=== PATIENT | female | born 1950 | race African-American/Black ===

== ENCOUNTER 2019-01-05 09:49 | Day surgery (SDC) | payer OTHER ==
[2019-01-05] MEDS ORDERED: Ringers Lactate 1,000 ML IV ONE (10:14)
[2019-01-05] MEDS ORDERED: LIDOCAINE 1% MPF 5 ML VIAL ONE (10:39)
[2019-01-05] MEDS ORDERED: MIDAZOLAM HCL 2 MG/2 ML INJ ONE (10:39)
[2019-01-05] MEDS ORDERED: FENTANYL CITR 100 MCG/2 ML ONE (10:39)
[2019-01-05] MEDS ORDERED: PROPOFOL 200 MG/20 ML VIAL IV ONE (10:39)
[2019-01-05] MEDS ORDERED: LIDOCAINE 1% W/EPI 1:100,000 MDV 50 ML VIAL ONE (11:15)
[2019-01-05] MEDS ORDERED: KETOROLAC 30 MG/ML INJ ONE (12:01)
--- NOTE | 2019-01-05 21:53 | OP ---
Date of Procedure: 01/05/2019 Surgeon: Pam Marlow MD Preoperative Diagnosis: Postmenopausal bleeding. Postoperative Diagnoses: Postmenopausal bleeding and possible endometrial adenocarcinoma and endomet rial polyps. Procedures Performed: Hysteroscopy, dilation and curettage. Anesthesia: LMA. Specimens: Endometrial curettings and polyps. Complications: None. Drains: None. Condition: Stable. Findings: Genital hiatus narrow. Cervix small. Endometrial cavity filled with polypoid tissue cons istent with possible adenocarcinoma. Posterior wall appeared to be normal. Very difficult to visual ize rest of the [place] due to the presence of all the tissue. Optimal amount of sampling was performed and sent for permanent pathology. Indications For Procedure: The patient is a 68-year-old who presented with postmenopausal bleeding. On transvaginal ultrasound, her endometrium appeared to be thickened. She was consented for direct visualization of the uterine cavity with sampling and brought to the OR. After she was taken back to the OR, placed in a supine fashion on the operating table, general anesthesia was given via LMA. patient was placed in a dorsal lithotomy position using Volodymyr stirrups. Pelvic exam performed. Ge nital hiatus was very narrow, difficult to even place a medium speculum. A small Mcgowan speculum was p laced in the posterior wall. Prep x3 with Betadine was done. Anterior lip grasped with single-tooth tenaculum. The external os dilated with the tip of a long hemostat. Diagnostic SlimLine hysterosco pe was used to traverse the cervical canal under direct visualization of the uterine cavity. The fir st time tried to start the hysteroscopy, the lens did not appear to have a clear vision, so the camer a was changed, there was no change. Then lens had to be changed. Once this was done, there was opti mal visualization. The polypoid tissue was visualized. The scope was then removed. Endometrial franky yps were retrieved using Yobani forceps after optimal retrieval medium. A #1 endometrial curette wa s used for curettings. These samples were sent over for permanent pathology. All the instruments we re removed. Instrument, needle, and sponge counts were done and were correct at the end of the case. The patient tolerated the procedure well. She will follow up with me in 1 week. JUDY/ABIEL Voice ID: [id number] Report ID: [id number]
== END 2019-01-05 12:55 | disposition home or self-care (01) ==
LOC: OR 09:49
PROVIDERS: ATTEND Obstetrics & Gynecology
PROC: 0UDB7ZX Extraction of Endometrium, Via Natural or Artificial Opening, Diagnostic (ICD-10-PCS; 2019-01-05)
PROC: 0UJD8ZZ Inspection of Uterus and Cervix, Via Natural or Artificial Opening Endoscopic (ICD-10-PCS; 2019-01-05)
PROC: 0UB97ZX Excision of Uterus, Via Natural or Artificial Opening, Diagnostic (ICD-10-PCS; principal; 2019-01-05 14:00)
DX: N95.0 Postmenopausal bleeding (principal); C54.1 Malignant neoplasm of endometrium; E78.5 Hyperlipidemia, unspecified; I10 Essential (primary) hypertension; Z79.899 Other long term (current) drug therapy
CPT/HCPCS: 88305; J2250; J2704; J3010

== ENCOUNTER 2020-06-08 19:51 | Emergency (ER) | payer OTHER ==
--- OUTSIDE RECORDS SUMMARY | 2020-06-08 19:54 | XMS REPORT | Continuity of Care Document ---
:1950 Author Organization [facility] t Address [address] [place] [address] Care Team Providers Name Role Phone SALTY Primary Care Physician Unavailable JOSE RAUL Attending Clinician Unavailable Phyllis TRAMMELL Attending Clinician Unavailable SALTY Attending Clinician Unavailable FERNANDO Attending Clinician Unavailable Marlen SUERO Attending Clinician MARLEN Attending Clinician Unavailable Salty BUTLER Attending Clinician Cathleen Guadalupe Attending Clinician Berna BUTLER Attending Clinician BERNA Attending Clinician Unavailable Cathleen ALCARAZ Attending Clinician Unavailable Fernando SUERO Attending Clinician Leydi BRIONES, L Attending Clinician Phyllis White Attending Clinician Mouna BRIONES Attending Clinician Unavailable Jose Raul BUTLER Attending Clinician Sam SUERO Attending Clinician Unavailable Mary Lou THOMPSON Attending Clinician Payers Payer Name Policy Type Policy Number Effective Date Expiration Date Yury MORENO O [id number] 2006 00:00:00 Problems Condition Condition Condition Status Onset Resolution Last Treating Co mments Source Name Details Category Date Date Treatment Clinician Date Hypomagnes Hypomagnes Disease Active 20190 M D emia emia 9-16 Anderso 00:00: n 00 Encounter Encounter Disease Active 0 for for 8-20 Anderso antineopla antineopla 00:00: n stic stic 00 chemothera chemothera py py Serum Serum Disease Active creatinine creatinine 7-15 An derso raised raised 00:00: n 00 Hypertensi Hypertensi Disease Active M D on on 01-20 Anderso 00:00: n 00 Hyperlipid Hyperlipid Disease Active M D emia emia 01-20 Anderso 00:00: n 00 Postmenopa Postmenopa Disease Active M D usal usal 01-20 Anderso bleeding bleeding 00:00: n 00 Malignant Malignant Disease Active neoplasm neoplasm 01-20 Rupert o of of 00:00: n endometriu endometriu 00 m m Multinodul Multinodul Disease Active M D ar goiter ar goiter Arun rso n Trachea Trachea Disease Active displaced displaced Arun rso n Allergies, Adverse Reactions, Alerts This patient has no known allergies or adverse reactions. Family History Family Member Diagnosis Comments Start Date Stop Date Source Natural mother Diabetes Andtoño ornelas Natural mother Heart disease MD Arun rhodes Natural mother Hypertension MD Armando son Family member Thyroid cancer MD Arun rhodes Family member Thyroid disease Social History Social Habit Start Date Stop Date Quantity Comments Source Sex Assigned At F MD Emery on Exposure to Not sure MD Diallo SARS-CoV-2 (event) Tobacco use and 2020-05-27 2020-05-27 Never used MD Emery on exposure 00:00:00 00:00:00 Alcohol intake 2020-05-27 2020-05-27 Current drinker MD Linda snyder 00:00:00 00:00:00 of alcohol (finding) Alcohol Comment 2019-07-13 2019-07-13 socially MD Emery on 00:00:00 00:00:00 Tobacco Comment 2019-01-23 2019-01-23 never used MD Emery on 00:00:00 00:00:00 Smoking Status Start Date Stop Date Source Never smoker MD Diallo Medications Ordered Filled Start Stop Current Ordering Indication Dosage Frequency Signature Comments Components Source Medication Medication Date Date Medication? Clinician (SIG) Name Name hydroCHLORO Yes 1{tbl} Take 1 thiazide 9-14 tablet by Rupert covarrubias (HYDRODIURI 13:16: mouth n L) 25 mg 32 daily. tablet ergocalcife Yes Deficiency 73466W Take 1 MD rol 05-14 of vitamin capsule Rupert o (DRISDOL) 00:00: D3 (50,000 n 50,000 00 Units) by units mouth capsule every 14 (fourteen) days. valsartan Yes MD (DIOVAN) 8-12 Anderso 320 mg 00:00: n tablet 00 ondansetron Yes Malignant Take 1 tab MD (Zofran) 8 7-24 neoplasm of every 8 Anderso mg tablet 00:00: endometrium hrs on n 00 days 2, 3, 4 following chemo, then may take 1 tablet by mouth every 8 hours as needed for nausea or vomiting. prochlorper Yes Malignant 10mg Take 1 MD azine 7-24 neoplasm of tablet (10 A nderso (Compazine) 00:00: endometrium mg) by n 10 mg 00 mouth tablet every 6 (six) hours as needed for nausea or vomiting. magnesium 2019- No Hypomagnese 400mg Take 1 MD oxide 8-05 07-21 bj tablet Anderso (MAOX) 400 00:00: 00:00 (400 mg) n mg tablet 00 :00 by mouth twice daily. ondansetron 2018- No Malignant Take 1 tab MD (ZOFRAN) 8 6-17 10-31 neoplasm of every 8 Anderso mg tablet 00:00: 00:00 endometrium hrs on n 00 :00 days 2, 3, 4 following chemo, then take 1 tab every 8 hrs as needed for nausea or vomiting. prochlorper 2019- No Malignant 10mg Take 1 MD azine 6-17 10-31 neoplasm of tablet (10 Anderso (COMPAZINE) 00:00: 00:00 endometrium mg) by n 10 mg 00 :00 mouth tablet every 6 (six) hours as needed for nausea or vomiting. furosemide Yes 1{tbl} Take 1 MD (LASIX) 20 4-23 tablet by Arun rso mg tablet 00:00: mouth n 00 daily. VITAMIN D2 2019- No 1{capsu Take 1 M D 50,000 unit 4-23 09- le} capsule by A nderso capsule 00:00: 00:00 mouth n 00 :00 every 30 (thirty) days. amLODIPine 2018- Yes 1{tbl} Take 1 MD (NORVASC) 4-22 tablet by Tr so 10 mg 00:00: mouth n tablet 00 daily. allopurinol Yes 1{tbl} Take 1 MD (ZYLOPRIM) 2-15 tablet by Arun rso 300 mg 00:00: mouth n tablet 00 daily. carvedilol Yes 1{tbl} Take 1 MD (COREG) 2-15 tablet by Anderso 12.5 mg 00:00: mouth n tablet 00 twice daily. atorvastati 2017-09 Yes 1{tbl} Take 1 MD n (LIPITOR) 0-27 tablet by And erso 20 mg 00:00: mouth n tablet 00 daily. Vital Signs Vital Name Observation Time Observation Value Comments Source WEIGHT 2020-05-06 10:39:26 88.4 kg WEIGHT 2020-05-06 10:39:26 88.4 kg WEIGHT 2020-05-06 09:08:06 88.9 kg WEIGHT 2020-05-06 09:08:06 88.9 kg WEIGHT 2020-04-15 08:17:37 90.9 kg WEIGHT 2020-04-15 08:17:37 90.9 kg Systolic blood pressure 2020-05-27 14:23:00 166 mm[Hg] MD Diallo Diastolic blood pressure 2020-05-27 14:23:00 85 mm[Hg] MD Diallo Heart rate 2020-05-27 14:23:00 98 /min MD Tr lazo Body temperature 2020-05-27 14:23:00 36.89 Peyton MD Bipin fleming Respiratory rate 2020-05-27 14:23:00 18 /min MD Bipin fleming Body weight 2020-05-27 14:23:00 86.5 kg MD Tr lazo BMI 2020-05-27 14:23:00 33.58 kg/m2 MD Tr lazo Oxygen saturation in 2020-05-06 14:08:06 97 /min MD Diallo Arterial blood by Pulse oximetry Body height 2020-04-15 14:33:00 160.5 cm MD Tr lazo Procedures Procedure Date / Time Performed Performing Clinician [facility] e CANCER ANTIGEN 125 2020-05-27 13:09:47 Arianna Rodríguez MD on COMPLETE BLOOD COUNT W/ 2020-05-27 13:09:47 Arianna Rodríguez MD DIFFERENTIAL BASIC METABOLIC PANEL, CALCIUM 2020-05-27 13:09:47 Arianna Rodríguez MD TOTAL BILIRUBIN TOTAL 2020-05-27 13:09:47 Arianna Rodríguez MD ALANINE AMINOTRANSFERASE 2020-05-27 13:09:47 Arianna Rodríguez MD ASPARTATE AMINOTRANSFERASE 2020-05-27 13:09:47 Arianna Rodríguez MAGNESIUM LEVEL 2020-05-27 13:09:47 Arianna Rodríguez MD Results CBC 2020-05-27 13:09:47 Arianna Rodríguez MD MANUAL DIFFERENTIAL 2020-05-27 13:09:47 Arianna Rodríguez MD Tr son GLUCOSE LEVEL 2020-05-27 13:09:47 Arianna Rodríguez MD BLOOD UREA NITROGEN 2020-05-27 13:09:47 [facility]EL 2020-05-27 13:09:47 Arianna Rodríguez MD [facility] n SERUM CREATININE 2020-05-27 13:09:47 rAianna Rodríguez MD .GLOMERULAR FILTRATION RATE 2020-05-27 13:09:47 Arianna Rodríguez MD CALCIUM LEVEL TOTAL 2020-05-27 13:09:47 Arianna Rodríguez MD [facility] US HEAD NECK SOFT TISSUE 2020-05-07 15:57:[address] SOFT TISSUE NECK W CONTRAST 2020-05-07 14:47:31 Danielle Alcaraz MD ALBUMIN LEVEL 2020-05-06 13:56:00 Danielle Alcaraz MD CALCIUM LEVEL TOTAL 2020-05-06 13:56:00 Danielle Alcaraz MD [facility] FREE THYROXINE 2020-05-06 13:56:00 Danielle Alcaraz MD THYROID STIMULATING HORMONE 2020-05-06 13:56:00 Danielle Alcaraz MD VITAMIN D 25 HYDROXY LEVEL 2020-05-06 13:56:00 Danielle Alcaraz BLOOD UREA NITROGEN 2020-05-06 13:56:00 Dnaielle [facility] SERUM CREATININE 2020-05-06 13:56:00 Danielle Alcaraz MD CANCER ANTIGEN 125 2020-05-06 13:56:00 Santo Jean MD Rupert on COMPLETE BLOOD COUNT W/ 2020-05-06 13:56:00 Santo Jena MD DIFFERENTIAL BASIC METABOLIC PANEL, CALCIUM 2020-05-06 13:56:00 Joss Jean MD TOTAL BILIRUBIN TOTAL 2020-05-06 13:56:00 Santo Jean MD ALANINE AMINOTRANSFERASE 2020-05-06 13:56:00 Santo Jean MD ASPARTATE AMINOTRANSFERASE 2020-05-06 13:56:00 Santo Jean MAGNESIUM LEVEL 2020-05-06 13:56:00 Santo Jean MD SERUM CREATININE 2020-05-06 13:56:00 Danielle Alcaraz MD .GLOMERULAR FILTRATION RATE 2020-05-06 13:56:00 Danielle Alcaraz MD GLUCOSE LEVEL 2020-05-06 13:56:00 Santo Jean MD ELECTROLYTE PANEL 2020-05-06 13:56:00 Santo Jean MD Results CBC 2020-05-06 13:56:00 Santo Jean MD MANUAL DIFFERENTIAL 2020-05-06 13:56:00 Santo Jean MD CANCER ANTIGEN 125 2020-04-15 12:24:54 Santo Jeaners on COMPLETE BLOOD COUNT W/ 2020-04-15 12:24:54 Santo Jean MD DIFFERENTIAL BASIC METABOLIC PANEL, CALCIUM 2020-04-15 12:24:54 Joss Jean MD TOTAL BILIRUBIN TOTAL 2020-04-15 12:24:54 Santo Jean MD ALANINE AMINOTRANSFERASE 2020-04-15 12:24:54 Santo Jean MD ASPARTATE AMINOTRANSFERASE 2020-04-15 12:24:54 Santo Jean MAGNESIUM LEVEL 2020-04-15 12:24:54 Santo Jean MD Results CBC 2020-04-15 12:24:54 Santo Jean MD MANUAL DIFFERENTIAL 2020-04-15 12:24:54 Santo Jean MD GLUCOSE LEVEL 2020-04-15 12:24:54 Santo Jean MD BLOOD UREA NITROGEN 2020-04-15 12:24:54 Santo Jean MD ELECTROLYTE PANEL 2020-04-15 12:24:54 Santo Jean MD SERUM CREATININE 2020-04-15 12:24:54 Santo Jean MD .GLOMERULAR FILTRATION RATE 2020-04-15 12:24:54 Santo Jean MD CALCIUM LEVEL TOTAL 2020-04-15 12:24:54 Santo Jean MD Tr son CT CHEST ABDOMEN PELVIS W 2020-04-03 22:00:00 Santo Jean MD CONTRAST POC CREATININE 2020-04-03 21:03:00 Santo Jean MD CANCER ANTIGEN 125 2020-04-01 17:31:07 Santo Jean MD on CT ABDOMEN W WO CONTRAST 2020-03-07 13:23:00 Tiara Trammell MD POC CREATININE 2020-03-07 12:48:00 Santo Jean MD CANCER ANTIGEN 125 2020-03-07 12:27:00 Santo Jean MD on US THYROID 2019-11-15 14:39:55 Santo Jean MD THYROID STIMULATING HORMONE 2019-11-07 18:14:00 Danielle Alcaraz MD FREE THYROXINE 2019-11-07 18:14:00 Danielle Alcaraz MD THYROID PEROXIDASE ANTIBODY 2019-11-07 18:14:00 Danielle Alcaraz MD VITAMIN D 25 HYDROXY LEVEL 2019-11-07 18:14:00 Danielle Alcaraz CALCIUM LEVEL TOTAL 2019-11-07 18:14:00 Danielle Alcaraz MD son ALBUMIN LEVEL 2019-11-07 18:14:[address] CHEST ABDOMEN PELVIS W 2019-10-09 14:08:34 Arianna Rodríguez MD CONTRAST BLOOD UREA NITROGEN 2019-10-09 12:07:00 Flaquita Vargaser son SERUM CREATININE 2019-10-09 12:07:00 Flaquita Vargas MD SERUM CREATININE 2019-10-09 12:07:00 Flaquita Vargas MD .GLOMERULAR FILTRATION RATE 2019-10-09 12:07:00 Flaquita Vargas MD CANCER ANTIGEN 125 2019-07-10 12:21:30 Santo Jean MD on COMPLETE BLOOD COUNT W/ 2019-07-10 12:21:30 Santo Jean MDrskalli DIFFERENTIAL BASIC METABOLIC PANEL, CALCIUM 2019-07-10 12:21:30 Joss Jean MD IONIZED BILIRUBIN TOTAL 2019-07-10 12:21:30 Santo Jean MD ALANINE AMINOTRANSFERASE 2019-07-10 12:21:30 Santo Jean MD ASPARTATE AMINOTRANSFERASE 2019-07-10 12:21:30 Santo Jean MAGNESIUM LEVEL 2019-07-10 12:21:30 Santo Jean MD Results CBC 2019-07-10 12:21:30 Santo Jean MD MANUAL DIFFERENTIAL 2019-07-10 12:21:30 Santo Jean MD Tr son GLUCOSE LEVEL 2019-07-10 12:21:30 Santo Jean MD BLOOD UREA NITROGEN 2019-07-10 12:21:30 Santo Jean MD Tr son ELECTROLYTE PANEL 2019-07-10 12:21:30 Santo Jean MD Andbebetoo n SERUM CREATININE 2019-07-10 12:21:30 Santo Jean MD .GLOMERULAR FILTRATION RATE 2019-07-10 12:21:[address] CHEST ABDOMEN PELVIS W 2019-07-06 14:50:00 Santo Jean MD CONTRAST POC BLOOD UREA NITROGEN + 2019-07-06 13:56:00 Provider, Isael Diallo CREATININE CANCER ANTIGEN 125 2019-06-19 12:12:00 Arianna Rodríguez MD on COMPLETE BLOOD COUNT W/ 2019-06-19 12:12:00 Arianna Rodríguez MD DIFFERENTIAL BASIC METABOLIC PANEL, CALCIUM 2019-06-19 12:12:00 Arianna Rodríguez MD IONIZED BILIRUBIN TOTAL 2019-06-19 12:12:00 Arianna Rodríguez MD ALANINE AMINOTRANSFERASE 2019-06-19 12:12:00 Arianna Rodríguez MD ASPARTATE AMINOTRANSFERASE 2019-06-19 12:12:00 Arianna Rodríguez MAGNESIUM LEVEL 2019-06-19 12:12:00 Arianna Rodríguez MD Results CBC 2019-06-19 12:12:00 Arianna Rodríguez MD MANUAL DIFFERENTIAL 2019-06-19 12:12:00 Arianna Rodríguez MD Trbeka lazo GLUCOSE LEVEL 2019-06-19 12:12:00 Arianna Rodríguez MD ELECTROLYTE PANEL 2019-06-19 12:12:00 Arianna Rodríguez MD SERUM CREATININE 2019-06-19 12:12:00 Arianna Rodríguez MD .GLOMERULAR FILTRATION RATE 2019-06-19 12:12:00 Arianna Rodríguez MD BLOOD UREA NITROGEN 2019-06-19 12:12:00 Arianna Rodríguez MD Tr [place] Encounters Start End Encounter Admission Attending Care Care Encounter Source Date/Time Date/Time Type Type Clinicians Facility Department ID 2020-10-01 2020-10-01 Outpatient EL JOSE RAUL, MDA MDA [id number] MD 00:00:00 00:00:00 CARLOS A ornelas 2020-10-01 2020-10-01 Outpatient EL JP, MDA MDA [id number] MD 00:00:00 00:00:00 TIARA Dias salinas ornelas 2020-07-01 2020-07-01 Outpatient EL SALTY, MDA MDA [id number] MD 00:00:00 00:00:00 ALLAN ornelas 2020-07-01 2020-07-01 Outpatient EL FERNANDO, MDA MDA [id number] MD 00:00:00 00:00:00 SANTO ornelas 2020-07-01 2020-07-01 Outpatient BECKY JEAN, MDA MDA [id number] MD 00:00:00 00:00:00 SANTO ornelas 2020-05-27 2020-05-27 Outpatient ARIANNA CONNELL MDA MDA [id number] 09:08:41 09:08:41 Rupert ornelas 2020-05-27 2020-05-27 Outpatient EL SALTY, MDA MDA [id number] 08:11:22 08:11:22 ALLAN ornelas 2020-05-27 2020-05-27 Outpatient ARIANNA CONNELL MDA MDA [id number] 08:00:27 08:09:32 Rupert ornelas 2020-05-14 2020-05-14 Outpatient BECKY CORONEL, MDA MDA [id number] 10:28:59 10:28:59 EDELMIRA ornelas 2020-05-07 2020-05-07 Outpatient EL YSABEL, MDA MDA [id number] 09:36:53 09:36:53 DANIELLE ornelas 2020-05-07 2020-05-07 Outpatient EL YSABEL, MDA MDA [id number] 09:04:23 09:04:23 DANIELLE ornelas 2020-05-06 2020-05-06 Outpatient EL FERNANDO, MDA MDA [id number] MD 10:30:36 17:34:00 SANTO ornelas 2020-05-06 2020-05-06 Outpatient EL SALTY, MDA MDA [id number] 08:57:29 10:28:14 ALLAN ornelas 2020-05-06 2020-05-06 Outpatient BECKY JEAN, MDA MDA [id number] 08:43:39 08:50:07 SANTO Emery o ceci 2020-04-15 2020-04-15 Outpatient BECKY POND, MDA MDA [id number] MD 07:29:57 09:42:59 ALLANKALLI Emery o ceci 2020-04-15 2020-04-15 Outpatient BECKY JEAN, MDA MDA [id number] 09:09:36 09:09:36 SANTO Rupert o ceci 2020-04-15 2020-04-15 Outpatient BECKY JEAN, MDA MDA [id number] 07:08:02 07:24:34 SANTO Seners o ceci 2020-04-03 2020-04-03 Outpatient BECKY JEAN, MDA MDA [id number] 14:57:19 14:57:19 SANTO Rupert o ceci 2020-04-01 2020-04-01 Outpatient BECKY POND, MDA MDA [id number] MD 12:34:11 12:34:11 ALLANKALLI Seners o ceci 2020-04-01 2020-04-01 Outpatient BECKY JEAN, MDA MDA [id number] 12:12:01 12:17:35 SANTO Rupert o ceci 2020-03-07 2020-03-07 Outpatient BECKY BLUNT, MDA MDA [id number] 14:24:44 15:30:10 CARLOS A ornelas 2020-03-07 2020-03-07 Outpatient BECKY JEAN, MDA MDA [id number] 07:09:15 07:09:15 SANTO Seners o ceci 2020-03-07 2020-03-07 Outpatient BECKY TRAMMELL, MDA MDA [id number] 07:08:43 07:08:43 TIARA ornelas Results Test Description Test Time Test Comments Results Result [facility] e Comments CT Soft Tissue 2020-04-14 Enlarged multinodular MD Diallo Neck with 5 thyroid gland with mild Contrast 22:20:05 mediastinal extension is without significant interval change. Slight displacement of the trachea to the left is stable without decreased patency.Interface, Radiology Results In - 05/07/2020 5:22 PM CDTFULL RESULT:Examination: CT SOFT TISSUE NECK W CONTRAST on 05/07/2020 9:47 AMClinical History: Multinodular goiterIndication: Follow upComparison: Ultrasound dated 05/07/2020 and 11/15/2019, CT chest dated 04/03/2020.Technique: Axial postcontrast CT images of the neck were obtained from the level of the aortic arch to the skull base. Sagittal and coronal reconstructions were provided.Findings: The imaged intracranial compartment is unremarkable. There is complete opacification of the right maxillary sinus. The parotid glands and submandibular glands are unremarkable. The thyroid gland is diffusely enlarged, particularly the right thyroid lobe with partial extension into the superior mediastinum. Multiple heterogeneous nodules in the thyroid parenchyma are redemonstrated and appear grossly similar relative to prior CT chest. The size of the gland shows no significant interval change relative to 04/03/2020 or dating back to 01/24/2019. Mild deviation of the trachea to the left is unchanged and the airway remains patent throughout. There is no worrisome cervical adenopathy.No suspicious pulmonary nodules are seen in the imaged upper lungs. The great vessels of the neck are patent. No destructive osseous lesions are seen.IMPRESSION:Enlarge d multinodular thyroid gland with mild mediastinal extension is without significant interval change. Slight displacement of the trachea to the left is stable without decreased patency. US Head Neck 2020-04-14 Enlarged thyroid MD And erson Soft Tissue 5 consistent with 18:39:00 multinodular goiter. Multiple confluent nodules are seen in both lobes that are unchanged from the prior study of 11/15/2019. No suspicious nodules seen. There is no adenopathy.Interface, Radiology Results In - 05/07/2020 1:41 PM CDTFULL RESULT:Examination: US HEAD NECK SOFT TISSUE on 05/07/2020 10:57 AMClinical History: Multinodular goiterTrachea displacedIndication: MassComparison: 11/15/2019Technique: Real-time ultrasound examination of the neck soft tissues was performed.FINDINGS:Righ t Thyroid Lobe: The right thyroid lobe is diffusely heterogenous and enlarged. It measures 6 x 3.1 x 3.1 cm.It contains multiple confluent cystic spongiform and solid nodules. Scattered macrocalcifications are seen.The largest nodule measures 2.7 and is isoechoic.Left Thyroid Lobe: The left thyroid lobe is diffusely heterogenous and is normal in size measuring 2.9 x 1.3 x 1 cm. It contains multiple subcentimeter cystic or spongiform nodules.The isthmus is thickened. There is a 6 mm partly cystic nodule in the isthmus.The appearance of the thyroid nodules is unchanged compared to the prior scanThere is no suprasternal or cervical adenopathy.IMPRESSION:E nlarged thyroid consistent with multinodular goiter. Multiple confluent nodules are seen in both lobes that are unchanged from the prior study of 11/15/2019. No suspicious nodules seen. There is no adenopathy. CT Chest Abdomen 2020-03-14 1. Interval MD Linda snyder Pelvis with 3 development of small to Contrast 17:06:01 moderate amount of abdominopelvic ascites containing dense nodularity as seen in the perihepatic space, right paracolic gutter and pelvis, suspicious for malignant ascites/implants.2. Diffuse hazy mesenteric stranding and omental caking, suspicious for peritoneal carcinomatosis.3. Enlarging right anterior diaphragmatic lymph nodes, suspicious for metastatic involvement. 4. Stable size of two suspicious renal lesions in the right kidney. 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 Indication: Restaging - Treatment completion, COVID-19 Not Suspected, restaging-> recent elevation of CA-125Comparison: CT abdomen 03/07/2020; CT chest abdomen pelvis 10/09/2019, 07/06/2019, 01/24/2019Technique: CT of the chest, abdomen, and pelvis was performed with intravenous contrast.Findings: Chest:There a stable 0.8 cm calcified granuloma in the left lower lobe (series 4 image 81). Additional scattered bilateral pulmonary nodules measuring up to 0.3 cm noted (examples include series 4 image 29, 43, 62, 71). These pulmonary nodules have been stable since 01/24/2019.No pleural effusion or pneumothorax identified.The heart size is within normal limits. No pericardial effusion identified. There are enlarging right cardiophrenic lymph nodes. A service center representative right cardiophrenic node measures 1.1 x 1.2 cm (series 3 image 79), measuring 0.7 x 0.6 cm on study dating 01/24/2019. Additional examples of mildly enlarged right cardiophrenic lymph nodes can be seen on series 3 image 141. No enlarging hilar or axillary lymphadenopathy.Multipl e nodules again seen in the right lobe of the thyroid. High density material along the margin of the left lobe may represent postsurgical sutures or calcifications.Abdomen and Pelvis:A punctate granuloma noted in the hepatic dome. No new suspicious liver lesions identified. No focal hepatic lesion identified.The gallbladder is present. No intrahepatic biliary ductal dilatation. Mild dilation of the common bile duct measuring up to 1 cm, unchanged compared to prior study dating back to 01/24/2019.There is a stable 0.5 cm cyst in the uncinate process of the pancreas (series 3 image 178). Otherwise the pancreas is unremarkable.The spleen and adrenal glands are unremarkable.A small sliding hiatal hernia noted. There is no evidence of bowel obstruction. Moderate amount of rectal stool burden noted. There is colonic injury. A Njtg-[id number]-BbvjKhivp has been interval development of a small to moderate amount of abdominopelvic ascites containing nodularity as seen in the perihepatic space (series 3 image 141), right paracolic gutter (series 3 image 204), and pelvis (series 3 image 257, 261, 264). Additionally, there has been interval development of diffuse hazy stranding and omental caking within the mesentery suspicious for peritoneal carcinomatosis. There is a stable complex heterogeneous lesion containing internal enhancement in the superior pole of the right kidney measuring up to 1.2 x 1 cm (series 3 image 167) not significantly changed when compared to prior study dating back to 01/24/2019. A second complex heterogeneous lesion noted in the anterior interpolar region of the right kidney measuring 2.1 x 1.7 cm (series 3 image 181) containing internal enhancement not significantly changed when compared to prior study dating back to 01/24/2019. There is a stable 0.8 cm lesion arising from the posterior left kidney (series 3 image 190), possibly representing a hemorrhagic cyst. Additional subcentimeter bilateral hypodense lesions are too small to characterize. There is no hydronephrosis bilaterally.Patient is status post hysterectomy and bilateral salpingo-oophorectomy.T here is no evidence of abnormally enlarged retroperitoneal or pelvic adenopathy.The abdominal aorta is nonaneurysmal and demonstrate mild amount of scattered atherosclerosis.aNo acute or suspicious osseous abnormalities identified. Multilevel degenerative changes noted throughout the spine.IMPRESSION:1. Interval development of small to moderate amount of abdominopelvic ascites containing dense nodularity as seen in the perihepatic space, right paracolic gutter and pelvis, suspicious for malignant ascites/implants.2. Diffuse hazy mesenteric stranding and omental caking, suspicious for peritoneal carcinomatosis.3. Enlarging right anterior diaphragmatic lymph nodes, suspicious for metastatic involvement. 4. Stable size of two suspicious renal lesions in the right kidney. I personally reviewed these image(s) along with the resident's/fellow's interpretations, certify that if a procedure was performed I was physically present, and agree with the final report. POC Creatinine 2020-04-03 21:20:29 Test Item Value Reference Range Interpretation Comme nts POC Crea (test code = 1.2 mg/dL 0.6-1.3 Medica tions, especially 36454-4) hydroxyurea or supplements, such as ascorba te, can interfere with test results causing a false ly and significantlyhi gher result than expected. If a problem is suspected with a patient's result, a sampl e should be sent to the lab oratory for confirmatory te sting. POC eGFR-AA (test code = 53 >=60 mL/min/1.73 L Normal eGFR >= 60 mL/min/1.73 46075-2) m2 m2 The eGFR is calculated using the CKD-E PI equation. The eGFR declin es with age. eGFR <60 mL/min /1.73 m2 is considered as " decreased" This equation should only be used for patients 18 and older. According to th e [employer] on's Kidney Disease Outcome Quality Initiative (KDO QI) classification and 2012 Kidney Disease Improvi ng Global Outcomes (KDIGO ) Clinical Practice Guidel ine, the stage of CKD should b e categorized based on estima darryl GFR. Stage Description GFR mL/min/1.73 m21 Kidney kaya ge with normal or high GFR >=902 Kidney damage with mil d decrease in GFR 60-893a Mild to moderate decrea se in GFR 45-593b Moderat e to severe decrease in GFR 30-444 Severe decrease in GFR 15-295 Kidney f ailure <15 (or dialysis) POC eGFR-ALLEN (test code = 46 >=60 mL/min/1.73 L Normal eGFR >= 60 mL/min/1.73 53935-5) m2 m2 The eGFR is calculated using the CKD-E PI equation. The eGFR declin es with age. eGFR <60 mL/min /1.73 m2 is considered as " decreased" This equation should only be used for patients 18 and older. According to National [employer] on's Kidney Disease Outcome Quality Initiative (KDO QI) classification and 2012 Kidney Disease Improvi ng Global Outcomes (KDIGO ) Clinical Practice Guidel ine, the stage of CKD should b e categorized based on estima darryl GFR. Stage Description GFR mL/min/1.73 m21 Kidney kaya ge with normal or high GFR >=902 Kidney damage with mil d decrease in GFR 60-893a Mild to moderate decrea se in GFR 45-593b Moderat e to severe decrease in GFR 30-444 Severe decrease in GFR 15-295 Kidney f ailure <15 (or dialysis) POC Clean Dev (test code Yes = 6672) Lab Interpretation (test Abnormal code = 27524-6) MD DialloCT Abdomen with and without [id number] 13:58:23 Slight interval increase in the size of right kidney complex cystic lesions as described above. Incidental findings as above. Interface, Radiology Results In - 03/07/2020 9:00 AM CDTFULL RESULT:Examination: CT ABDOMEN W WO CONTRAST, 03/07/2020 8:23 AMClinical History: Renal mass for reassessmentIndication: renal protocol please and characterize any change in the renal cysts, particularly the two worrisome lesion in the right kidneyComparison: CT chest, abdomen and pelvis dated 10/09/2019Technique: CT of the abdomen was performed with and without intravenous contrast. The study is limited by motionartifacts.Findings:A 2.2 x 1.6 cm (series 7, image 89) right kidney interpolar region, anterior cortical multilocular cystic lesion with enhancing components previously measured 2.1 x 1.6 cm. A 1.3 x 0.9 cm (series 6, image 60) right kidney posterior cortical complex cyst with enhancing components previously measured 1.2 x 0.9 cm. Smaller simple renal cysts are also seen.A 9.5 mm hemorrhagic cyst (82HU) arising from the posterior cortex of the left kidney (series 3, image 69) again seen.There is nosolid renal mass, calculus or hydronephrosis. Bilateral single renal arteries seen. Bilateral renal veins and the inferior vena cava are patent. No significant retroperitoneal or mesenteric lymphadenopa thy.A right hepatic calcific focus and a small unilocular cyst within the pancreatic uncinate process again seen. The liver, remainder of the pancreas and the spleen are normal. Bilateral diffuse adrenal hyperplasia. Incidental hiatal hernia. The stomach and the visualized small bowel loops are normal. Significant stool within the proximal colon. There is no ascites. Multilevel degenerative changes of the visualized axial skeleton.A left lower lobe calcified granuloma without mass or consolidation in the visualized lung bases. No pleural or pericardial effusion.IMPRESSION:Slight interval increase in the size of right kidney complex cystic lesions as described above. Incidental findings as above.MD Ruano [id number] 15:41:411. Multinodular thyroid gland containing multiple low suspicion thyroid nodules which can be followed sonographically.2. No adenopathy. Interface, Radiology Results In - 11/15/2019 9:43 AM CSTFULL RESULT:Examination: ULTRASOUND SOFT TISSUE HEAD&NECK, ULTRASOUND SOFT TISSUE HEAD&NECK on 11/15/2019 8:29 AMClinical History: Endometrial carcinoma in remission.Indication: Multiple thyroid nodules on recent CT chests study.Comparison: CT chest 10/09/2019.Technique: Real-time ultrasound examination of the neck soft tissues was performed.FINDINGS:Right Thyroid Lobe measures 6.1 x 3 x 2.8 cm. Left Thyroid Lobe measures 3 x 1.3 x 1.2 cm. Isthmus measures 0.6 cm.There are multiple confluent nodules in the right thyroid lobe. Examples include a 2.7 x 2.3 x 2.1 cm spongiform nodule in the right inferior thyroid lobe. There is a focus of of coarse calcification in the right mid thyroid lobe measuring0.4 cm. There is almost completely solid 1.1 x 1.2 x 1 cm in size isoechoic nodule containing no calcification in the right superior thyroid lobe. There is a 0.8 x 0.7 x 0.6 cm spongiform nodule in the isthmus. In the left thyroid lobe there is iso-hyperechoic 1.4 x 1 x 0.9 cm solid nodule containing no calcification.Right Lateral Neck: No adenopathy.Left Lateral Neck: No adenopathy.Submental to Cricoid: No adenopathy.IMPRESSION:1. Multinodular thyroid gland containing multiple low suspicion thyroid nodules which can be followed sonographically.2. No adenopathy.MD Hurley BUN + [id number] 14:10:29 Test Item Value Reference Range Interpretation Comments POC BUN (test code = 12 mg/dL 8 6299-2) POC Crea (test code 1.1 mg/dL 0.6-1.3 Medicati ons, especially = 96393-9) hydroxyurea or supplements, londono ch as ascorbate, can interfere with test resul ts causing a falsely and significantlyhi gher result than exp ected. If a problem is londono spected with a patient' s result, a sample should be sent to the laborato for confirmatory te sting. POC eGFR-AA (test 59 >=60 L Normal eGF R >= 60 code = 47245-4) mL/min/1.73 m2 mL/min/1.7 3 m2 The eGFR is calculated u sing the CKD-EPI equatio n. The eGFR declines w ith age. eGFR <60 mL/min /1.73 m2 is considered a s "decreased" Thi s equation should only be used for patients 18 and older. According to th e National [employer] on's Kidney Disease Outcome Quality Initiat tacos (KDOQI) classif ication and 2012 Kidney Disease Improving Globa l Outcomes (KDIGO) Clinica l Practice Guideline, the stage of CKD should be c ategorized based on estima darryl GFR. Stage Descripti on GFR mL/min/1.73 m21 Kidney damage with nor mal or high GFR >= 902 Kidney damage with mil d decrease in GFR 60-89 3a Mild to moderate decrea se in GFR 45-593b Mode rate to severe decrease in GFR 30-444 Severe decrease in GFR 15-29 5 Kidney failure <15 (or dialysis) POC eGFR-ALLEN (test 51 >=60 L Normal eG FR >= 60 code = 92654-6) mL/min/1.73 m2 mL/min/1.7 3 m2 The eGFR is calculated u sing the CKD-EPI equatio n. The eGFR declines w ith age. eGFR <60 mL/min /1.73 m2 is considered a s "decreased" Thi s equation should only be used for patients 18 and older. According to e National [employer] on's Kidney Disease Outcome Quality Initiat tacos (KDOQI) classif ication and 2012 Kidney Disease Improving Globa l Outcomes (KDIGO) Clinica l Practice Guideline, the stage of CKD should be c ategorized based on estima darryl GFR. Stage Descripti on GFR mL/min/1.73 m21 Kidney damage with nor mal or high GFR >= 902 Kidney damage with mil d decrease in GFR 60-89 3a Mild to moderate decrea se in GFR 45-593b Mode rate to severe decrease in GFR 30-444 Severe decrease in GFR 15-29 5 Kidney failure <15 (or dialysis) POC Clean Dev (test Yes code = 6672) Lab Interpretation Abnormal (test code = 98227-2) MD Diallo
[2020-06-08 21:11] LABS: MPV 6.8 fL (7.6-11.3)
[2020-06-08 21:15] LABS: Absolute Lymphocytes (CBC) 1.3 K/uL (0.7-4.9); Basophils % 0.6 % (0-1.3); Hematocrit 25.5 % (36.0-45.0); Lymphocytes % 64.6 % (15.3-44.8); RBC Red Blood Cell Count 3.44 M/uL (3.86-4.86)
[2020-06-08 21:24] LABS: Protime INR 1.09
[2020-06-08 21:29] LABS: ALT/SGPT 23 U/L (12-78); AST/SGOT 16 U/L (15-37); Albumin 3.6 g/dL (3.4-5.0); Alkaline Phosphatase 83 U/L (45-117); BUN Blood Urea Nitrogen 14 mg/dL (7-18); Bicarbonate 23 mmol/L (21-32); Bilirubin Direct 0.2 mg/dL (0-0.2); Bilirubin Total 0.6 mg/dL (0.2-1.0); Glucose Level 85 mg/dL (74-106); Magnesium 1.6 mg/dL (1.8-2.4); NT PRO-BNP 100 pg/mL (<125); Potassium 3.8 mmol/L (3.5-5.1); Protein, Total 8.5 g/dL (6.4-8.2); Sodium Level 136 mmol/L (136-145); Troponin (Emerg Dept Use Only) < 0.02 ng/mL (0.0-0.045)
--- NOTE | 2020-06-08 21:45 | RAD REPORT ---
EXAM DESCRIPTION: Marya Single View06/08/2020 9:18 pm CLINICAL HISTORY: Weakness COMPARISON: none FINDINGS: The lungs appear clear of acute infiltrate. The heart is normal size IMPRESSION: No acute abnormalities displayed
[2020-06-08 21:58] LABS: Blood Morphology Comment NOTED (NOT SEEN); Hypochromasia 2+; Platelet Estimate ADEQ; Platelets, Giant OCC
[2020-06-08 21:59] LABS: Stomatocytes 1+; Target Cells 1+
[2020-06-08] MEDS ORDERED: NA CHLORIDE 0.9% 1,000 ML ONE (22:28)
[2020-06-08 23:04] LABS: Urine Blood NEGATIVE (NEG); Urine Glucose NEGATIVE (NEG); Urine Protein NEGATIVE (NEG)
--- NOTE | 2020-06-08 23:27 | EDPHYS ---
Physician Documentation [facility] Name: Cass Vance Age: 69 yrs Sex: Female : 1950 Arrival Date: 06/08/2020 Time: 19:53 Bed 13 Private MD: ED Physician Ebenezer Corbett HPI: 06/08 21:12 This 69 yrs old Black Female presents to ER via Ambulatory with complaints of General mh7 Weakness. 21:12 The patient's problem is reported as weakness, that is generalized, Generalized fatigue.mh7 21:12 Onset: The symptoms/episode began/occurred 1 week(s) ago. Duration: constant. Context: mh7 generalized fatigue/weakness, on chemo for uterine cancer, last chemo was 2 weeks ago, told to get blood checked. The symptoms are alleviated by nothing. The symptoms are aggravated by walking. Associated signs and symptoms: Pertinent negatives: abdominal pain, agitation, ataxia, blurred vision, chest pain, combativeness, confusion, diaphoresis, diarrhea, dizziness, headache, lightheadedness, nausea, numbness, palpitations, seizure, shortness of breath, tingling, vertigo, vomiting. Severity of symptoms: At their worst the symptoms were moderate 7 day(s) ago, in the emergency department the symptoms have improved moderately. Historical: - Allergies: 20:00 No Known Allergies; ll1 - PMHx: 20:00 uterine CA; Hypertension; High Cholesterol; ll1 - PSHx: 20:00 Cancer surgery; ll1 - Immunization history:: Flu vaccine is not up to date. - Social history:: Smoking status: Patient denies any tobacco usage or history of. ROS: 21:12 Constitutional: Negative for fever, chills, and weight loss, Eyes: Negative for injury, mh7 pain, redness, and discharge, ENT: Negative for injury, pain, and discharge, Neck: Negative for injury, pain, and swelling, Cardiovascular: Negative for chest pain, palpitations, and edema, Respiratory: Negative for shortness of breath, cough, wheezing, and pleuritic chest pain, Abdomen/GI: Negative for abdominal pain, nausea, vomiting, diarrhea, and constipation, Back: Negative for injury and pain, : Negative for injury, bleeding, discharge, and swelling, MS/Extremity: Negative for injury and deformity, Skin: Negative for injury, rash, and discoloration, Neuro: Negative for headache, weakness, numbness, tingling, and seizure, Psych: Negative for depression, anxiety, suicide ideation, homicidal ideation, and hallucinations, Allergy/Immunology: Negative for hives, rash, and allergies, Endocrine: Negative for neck swelling, polydipsia, polyuria, polyphagia, and marked weight changes, Hematologic/Lymphatic: Negative for swollen nodes, abnormal bleeding, and unusual bruising. Exam: 21:12 Constitutional: This is a well developed, well nourished patient who is awake, alert, mh7 and in no acute distress. Head/Face: Normocephalic, atraumatic. Eyes: Pupils equal round and reactive to light, extra-ocular motions intact. Lids and lashes normal. Conjunctiva and sclera are non-icteric and not injected. Cornea within normal limits. Periorbital areas with no swelling, redness, or edema. 22:43 ENT: Nares patent. No nasal discharge, no septal abnormalities noted. Tympanic mh7 membranes are normal and external auditory canals are clear. Oropharynx with no redness, swelling, or masses, exudates, or evidence of obstruction, uvula midline. Mucous membranes moist. Neck: Trachea midline, no thyromegaly or masses palpated, and no cervical lymphadenopathy. Supple, full range of motion without nuchal rigidity, or vertebral point tenderness. No Meningismus. Chest/axilla: Normal chest wall appearance and motion. Nontender with no deformity. No lesions are appreciated. Cardiovascular: Regular rate and rhythm with a normal S1 and S2. No gallops, murmurs, or rubs. Normal PMI, no JVD. No pulse deficits. Respiratory: Lungs have equal breath sounds bilaterally, clear to auscultation and percussion. No rales, rhonchi or wheezes noted. No increased work of breathing, no retractions or nasal flaring. Abdomen/GI: Soft, non-tender, with normal bowel sounds. No distension or tympany. No guarding or rebound. No evidence of tenderness throughout. Back: No spinal tenderness. No costovertebral tenderness. Full range of motion. Skin: Warm, dry with normal turgor. Normal color with no rashes, no lesions, and no evidence of cellulitis. MS/ Extremity: Pulses equal, no cyanosis. Neurovascular intact. Full, normal range of motion. Neuro: Awake and alert, GCS 15, oriented to person, place, time, and situation. Cranial nerves II-XII grossly intact. Motor strength 5/5 in all extremities. Sensory grossly intact. Cerebellar exam normal. Normal gait. Psych: Awake, alert, with orientation to person, place and time. Behavior, mood, and affect are within normal limits. 23:59 CT study not indicated or reported. Reason for not performing CT: not ordered, problem [facility] not related to focal neurological issue 06/09 02:07 ECG was reviewed by the Attending Physician. [facility] Vital Signs: 06/08 19:58 BP 151 / 100; Pulse 111; Resp 18; Temp 98.6; Pulse Ox 100% ; Weight 83.91 kg; Height 5 ll1 ft. 6 in. (167.64 cm); Pain 0/10; 22:20 BP 123 / 92; Pulse 77; Resp 19; Pulse Ox 99% ; rr5 23:00 BP 121 / 75; Pulse 79; Resp 16; Pulse Ox 98% ; rr5 23:59 BP 127 / 84; Pulse 70; Resp 16; Temp 99; Pulse Ox 99% ; rr5 19:58 Body Mass Index 29.86 (83.91 kg, 167.64 cm) ll1 MDM: 20:43 Patient medically screened. [facility] 23:24 Differential diagnosis: metabolic disorder, drug effects, Anemia, Neutropenia. Data [facility] reviewed: vital signs, nurses notes, lab test result(s), cardiac enzymes, CBC, electrolytes, urinalysis, radiologic studies, plain films. Data interpreted: Pulse oximetry: on room air is 99 %. Interpretation: normal. Counseling: I had a detailed discussion with the patient and/or guardian regarding: the historical points, exam findings, and any diagnostic results supporting the discharge/admit diagnosis, lab results, radiology results, the need for outpatient follow up, to return to the emergency department if symptoms worsen or persist or if there are any questions or concerns that arise at home. Response to treatment: the patient's symptoms have markedly improved after treatment, the patient is now symptom free, patient is well hydrated. 23:59 ED course: Feels better, well appearing, NAD, VSS, no focal neurological deficits. [facility] Discussed with Dr. Cueva, covering for patient's oncologist Dr. Joseph. She recommended no treatment or hospitalization for patient's neutropenia as this is expected within 2 weeks after chemotherapy and since patient is afebrile. Recommended that patient follow up but may return to ED if she develops fever. This information was discussed with the patient who agreed with the plan. . 06/08 20:44 Order name: Basic Metabolic Panel [facility] 06/08 20:44 Order name: CBC with Diff [facility] 06/08 20:44 Order name: LFT's [facility] 06/08 20:44 Order name: Magnesium [facility] 06/08 20:44 Order name: NT PRO-BNP [facility] 06/08 20:44 Order name: PT-INR [facility] 06/08 20:44 Order name: Troponin (emerg Dept Use Only) [facility] 06/08 21:00 Order name: Type And Screen [facility] 06/08 21:27 Order name: CBC with Automated Diff; Complete Time: 22:10 [facility] 06/08 21:28 Order name: Protime (+INR); Complete Time: 22:10 [facility] 06/08 21:29 Order name: Basic Metabolic Panel; Complete Time: 22:10 [facility] 06/08 21:29 Order name: Liver (Hepatic) Function; Complete Time: 22:10 [facility] 06/08 21:29 Order name: Troponin (Emerg Dept Use Only); Complete Time: 22:10 [facility] 06/08 21:29 Order name: NT PRO-BNP; Complete Time: 22:10 [facility] 06/08 20:44 Order name: XRAY Chest (1 view) [facility] 06/08 20:44 Order name: EKG; Complete Time: 20:45 [facility] 06/08 20:44 Order name: Cardiac monitoring; Complete Time: 21: [facility] 06/08 20:44 Order name: EKG - Nurse/Tech; Complete Time: 21: [facility] 06/08 20:44 Order name: IV Saline Lock; Complete Time: 21: [facility] 06/08 20:44 Order name: Labs collected and sent; Complete Time: 21: [facility] 06/08 20:44 Order name: O2 Per Protocol; Complete Time: 21: [facility] 06/08 20:44 Order name: O2 Sat Monitoring; Complete Time: 21: [facility] 06/08 20:44 Order name: Urine Dipstick-Ancillary (obtain specimen); Complete Time: 21:53 mh7 06/08 21:29 Order name: Magnesium; Complete Time: 22:10 [facility] 06/08 21:46 Order name: RAD; Complete Time: 22:10 ED[facility] 06/08 21:59 Order name: Manual Differential; Complete Time: 22:10 EDMS 06/08 22:07 Order name: Urine Dipstick--Ancillary (enter results) mw2 06/08 22:17 Order name: Type and Screen; Complete Time: 23:12 EDMS 06/08 23:05 Order name: Urine Dipstick-Ancillary; Complete Time: 23:12 EDMS EC/27 02:07 Rate is 87 beats/min. Rhythm is regular, Normal Sinus Rhythm. QRS Schriever is Normal. [place] mh7 interval is normal. QRS interval is normal. QT interval is normal. No Q waves. T waves are Normal. No ST changes noted. Clinical impression: Normal ECG and LVH. Administered Medications: 06/08 22:17 Drug: NS 0.9% 1000 ml Route: IV; Rate: 1000 ml; Site: right antecubital; rr5 23:50 Follow up: Response: No adverse reaction; IV Status: Completed infusion; IV Intake: rr5 1000ml Disposition: 06/08/20 23:27 Discharged to Home. Impression: Generalized Weakness, Anemia, Neutropenia without Fever. - Condition is Stable. - Discharge Instructions: Anemia, Nonspecific, Neutropenia, Weakness, [id number]. - Medication Reconciliation Form, Thank You Letter, Antibiotic Education, Prescription Opioid Use form. - Follow up: Private Physician; When: 1 - 2 days; Reason: Worsening of condition, Recheck today's complaints, Continuance of care, Re-evaluation by your physician. - Problem is an ongoing problem. - Symptoms have improved. Signatures: Dispatcher [employer] EDMS Kirill West RN RN rr5 Kevin Cope RN RN ll1 Ebenzeer Corbett MD MD mh7 Corrections: (The following items were deleted from the chart) 23:28 23:27 06/08/2020 23:27 Discharged to Home. Impression: Generalized Weakness; Anemia; mh7 Neutropenia. Condition is Stable. Forms are Medication Reconciliation Form, Thank You Letter, Antibiotic Education, Prescription Opioid Use. Follow up: Private Physician; When: 1 - 2 days; Reason: Worsening of condition, Recheck today's complaints, Continuance of care, Re-evaluation by your physician. Problem is an ongoing problem. Symptoms have improved. 7 06/09 00:01 06/08 23:28 06/08/2020 23:27 Discharged to Home. Impression: Generalized Weakness; rr5 Anemia; Neutropenia without Fever. Condition is Stable. Discharge Instructions: Anemia, Nonspecific, Neutropenia, Weakness, [id number]. Forms are Medication Reconciliation Form, Thank You Letter, Antibiotic Education, Prescription Opioid Use. Follow up: Private Physician; When: 1 - 2 days; Reason: Worsening of condition, Recheck today's complaints, Continuance of care, Re-evaluation by your physician. Problem is an ongoing problem. Symptoms have improved. 7
--- NOTE | 2020-06-08 23:27 | ER ---
Nurse's Notes [facility] Name: Cass Vance Age: 69 yrs Sex: Female : 1950 Arrival Date: 06/08/2020 Time: 19:53 Bed 13 Private MD: Diagnosis: Generalized Weakness;Anemia;Neutropenia without Fever Presentation: 06/08 19:58 Chief complaint: Patient states: Generalized weakness for 1 week. WBC count is low, HGB ll1 7.9, sent by cancer doctor. 2nd round of chemo now. Coronavirus screen: Client denies travel out of the [place] in the last 14 days. At this time, the client does not indicate any symptoms associated with coronavirus-19. Ebola Screen: Patient denies travel to an Ebola-affected area in the 21 days before illness onset. Initial Sepsis Screen: Does the patient meet any 2 criteria? HR > 90 bpm. No. Patient's initial sepsis screen is negative. Risk Assessment: Do you want to hurt yourself or someone else? Patient reports no desire to harm self or others. Onset of symptoms was June 01, 2020. 19:58 Method Of Arrival: Ambulatory ll1 19:58 Acuity: KEN 3 ll1 20:40 Initial Sepsis Screen: Does the patient have a suspected source of infection? No. rr5 Patient's initial sepsis screen is negative. Historical: - Allergies: 20:00 No Known Allergies; ll1 - PMHx: 20:00 uterine CA; Hypertension; High Cholesterol; ll1 - PSHx: 20:00 Cancer surgery; ll1 - Immunization history:: Flu vaccine is not up to date. - Social history:: Smoking status: Patient denies any tobacco usage or history of. Screenin:11 Abuse screen: Denies threats or abuse. Denies injuries from another. Nutritional rr5 screening: No deficits noted. Tuberculosis screening: No symptoms or risk factors identified. Fall Risk None identified. IV access (20 points). Total Schulz Fall Scale indicates No Risk (0-24 pts). Assessment: 20:10 General: Appears in no apparent distress. uncomfortable, Behavior is calm, cooperative, rr5 appropriate for age, Reports fatigue for. 20:10 Pain: Denies pain. Neuro: Level of Consciousness is awake, alert, obeys commands, rr5 Oriented to person, place, time, situation, Appropriate for age Reports weakness. Cardiovascular: Capillary refill < 3 seconds Patient's skin is warm and dry. Respiratory: Airway is patent Respiratory effort is even, unlabored, Respiratory pattern is regular, symmetrical. GI: Abdomen is round Patient currently denies nausea, vomiting. : No signs and/or symptoms were reported regarding the genitourinary system. EENT: No signs and/or symptoms were reported regarding the EENT system. Derm: Skin is intact, is healthy with good turgor, Skin temperature is warm. Musculoskeletal: Circulation, motion, and sensation intact. Capillary refill < 3 seconds. 21:30 Reassessment: Patient appears in no apparent distress at this time. Patient is alert, rr5 oriented x 3, equal unlabored respirations, skin warm/dry/pink. amaury daughter contact number [phone]. 22:05 Reassessment: Patient appears in no apparent distress at this time. Patient and/or rr5 family updated on plan of care and expected duration. Pain level reassessed. Patient is alert, oriented x 3, equal unlabored respirations, skin warm/dry/pink. 23:00 Reassessment: Patient appears in no apparent distress at this time. Patient is alert, rr5 oriented x 3, equal unlabored respirations, skin warm/dry/pink. awaiting for the response of her PCP in [facility] if for admission or Out patient. 06/09 00:00 Reassessment: Patient appears in no apparent distress at this time. Patient is alert, rr5 oriented x 3, equal unlabored respirations, skin warm/dry/pink. discharge instruction given and explained without complaints made. Vital Signs: 06/08 19:58 BP 151 / 100; Pulse 111; Resp 18; Temp 98.6; Pulse Ox 100% ; Weight 83.91 kg; Height 5 ll1 ft. 6 in. (167.64 cm); Pain 0/10; 22:20 BP 123 / 92; Pulse 77; Resp 19; Pulse Ox 99% ; rr5 23:00 BP 121 / 75; Pulse 79; Resp 16; Pulse Ox 98% ; rr5 23:59 BP 127 / 84; Pulse 70; Resp 16; Temp 99; Pulse Ox 99% ; rr5 19:58 Body Mass Index 29.86 (83.91 kg, 167.64 cm) ll1 ED Course: 19:53 Patient arrived in ED. cl3 20:00 Triage completed. ll1 20:01 Arm band placed on Patient placed in an exam room, on a stretcher. ll1 20:14 Kirill West, RN is Primary Nurse. rr5 20:28 Ebenezer Corbett MD is Attending Physician. 7 20:39 Patient has correct armband on for positive identification. Placed in gown. Bed in low rr5 position. Call light in reach. Side rails up X2. Pulse ox on. NIBP on. 20:45 Inserted saline lock: 20 gauge in right antecubital area, using aseptic technique. rr5 Blood collected. 21:45 Urine collected: clean catch specimen, clear, karen colored. 3 06/09 00:00 No provider procedures requiring assistance completed. IV discontinued, intact, rr5 bleeding controlled, No redness/swelling at site. Pressure dressing applied. Administered Medications: 06/08 22:17 Drug: NS 0.9% 1000 ml Route: IV; Rate: 1000 ml; Site: right antecubital; rr5 23:50 Follow up: Response: No adverse reaction; IV Status: Completed infusion; IV Intake: rr5 1000ml Intake: 23:50 IV: 1000ml; Total: 1000ml. rr5 Outcome: 23:27 Discharge ordered by . [facility] 06/09 00:00 Discharged to home via wheelchair, with family. rr5 Condition: stable Discharge instructions given to patient, Instructed on discharge instructions, follow up and referral plans. Demonstrated understanding of instructions, follow-up care. 00:01 Patient left the ED. rr5 Signatures: José Miguel Larry 3 Kirill West, ANALI RN rr5 Teresa Cope 3 Kevin Cope RN RN 1 Ebenezer Corbett MD MD [facility]
[2020-06-09 00:12] VITALS: BP 127/84; TEMP 99; O2SAT 99
== END 2020-06-09 00:01 | disposition home or self-care (01) ==
LOC: ER 19:51
DX: D64.9 Anemia, unspecified (principal); D70.9 Neutropenia, unspecified; C57.4 Malignant neoplasm of uterine adnexa, unspecified; I10 Essential (primary) hypertension
CPT/HCPCS: 96361; 93005; 85025; 80048; 36415; 86900; 83735; 86850; 85610; 86901; 80076; 81003; 84484; 83880; 71045; 96360; 99284; J7030

== ENCOUNTER 2021-02-28 15:40 | Emergency (ER) | payer BC, OTHER, SELFPAY ==
--- OUTSIDE RECORDS SUMMARY | 2021-02-28 15:50 | XMS REPORT | Continuity of Care Document ---
:[address] [facility] t Address [address] [place] [address] Care Team Providers Name Role Phone SALTY Primary Care Physician Unavailable SYSTEM, NOT IN Attending Clinician Unavailable Giovanni Viera MD Attending Clinician Rigo BUTLER Attending Clinician Zee BUTLER Attending Clinician Marlen PA Attending Clinician Ted PA Attending Clinician Nani SUERO Attending Clinician Unavailable Sharlene Snow MA Attending Clinician Unavailable Jory SUERO Attending Clinician Salty BUTLER Attending Clinician Tashi BRIONES MSN Attending Clinician Unavailable Erin Vasquez MD. Attending Clinician Romulo BUTLER Attending Clinician Alexandra BUTLER Attending Clinician Adi Tavares Attending Clinician Delbert RT, L Attending Clinician Unavailable Josephine Ruelas MD Attending Clinician Taiwo Barnes MD Attending Clinician Vanessa BUTLER Attending Clinician Zeyad BUTLER Attending Clinician Adi BUTLER Attending Clinician Dunnellon RN, A Attending Clinician Unavailable Swati Short Attending Clinician Vikas BRIONES, R Attending Clinician Unavailable Galina Hemphill MA Attending Clinician Leydi BRIONES, L Attending Clinician Ysabel ALEMAN, R Attending Clinician Donovan Carrera, K Attending Clinician Unavailable Lakia BRIONES, N Attending Clinician Unavailable Melany SUERO Attending Clinician Keely Chapman Attending Clinician Cristino BRIONES, A Attending Clinician Unavailable TED Attending Clinician Unavailable SALTY Attending Clinician Unavailable Eriberto Grady RPH Attending Clinician Dontrell Saunders MD Attending Clinician Jaison BRIONES, M Attending Clinician Unavailable MELANY Attending Clinician Unavailable Phyllis White Attending Clinician SABINA Attending Clinician Unavailable Sabina BUTLER Attending Clinician Eloise BUTLER Attending Clinician Phyllis TRUONG Attending Clinician Unavailable MARLEN Attending Clinician Unavailable William ALEMAN Attending Clinician Yury Mcmahan Attending Clinician Unavailable VANESSA Attending Clinician Unavailable Cathleen GRADY Attending Clinician Unavailable Mouna BRIONES Attending Clinician Unavailable Payers Payer Name Policy Type Policy Number Effective Date Expiration Date S maxim SOLOMON CROSS BLUE [id number] 2020 MD Arun [facility] [place] 00:00:00 [id number] 09/2020-PresentPPO AETNA O [id number] 2006 00:00:00 Problems Condition Condition Condition Status Onset Resolution Last Treating Co mments Source Name Details Category Date Date Treatment Clinician Date Vomiting Vomiting Disease Active 6- Anderso 00:00: n 00 Dysphagia Dysphagia Disease Active 6 Anderso 00:00: n 00 Urinary Urinary Disease Active tract tract 6- Anderso infection infection 00:00: n 00 Severe Severe Disease Active protein-ca protein-ca 6-09 An derso ashleigh ashleigh 00:00: n malnutriti malnutriti 00 on on Acute Acute Disease Active kidney kidney 6-08 Anderso injury due injury due 00:00: n to to 00 cassandra consultant cassandra consultant y failure y failure 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 00:00: n 00 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04 Anderso constipati constipati 00:00: n on on 00 Ileus Ileus Disease Active MD 6 Anderso 00:00: n 00 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 00:00: n 00 Pneumonia Pneumonia Disease Active MD 02-08 Anderso 00:00: n 00 Malignant Malignant Disease Active MD ascites ascites 02-08 Anderso 00:00: n 00 Antineopla Antineopla Disease Active M D stic stic 02-08 Anderso chemothera chemothera 00:00: n py induced py induced 00 anemia anemia Nausea and Nausea and Disease Active M D vomiting vomiting 02-06 Rupert o 00:00: n 00 Localized Localized Disease Active MD edema edema 02-06 Anderso 00:00: n 00 Hyposmolal Hyposmolal Disease Active 2019-09 M D ity and/or ity and/or 0-05 An derso hyponatrem hyponatrem 00:00: n ia ia 00 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 Update for Diagnosis Load Hypomagnes Hypomagnes Disease Active M D emia emia 9-16 Anderso 00:00: n 00 Encounter Encounter Disease Active for for 8-20 Anderso antineopla antineopla 00:00: n stic stic 00 chemothera chemothera py py Serum Serum Disease Active MD creatinine creatinine 7-15 An derso raised raised 00:00: n 00 Hypertensi Hypertensi Disease Active M D on on 01-20 Anderso 00:00: n 00 Hyperlipid Hyperlipid Disease Active M D emia emia 01-20 Anderso 00:00: n 00 Postmenopa Postmenopa Disease Active M D usal usal 01-20 Anderso bleeding bleeding 00:00: n 00 Malignant Malignant Disease Active neoplasm neoplasm 10 Rupert o of of 00:00: n endometriu endometriu 00 m m Multinodul Multinodul Disease Active M D ar goiter ar goiter Arun rso n Trachea Trachea Disease Active displaced displaced Arun rso n Vomiting Vomiting Disease Resolve 2021-02-18 2021-02-18 without without d 02-18 00:00:00 22:15:15 Arun rso nausea nausea 00:00: n 00 Allergies, Adverse Reactions, Alerts This patient has no known allergies or adverse reactions. Family History Family Member Diagnosis Comments Start Date Stop Date Source Natural mother Diabetes MD Rosado n Natural mother Heart disease MD Arun rhodes Natural mother Hypertension Tr son Natural sister Ovarian cancer And checo Family member Thyroid cancer MD Arun rhodes Family member Thyroid disease And checo Social History Social Habit Start Date Stop Date Quantity Comments Source Exposure to Not sure MD Diallo SARS-CoV-2 (event) Tobacco use and 2021-02-19 2021-02-19 Never used MD Emery on exposure 00:00:00 00:00:00 Alcohol intake 2021-02-19 2021-02-19 Current drinker MD Linda snyder 00:00:00 00:00:00 of alcohol (finding) Alcohol Comment 2019-07-13 2019-07-13 socially MD Emery on 00:00:00 00:00:00 Tobacco Comment 2019-01-23 2019-01-23 never used MD Emery on 00:00:00 00:00:00 Sex [birth year] F MD Emery on 00:00:00 00:00:00 Smoking Status Start Date Stop Date Source Never smoker MD Diallo Medications Ordered Filled Start Stop Current Ordering Indication Dosage Frequency Signature Comments Components Source Medication Medication Date Date Medication? Clinician (SIG) Name Name OLANZapine Yes Nausea and 2.5mg Take 1 MD (ZyPREXA) 6-14 vomiting tablet Arun rso 2.5 mg 00:00: (2.5 mg) n tablet 00 by mouth every 6 (six) hours as needed (nausea/vo miting). OLANZapine 2020- No Nausea and 2.5mg Dissolve MD (ZyPREXA 6-14 06-14 vomiting half a Arun rso ZYDIS) 5 mg 00:00: 00:00 tablet n disintegrat 00 :00 (2.5 mg) ing tablet on the tongue every 6 (six) hours as needed (nausea/vo miting). polyethylen Yes Slow Purchase MD e glycol 612 transit over the Arun rso (MIRALAX) 00:00: constipatio counter. n 17 g packet 00 n To prevent constipati on. 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 For stomach protection while taking dexamethas one (steroid). nystatin Yes Candidiasis Apply M D (MYCOSTATIN 11 of skin topically Anderso ) 100,000 00:00: to n units/g 00 affected powder area(s) of breast twice daily. dexamethaso Yes Nausea and 1mg Take 1 MD ne 6-07 vomiting tablet (1 Rupert o (DECADRON) 00:00: mg) by n 1 mg tablet 00 mouth daily with breakfast. LORazepam Yes Nausea and Take 1/2 MD (Ativan) 6-07 vomiting tab Anderso 0.5 mg 00:00: nightly as n tablet 00 needed for nausea enoxaparin Yes Chronic 80mg Inject 0.8 MD (LOVENOX) 6-04 kidney mL (80 mg) An derso 80 mg/0.8 00:00: disease, under the n mL 00 stage 3b skin prefilled daily. syringe metoclopram Yes Nausea and 5mg Take 1 MD john 6-04 vomiting tablet (5 Rupert o (REGLAN) 5 00:00: mg) by n mg tablet 00 mouth 4 (four) times a day (before meals and at night). senna-docus Yes Slow 1{tbl} Take 1 MD ate 6-04 transit tablet by Ashlee (SENOKOT-S) 00:00: constipatio mouth n 8.6 mg-50 00 n twice mg tablet daily. HOLD for loose stools/ravi rrhea. Available over the counter. hydroCHLORO 2020- No 1{tbl} Take 1 M D thiazide 5-27 05-27 tablet by Tr so (HYDRODIURI 17:30: 00:00 mouth n L) 25 mg 26 :00 daily. tablet ondansetron Yes Malignant 8mg Take 1 MD (Zofran) 8 4-04 neoplasm of tablet (8 Anderso mg tablet 00:00: endometrium mg) by n 00 mouth every 8 (eight) hours as needed for nausea or vomiting. prochlorper Yes Malignant 10mg Take 1 MD azine 4-04 neoplasm of tablet (10 A nderso (Compazine) 00:00: endometrium mg) by n 10 mg 00 mouth tablet every 6 (six) hours as needed for nausea or vomiting. hydrALAZINE 2019-09 Yes 25mg Take 25 mg MD (APRESOLINE 0-14 by mouth Arun rso ) 25 mg 00:00: as needed. n tablet 00 ergocalcife Yes Deficiency 65036C Take 1 MD rol 9-01 of vitamin capsule Rupert o (DRISDOL) 00:00: D3 (50,000 n 50,000 00 Units) by units mouth capsule every 14 (fourteen) days. valsartan 2020- No 320mg Take 320 MD (DIOVAN) 8-12 05-27 mg by Anderso 320 mg 00:00: 00:00 mouth n tablet 00 :00 daily. ondansetron 2020- No Malignant Take 1 tab MD (Zofran) 8 7-24 03-30 neoplasm of every 8 Anderso mg tablet 00:00: 00:00 endometrium hrs on n 00 :00 days 2, 3, 4 following chemo, then may take 1 tablet by mouth every 8 hours as needed for nausea or vomiting. prochlorper 2020- No Malignant 10mg Take 1 MD azine 7-24 03-30 neoplasm of tablet (10 Anderso (Compazine) 00:00: 00:00 endometrium mg) by n 10 mg 00 :00 mouth tablet every 6 (six) hours as needed for nausea or vomiting. magnesium 2019- Hypomagnese 400mg Take 1 MD oxide 04-17 bj tablet Anderso (MAOX) 400 00:00: 00:00 (400 mg) n mg tablet 00 :00 by mouth twice daily. furosemide No 1{tbl} Take 1 MD (LASIX) 20 01-03 tablet by And erso mg tablet 00:00: 00:00 mouth n 00 :00 daily. VITAMIN D2 No 1{capsu Take 1 M D 50,000 unit 01-03 le} capsule by A nderso capsule 00:00: 00:00 mouth n 00 :00 every 30 (thirty) days. amLODIPine No 1{tbl} Take 1 MD (NORVASC) 01-02 tablet by Arun rso 10 mg 00:00: 00:00 mouth n tablet 00 :00 daily. carvedilol Yes 6.25mg Take 6.25 MD (COREG) 2-15 mg by Anderso 12.5 mg 00:00: mouth n tablet 00 twice daily. allopurinol 2020- No 1{tbl} Take 1 M D (ZYLOPRIM) 2-15 05-27 tablet by And erso 300 mg 00:00: 00:00 mouth n tablet 00 :00 daily. atorvastati 2017-09- No 1{tbl} Take 1 M D n (LIPITOR) 0-27 05-27 tablet by An derso 20 mg 00:00: 00:00 mouth n tablet 00 :00 daily. Vital Signs Vital Name Observation Time Observation Value Comments Source WEIGHT 2020-12-16 09:18:29 89.5 kg WEIGHT 2020-12-16 09:18:29 89.5 kg WEIGHT 2020-07-08 08:52:00 83.9 kg WEIGHT 2020-07-08 08:52:00 83.9 kg WEIGHT 2020-05-06 10:39:26 88.4 kg WEIGHT 2020-05-06 10:39:26 88.4 kg WEIGHT 2020-05-06 09:08:06 88.9 kg WEIGHT 2020-05-06 09:08:06 88.9 kg WEIGHT 2020-04-15 08:17:37 90.9 kg WEIGHT 2020-04-15 08:17:37 90.9 kg Systolic blood pressure 2021-02-25 12:52:05 103 mm[Hg] MD Diallo Diastolic blood pressure 2021-02-25 12:52:05 70 mm[Hg] MD Diallo Heart rate 2021-02-25 12:52:05 97 /min MD Tr lazo Body temperature 2021-02-25 12:52:05 36.39 Peyton MD Bipin fleming Respiratory rate 2021-02-25 12:52:05 20 /min MD Bipin fleming Oxygen saturation in 2021-02-25 12:52:05 96 /min MD Diallo Arterial blood by Pulse oximetry Body weight 2021-02-24 08:18:00 86.3 kg MD Tr lazo BMI 2021-02-24 08:18:00 35.01 kg/m2 MD Tr lazo Body height 2021-02-19 01:30:00 157 cm MD Tr lazo Procedures Procedure Date / Time Performed Performing Clinician [facility] BLOOD UREA NITROGEN 2021-02-25 09:43:00 Cassius Clemens MD SERUM CREATININE 2021-02-25 09:43:00 Cassius Clemens MD GLUCOSE, RANDOM 2021-02-25 09:43:00 Cassius Clemens MD Results CBC 2021-02-25 09:43:00 Humberto Sierra MD MANUAL DIFFERENTIAL 2021-02-25 09:43:00 Humberto Sierra MD SERUM CREATININE 2021-02-25 09:43:00 Humberto Sierra MD .GLOMERULAR FILTRATION RATE 2021-02-25 09:43:00 Humberto Sierra MD ANION GAP 2021-02-25 09:43:00 Humberto Sierra MD COMPLETE BLOOD COUNT W/ 2021-02-25 09:43:00 Cassius Clemens MD DIFFERENTIAL SODIUM LEVEL 2021-02-25 09:43:00 Cassius Clemens MD CARBON DIOXIDE LEVEL 2021-02-25 09:43:00 Cassius Clemens MD rson CHLORIDE LEVEL 2021-02-25 09:43:00 Cassius Clemens MD POTASSIUM LEVEL 2021-02-25 09:43:00 Cassius Clemens MD MAGNESIUM LEVEL 2021-02-25 09:43:00 Cassius Clemens MD COMPLETE BLOOD COUNT W/ 2021-02-24 08:49:00 Cassius Clemens MDrson DIFFERENTIAL SODIUM LEVEL 2021-02-24 08:49:00 Cassius Clemens MD CARBON DIOXIDE LEVEL 2021-02-24 08:49:00 Cassius Clemens MD rson CHLORIDE LEVEL 2021-02-24 08:49:00 Cassius Clemens MD POTASSIUM LEVEL 2021-02-24 08:49:00 Cassius Clemens MD MAGNESIUM LEVEL 2021-02-24 08:49:00 Cassius Clemens MD BLOOD UREA NITROGEN 2021-02-24 08:49:00 Cassius Clemens MD son SERUM CREATININE 2021-02-24 08:49:00 Cassius Clemens MD GLUCOSE, RANDOM 2021-02-24 08:49:00 Cassius Clemens MD Results CBC 2021-02-24 08:49:00 Humberto Sierra MD MANUAL DIFFERENTIAL 2021-02-24 08:49:00 Humberto Sierra MD son SERUM CREATININE 2021-02-24 08:49:00 Humberto Sierra MD .GLOMERULAR FILTRATION RATE 2021-02-24 08:49:00 Humberto Sierra MD ANION GAP 2021-02-24 08:49:00 Humberto Sierra MD XR ABDOMEN AP 2021-02-23 21:06:31 Jenn Sanchez MD COMPLETE BLOOD COUNT W/ 2021-02-23 08:38:00 Cassius Clemens MD ndersleo DIFFERENTIAL SODIUM LEVEL 2021-02-23 08:38:00 Cassius Clemens MD CARBON DIOXIDE LEVEL 2021-02-23 08:38:00 Cassius Clemens MD rson CHLORIDE LEVEL 2021-02-23 08:38:00 Cassius Clemens MD POTASSIUM LEVEL 2021-02-23 08:38:00 Cassius Clemens MD MAGNESIUM LEVEL 2021-02-23 08:38:00 Cassius Clemens MD BLOOD UREA NITROGEN 2021-02-23 08:38:00 Cassius Clemensbanner SERUM CREATININE 2021-02-23 08:38:00 Cassius Clemens MD GLUCOSE, RANDOM 2021-02-23 08:38:00 Cassius Clemens MD Results CBC 2021-02-23 08:38:00 Humberto Sierra MD MANUAL DIFFERENTIAL 2021-02-23 08:38:00 Humberto Sierra MD SERUM CREATININE 2021-02-23 08:38:00 Humberto Sierra MD .GLOMERULAR FILTRATION RATE 2021-02-23 08:38:00 Humberto Sierra MD ANION GAP 2021-02-23 08:38:00 Humberto Sierra MD POC GLUCOSE SCREEN 2021-02-22 13:01:00 Cristine Koch MD on COMPLETE BLOOD COUNT W/ 2021-02-22 07:38:00 Cassius Clemens MD nderson DIFFERENTIAL SODIUM LEVEL 2021-02-22 07:38:00 Cassius Clemens MD CARBON DIOXIDE LEVEL 2021-02-22 07:38:00 Cassius Clemens MD rson CHLORIDE LEVEL 2021-02-22 07:38:00 Cassius Clemens MD POTASSIUM LEVEL 2021-02-22 07:38:00 Cassius Clemens MD MAGNESIUM LEVEL 2021-02-22 07:38:00 Cassius Clemens MD BLOOD UREA NITROGEN 2021-02-22 07:38:00 Cassius Clemensbanner SERUM CREATININE 2021-02-22 07:38:00 Cassius Clemens MD GLUCOSE, RANDOM 2021-02-22 07:38:00 Cassius Clemens MD Results CBC 2021-02-22 07:38:00 Humberto Sierra MD MANUAL DIFFERENTIAL 2021-02-22 07:38:00 Humberto Sierra MD SERUM CREATININE 2021-02-22 07:38:00 Humberto Sierra MD .GLOMERULAR FILTRATION RATE 2021-02-22 07:38:00 Humberto Sierra MD ANION GAP 2021-02-22 07:38:00 Humberto Sierra MD COMPLETE BLOOD COUNT W/ 2021-02-21 09:21:00 Cassius Clemens MD nderson DIFFERENTIAL SODIUM LEVEL 2021-02-21 09:21:00 Cassius Clemens MD CARBON DIOXIDE LEVEL 2021-02-21 09:21:00 Cassius Clemens MD Arun rson CHLORIDE LEVEL 2021-02-21 09:21:00 Cassius Clemens MD POTASSIUM LEVEL 2021-02-21 09:21:00 Cassius Clemens MD MAGNESIUM LEVEL 2021-02-21 09:21:00 Cassius Clemens MD BLOOD UREA NITROGEN 2021-02-21 09:21:00 Cassius Clemens MD Tr son SERUM CREATININE 2021-02-21 09:21:00 Cassius Clemens MD GLUCOSE, RANDOM 2021-02-21 09:21:00 Cassius Clemens MD PARTIAL THROMBOPLASTIN TIME 2021-02-21 09:21:00 Humberto Sierra MD Results CBC 2021-02-21 09:21:00 Humberto Sierra MD MANUAL DIFFERENTIAL 2021-02-21 09:21:00 Humberto Sierra MD [facility] SERUM CREATININE 2021-02-21 09:21:00 Humberto Sierra MD .GLOMERULAR FILTRATION RATE 2021-02-21 09:21:00 Humberto Sierra MD ANION GAP 2021-02-21 09:21:00 Humberto Sierra MD PARTIAL THROMBOPLASTIN TIME 2021-02-21 01:24:00 Humberto Sierra MD TRANSFUSE RED BLOOD CELLS 2021-02-21 00:56:38 Simba Nails MD PARTIAL THROMBOPLASTIN TIME 2021-02-20 18:24:00 Betty Davis MD CONFIRM ABORH TYPE 2021-02-20 12:56:00 Humberto Sierra MD Rueprt on TYPE AND SCREEN 2021-02-20 12:48:00 Simba Nails MD ABORH 2021-02-20 12:48:00 Christian Mejía MD And checo Akins ANTIBODY SCREEN 2021-02-20 12:48:00 Christian Mejía MD And checo Akins CLOT EXPIRATION DATE 2021-02-20 12:48:00 Christian Mejía TMP CROSSMATCH INTERPRETATION 2021-02-20 12:48:00 Ronnell Mejía MD PREPARE RBC 2021-02-20 11:39:00 Simba Nails MD PRBC PRODUCT READY FOR PICK 2021-02-20 11:39:00 Humberto Sierra MD UP PARTIAL THROMBOPLASTIN TIME 2021-02-20 10:21:00 Betty Davis MD COMPLETE BLOOD COUNT W/ 2021-02-20 05:27:00 Cassius Clemens MD DIFFERENTIAL SODIUM LEVEL 2021-02-20 05:27:00 Cassius Clemens MD CARBON DIOXIDE LEVEL 2021-02-20 05:27:00 Cassius Clemens MD rson CHLORIDE LEVEL 2021-02-20 05:27:00 Cassius Clemens MD POTASSIUM LEVEL 2021-02-20 05:27:00 Cassius Clemens MD MAGNESIUM LEVEL 2021-02-20 05:27:00 Cassius Clemens MD BLOOD UREA NITROGEN 2021-02-20 05:27:00 Cassius Clemens MD SERUM CREATININE 2021-02-20 05:27:00 Cassius Clemens MD GLUCOSE, RANDOM 2021-02-20 05:27:00 Cassius Clemens MD Results CBC 2021-02-20 05:27:00 Humberto Sierra MD MANUAL DIFFERENTIAL 2021-02-20 05:27:00 Humberto Sierra MD SERUM CREATININE 2021-02-20 05:27:00 Humberto Sierra MD .GLOMERULAR FILTRATION RATE 2021-02-20 05:27:00 Humberto Sierra MD ANION GAP 2021-02-20 05:27:00 Humberto Sierra MD PARTIAL THROMBOPLASTIN TIME 2021-02-20 03:12:00 Humberto Sierra MD IR INTRAPERITONEAL PLACEMENT 2021-02-19 17:25:00 Santo Jean MD (NON-TUNNELED) IR FL PORT PLACEMENT 2021-02-19 17:25:00 Santo Jean MD rson COMPLETE BLOOD COUNT W/ 2021-02-19 09:32:00 Clemens, Cassius J MD A nderson DIFFERENTIAL SODIUM LEVEL 2021-02-19 09:32:00 Cassius Clemens MD CARBON DIOXIDE LEVEL 2021-02-19 09:32:00 Cassius Clemens MD rson CHLORIDE LEVEL 2021-02-19 09:32:00 Cassius Clemens MD POTASSIUM LEVEL 2021-02-19 09:32:00 Cassius Clemens MD MAGNESIUM LEVEL 2021-02-19 09:32:00 Cassius Clemens MD BLOOD UREA NITROGEN 2021-02-19 09:32:00 Cassius Clemens MD Tr son SERUM CREATININE 2021-02-19 09:32:00 Cassius Clemens MD GLUCOSE, RANDOM 2021-02-19 09:32:00 Cassius Clemens MD PARTIAL THROMBOPLASTIN TIME 2021-02-19 09:32:00 Humberto Sierra MD Results CBC 2021-02-19 09:32:00 Humberto Sierra MD MANUAL DIFFERENTIAL 2021-02-19 09:32:00 Humberto Sierraer son SERUM CREATININE 2021-02-19 09:32:00 Humberto Sierra MD .GLOMERULAR FILTRATION RATE 2021-02-19 09:32:00 Humberto Sierra MD ANION GAP 2021-02-19 09:32:00 Humberto Sierra MD SODIUM URINE 2021-02-19 05:04:00 Cassius Clemens MD CREATININE URINE, RANDOM 2021-02-19 05:04:00 Cassius Clemens MD PARTIAL THROMBOPLASTIN TIME 2021-02-19 03:31:00 Alison Sarkar MD D URINE CULTURE 2021-02-18 21:16:00 Ashley Viera MD URINALYSIS WITH MICROSCOPIC 2021-02-18 21:16:00 Ashley Viera MD IF INDICATED URINALYSIS MICROSCOPIC 2021-02-18 21:16:00 Ashley Viera MD An derson XR ABDOMEN 1 VW PORTABLE 2021-02-18 21:03:18 Kirstin Aldridge MD COMPREHENSIVE METABOLIC PANEL 2021-02-18 19:59:00 Ashley Viera MD LACTATE DEHYDROGENASE 2021-02-18 19:59:00 Ashley Viera MAGNESIUM LEVEL 2021-02-18 19:59:00 Ashley Viera MD PHOSPHORUS LEVEL 2021-02-18 19:59:00 Ashley Viera MD GLUCOSE LEVEL 2021-02-18 19:59:00 Ashely Viera MD BLOOD UREA NITROGEN 2021-02-18 19:59:00 Ashley Viera MD [facility] ELECTROLYTE PANEL 2021-02-18 19:59:00 Ashley Viera MD [facility] SERUM CREATININE 2021-02-18 19:59:00 Ashley Viera MD .GLOMERULAR FILTRATION RATE 2021-02-18 19:59:00 Ashley Viera MD CALCIUM LEVEL TOTAL 2021-02-18 19:59:00 Ashley Viera MD [facility] ALBUMIN LEVEL 2021-02-18 19:59:00 Ashley Viera MD ALKALINE PHOSPHATASE 2021-02-18 19:59:00 Ashley Viera MD Arun rs ALANINE AMINOTRANSFERASE 2021-02-18 19:59:00 Ashley Viera MD ASPARTATE AMINOTRANSFERASE 2021-02-18 19:59:00 Ashley Viera TOTAL PROTEIN 2021-02-18 19:59:00 Ashley Viera MD FRACTIONATED BILIRUBIN 2021-02-18 19:59:00 Ashley Viera MD COMPLETE BLOOD COUNT W/ 2021-02-18 18:33:00 Chantell Aldridge MD DIFFERENTIAL COMPREHENSIVE METABOLIC PANEL 2021-02-18 18:33:00 Chantell Aldridge MD MAGNESIUM LEVEL 2021-02-18 18:33:00 Chantell Aldridge MD PHOSPHORUS LEVEL 2021-02-18 18:33:00 Chantell Aldridge MD nderson LACTATE DEHYDROGENASE 2021-02-18 18:33:00 Chantell Aldridge MD AMYLASE LEVEL 2021-02-18 18:33:00 Chantell Aldridge MD LIPASE LEVEL 2021-02-18 18:33:00 Chantell Aldridge MD Results CBC 2021-02-18 18:33:00 Chantell Aldridge MD MANUAL DIFFERENTIAL 2021-02-18 18:33:00 Chantell Aldridge GLUCOSE LEVEL 2021-02-18 18:33:00 Chantell Aldridge MD BLOOD UREA NITROGEN 2021-02-18 18:33:00 Chantell Aldridge ELECTROLYTE PANEL 2021-02-18 18:33:00 Chantell Aldridge MD SERUM CREATININE 2021-02-18 18:33:00 Chantell Aldridge MD .GLOMERULAR FILTRATION RATE 2021-02-18 18:33:00 Fior Aldridge MD CALCIUM LEVEL TOTAL 2021-02-18 18:33:00 Chantell Aldridge ALBUMIN LEVEL 2021-02-18 18:33:00 Chantell Aldridge MD ALKALINE PHOSPHATASE 2021-02-18 18:33:00 Chantell Aldridge MD ALANINE AMINOTRANSFERASE 2021-02-18 18:33:00 Kirstin Aldridge MD ASPARTATE AMINOTRANSFERASE 2021-02-18 18:33:00 Td Aldridge MD TOTAL PROTEIN 2021-02-18 18:33:00 Chantell Aldrdige MD FRACTIONATED BILIRUBIN 2021-02-18 18:33:00 Chantell Aldridge MD INFLUENZA A/B + COVID-19 2021-02-18 17:58:00 Kirstin Aldridge MD ASYMPTOMATIC-L CANCER ANTIGEN 125 2021-02-17 14:27:59 Santo Jean MD on COMPLETE BLOOD COUNT W/ 2021-02-17 14:27:59 Santo Jean MDrson DIFFERENTIAL BASIC METABOLIC PANEL, 2021-02-17 14:27:59 Santo Jean MD CALCIUM TOTAL BILIRUBIN TOTAL 2021-02-17 14:27:59 Santo Jean MD ALANINE AMINOTRANSFERASE 2021-02-17 14:27:59 Santo Jean MD ASPARTATE AMINOTRANSFERASE 2021-02-17 14:27:59 Santo Jean MAGNESIUM LEVEL 2021-02-17 14:27:59 Santo Jean MD GLUCOSE LEVEL 2021-02-17 14:27:59 Santo Jaen MD BLOOD UREA NITROGEN 2021-02-17 14:27:59 Santo Jean MD Tr son ELECTROLYTE PANEL 2021-02-17 14:27:59 Santo Jean MD n SERUM CREATININE 2021-02-17 14:27:59 Santo Jean MD .GLOMERULAR FILTRATION RATE 2021-02-17 14:27:59 Santo Jean MD CALCIUM LEVEL TOTAL 2021-02-17 14:27:59 Santo Jean MD Tr son Results CBC 2021-02-17 14:27:59 Santo Jean MD MANUAL DIFFERENTIAL 2021-02-17 14:27:59 Santo Jean MD Tr son COMPLETE BLOOD COUNT W/ 2021-02-14 09:19:00 Nia Sarkar MD DIFFERENTIAL D SODIUM LEVEL 2021-02-14 09:19:00 Alison Sarkar MD CARBON DIOXIDE LEVEL 2021-02-14 09:19:00 Alison Sarkar MD D CHLORIDE LEVEL 2021-02-14 09:19:00 Alison Sarkar MD POTASSIUM LEVEL 2021-02-14 09:19:00 Alison Sarkar MD MAGNESIUM LEVEL 2021-02-14 09:19:00 Alison Sarkar MD BLOOD UREA NITROGEN 2021-02-14 09:19:00 Alison Sarkar MD D SERUM CREATININE 2021-02-14 09:19:00 Alison Sarkar MD D GLUCOSE, RANDOM 2021-02-14 09:19:00 Alison Sarkar MD D Results CBC 2021-02-14 09:19:00 Janet Sebastian MD on MANUAL DIFFERENTIAL 2021-02-14 09:19:00 Janet Sebastian MDson SERUM CREATININE 2021-02-14 09:19:00 Janet Sebastian MD Tr [place] .GLOMERULAR FILTRATION RATE 2021-02-14 09:19:00 Katalina Sebastian MD ANION GAP 2021-02-14 09:19:00 Janet Sebastian MD on POC GLUCOSE SCREEN 2021-02-13 11:02:00 Kellee Morris MD Tr [place] COMPLETE BLOOD COUNT W/ 2021-02-13 07:41:00 Nia Sarkar MD DIFFERENTIAL D SODIUM LEVEL 2021-02-13 07:41:00 Alison Sarkar MD CARBON DIOXIDE LEVEL 2021-02-13 07:41:00 Alison Sarkar MD D CHLORIDE LEVEL 2021-02-13 07:41:00 Alison Sarkar MDrsleo D POTASSIUM LEVEL 2021-02-13 07:41:00 Alison Sarkar MD MAGNESIUM LEVEL 2021-02-13 07:41:00 Alison Sarkar MDrson D BLOOD UREA NITROGEN 2021-02-13 07:41:00 Alison Sarkar MD D SERUM CREATININE 2021-02-13 07:41:00 Alison Sarkar MD D GLUCOSE, RANDOM 2021-02-13 07:41:00 Alison Sarkar MDrson D Results CBC 2021-02-13 07:41:00 Janet Sebastian MD on MANUAL DIFFERENTIAL 2021-02-13 07:41:00 Janet Sebastian MD derson SERUM CREATININE 2021-02-13 07:41:00 Janet Sebastian MD [facility] .GLOMERULAR FILTRATION RATE 2021-02-13 07:41:00 Katalina Sebastian MD ANION GAP 2021-02-13 07:41:00 Janet Sebastian MD on ANTI-XA LEVEL 2021-02-13 01:30:00 Kellee Morris MD HEMOGLOBIN 2021-02-12 12:50:00 eNtta Braxton MD COMPLETE BLOOD COUNT W/ 2021-02-12 09:19:00 Nia Sarkar MD DIFFERENTIAL D SODIUM LEVEL 2021-02-12 09:19:00 Alison Sarkar MDrsleo D CARBON DIOXIDE LEVEL 2021-02-12 09:19:00 Alison Sarkar MD CHLORIDE LEVEL 2021-02-12 09:19:00 Alison Sarkar MD POTASSIUM LEVEL 2021-02-12 09:19:00 Alison Sarkar MD MAGNESIUM LEVEL 2021-02-12 09:19:00 Alison Sarkar MD BLOOD UREA NITROGEN 2021-02-12 09:19:00 Alison Sarkar MD SERUM CREATININE 2021-02-12 09:19:00 Alison Sarkar MD GLUCOSE, RANDOM 2021-02-12 09:19:00 Alison Sarkar MD Results CBC 2021-02-12 09:19:00 Janet Sebastian MD on MANUAL DIFFERENTIAL 2021-02-12 09:19:00 Janet Sebastian MDson SERUM CREATININE 2021-02-12 09:19:00 Janet Sebastian MD Tr son .GLOMERULAR FILTRATION RATE 2021-02-12 09:19:00 Katalina Sebastian MD ANION GAP 2021-02-12 09:19:[address] MD on [address] CHEST ABDOMEN PELVIS WO 2021-02-11 21:11:00 Netta Braxton CONTRAST IR US GUIDED PARACENTESIS 2021-02-11 18:20:00 Netta Braxton MD PROTHROMBIN TIME 2021-02-11 14:50:00 Kellee Morris MD n PARTIAL THROMBOPLASTIN TIME 2021-02-11 14:50:00 Kellee Morris MD XR ABDOMEN 1 VW PORTABLE 2021-02-11 12:50:00 Netta Braxton MD COMPLETE BLOOD COUNT W/ 2021-02-11 07:58:00 Nia Sarkar MD DIFFERENTIAL D SODIUM LEVEL 2021-02-11 07:58:00 Alison Sarkar MD CARBON DIOXIDE LEVEL 2021-02-11 07:58:00 Alison Sarkar MD CHLORIDE LEVEL 2021-02-11 07:58:00 Alison Sarkar MD POTASSIUM LEVEL 2021-02-11 07:58:00 Alison Sarkar MD D MAGNESIUM LEVEL 2021-02-11 07:58:00 Alison Sarkar MD BLOOD UREA NITROGEN 2021-02-11 07:58:00 Alison Sarkar MD D SERUM CREATININE 2021-02-11 07:58:00 Alison Sarkar MD GLUCOSE, RANDOM 2021-02-11 07:58:00 Alison Sarkar MD Results CBC 2021-02-11 07:58:00 Janet Sebastian MD on MANUAL DIFFERENTIAL 2021-02-11 07:58:00 Janet Sebastian MD derson SERUM CREATININE 2021-02-11 07:58:00 Janet Sebastian MD Tr son .GLOMERULAR FILTRATION RATE 2021-02-11 07:58:00 Katalina Sebastian MD ANION GAP 2021-02-11 07:58:00 Janet Sebastian MD on COMPLETE BLOOD COUNT W/ 2021-02-10 07:17:00 Nia Sarkar MD DIFFERENTIAL D SODIUM LEVEL 2021-02-10 07:17:00 Alison Sarkar MD CARBON DIOXIDE LEVEL 2021-02-10 07:17:00 Alison Sarkar MD CHLORIDE LEVEL 2021-02-10 07:17:00 Alison Sarkar MD POTASSIUM LEVEL 2021-02-10 07:17:00 Alison Sarkar MD MAGNESIUM LEVEL 2021-02-10 07:17:00 Alison Sarkar MD BLOOD UREA NITROGEN 2021-02-10 07:17:00 Alison Sarkar MD D SERUM CREATININE 2021-02-10 07:17:00 Alison Sarkar MD D GLUCOSE, RANDOM 2021-02-10 07:17:00 Alison Sarkar MDrson D Results CBC 2021-02-10 07:17:00 Janet Sebastian MD on MANUAL DIFFERENTIAL 2021-02-10 07:17:00 Janet Sebastian MD derson SERUM CREATININE 2021-02-10 07:17:00 Janet Sebastian MD Tr son .GLOMERULAR FILTRATION RATE 2021-02-10 07:17:00 Katalina Sebastian MD ANION GAP 2021-02-10 07:17:00 Janet Sebastian MD on COMPLETE BLOOD COUNT W/ 2021-02-09 06:27:00 Nia Sarkar MD DIFFERENTIAL D SODIUM LEVEL 2021-02-09 06:27:00 Alison Sarkar MD CARBON DIOXIDE LEVEL 2021-02-09 06:27:00 Alison Sarkar MD D CHLORIDE LEVEL 2021-02-09 06:27:00 Alison Sarkar MDrsleo D POTASSIUM LEVEL 2021-02-09 06:27:00 Alison Sarkar MDrson D MAGNESIUM LEVEL 2021-02-09 06:27:00 Alison Sarkar MDrson D BLOOD UREA NITROGEN 2021-02-09 06:27:00 Alison Sarkar MD D SERUM CREATININE 2021-02-09 06:27:00 Alison Sarkar MD D GLUCOSE, RANDOM 2021-02-09 06:27:00 Alison Sarkar MDrson D Results CBC 2021-02-09 06:27:00 Janet Sebastian MD on MANUAL DIFFERENTIAL 2021-02-09 06:27:00 Janet Sebastian MDson SERUM CREATININE 2021-02-09 06:27:00 Janet Sebastian MD Tr son .GLOMERULAR FILTRATION RATE 2021-02-09 06:27:00 Katalina Sebastian MD ANION GAP 2021-02-09 06:27:00 Janet Sebastian MD on COMPLETE BLOOD COUNT W/ 2021-02-08 08:24:00 Nia Sarkar MD DIFFERENTIAL D SODIUM LEVEL 2021-02-08 08:24:00 Alison Sarkar MD D CARBON DIOXIDE LEVEL 2021-02-08 08:24:00 Alison Sarkar MD D CHLORIDE LEVEL 2021-02-08 08:24:00 Alison Sarkar MDrson D POTASSIUM LEVEL 2021-02-08 08:24:00 Alison Sarkar MDrson Krupa MAGNESIUM LEVEL 2021-02-08 08:24:00 Alison Sarkar MD nderson D BLOOD UREA NITROGEN 2021-02-08 08:24:00 Alison Sarkar MD SERUM CREATININE 2021-02-08 08:24:00 Alison Sarkar MD GLUCOSE, RANDOM 2021-02-08 08:24:00 Alison Sarkar MD nderson D Results CBC 2021-02-08 08:24:00 Janet Sebastian MD on MANUAL DIFFERENTIAL 2021-02-08 08:24:00 Janet Sebastian MDson SERUM CREATININE 2021-02-08 08:24:00 Janet Sebastian MD Tr son .GLOMERULAR FILTRATION RATE 2021-02-08 08:24:00 Katalina Sebastian MD ANION GAP 2021-02-08 08:24:00 Janet Sebastian MD on IR US GUIDED PARACENTESIS 2021-02-07 18:10:00 Netta Braxton MD PARTIAL THROMBOPLASTIN TIME 2021-02-07 18:02:00 Maribel Rene MD NM LUNG PERFUSION 2021-02-07 16:34:21 Netta Braxton MDo n PARTIAL THROMBOPLASTIN TIME 2021-02-07 13:26:00 Maribel Rene MD PARTIAL THROMBOPLASTIN TIME 2021-02-07 12:05:00 Katalina Sebastian MD VERIFY CATHETER TIP PLACEMENT 2021-02-07 07:51:42 Sohail Rahman MD PARTIAL THROMBOPLASTIN TIME 2021-02-07 05:24:00 Katalina Sebastian MD COMPLETE BLOOD COUNT W/ 2021-02-07 05:24:00 Nia Sarkar MD DIFFERENTIAL D SODIUM LEVEL 2021-02-07 05:24:00 Alison Sarkar MD CARBON DIOXIDE LEVEL 2021-02-07 05:24:00 Alison Sarkar MD CHLORIDE LEVEL 2021-02-07 05:24:00 Alison Sarkar MD POTASSIUM LEVEL 2021-02-07 05:24:00 Alison Sarkar MD MAGNESIUM LEVEL 2021-02-07 05:24:00 Alison Sarkar MDrson Krupa BLOOD UREA NITROGEN 2021-02-07 05:24:00 Alison Sarkar MD D SERUM CREATININE 2021-02-07 05:24:00 Alison Sarkar MD GLUCOSE, RANDOM 2021-02-07 05:24:00 Alison Sarkar MDrson Krupa Results CBC 2021-02-07 05:24:00 Janet Sebastian MD on MANUAL DIFFERENTIAL 2021-02-07 05:24:00 Janet Sebastian MDson SERUM CREATININE 2021-02-07 05:24:00 Janet Sebastian MD Tr son .GLOMERULAR FILTRATION RATE 2021-02-07 05:24:00 Katalina Sebastian MD ANION GAP 2021-02-07 05:24:00 Janet Sebastian MD on XR CHEST 1 VW POST IMPLANT 2021-02-07 04:38:00 Gio Sebastian MD US RENAL 2021-02-06 15:12:05 Alison Sarkar MD US LEG VENOUS DOPPLER 2021-02-06 15:11:25 Lenka Sarkar BILATERAL D URINE CULTURE 2021-02-06 13:52:00 Netta Braxton MD CREATININE URINE, RANDOM 2021-02-06 13:52:00 Netta Braxton MD SODIUM URINE 2021-02-06 13:52:00 Netta Braxton MD COMPLETE BLOOD COUNT W/ 2021-02-06 03:52:00 Arianna Gee MDrsleo DIFFERENTIAL COMPREHENSIVE METABOLIC PANEL 2021-02-06 03:52:00 Arianna Gee MD AMYLASE LEVEL 2021-02-06 03:52:00 Betty Rivero MD LIPASE LEVEL 2021-02-06 03:52:00 Betty Rivero MD NT PRO BNP 2021-02-06 03:52:00 Betty Rivero MD Results CBC 2021-02-06 03:52:00 Arianna Gee MD MANUAL DIFFERENTIAL 2021-02-06 03:52:00 Arianna Gee MD GLUCOSE LEVEL 2021-02-06 03:52:00 Arianna Gee MD BLOOD UREA NITROGEN 2021-02-06 03:52:00 Arianna Gee MD Trbeka lazo ELECTROLYTE PANEL 2021-02-06 03:52:00 Arianna Gee MD SERUM CREATININE 2021-02-06 03:52:00 Arianna Gee MD .GLOMERULAR FILTRATION RATE 2021-02-06 03:52:00 Arianna Gee MD CALCIUM LEVEL TOTAL 2021-02-06 03:52:00 Arianna Gee MD ALBUMIN LEVEL 2021-02-06 03:52:00 Arianna Gee MD ALKALINE PHOSPHATASE 2021-02-06 03:52:00 Arianna Gee MD ALANINE AMINOTRANSFERASE 2021-02-06 03:52:00 Arianna Gee MD ASPARTATE AMINOTRANSFERASE 2021-02-06 03:52:00 Arianna Gee TOTAL PROTEIN 2021-02-06 03:52:00 Arianna Gee MD FRACTIONATED BILIRUBIN 2021-02-06 03:52:00 Arianna Gee MDson D DIMER 2021-02-06 03:51:00 Simone Vasquez MD on XR ABDOMEN AP 2021-02-06 03:40:55 Betty Rivero MD XR CHEST 1 VW 2021-02-06 03:40:31 Betty Rivero MD RESPIRATORY VIRAL PANEL + 2021-02-06 03:26:00 Simone Vasquez MD COVID-19, NASOPHARYNGEAL SWAB EKG, 12-LEAD (PORTABLE) 2021-02-06 00:00:00 Simone Vasquez IR CHEST XRAY 1 VIEW 2021-01-31 14:06:29 Jose Miranda MD rson IR US GUIDED THORACENTESIS 2021-01-31 14:00:00 Santo Jean CELL COUNT W/ DIFF BODY FLUID 2021-01-31 13:48:00 William Joshi MD CHOLESTEROL BODY FLUID 2021-01-31 13:48:00 William Joshi MD INTERVENTIONAL RADIOLOGY 2021-01-31 13:48:00 William Joshi MD CULTURE W/GRAM STAIN LACTATE DEHYDROGENASE BODY 2021-01-31 13:48:00 William Joshi FLUID PROTEIN BODY FLUID 2021-01-31 13:48:00 William Joshi MD on TRIGLYCERIDE BODY FLUID 2021-01-31 13:48:00 William Joshi MD nderson CELL COUNT BODY FLUID 2021-01-31 13:48:00 Santo Jean MD And erson BODY FLUID DIFFERENTIALS 2021-01-31 13:48:00 Santo Jean MD BODY FLUID DIFF PATH REVIEW 2021-01-31 13:48:00 Santo Jean MD GLUCOSE BODY FLUID 2021-01-31 13:48:00 Willaim Joshi MD on CYTOLOGY NON-FOOD SERVICE CLERK 2021-01-31 13:35:00 Santo Jean MD INTERPRETATION PROTHROMBIN TIME 2021-01-30 16:52:00 Jose Miranda MD COVID-19 (SARS-COV-2) 2021-01-30 14:04:00 Atul Bean MD PCR-ASYMPTOMATIC MC CT SOFT TISSUE NECK WO 2021-01-28 19:53:27 Danielle Grady MD CONTRAST POC CREATININE 2021-01-28 19:31:00 Danielle Grady MD ALBUMIN LEVEL 2021-01-28 18:59:00 Danielle Grady MD CALCIUM LEVEL TOTAL 2021-01-28 18:59:00 Danielle Grady MD Trbeka lazo FREE THYROXINE 2021-01-28 18:59:00 Danielle Grady MD THYROID STIMULATING HORMONE 2021-01-28 18:59:00 Danielle Grady MD VITAMIN D 25 HYDROXY LEVEL 2021-01-28 18:59:00 Danielle Grady US HEAD NECK SOFT TISSUE 2021-01-28 18:48:00 Danielle Grady MD CANCER ANTIGEN 125 2021-01-13 12:35:06 Santo Jean MD on COMPLETE BLOOD COUNT W/ 2021-01-13 12:35:06 Santo Jean MD nderson DIFFERENTIAL BASIC METABOLIC PANEL, 2021-01-13 12:35:06 Santo Jean MD derson CALCIUM TOTAL BILIRUBIN TOTAL 2021-01-13 12:35:06 Santo Jean MD ALANINE AMINOTRANSFERASE 2021-01-13 12:35:06 Santo Jean MD ASPARTATE AMINOTRANSFERASE 2021-01-13 12:35:06 Santo Jean MAGNESIUM LEVEL 2021-01-13 12:35:06 Santo Jean MD GLUCOSE LEVEL 2021-01-13 12:35:06 Santo Jean MD BLOOD UREA NITROGEN 2021-01-13 12:35:06 Santo Jean MD Trbeka lazo ELECTROLYTE PANEL 2021-01-13 12:35:06 Santo Jean MD n SERUM CREATININE 2021-01-13 12:35:06 Santo Jean MD .GLOMERULAR FILTRATION RATE 2021-01-13 12:35:06 Santo Jean MD CALCIUM LEVEL TOTAL 2021-01-13 12:35:06 Santo Jean MD Trbeka lazo Results CBC 2021-01-13 12:35:06 Santo Jean MD MANUAL DIFFERENTIAL 2021-01-13 12:35:06 Santo Jean MD IR US GUIDED PARACENTESIS 2021-01-03 15:08:00 Santo Jean MD PROTHROMBIN TIME 2021-01-03 12:48:00 Josephine Dubon MD, MD NGS BLOOD CONTROL 2020-12-16 15:27:00 Santo Jean MD Arun rson [employer] KRAS MUTATION MATERIAL 2020-12-16 14:50:45 Santo Jean MD REQUEST A[employer] [id number] MUTATION MATERIAL 2020-12-16 14:50:45 Santo Jean MD REQUEST A[employer] PTEN MUTATION MATERIAL 2020-12-16 14:50:45 Santo Jean MD REQUEST A[employer] [id number] MATERIAL REQUEST 2020-12-16 14:50:45 Santo Jean MD CANCER ANTIGEN 125 2020-12-16 13:12:00 Santo Jean MD on COMPLETE BLOOD COUNT W/ 2020-12-16 13:12:00 Santo Jean MD nderson DIFFERENTIAL BASIC METABOLIC PANEL, 2020-12-16 13:12:00 Santo Jean MD derson CALCIUM TOTAL BILIRUBIN TOTAL 2020-12-16 13:12:00 Santo Jean MD ALANINE AMINOTRANSFERASE 2020-12-16 13:12:00 Santo Jean MD ASPARTATE AMINOTRANSFERASE 2020-12-16 13:12:00 Santo Jean MAGNESIUM LEVEL 2020-12-16 13:12:00 Santo Jean MD Results CBC 2020-12-16 13:12:00 Santo Jean MD MANUAL DIFFERENTIAL 2020-12-16 13:12:00 Santo Jean MD GLUCOSE LEVEL 2020-12-16 13:12:00 Santo Jean MD BLOOD UREA NITROGEN 2020-12-16 13:12:00 Santo Jean MD ELECTROLYTE PANEL 2020-12-16 13:12:00 Santo Jean MD n SERUM CREATININE 2020-12-16 13:12:00 Santo Jean MD .GLOMERULAR FILTRATION RATE 2020-12-16 13:12:00 Santo Jean MD CALCIUM LEVEL TOTAL 2020-12-16 13:12:00 Santo Jean MD son HP SOLID TUMOR GENOMIC 2020-12-11 22:33:00 Santo Jean MD ASSAY DNA 2018 INTPRETATION AND REPORT CYTOLOGY NON-FOOD SERVICE CLERK 2020-12-11 17:02:00 Santo Jean MD INTERPRETATION IR US GUIDED PARACENTESIS 2020-12-11 16:58:01 Santo Jean MD IR US GUIDED BIOPSY ABDOMINAL 2020-12-11 16:58:01 Santo Jean MD AFB INTERVENTIONAL RADIOLOGY 2020-12-11 16:18:00 William Joshi MD W/ SMEAR ALBUMIN LEVEL BODY FLUID 2020-12-11 16:18:00 William Joshi MD AMYLASE LEVEL BODY FLUID 2020-12-11 16:18:00 William Joshi MD HC CULTURE, ANAEROB 2020-12-11 16:18:00 William Joshi MD son CELL COUNT W/ DIFF BODY FLUID 2020-12-11 16:18:00 William Joshi MD CHOLESTEROL BODY FLUID 2020-12-11 16:18:00 William Joshi MD derson TRIGLYCERIDE BODY FLUID 2020-12-11 16:18:00 William Joshi MD nderson PROTEIN BODY FLUID 2020-12-11 16:18:00 William Joshi MD on LACTATE DEHYDROGENASE BODY 2020-12-11 16:18:00 William Joshi FLUID INTERVENTIONAL RADIOLOGY 2020-12-11 16:18:00 William Joshi MD CULTURE W/GRAM STAIN FUNGUS INTERVENTIONAL RAD 2020-12-11 16:18:00 William Joshi MD CULTURE W/ GRAM STAIN CELL COUNT BODY FLUID 2020-12-11 16:18:00 Santo Jean MD And erson BODY FLUID DIFFERENTIALS 2020-12-11 16:18:00 Santo Jena MD BODY FLUID DIFF PATH REVIEW 2020-12-11 16:18:00 Santo Jean MD GLUCOSE BODY FLUID 2020-12-11 16:18:00 William Joshiers on CYTOLOGY IMAGE-GUIDED FNA 2020-12-11 16:07:00 Santo Jean MD INTERPRETATION PATHOLOGY BIOPSY 2020-12-11 16:06:00 Santo Jean MD INTERPRETATION COMPLETE BLOOD COUNT W/ 2020-12-11 14:00:00 Josephine Dubon MD DIFFERENTIAL PROTHROMBIN TIME 2020-12-11 14:00:00 Josephine Dubon MD on Results CBC 2020-12-11 14:00:00 Josephine Dubon MD Anderso n MANUAL DIFFERENTIAL 2020-12-11 14:00:00 Josephine Dubon MD And erson CT CHEST ABDOMEN PELVIS W 2020-12-06 16:48:00 Santo Jean MD CONTRAST POC CREATININE 2020-12-06 15:30:00 Santo Jean MD CANCER ANTIGEN 125 2020-12-06 15:21:00 Santo Jean MD on CT CHEST ABDOMEN PELVIS W 2020-08-28 16:24:03 Benedicto Pond MD CONTRAST POC CREATININE 2020-08-28 16:05:00 Santo Jean MD CANCER ANTIGEN 125 2020-08-28 13:40:00 Santo Jean MD on CANCER ANTIGEN 125 2020-07-29 14:14:00 Arianna Gee MD on COMPLETE BLOOD COUNT / 2020-07-29 14:14:00 Arianna Gee MD DIFFERENTIAL BASIC METABOLIC PANEL, 2020-07-29 14:14:00 Arianna Gee MD CALCIUM TOTAL BILIRUBIN TOTAL 2020-07-29 14:14:00 Arianna Gee MD ALANINE AMINOTRANSFERASE 2020-07-29 14:14:00 Arianna Gee MD ASPARTATE AMINOTRANSFERASE 2020-07-29 14:14:00 Arianna Gee MAGNESIUM LEVEL 2020-07-29 14:14:00 Arianna Gee MD Results CBC 2020-07-29 14:14:00 Arianna Gee MD MANUAL DIFFERENTIAL 2020-07-29 14:14:00 Arianna Gee MD Tr son GLUCOSE LEVEL 2020-07-29 14:14:00 Arianna Gee MD ELECTROLYTE PANEL 2020-07-29 14:14:00 Arianna Gee MDo n SERUM CREATININE 2020-07-29 14:14:00 Arianna Gee MD .GLOMERULAR FILTRATION RATE 2020-07-29 14:14:00 Arianna Gee MD CALCIUM LEVEL TOTAL 2020-07-29 14:14:00 Arianna Gee MD Tr son BLOOD UREA NITROGEN 2020-07-29 14:14:00 Arianna Gee MD Tr son CANCER ANTIGEN 125 2020-07-08 12:29:00 Arianna Gee MD on COMPLETE BLOOD COUNT W/ 2020-07-08 12:29:00 Arianna Gee MD DIFFERENTIAL BASIC METABOLIC PANEL, 2020-07-08 12:29:00 Arianna Gee MDson CALCIUM TOTAL BILIRUBIN TOTAL 2020-07-08 12:29:00 Arianna Gee MD ALANINE AMINOTRANSFERASE 2020-07-08 12:29:00 Arianna Gee MD ASPARTATE AMINOTRANSFERASE 2020-07-08 12:29:00 Arianna Gee MAGNESIUM LEVEL 2020-07-08 12:29:00 Arianna Gee MD ZINVITAE 2020-07-08 12:29:00 Ritika Del Valle MDrson Results CBC 2020-07-08 12:29:00 Arianna Gee MD MANUAL DIFFERENTIAL 2020-07-08 12:29:00 Arianna Gee MD Tr son GLUCOSE LEVEL 2020-07-08 12:29:00 Arianna Gee MD ELECTROLYTE PANEL 2020-07-08 12:29:00 Arianna Gee MD n SERUM CREATININE 2020-07-08 12:29:00 Arianna Gee MD .GLOMERULAR FILTRATION RATE 2020-07-08 12:29:00 Arianna Gee MD CALCIUM LEVEL TOTAL 2020-07-08 12:29:00 Arianna Gee MD Tr son BLOOD UREA NITROGEN 2020-07-08 12:29:00 Arianna Gee MD Tr [facility] CANCER ANTIGEN 125 2020-06-17 12:24:00 Arianna Gee MD on COMPLETE BLOOD COUNT W/ 2020-06-17 12:24:00 Arianna Gee MDrson DIFFERENTIAL BASIC METABOLIC PANEL, 2020-06-17 12:24:00 Arianna Gee MD derson CALCIUM TOTAL BILIRUBIN TOTAL 2020-06-17 12:24:00 Arianna Gee MD ALANINE AMINOTRANSFERASE 2020-06-17 12:24:00 Arianna Gee MD ASPARTATE AMINOTRANSFERASE 2020-06-17 12:24:00 Arianna Gee MAGNESIUM LEVEL 2020-06-17 12:24:00 Arianna Gee MD Results CBC 2020-06-17 12:24:00 Arianna Gee MD MANUAL DIFFERENTIAL 2020-06-17 12:24:00 Arianna Gee MD Tr son GLUCOSE LEVEL 2020-06-17 12:24:00 Arianna Gee MD BLOOD UREA NITROGEN 2020-06-17 12:24:00 Arianna Gee MD Tr son ELECTROLYTE PANEL 2020-06-17 12:24:00 Arianna Gee MD Andbebetoo n SERUM CREATININE 2020-06-17 12:24:00 Arianna Gee MD .GLOMERULAR FILTRATION RATE 2020-06-17 12:24:00 Arianna Gee MD CALCIUM LEVEL TOTAL 2020-06-17 12:24:00 Arianna Gee MD Trbeka lazo CANCER ANTIGEN 125 2020-05-27 13:09:47 Arianna eGe MD Rupert on COMPLETE BLOOD COUNT W/ 2020-05-27 13:09:47 Arianna Gee MD nderson DIFFERENTIAL BASIC METABOLIC PANEL, 2020-05-27 13:09:47 Arianna Gee MD derson CALCIUM TOTAL BILIRUBIN TOTAL 2020-05-27 13:09:47 Arianna Gee MD ALANINE AMINOTRANSFERASE 2020-05-27 13:09:47 Arianna Gee MD ASPARTATE AMINOTRANSFERASE 2020-05-27 13:09:47 Arainna Gee MAGNESIUM LEVEL 2020-05-27 13:09:47 Arianna Gee MD Results CBC 2020-05-27 13:09:47 Arianna Gee MD MANUAL DIFFERENTIAL 2020-05-27 13:09:47 Arianna Gee MD Trbanner GLUCOSE LEVEL 2020-05-27 13:09:47 Arianna Gee MD BLOOD UREA NITROGEN 2020-05-27 13:09:47 Arianna Gee MD Trbanner ELECTROLYTE PANEL 2020-05-27 13:09:47 Arianna Gee MD Anderso n SERUM CREATININE 2020-05-27 13:09:47 Arianna Gee MD .GLOMERULAR FILTRATION RATE 2020-05-27 13:09:47 Arianna Gee MD CALCIUM LEVEL TOTAL 2020-05-27 13:09:47 Arianna Gee MD Trbanner US HEAD NECK SOFT TISSUE 2020-05-07 15:57:[address] SOFT TISSUE NECK W 2020-05-07 14:47:31 Danielle Grady MD And erson CONTRAST ALBUMIN LEVEL 2020-05-06 13:56:00 Danielle Grady MD CALCIUM LEVEL TOTAL 2020-05-06 13:56:00 Danielle Grady MD Tr son FREE THYROXINE 2020-05-06 13:56:00 Danielle Grady MD THYROID STIMULATING HORMONE 2020-05-06 13:56:00 Danielle Grady MD VITAMIN D 25 HYDROXY LEVEL 2020-05-06 13:56:00 Danielle Grady BLOOD UREA NITROGEN 2020-05-06 13:56:00 Danielle Grady MD Tr son SERUM CREATININE 2020-05-06 13:56:00 Danielle Grady MD CANCER ANTIGEN 125 2020-05-06 13:56:00 Santo Jean MD on COMPLETE BLOOD COUNT W/ 2020-05-06 13:56:00 Santo Jean MD DIFFERENTIAL BASIC METABOLIC PANEL, 2020-05-06 13:56:00 Santo Jean MDson CALCIUM TOTAL BILIRUBIN TOTAL 2020-05-06 13:56:00 Santo Jean MD ALANINE AMINOTRANSFERASE 2020-05-06 13:56:00 Santo Jean MD ASPARTATE AMINOTRANSFERASE 2020-05-06 13:56:00 Santo Jean MAGNESIUM LEVEL 2020-05-06 13:56:00 Santo Jean MD SERUM CREATININE 2020-05-06 13:56:00 Danielle Grady MD .GLOMERULAR FILTRATION RATE 2020-05-06 13:56:00 Danielle Grady MD GLUCOSE LEVEL 2020-05-06 13:56:00 Santo Jean MD ELECTROLYTE PANEL 2020-05-06 13:56:00 Santo Jean MDo n Results CBC 2020-05-06 13:56:00 Santo Jean MD MANUAL DIFFERENTIAL 2020-05-06 13:56:00 Santo Jean MD Tr son CANCER ANTIGEN 125 2020-04-15 12:24:54 Santo Jean MD on COMPLETE BLOOD COUNT W/ 2020-04-15 12:24:54 Santo Jean MD DIFFERENTIAL BASIC METABOLIC PANEL, 2020-04-15 12:24:54 Santo Jean MD CALCIUM TOTAL BILIRUBIN TOTAL 2020-04-15 12:24:54 Santo Jean MD ALANINE AMINOTRANSFERASE 2020-04-15 12:24:54 Santo Jean MD ASPARTATE AMINOTRANSFERASE 2020-04-15 12:24:54 Santo Jean MAGNESIUM LEVEL 2020-04-15 12:24:54 Santo Jean MD Results CBC 2020-04-15 12:24:54 Santo Jean MD MANUAL DIFFERENTIAL 2020-04-15 12:24:54 Santo Jean MD GLUCOSE LEVEL 2020-04-15 12:24:54 Santo Jean MD BLOOD UREA NITROGEN 2020-04-15 12:24:54 Santo Jean MD ELECTROLYTE PANEL 2020-04-15 12:24:54 Santo Jean MDo n SERUM CREATININE 2020-04-15 12:24:54 Santo Jean MD .GLOMERULAR FILTRATION RATE 2020-04-15 12:24:54 Santo Jean MD CALCIUM LEVEL TOTAL 2020-04-15 12:24:[address] CHEST ABDOMEN PELVIS W 2020-04-03 22:00:00 Santo Jean MD CONTRAST POC CREATININE 2020-04-03 21:03:00 Santo Jean MD CANCER ANTIGEN 125 2020-04-01 17:31:07 S[address] Jean MD on [address] ABDOMEN W WO CONTRAST 2020-03-07 13:23:00 Tiara Truong MD POC CREATININE 2020-03-07 12:48:00 Santo Jean MD CANCER ANTIGEN 125 2020-03-07 12:27:00 Santo Jean MD on Encounters Start End Encounter Admission Attending Care Care Encounter Source Date/Time Date/Time Type Type Clinicians Facility Department ID 2020-06-20 Outpatient SYSTEMMARY ANN MDA [id number] 09:23:44 DA ornelas 2020-12-16 2020-12-16 Outpatient BECKY JEANMARY ANN MDA [id number] 11:16:07 18:15:18 SANTO ornelas 2020-12-16 2020-12-16 Outpatient BECKY JEAN MDA MDA [id number] 10:05:37 10:30:48 SANTO ornelas 2020-12-16 2020-12-16 Outpatient BECKY POND MDA MDA [id number] 09:14:05 10:00:04 BENEDICTO ornelas 2020-12-16 2020-12-16 Outpatient BECKY JEAN MDA MDA [id number] 07:33:49 07:56:30 SANTO ornelas 2020-12-11 2020-12-11 Outpatient BECKY JEAN MDA MDA [id number] 09:17:46 23:59:00 SANTO ornelas 2020-12-11 2020-12-11 Outpatient EL MELANY, MDA MDA [id number] MD 08:32:41 09:01:42 JOSEPHINE ornelas 2020-12-10 2020-12-10 Outpatient BECKY POND, MDA MDA [id number] MD 12:05:39 23:59:00 BENEDICTO ornelas 2020-12-06 2020-12-06 Outpatient BECKY JEAN, MDA MDA [id number] MD 08:45:50 08:45:50 SANTO ornelas 2020-12-06 2020-12-06 Outpatient BECKY JEAN, MDA MDA [id number] MD 08:45:32 08:45:32 SANTO ornelas 2020-10-07 2020-10-07 Outpatient EL SABINA, MDA MDA [id number] MD 09:13:12 11:24:13 CARLOS A ornelas 2020-10-01 2020-10-01 Outpatient EL SABINA, MDA MDA [id number] MD 00:00:00 00:00:00 CARLOS A ornelas 2020-10-01 2020-10-01 Outpatient BECKY TRUONG, MDA MDA [id number] MD 00:00:00 00:00:00 TIARA ornelas 2020-09-02 2020-09-02 Outpatient BECKY POND, MDA MDA [id number] MD 12:59:06 12:59:06 BENEDICTO ornelas 2020-08-28 2020-08-28 Outpatient BECKY JEAN, MDA MDA [id number] MD 07:37:14 07:37:14 SANTO ornelas 2020-08-28 2020-08-28 Outpatient BECKY POND, MDA MDA [id number] MD 07:36:56 07:36:56 BENEDICTO ornelas 2020-07-29 2020-07-29 Outpatient EL ARIANNA GEE MDA MDA [id number] 09:33:34 17:12:41 Rupert ornelas 2020-07-29 2020-07-29 Outpatient BECKY POND, MDA MDA [id number] MD 08:45:46 08:45:46 BENEDICTO ornelas 2020-07-29 2020-07-29 Outpatient EL MARLEN ARIANNA MDA MDA [id number] 07:41:51 08:14:49 Rupert ornelas 2020-07-08 2020-07-08 Outpatient ARIANNA CONNELL MDA MDA [id number] 08:44:28 14:55:32 Rupertbebeto ornelas 2020-07-08 2020-07-08 Outpatient BECKY POND, MDA MDA [id number] 08:04:24 08:04:24 BENEDICTO Emery o ceci 2020-07-08 2020-07-08 Outpatient ARIANNA CONNELL MDA MDA [id number] 07:14:30 07:29:59 Rupert marci ornelas 2020-07-01 2020-07-01 Outpatient BECKY POND, MDA MDA [id number] 00:00:00 00:00:00 BENEDICTO ornelas 2020-07-01 2020-07-01 Outpatient BECKY JEAN, MDA MDA [id number] 00:00:00 00:00:00 SANTO Emery o ceci 2020-07-01 2020-07-01 Outpatient BECKY JEAN, MDA MDA [id number] 00:00:00 00:00:00 SANTO ornelas 2020-06-21 2020-06-21 Outpatient ARIANNA CONNELL MDA MDA [id number] 08:06:14 08:06:14 Rupert ornelas 2020-06-17 2020-06-17 Outpatient ARIANNA CONNELL MDA MDA [id number] 08:46:36 15:29:12 Rupert ornelas 2020-06-17 2020-06-17 Outpatient BECKY POND, MDA MDA [id number] 07:34:35 07:34:35 BENEDICTO Emery o ceci 2020-06-17 2020-06-17 Outpatient ARIANNA CONNELL MDA MDA [id number] 07:24:32 07:31:45 Rupert marci ornelas 2020-05-27 2020-05-27 Outpatient ARIANNA CONNELL MDA MDA [id number] 09:08:41 09:08:41 Rupert ornelas 2020-05-27 2020-05-27 Outpatient BECKY POND, MDA MDA [id number] 08:11:22 08:11:22 BENEDICTO Emery o ceci 2020-05-27 2020-05-27 Outpatient ARIANNA CONNELL MDA MDA [id number] 08:00:27 08:09:32 Rupert ornelas 2020-05-14 2020-05-14 Outpatient EL VANESSA, MDA MDA [id number] MD 10:28:59 10:28:59 EDELMIRA ornelas 2020-05-07 2020-05-07 Outpatient EL YSABEL, MDA MDA [id number] MD 09:36:53 09:36:53 DANIELLE ornelas 2020-05-07 2020-05-07 Outpatient EL GRADY, MDA MDA [id number] MD 09:04:23 09:04:23 DANIELLE ornelas 2020-05-06 2020-05-06 Outpatient EL TED, MDA MDA [id number] MD 10:30:36 17:34:00 SANTO ornelas 2020-05-06 2020-05-06 Outpatient EL SALTY, MDA MDA [id number] MD 08:57:29 10:28:14 BENEDICTO ornelas 2020-05-06 2020-05-06 Outpatient TED, MDA MDA [id number] MD 08:43:39 08:50:07 SATNO ornelas 2020-04-15 2020-04-15 Outpatient EL SALTY, MDA MDA [id number] MD 07:29:57 09:42:59 BENEDICTO ornelas 2020-04-15 2020-04-15 Outpatient TED, MDA MDA [id number] 09:09:36 09:09:36 SANTO ornelas 2020-04-15 2020-04-15 Outpatient TED, MDA MDA [id number] 07:08:02 07:24:34 ASNTO ornelas 2020-04-03 2020-04-03 Outpatient TED, MDA MDA [id number] MD 14:57:19 14:57:19 SANTO ornelas 2020-04-01 2020-04-01 Outpatient EL SALTY, MDA MDA [id number] MD 12:34:11 12:34:11 BENEDICTO ornelas 2020-04-01 2020-04-01 Outpatient EL TED, MDA MDA [id number] MD 12:12:01 12:17:35 SANTO ornelas 2020-03-07 2020-03-07 Outpatient EL SABINA, MDA MDA [id number] MD 14:24:44 15:30:10 CARLOS A ornelas 2020-03-07 2020-03-07 Outpatient BECKY JEAN MDA MDA [id number] 07:09:15 07:09:15 SANTO covarrubias n 2020-03-07 2020-03-07 Outpatient BECKY TRUONG MDA MDA [id number] 07:08:43 07:08:43 TIARA Dias rso n Results Test Description Test Time Test Comments Results Result Comments Source Anion Gap 2021-02-25 10:24:51 Test Item Value Reference Range Interpretation Comme nts Anion Gap (test code = 9325) 10 See_Comment [Automated message] The system which generated this result transmitted reference range : 4 - 14 mEq/L. The reference range was not used to interpret this result as normal/abnormal . MD DialloGlomerular Filtration [id number] 10:24:50 Test Item Value Reference Range Interpretation Comments eGFR-AA (test code = 36 See_Comment L Normal eGFR: >= 60 8062) mL/min/1.73 m2N ote: The eGFR is rosales culated using the CKD-E PI equation. The e GFR declines with a ge. eGFR <60 mL/min /1.73 m2 is considere d as "decreased". Th is equation should only be used for pat ients 18 and older. According to th e National Kidney Foundation's Ki dney Disease Outcome Quality Initiat tacos (KDOQI) classif ication and 2012 Kidney Disease Improvi ng Global Outcomes (KDIGO) Clinica l Practice Guidel ine, the stage of CK D should be categ orized based on estima darryl GFR. Stage Desc ription GFR mL/mi n/1.73 m21 Normal or h igh GFR >=902 Mildly decreased GFR 60-893a M ildly to moderately decreased GFR 45-593b Moderat ana to severely decrea sed GFR 30-444 Leny rely decreased GFR 15-295 Kidney f ailure <15 [Auto mated message] The sy stem which generated this result transmit darryl reference range : >=60 mL/min/1.73 sq. m. The reference range was not used to int erpret this result as normal/abnormal . eGFR-ALLEN (test code = 31 See_Comment L Normal eGFR: >= 60 8063) mL/min/1.73 m2N ote: The eGFR is rosales culated using the CKD-E PI equation. The e GFR declines with a ge. eGFR <60 mL/min /1.73 m2 is considere d as "decreased". Th is equation should only be used for pat ients 18 and older. According to th e National Kidney Foundation's Ki [place] Disease Outcome Quality Initiat tacos (KDOQI) classif ication and 2011 Kidney Disease Improvi ng Global Outcomes (KDIGO) Clinica l Practice Guidel ine, the stage of CK D should be categ orized based on estima darryl GFR. Stage Desc ription GFR mL/mi n/1.73 m21 Normal or h igh GFR >=902 Mildly decreased GFR 60-893a M ildly to moderately decreased GFR 45-593b Moderat ana to severely decrea sed GFR 30-444 Leny rely decreased GFR 15-295 Kidney f ailure <15 [Auto mated message] The sy stem which generated this result transmit darryl reference range : >=60 mL/min/1.73 sq. m. The reference range was not used to int erpret this result as normal/abnormal . Lab Interpretation Abnormal (test code = 04647-9) MD DialloChloride [id number] 10:24:49 Test Item Value Reference Range Interpretation Comments Chloride (test code = 107 See_Comment [Auto mated message] The 5279) system which ge nerated this result tra nsmitted reference range : 98 - 107 mEq/L. The refe rence range was not u sed to interpret this result as normal/abnormal . MD DialloMagnesium [id number] 10:24:48 Test Item Value Reference Range Interpretation Comments Magnesium (test code = 6359) 1.6 mg/dL 1.6-2.6 MD DialloPotassium [id number] 10:24:47 Test Item Value Reference Range Interpretation Comments Potassium Lvl (test 4.6 See_Comment [Automa darryl message] The code = 6854) system which ge nerated this result tra nsmitted reference range : 3.5 - 5.1 mEq/L. The reference range was not u sed to interpret this result as normal/abnormal . MD Diallo.Serum Edllycayev9559-96-89 10:24:46 Test Item Value Reference Range Interpretation Comments Creatinine (test code = 5399) 1.65 mg/dL 0.51-0.95 H Lab Interpretation (test code = Abnormal 59876-6) MD DialloSodium [id number] 10:24:45 Test Item Value Reference Range Interpretation Comments Sodium Lvl (test code 136 See_Comment [Auto mated message] The = 7355) system which ge nerated this result tra nsmitted reference range : 136 - 145 mEq/L. The refe rence range was not used to interpret this result as normal/abnormal . MD DialloBlood Urea [id number] 10:24:44 Test Item Value Reference Range Interpretation Comments BUN (test code = 5055) 24 mg/dL 6-23 H Lab Interpretation (test code = Abnormal 33919-7) MD DialloGlucose, [id number] 10:24:43 Test Item Value Reference Range Interpretation Comments Glucose Random (test 91 mg/dL 70-199 Effecti ve 04/08/16, the code = 9360) glucose referen ce intervals have been updated based o n [place] [employer] as[place] delines (Standards of M edical Care in Diabete s 2016. Diabetes Care 2 016; 39: S13-S22).Fastin g blood glucose:Normal: 70 99 mg/dLImpaire d fasting glucose (increa sed risk for diabetes or pre-diabetes): 100 125 mg/dLDiabet es mellitus: >/=1 26 mg/dL Random blood glucose:Normal: 70 199 mg/dLNote: Random glucose >100 mg /dL is associated with increased risk for diabetes MD DialloCarbon Dioxide [id number] 10:24:42 Test Item Value Reference Range Interpretation Comments CO2 (test code = 5227) 19 See_Comment L [Aut omated message] The system whic h generated this result transmitted ref erence range: 22 - 29 mEq/L. The reference r saida was not used to interpret this result as normal/abnor mal. Lab Interpretation (test Abnormal code = 67510-7) MD DialloBowkegjbBvhelbjsigvn8654-16-11 10:00:18 Test Item Value Reference Range Interpretation Comments Neutrophil % (test code = 64.7 % 42.0-66.0 6491) Lymphocyte % (test code = 18.3 % 24.0-44.0 L 6194) Monocyte % (test code = 14.3 % 2.0-7.0 H 6422) Eosinophil % (test code = 0.2 % 1.0-4.0 L 5520) Basophil % (test code = 0.2 % 0.0-1.0 5068) IGRE % (test code = 5958) 2.3 % 0.0-0.4 H IG RE % count includes Metamyelocytes, Myelocytes, and Promyelocytes. Neutrophil Abs (test code 6.08 K/uL 1.70-7.30 = 6492) Lymphocyte Abs (test code 1.72 K/uL 1.00-4.80 = 6195) Monocyte Abs (test code = 1.34 K/uL 0.08-0.70 H 6423) Eosinophil Abs (test code 0.02 K/uL 0.04-0.40 L = 5521) Basophil Abs (test code = 0.02 K/uL 0.00-0.10 5069) IG Abs (test code = 5954) 0.22 K/uL 0.00-0.04 H Lab Interpretation (test Abnormal code = 72595-2) MD Diallo.[id number] 10:00:14 Test Item Value Reference Range Interpretation Comments WBC (test code = 8034) 9.4 K/uL 4.0-11.0 RBC (test code = 6932) 4.06 See_Comment [Aut omated message] The system [employer] generated this result transmitted ref erence range: 4.00 - 5 .50 M/uL. The refer ence range was not u sed to interpret this result as normal/abnor mal. Hgb (test code = 5898) 10.1 See_Comment L [Aut omated message] The system [employer] generated this result transmitted ref erence range: 12.0 - 1 6.0 gm/dL. The refe rence range was not u sed to interpret this result as normal/abnor mal. Hct (test code = 5860) 30.4 % 37.0-47.0 L MCV (test code = 6222) 75 fL 82-98 L MCH (test code = 6220) 24.9 pg 27.0-31.0 L MCHC (test code = 6221) 33.2 See_Comment [Au tomated message] The system [employer] generated this result transmitted ref erence range: 31.0 - 3 6.0 gm/dL. The refe rence range was not u sed to interpret this result as normal/abnor mal. RDW-SD (test code = 54.9 fL 35.1-46.3 H 6972) RDW-CV (test code = 20.2 % 12.0-15.5 H 6971) Platelet count (test 329 K/uL 140-440 code = 6832) MPV (test code = 6282) 8.3 fL 4.0-10.4 INRBC (test code = 0.0 % See_Comment The INRBC (instrument 5974) NRBC) value ref lects the enumeration of nucleated red b lood cells contained in a 200uL sampleof whole blood analyzed by the instrument. Thi s value maydiffer from the NRBC value repo rted in a manual differential,wh ich is based on a 100 cell differential. [Automated mess age] The system whic h generated this result transmitted ref erence range: <=0.0. T he reference range was not used to int erpret this result as normal/abnormal . Lab Interpretation Abnormal (test code = 10213-4) MD DialloX-ray Abdomen [id number] 22:40:57Persistent formed stool in the rectum, unchanged compared to 02/18/2021. Recommend clinical correlation for impaction.Interface, Radiology Results In - 02/23/2021 5:43 PM CDT FULL RESULT:Examination: XR ABDOMEN AP on 02/23/2021 4:06 PMClinical History: Multinodular goiterMalignant neoplasm of endometriumSerum creatinine raisedNausea and vomitingMalignant ascitesSlow transit constipationLong term current use of systemic steroidCandidiasis of skinVomitingDysphagiaIndication: ObstructionComparison: 02/11/2021Technique: XR ABDOMEN APFindings: A pigtail drainage catheter is present in the right upper abdomen. Loops of bowel are normal in caliber. Stool in the colon. No dilated loops of bowel. No free intraperitoneal air is detected. Formed stool in the rectum is similar to that seen on 02/18/2021.IMPRESSION:Persistent formed stool in the rectum, unchanged compared to 02/18/2021. Recommend clinical correlation for impaction.MD DialloSergio Glucose [id number] 13:13:30 Test Item Value Reference Range Interpretation Comments POC Glucose (test 79 mg/dL 70-99 Capillary blood code = 05183-7) samples, e.g . obtained by fingerstick, may have inaccurate results in erica ents with decreased peripheral bloo d flow. Method descript ion: All results are measured using Electrochemistr y test methodology. Th e glucose in the sample mixes with the reagents on the test strip. The reac tion produces an sarah ctric current. The am ount of current produce d is proportional to the glucose concent ration in the blood. PO Sample Type Capillary (test code = 9554) Performing Lab [facility] (test code = Mirlande Espino [address]) Clinical Lab, [address] [place] [address], [place], [place] [address]; Comic Writer: MD MD Yoel MagallonPartial Thromboplastin [id number] 10:04:06 Test Item Value Reference Range Interpretation Comments PTT (test code = 6773) 73.8 See_Comment H [Aut omated message] The sy stem which generated this result transmitted reference range : 24.7 - 36.8 second(s). The reference range was not used to interpret this result as normal/abnormal . LISA (test code = LISA) RN will draw Lab Interpretation Abnormal (test code = 02423-8) [facility] Interpretation Antibody Screen [id number] 03:19:56 Test Item Value Reference Range Interpretation Comments TMP Auto Neg At the present ABSC Interp time, patient (test code = plasma shows no ____KASIA ALLEN MD 7535) evidence of RBC - 08814Mbugu darryl by: alloantibodies. KASIA RODRIGUEZ MD - [id number] D ate/Time: 02.20.2021 22:1 9 PM CDT Transcribed Da te/Time: 02.20.2021 22:1 9 PM CDTElectronical ly Signed By: KASIA GRIFFIN MD - [id number] on 22:19 PM MD DialloTMReggie Interpretation [id number] 03:19:55 Test Item Value Reference Range Interpretation Comments TMP XM Interp RBC units (test code = crossmatched for 7566) transfusion appear RAMÍREZ AGUIRRE acceptable. MD ALEJANDRO - [id number] b y: MD Sánchez LEACH [id number] Date/Time: 02.11 22:19 PM CDT Transcribed Morteza e/Time: 02.20.2021 22:1 9 PM CDTElectronical ly Signed By: ROSE ALLEN MD - 1 2005 on 02.20.2021 22:1 9 PM MD Castro RBC:G10, 1 [id number] 21:40:57 Test Item Value Reference Range Interpretation Comments PRBC Product Ready 1 Red Blood Cells (test code = Available - 41938-8) Order Form 03 when ready for product issue. Unit Number (test [id number] code = 7002) Product Code (test [id number] code = 7003) Unit Expiration [id number] (test code = 333112) Unit Blood Type 6200 (test code = 7004) Product Code Text RBCIRLR CPD AS1 (test code = 500mL ) Crossmatch [id number] Expiration Date (test code = ) Unit Irradiated IRRADIATED (test code = 955042) Dispense Status ISSUED (test code = 7001) Unit Blood Type A Positive (test code = 7005) Product Client Sales And Service Officer .BPAM ____ Location (test ___ code = 871007) ___ ____ MD AndersonRBC Product Ready for Pick [id number] 20:54:42 Test Item Value Reference Range Interpretation Comments PRBC Product Ready B2 Blood Bank Product is ready for for Client Sales And Service Officer (test poultry picking machine tender on February 20, code = 361144) 2020 15:54:28 CDT. MD DialloAntibody [id number] 20:21:41 Test Item Value Reference Range Interpretation Comments ABSC. (test code = 890-4) Negative ABSC MD DialloEjyjfhnaCYSIt1376-72-09 20:20:35 Test Item Value Reference Range Interpretation Comments ABORh. (test code = 882-1) A POS MD DialloClot Expiration [id number] 20:05:05 Test Item Value Reference Range Interpretation Comments T & S Expiration (test code = 02/23/2021 5318) MD DialloConfirm [id number] 17:04:25 Test Item Value Reference Range Interpretation Comments ABORh Confirm. (test code = 882-1) A POS MD DialloIR FL PORT [id number] 17:34:45Date of Procedure: 02/19/21 Attending Physician: KIMBER MONTALVO MD Second Steward: None Pre-procedure Diagnosis: Endometrial cancer Post-procedure Diagnosis: Unchanged Indication:Chemotherapy administration Title of Procedure:Right IJ power-injectable chest port placement. Port:Bard PowerPort Clearvue SLIM Implantable Port Catheter size:8F Operative Findings:Successful percutaneous image-guided power-injectable chest port placement in the right internal jugular vein. Consent: The procedure, risks, indications and alternatives were explained. All questions were answered and informed consent was obtained. I have reviewed the history and physical dictated by the mid-level practitioner / fellow. Sedation/Anesthesia: Moderate sedation for pain control and anxiety was administered by a dedicated nurse under mysupervision. There was continuous monitoring of oxygen saturation, heart rate and intermittent monitoring of blood pressure during the procedure. Medication given was midazolam and fentanyl. I was present for the administration of the medications indicated above.Procedure Events Event Event Time Sedation Start 02/19/2021 11:00 AM Sedation End 02/19/2021 12:10 PM Insertion site prepped with: Chlorhexadine gluconate Procedure in Detail:A time out was performed prior to the start of the procedure andthe correct patient, procedure, presence of consent, site, and side were confirmed with all members of the team. Insertion site was prepped and cleaned with aseptic technique. Sterile devices and equipment were used. Doors were closed and traffic kept to a minimum during the procedure. Skin prep agentwas allowed to dry prior to procedure. Maximum sterile barriers were used including sterile gloves, gown, cap, mask and head to toe sterile cover. Hand hygiene was performed prior to insertion by all persons performing/assisting with procedure. Ultrasound evaluation of the access site demonstrated a patent and compressible vein. Lidocaine 1% was used for local anesthesia. Under ultrasound imaging guidance, a 21 gauge needle was advanced into the right internal jugular vein and the access site was scaled up to accept a micropuncture transitional dilator. An image was obtained and placed into the medical record. A wire was advanced into the inferior vena cava under fluoroscopic guidance to secure access. An appropriate site within the upper chest was determined and an incision was created. A subcutaneous pocket below the incision site was created. The subcutaneous tunnel was then created in the upper chest and the port catheter was advanced through the tunnel. The venous access site was scaled up to accept a peel-away sheath. The catheter was then advanced through the sheath, with the tip of the catheter in a satisfactory position at the SVC/atrial junction on fluoroscopy. The catheter was connected to the hub of the chest port. The chest port hub was placed within the subcutaneous pocket. Venous access incision closed with Dermabond. The port pocket incision was closed as below. Port pocket closure:The incision was approximated with multiple subdermal sutures. Dermabond was applied tothe incision sites. Additional Comments: None Estimated Blood Loss: Minimal Specimens Removed: No Disposition: PACU Plan: Port Catheter positioning was confirmed with a fluoroscopic image at the conclusion of the procedure. Tip of the catheter lies at the SVC/RA junction. The port is now ready forimmediate use.MD DialloIR INTRAPERITONEAL PLACEMENT (NON-TUNNELED)2021-02-19 17:32:15 Date of Procedure: 02/19/21 Attending Physician: KIMBER MONTALVO MD Second Steward: None Pre Procedure Diagnosis: Endometrial cancer Post Procedure Diagnosis: Unchanged Indication: Palliative drainage of recurrent ascites Title of Procedure:Percutaneous Image-Guided Intra-Peritoneal Catheter Placement. Op erative Findings: Percutaneous image-guided placement of intraperitoneal catheter. Consent: The procedure, risks, indications and alternatives were explained. All questions were answered and informed consent was obtained. I have reviewed the history and physical dictated by the mid-level practitioner / fellow. Sedation/Anesthesia: Moderate sedation for pain control and anxiety was administeredby a dedicated nurse under my supervision. There was continuous monitoring of oxygen saturation, heart rate and intermittent monitoring of blood pressure during the procedure. Medication given was midazolam and fentanyl. I was present for the administration of the medications indicated above.Procedure Events Event Event Time Sedation Start 02/19/2021 11:00 AM Sedation End 02/19/2021 12:10 PM Procedure in Detail: A time out was performed prior to the start of the procedure and the correct patient,procedure, presence of consent, site, and side were confirmed with all members of the team. Preliminary imaging was utilized to evaluate the presence and location of fluid and to choose the appropriateaccess site. The skin overlying the RLQ was prepped and draped in the usual sterile fashion. Lidocaine 1% was used for local anesthesia. Under ultrasound imaging-guidance an 18 gauge needle was advanced into the selected region of fluid. An image was obtained and was stored in the patient's image mele e. A guidewire was advanced into the peritoneal cavity and the access was scaled up to accept a 10 Slovak peritoneal catheter. The catheter was capped. The catheter was secured to the skin. Additional Comments: None Estimated Blood Loss: Minimal Specimens Disposition: Fluid evacuation was performed for palliative intent and no samples were submitted for analysis. Immediate Complications: None Disposition: PACU Plan: Referring Service Management: Drainage to be managed by requesting/referring service.MD DialloCreatinjean [id number] 06:37:17 Test Item Value Reference Range Interpretation Comments U Creatinine (test 212.1 mg/dL 29.0-226.0 The refer ence range code = 7725) listed is for f irst morning urine collection. MD DialloSodium Level, [id number] 06:37:16 Test Item Value Reference Range Interpretation Comments U Sodium (test code = <20 mEq/L Normal range not available 6739) for collections less than 24 hours in [facility]. MD DialloUrinalysis with [id number] 22:23:17 Test Item Value Reference Interpretation Comments Range UA WBC (test code = 2 See_Comment [Automa darryl 3845) message] The system which generated this result transmitted reference range : 0 - 2 /HPF. The reference range was not used to interpret this result as normal/abnormal . UA RBC (test code = NOT SEEN See_Comment [Automa darryl 4372) message] The system which generated this result transmitted reference range : 0 - 2 /HPF. The reference range was not used to interpret this result as normal/abnormal . UA Mucous (test code TRACE Not Seen-Trace = 7887) /HPF UA Bacteria (test NOT SEEN NOT SEEN /HPF code = 7870) UA Squam Epi (test OCC None-Occasiona code = 7896) l /HPF UA Hyal Cast (test 17 See_Comment H [Automat ed code = 7883) message] The system which generated this result transmitted reference range : 0 - 2 /LPF. The reference range was not used to interpret this result as normal/abnormal . UA Gran Cast (test 1 See_Comment H [Automat ed code = 7882) message] The system which generated this result transmitted reference range : <=0 /LPF. The reference range was not used to interpret this result as normal/abnormal . LISA (test code = Some reporting LISA) parameters within the Urinalysis test have changed due to the implementation of new instrumentation in the [facility] [place], allowing greater sensitivity of measurement. Urinalysis results reported by the [facility] using existing instrumentation, as well as Urinalysis testing performed manually or by backup methodology at the [facility] will remain relatively unchanged. New reporting parameters and units will now be reported for all campuses. Lab Interpretation Abnormal (test code = 20027-7) MD DialloUrinalysis w/Microscopic if [id number] 21:51:48 Test Item Value Reference Range Interpretation Comments UA Color (test code = 7877) Mary Straw-Yellow A UA Appear (test code = 7868) Hazy Clear A UA Glucose (test code = 7881) NEG NEG mg/dL UA Bili (test code = 7871) NEG NEG UA Ketones (test code = 7884) Trace NEG mg/dL A UA Spec Grav (test code = 7894) 1.023 1.003-1.035 UA Blood (test code = 7872) NEG NEG UA pH (test code = 7909) 5.0 5.0-9.0 UA Protein (test code = 7890) 30 mg/dL NEG A UA Urobilinogen (test code = 7903) POS NEG A UA Nitrite (test code = 7888) NEG NEG UA Leuk Est (test code = 7886) NEG NEG Lab Interpretation (test code = Abnormal 29094-8) MD DialloX-ray Abdomen 1 View [id number] 21:16:181. Left pleural effusion and ascites.2. Nonobstructed bowel gas pattern.Interface, Radiology Results In - 02/18/2021 4:18 PM CDT FULL RESULT:Examination: XR ABDOMEN 1 VW PORTABLE 02/18/2021 4:03 PMClinical History: 70-year-old patient with history of malignant neoplasm of the endometriumIndication: Nausea / VomitingComparison: 02/11/2021Technique: AP abdomen radiographs obtained in the supine position.Findings: Moderate left pleural effusion with left lower lobe atelectasis presentNo dilated loops of bowel are identified.The bowel loops are noted in the abdomen appear to be centered in the abdomen compatible with moderate volume ascites p resent.Unchanged osseous structures.IMPRESSION:1. Left pleural effusion and ascites.2. Nonobstructed bowel gas pattern.MD DialloFractionated Bilirubin 2021-02-18 21:10:08 Test Item Value Reference Range Interpretation Comments Bili Total (test 0.5 mg/dL See_Comment Indocyanine Green (ICG) code = 5096) may cause false ly elevated biliru bin results. Total and direct bilirubin must not be measured from s amples containing indo cyanine green. False el evation of total bilirubin can be seen in patient s with IgG concentrations above 28 g/L. [Automate d message] The system [employer] generated this result transmitted ref erence range: <=1.2. T he reference range was not used to interpr et this result as normal/abnormal . Bili Direct (test 0.2 mg/dL See_Comment Indocyanin e Green (ICG) code = 5094) may cause false ly elevated biliru bin results. Total and direct bilirubin must not be measured from s amples containing indo cyanine green. [Automat ed message] The sy stem which generated this result transmitted ref erence range: <=0.3. T he reference range was not used to interpr et this result as normal/abnormal . Bili Indirect (test 0.3 mg/dL 0.0-0.9 code = 5095) MD DialloTotal [id number] 21:10:06 Test Item Value Reference Range Interpretation Comments Total Protein (test code = 7649) 6.7 g/dL 6.4-8.3 MD DialloPhosphorus [id number] 21:10:03 Test Item Value Reference Range Interpretation Comments Phosphorus (test code = 6817) 3.3 mg/dL 2.5-4.5 MD DialloAlkaline [id number] 21:10:02 Test Item Value Reference Range Interpretation Comments Alk Phos (test code = 4768) 84 U/L 35-104 MD [id number] 21:10:01 Test Item Value Reference Range Interpretation Comments LDH (test code = 6111) 283 U/L 135-214 H Resul ts greater than 1651 U/L may no t be reliable due to matrix effect w ith extended diluti on as it exceeds the machine operator picker s recommended l imit. Caution should be exercised when interpreting londono ch values and done in conjunction wit h clinical contex t. Lab Interpretation (test Abnormal code = 08927-2) MD D[id number] 21:10:00 Test Item Value Reference Range Interpretation Comments ALT (test code = 14 U/L See_Comment [Automated message] The 8500) system which [employer] nerated this result transmit darryl reference range : <=33. The reference range was not used to interpr et this result as kia l/abnormal. MD DialloCalcium [id number] 21:09:59 Test Item Value Reference Range Interpretation Comments Calcium Lvl (test code = 5258) 9.9 mg/dL 8.4-10.2 MD DialloAlbumin [id number] 21:09:57 Test Item Value Reference Range Interpretation Comments Albumin Lvl (test code = 2.8 See_Comment L [A utomated message] 5541) The system [employer] generated this result transmitted ref erence range: 3.5 - 5. 2 gm/dL. The refe rence range was not u sed to interpret this result as normal/abnor mal. Lab Interpretation (test Abnormal code = 19332-6) MD DialloAspartate [id number] 21:09:55 Test Item Value Reference Range Interpretation Comments AST (test code = 20 U/L See_Comment [Automated message] The 2019) system which [employer] nerated this result transmit darryl reference range : <=32. The reference range was not used to interpr et this result as kia l/abnormal. MD DialloElectrolyte [id number] 21:09:54 Test Item Value Reference Range Interpretation Comments Sodium Lvl (test code = 140 See_Comment [Au tomated message] 2861) The system [employer] generated this result transmitted ref erence range: 136 - 14 5 mEq/L. The refe rence range was not u sed to interpret this result as normal/abnor mal. Potassium Lvl (test code 4.6 See_Comment [A utomated message] = 7954) The system [employer] generated this result transmitted ref erence range: 3.5 - 5. 1 mEq/L. The refe rence range was not u sed to interpret this result as normal/abnor mal. Chloride (test code = 107 See_Comment [Auto mated message] 2804) The system [employer] generated this result transmitted ref erence range: 98 - 107 mEq/L. The refe rence range was not u sed to interpret this result as normal/abnor mal. CO2 (test code = 5227) 19 See_Comment L [Aut omated message] The system [employer] generated this result transmitted ref erence range: 22 - 29 mEq/L. The reference r saida was not used to interpret this result as normal/abnor mal. Anion Gap (test code = 14 See_Comment [Aut omated message] 6743) The system [employer] generated this result transmitted ref erence range: 4 - 14 m Eq/L. The reference r saida was not used to interpret this result as normal/abnor mal. Lab Interpretation (test Abnormal code = 73476-3) MD DialloGlucose [id number] 21:09:53 Test Item Value Reference Range Interpretation Comments Glucose Level (test 86 mg/dL 70-99 Effectiv e 04/08/16, the code = 5699) glucose referen ce intervals have been updated based o n [place] [employer] asia delines (Standards of M edical Care in Diabete s 2016. Diabetes Care 2 016; 39: S13-S22).Fastin g blood glucose:Normal: 70 99 mg/dLImpaire d fasting glucose (increa sed risk for diabetes or pre-diabetes): 100 125 mg/dLDiabet es mellitus: >/=1 26 mg/dL Random blood glucose:Normal: 70 199 mg/dLNote: Random glucose >100 mg /dL is associated with increased risk for diabetes MD DialloInfluenza A/B + COVID-19 Asymptomatic- [id number] 19:25:32 Test Item Value Reference Range Interpretation Comments COVID19 Not Detected Not Detected (SARS-CoV-2) (test code = 66450-8) Influenza A (test Not Detected Not Detected code = 61375-6) Influenza B (test Not Detected Not Detected code = 90407-7) COVID19 SARS Inpatient Indication (test Admission code = 82942) Inf AB+Cov19 See Note The lexi SARS- CoV-2 Comment (test & Influenza A/ B code = 17535) nucleic acid t est for use on the jono s [employer] System is a [employer] real-time RT-PC R assay intended for the simultaneou s, qualitative det ection and differentia l of SARS-CoV-2 (COVID-19), inf luenza A, and influenz a B viral RNA in nasopharyngeal swabs in transport me ravi from patients suspected of pompa ving a respiratory inf ection with one of the se viruses or poss ibly exposure to COV ID-19 by a healthcare provider. Resul ts must be interpr eted within the cont ext of all relevant cl inical and laboratory findings and sh ould not form the so le basis for a ravi gnosis or treatment decision. A fac t sheet for patie nts provided by the machine operator picker ([employer]) can be rev iewed at: https://www.fda .gov/m edia/411078/rhys nloadA fact sheet for Health Care providers is provided by the machine operator picker ([employer]) and can be reviewed at: https://www.fda .gov/m edia/872145/rhys nload Influenza A and Influenza B neg ative results should be considered presumptive in samples that pompa ve a positive SARS-C oV-2 result. If co-infection wi th influenza A or influenza B vir us is suspected in sa mples with a positive SARS-CoV-2 resu lts, the sample shou ld be re-tested with another approve d influenza test. This assay has been authorized by t [facility] for use only un darshan Emergency Use Authorization ( EUA) in laboratories that have been CLIA-certified to perform moderate-comple xity and high-comple xity tests. The Microbiology Laboratory at [facility], CLIA Accreditation #[id number] and CAP Accreditation #[id number], verif ied the performance characteristics of this assay. Int ernal controls are us ed to monitor all sta ges of the test proces s. MD DialloFlqwqgqlCezqje2634-35-50 19:05:40 Test Item Value Reference Range Interpretation Comments Lipase Lvl (test code = 6165) 21 U/L 13-60 MD DialloUhttuspbDecdewp1056-82-99 19:05:39 Test Item Value Reference Range Interpretation Comments Amylase Lvl (test code = 4806) 50 U/L 28-100 MD DialloAnti-Xa Cqwok7775-88-58 02:46:06 Test Item Value Reference Range Interpretation Comments Anti-Xa Level (test 0.84 See_Comment H Anti-Xa Level code = 6128) (Heparin assay for Low Molecul ar Weight Heparin) Monitoring Guidelines:Bloo d samples should be obtained 4 hour s post SC injecti on (time of peak level) Therapeutic pea k levels: 0.6 - 1 units/mL ( 1 mg/kg q 12hr an d estimated CrCl>=30 mL/min ) 0.6 - 1 units/m L ( 1 mg/kg q 24 hr and estimated CrCl <30 mL/min ) 1 - 2 units/m L (1.5 mg/kg q 24 hr and estimated CrCl>=30 mL/min ) Ref: Chest 2008; 133;141S-1598S [Automated message] The system which generated this result transmitted reference range : 0.00 - 0.10 unit/mL. The reference range was not used to interpret this result as normal/abnormal . Hep Type (test code = Enoxaparin 5880) LISA (test code = LISA) 4 hours after enoxaparin Lab Interpretation Abnormal (test code = 66397-8) MD DialloJtujhkjcTrnosynmby6601-50-66 13:01:35 Test Item Value Reference Range Interpretation Comments Hgb (test code = 5898) 8.1 See_Comment L [Aut omated message] The system [employer] generated this result transmitted ref erence range: 12.0 - 1 6.0 gm/dL. The refe rence range was not u sed to interpret this result as normal/abnor mal. Lab Interpretation (test Abnormal code = 75453-0) MD DialloCT Chest Abdomen Pelvis without [id number] 22:15:031. Significant decreased in peritoneal carcinomatosis conspicuity and volume of ascites.2. Interval development of large left pleural effusion and small increasing right pleural effusion3. Stable juxtacardiac lymph nodes. 4. Diffuse anasarca.5. No evidence of hydronephrosis. Interface, Radiology Results In - 02/11/2021 5:17 PM CDT FULLRESULT:Examination: CT Chest abdomen pelvis with Contrast, 02/11/2021 4:11 PM.Clinical History: 70-year-old patient with history of malignant neoplasm of the endometrium.Indication: Abdominal pain, nausea, vomiting, severe dehydration, ascites and anasarca.Comparison: 12/06/2020 and 08/28/2020.Technique: CT of the chest abdomen pelvis with IV and oral contrast.Findings:Tubes and lines:Right upper extremity PICC line with tip terminating at the SVC.Chest: Interval development of large volume left pleural with compressive atelectasis.Stable left lower lobe calcified granuloma.Slight interval increase in size of small right pleural effusion.No suspicious pulmonary nodules, or consolidations.Large right intrathoracic goiter.Stable cardiophrenic nodes, best seen on series 3, image 80.Abdomen and pelvis:No suspicious lesions. Calcified granuloma. No intra or extrahepatic biliary ductal dilatation. The spleen, adrenals, kidneys appear stable.No evidence of hydronephrosis or nephrolithiasis.Has been interval decreased volume of ascites when compare with prior examination. The omental caking is less co nspicuous.Hysterectomy and bilateral salpingo-oophorectomy.There is thickening of the small bowel santana of indeterminate clinical significanceVessels:No aneurysmal dilation of the aorta. Lymph nodes:Noenlarged retroperitoneal or pelvic lymph nodes. Peritoneum: Decrease free abdominal and pelvic fluid. Musculoskeletal: Interval decrease size of previously visualized lesion in the midline upper back likely an epidermoid inclusion cyst best seen on series 3, image 27IMPRESSION:1. Significant decreasedin peritoneal carcinomatosis conspicuity and volume of ascites.2. Interval development of large left pleural effusion and small increasing right pleural effusion3. Stable juxtacardiac lymph nodes. 4. Diffuse anasarca.5. No evidence of hydronephrosis.MD DialloIR US GUIDED [id number] 19:34:39Date of Procedure: 02/11/21 Primary Proceduralist: PIO Galvan Second Steward: None Pre Procedure Diagnosis: Malignant ascites [789.51.icd-9-cm] Post Procedure Diagnosis: Unchanged Indication: Therapeutic Title of Procedure:Percutaneous Image-Guided Paracentesis. Operative Findings: Percutaneous image-guided paracentesis with 2.2 liters of clear serous fluid removed. Consent: The procedure, risks, indications and alternatives were explained. All questions were answered and informed consent was obtained. I have reviewed the history and physical dictated by the mid-level practitioner / fellow. Sedation/Anesthesia: None Procedure in Detail: A time out was performed prior to the start of the procedure and the correct patient, procedure, presence of consent, site, and side were confirmed with all members of the team. Preliminary imaging was utilized to evaluate the presence and location of fluid and to choose the appropriate access site. The skin overlying the RLQ was prepped anddraped in the usual sterile fashion. Lidocaine 1% was used for local anesthesia. Under ultrasound imaging guidance a One Step sheath and needle was used to access the region of interest and the catheter was advanced over the needle into the selected region of fluid. An image was obtained and stored in the patient's image file. Fluid was removed. The sheath was removed and hemostasis achieved. Additional Comments: None Estimated Blood Loss: Minimal Specimens Disposition: Palliative Only: Fluid evacuation was performed for palliative intent and no samples were submitted for analysis. Immediate Complications: None Disposition: Bedside Plan: No follow-up with Interventional Radiology required.MD DialloProthrombin Time with [id number] 15:43:24 Test Item Value Reference Range Interpretation Comments PT (test code = 6746) 14.2 See_Comment H [Auto mated message] The system [employer] generated this result transmitted ref erence range: 11.5 - 1 3.9 second(s). The reference range was not used to int erpret this result as normal/abnormal . INR (test code = 5973) 1.18 0.90-1.10 H Lab Interpretation (test Abnormal code = 07669-5) MD DialloInterventional Radiology Culture w/Gram [id number] 01:05:42 Test Item Value Reference Range Interpretation Comments Final Report (test No growth code = 8488) Path Review (test The results have been code = 8492) reviewed and electronically signed by Pathologist:DONTRELL HORN MD #[id number] Gram Stain Report Moderate WBC's seenNo (test code = organisms seen. 03387-2) MD DialloXR Chest 1 View Post Vomgzms1628-24-70 20:35:16 1. Right-sided central line with tip projecting over the superior vena cava.2. Slight interval increase in small to moderate left-sided pleural effusion with associated, increased basilar opacitieswhich may represent any combination of atelectasis, aspiration or pneumonia. The final report contains minor changes from the overnight senior resident/fellow report. I personally reviewed these image(s) along with the resident's/fellow's interpretations, certify that if a procedure was performed I was physically present, and agree with the final report.Interface, Radiology Results In 13:37 PM CDT FULL RESULT:Examination: XR CHEST 1 VW POST IMPLANT, February 06, 2021 at 11:28 PMClinical History: Endometrial cancerIndication: Confirm PICC placementComparison: January 31 and February 05, 2021Technique: Single portable anteroposterior radiograph of the chest on 2 image.Findings:Interval placement of a right-sided central line with tip proje cting over the superior vena cava. No pneumothorax. A small to moderate left- sided pleural effusion with associated, increased basilar opacities may represent atelectasis, aspiration or pneumonia. They were previously present but are now slightly larger. The right lung is clear. The cardiomediastinal silhouette is within normal limits. Moderate hypertrophic change in the spine.IMPRESSION:1. Right-sided central line with tip projecting over the superior vena cava.2. Slight interval increase in small to moderate left-sided pleural effusion with associated, increased basilar opacities which may rep resent any combination of atelectasis, aspiration or pneumonia. The final report contains minor changes from the overnight senior resident/fellow report. I personally reviewed these image(s) along withthe resident's/fellow's interpretations, certify that if a procedure was performed I was physically p resent, and agree with the final report.MD DialloNM Lung Zhhbvjrmf7868-85-66 19:14:391. Low probability for pulmonary embolism.2. Interval development of a large left and small right pleural effusions with associated compressive atelectasis, which could explain patient's dyspnea. 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 There is heterogeneous perfusion of the right lung, which may be related to a small right pleural effusion with compressive atelectasis.SPECT-CT demonstrates:* Central venous catheter tip within the right atrium. * Interval development of a large left and small right pleural effusions with associated compressive atelectasis.* Large heterogeneous right thyroid gland with multiple hypodense nodules.* Partially imaged large intra-abdominal ascites.* Left renal hyperdense cortical lesion, measuring 0.7 cm, which may represent a hemorrhagic/proteinaceous cyst.* Small sliding hiatal hernia.* Mild subcutaneous edema along the posterior lateral aspects of the imaged upper abdomen.IMPRESSION:1. Low probability for pulmonary embolism.2. Interval development of a large left and small right pleural effusions with associated compressive atelectasis, which could explain patient's dyspnea.I personally reviewed these image(s) along with the resident's/fellow's interpretations, certify that if a procedure was performed I was physically present, and agree with the final report.MD DialloTip Verification Central Vascular Access [id number] 07:51:42Sohail Rahman RN 02/07/2021 2:53 [facility] Vascular Access Device Tip Verification Performedby: Sohail Ramhan, RNAuthorized by: Netta Braxton APN CVAD PropertiesDate device placed: 02/06/2021 Placed by: Sohail Rahman RNDevice placement location: UTMBCatheter Type: PICC Catheter lumen: Double lumenVein location: BrachialLaterality: Right Tip Verification PropertiesDiagnostic image available: Chest xrayWritten diagnostic report available: Yes Tip location per report: Superior vena cava Tip in good position and cleared for infusionMD AndersonAFB Culture IR w/Znj9524-69-00 01:53:52 Test Item Value Reference Range Interpretation Comments Final Report (test No acid fast bacteria code = 8488) isolated at 8 weeks. Path Review - AFB Partial antibiotic (test code = 8477) treatment can render AFB culture negative. AFB culture has sensitivity of 90%.The results have been reviewed and electronically signed by Pathologist:DONTRELL HORN MD #[id number] Acid Fast Stain No Acid Fast Bacilli seen Truant (test code = in direct smear 60905-2) LISA (test code = Ascites LISA) MD Ruano [id number] 15:31:07 1. Echogenic kidneys consistent with medical renal disease. 2. No hydronephrosis. 3. Large volume of ascites. 4. Left pleural effusion. Interface, Radiology Results In - 02/06/2021 10:33 AM CDT FULL RESULT:Examination: US RENAL, 02/06/2021 10:12 AMClinical History: Nswtm-rq-ezgjzxr renal wcfikntRvxhf-fu-szbngso renal failureNausea and vomit ingSevere dehydrationDyspneaEdemaMalignant neoplasm of endometriumIndication: Increased Creatinine LevelComparison: CT study of the abdomen and pelvis December 07, 2019Technique: Grayscale and color Doppler ultrasound of the kidneys and urinary bladder.Findings:The 10 cm long kidneys have nonspecific increased echogenicity without hydronephrosis.On the comparison study there are nonspecific low dense lesions right kidney that are not as well-seen on this sonogram.Arterial and venous flow is present in both kidneys.No filling defects are seen in the urinary bladder.A large volume of ascites is present with predominance in the pelvis.A left pleural effusion is seen.IMPRESSION:1. Echogenic kidneys consistent with medical renal disease.2. No hydronephrosis.3. Large volume of ascites.4. Left pleural effusion.MD Ruano Leg Venous Doppler Mijakkvyl6067-77-43 15:25:00 1. Bilateral deep vein thrombosis, more extensive on the right than on the left. 2. Mr. Atul Black was advised on these findings on February 06, 2021 1024 hours. Interface, Radiology Results In 02/06/2021 10:27 AM CDT FULL RESULT:Examination: US LEG VENOUS DOPPLER BILATERAL, 02/06/2021 10:11 AMClinical History: Pjncj-fl-rpadkwl renal iqypquaZbzah-ea-uwekjlf renal failureNausea and vomitingSevere dehydrationDyspneaEdemaMalignant neoplasm of endometriumIndication: Edema, Elevated D-Dimer Comparison: None available.Technique: Grayscale and color/spectral Doppler ultrasound of the bilateral lower extremity veins was performed.Findings:Acute type nonocclusive thrombus is present in the left common femoral vein extending to the proximal segment of the femoral vein and deep femoral vein.Also, there is acute type nonocclusive thrombus in the left popliteal vein.The left peroneal vein is not seen.Extensive acute near occlusive thrombus is present extending from the right external iliac vein to the popliteal vein and also the right deep femoral vein.The right anterior tibial vein is not seen.IMPRESSION:1. Bilateral deep vein thrombosis, more extensive on the right than on the left.2. Mr. Atul Black was advised on these findings on February 06, 2021 1024 hours.MD DialloX- ray Chest 1 [id number] 12:00:10Patchy opacities in the left retrocardiac region/left lung base may represent pneumonia. I personally reviewed these image(s) along with the resident's/fellow's interpretations, certify that if a procedure was performed I was physically present, and agree with the final report.Interface, Radiology Results In 02/06/2021 7:02 AM CDT FULL RESULT:Examination: XR CHEST 1 VW, 02/05/2021 10:40 PMClinical History: 70-year-old woman with endometrial cancerIndication: Baseline Chest X-Ray, Suspected COVID-19, Results Pending, 1Comparison: 01/31/2021.Technique: Anteroposterior radiograph of the chest.Findings:Patchy opacities are seen in the left retrocardiac region/left lung base. No gross adenopathy. Cardiac silhouette is normal. IMPRESSION:Patchy opacities in the left retrocardiac region/left lung base may represent pneumonia.I personally reviewed these image(s) along with the resident's/fellow's interpretations, certify that if a procedure was performed I was physically present, and agree with the final report.MD DialloRespiratory Viral Panel + COVID-19, Nasopharyngeal [id number] 06:14:17 Test Item Value Reference Range Interpretation Comments RMP Source (test code = 8653) Not Applicable Adenovirus (test code = 4748) Not Detected Not Detected Coronavirus 229E (test code = Not Detected Not Detected 5349) Coronavirus HKU1 (test code = Not Detected Not Detected 5350) Coronavirus NL63 (test code = Not Detected Not Detected 5351) Coronavirus OC43 (test code = Not Detected Not Detected 5352) COVID19 (SARS-CoV-2) (test Not Detected Not Detected code = 77194-2) Human Metapneumovirus (test Not Detected Not Detected code = 6401) Human Rhinovirus/Enterovirus Not Detected Not Detected (test code = 7212) Influenza A (test code = 5618) Not Detected Not Detected Influenza A H1 (test code = Not Detected Not Detected 5619) Influenza A H1 2009 (test code Not Detected Not Detected = 5620) Influenza A H3 (test code = Not Detected Not Detected 5621) Influenza B (test code = 5622) Not Detected Not Detected Parainfluenza 1 (test code = Not Detected Not Detected 6779) Parainfluenza 2 (test code = Not Detected Not Detected 6680) Parainfluenza 3 (test code = Not Detected Not Detected 9581) Parainfluenza 4 (test code = Not Detected Not Detected 3982) Respiratory Syncytial Virus Not Detected Not Detected (test code = 7157) Bordetella Parapertussis (test Not Detected Not Detected code = 89034) Bordetella pertussis (test Not Detected Not Detected code = 4854) Chlamydiophila pneumoniae Not Detected Not Detected (test code = 5139) Mycoplasma pneumoniae (test Not Detected Not Detected code = 6203) MD Sheffield [id number] 05:00:32 Test Item Value Reference Range Interpretation Comments D-Dimer (test code = >20.0 See_Comment A No Clot PresentThe cut 5419) off value for e xclusion of venous thromboembolism is <0.51 mcg/mL FEUs (fi brinogen equivalent unit s). [Automated mess age] The system which ge nerated this result tra nsmitted reference range : 0.10 - 0.50 mcg/ml FEU . The reference range was not used to interpr et this result as normal/abnormal . Lab Interpretation Abnormal (test code = 44777-3) MD DialloNT-Pro BNP (In-House)2021-02-06 04:41:23 Test Item Value Reference Range Interpretation Comments NT ProBNP (test code = 1583 pg/mL See_Comment H [Aut omated message] 5942) The system [employer] generated this result transmit darryl reference range : <=125. The refe rence range was not u sed to interpret th is result as normal/abnormal . Lab Interpretation Abnormal (test code = 28008-3) MD DialloCytology Non-Doula Xbkcciljabhoas5481-02-40 21:06:31 Test Item Value Reference Range Interpretation Comments Gross Description (test o2dtwZAtFDAqgPLKXGDl code = 2550632362) B4qaetCoPYUwaVIsX9Oe mbhiZRqfXG9bUZ7wsFgq yZEyeIWrBQ9JEGTuYbXg XHBhcGVydzEyMjQwXHBh ySDjcAD2FIWaUS9gusoq HDevDYevBDFlgrR1UZNq nUGsG4TbXRPsUM0sqbqb PQR6IIgizI9vtiJOJltn Kd2pqVWeuFekWfMvKqVl YXJzZXQwXGZuaWwgQXJp ZTx8tP8XMmzcKPX8SGST GhakJCZfYK7Ko6waBFRm oMGrQDJ9BNhxaUQhPOOd FSIuLTy0OIUhYMzazQZc UY2eaGtxCvkkdDzne0Ne dCBcXGlkIDUxMDAyIFxc ZNPbJH2AEhPuYDXySIs3 KhUzXOn0HOu1MV8WDjEi NSGeHSufDUL9CsSzNMa3 RRngIR8UCUpnFWD8AYgo GfI7XJB6BiCnFRIySnYe XGYgQXJpYWwgXFxmcyAx MCBcXGZiIFxcZmwgXFxu P34jtAxvtF3vCancjwTs KFU1MIHhmoQSTnlxdHWp blxlcGljTmVzdERvYzEg DQpcbHRycGFyXGxpbjBc cmluMCANClxsdHJjaFxm czIwIDEgRGlmZiBRdWlr OyAzIFBhcCBTdGFpbiBT qHieZPEvqDYgSK7AArWr NQ4rHqSLKVzyw7dxDqo7 yRIbcORoJW8CWFAxf3Kp T2U2TEYcAFkpe7pgRMEt YNzyy6HfSGgHPHUQQT0H EW6teYA4FOaDGHQNX8rS sKO8EkKnhBH1JM25KEXp YXSaxTJjZVftS109P4Dm D3ivPH0cN82jW6IkxPDi yBEaBUV4WIX0qK0yUF62 kamxoMdjzAkigfP9KYIj tkrcnJL0FNAaEGbzm4fx RVKoWByvx0AqBGbLGHLS LW7JSH4dfRC2IUgQCUQG ZUcfOTA8YPxabCF5m1fe dQFzi6o0UOsiVPO2pJhf bGFpblxsdHJjaFxmczIw XHBhciANClxwYXIgDQox ULNjgCctUxmlG2wasDVj RX1KPFG0YN6KbO6xGJKi UFMtGBVqsyKMg3UrAEvj yiifSSAxl4EvI3W8PYFd UZuqw0axUSBfLApxn5It CYlCYPNUUB3FDN7qxHU9 WNoXP0SUF3uZfRWnVPfz iTH6FS2OUZnYSOMHrNY1 nVairTb6f0ppvZOpz5d4 QXjuNYU1pTX9GfYsGpBw x5mnvLZrXTlwQjtzfYLt udC2YPyVWJYQOPdCQuNh NY5tERoKFawWVfO8KWIm IkB3UlmPH8WYGYQMLKZ4 KId2uEW1xR93KWElSDNj iNXkXYxcZ833MQLnOCfr MCv9fySlCDTnRoAzVPft fi03IEH2r8ysxWJfXNoq ZazahDGewfM2BQgXDJAH WZjNVmUkHV3fGLvBNxwI CWwVPxh8JpcptV6MM8mq ySb8EVn6bEvhFbndbwIu eSRvYqQEeN3gMIdrNVUM CTwaZdhflXO2FMnzAibn hU6wdPLGPICMZueSSzqc nkVySK8MZA2IFL6PlIgd vXI6Ve2RtMR9kIhepBk8 a6ijfDZkr6s0ZPmeJCT2 fVxwbGFpblxsdHJjaFxm qxJyMDZfnmLJIhn2EAHM NDEIBMyUEE8QRHHPPNTR YL9XIPlJErClZFC9EYru RUKaW34ZGyWNCUIOE32W EDBGNRPPM6ATSMQWTFgQ G8ZIQA8FGZQKHOGLCK5U VKyNEuPKPCxYP8SJQM0X TRXDYCANGW9HUdRdLRqR F0UIM9sTITXfVCTIQQPC EFKwNgQFRV8hNYx4C11n K4XrwSVzrYpvjkM8GBBu shwdiAK9JpI9BzT2PlHM dVPubF7uiaUrv34fCO90 pyB5BYIaYzraT8e8e3Tt ykLgxRX7D3P6mS4nQSJy V7yzqJO4TXI3HBq2MPRS EAMCMN3HWBLBG81ATOJZ IUDYO6QMKIZQRzRPFSAD Q81SIKHBHOITJ7MCE4lN ZECCIpRIFVNWI24RDIAR MJQLG4ZRLQKDCXIYGwGD MyNZLQ9NSRBBEJDUUD6A KPmMTnXvUUOOH2SMNqJX B1qmGRJDLTONQFKaBW1B KFxzbNjozV4fOKXzB69f c8CJg5ZdMSIyOQytu4bc eOpco8HtkMSiYFhaSWWx hKSwTWigwE4qLhOmi9zq wMe7ZIzwcgM3VNLjkr8D KwhjpL4fJtIxg4habBs6 JLHOCocqugY6m4pvkYtk d7SchEOnUB0ZGq9= Major Classification MALIGNANT A (test code = 9839) Diagnosis (test code = u8mxxKWxDQUmaWX3HZYo 34) CGPvj8suy3KqwDXzgFLy VByssNAnhyRres93lVS1 oL54UU0rTGIwGvK9RNEa lqT6Saa4FQZjSVWmtCYz U524x7ffs2fbfaFyqXF1 SYXhPGXcH7LfFX9dNDBy hFBjM89wvQOzTER4TNVv XSXnfIRlSTUnYQI1BUNk xHBdD6vxIAGbYN5gctzd RYipNYzfRHRidXL6FEKb xOWnL7IjEKQwKVjsFXRw ldd3CbUkNq8ylZZyyUtd MFxwYXJkXHBsYWluXGZz SdSrI9HbZGGqUKQlTFVk XJfjDge5lYAaXVpqPdQg CJWrv3IlW8CyqLKjgGQ1 LVMsroi6LESncRUcVZny NzIwIFJBUkUgSElHSExZ IKYAANWDH1WXHKHTHQlE DLTEJ92DZUQBQrlSQQwG VEggTUVUQVNUQVRJQyBB KFMKF1SYAxDFJg3UJNTn B5SYRHCRII4UIfLpFFNl cn0= Comment (test code = j7htzMZkXDQarBC9UOPp 3843) CMMwl5gbm6RrdOMctWMo CAxosSNuohTmvf73bVG7 pX24JS7tMKMwMrW8CSZv fqN6Ksr4UUSzZGRwmILz M981j7gzs9ccjqUwbPE4 yWznAVWxkuutWuE9KRlf FQDvpngrXCk5KOvlSEOh hHL6LTMshTHyT1MtRLDl JS9vovh5WDT0IIdbDSGy PmP6LTSbpIFpTRVqbTqt TUqus986RED5YwKdNQTw xyLgmYsovN6xSmViFMEG eSZqc4QndbVqz7iyqfLz QHNgUUMaRMM1PYYgRBHm iTkkaKoxQZU5hEerBVjn H1FyqDIqb5k2dDEsuHgr lDIhJ7AadUIdyGHlRGDn MDE2uTZaPXZnmmJncLTz jvxndUUogEpfWS41WG87 E8naz8wvZvLSuX45ll1a sLNzkoLxuRLvVq7syRXc AB9kWSLebIojExrtM7hs x1GhwNumwqThv3vjmuI0 mD5nRNNsLOByp60rhGDm KOegxwOewcQidX0ogWMi buOzMz4pQOLKLZtxMR4r HG2VUqHxYqLZBXUtoWoi bmFsbHksIGNhbHJldGlu aY2lg3kns7Lmm3GiffWm r41taKMnhHKvCpFfaNUq mvimYt9wQAk8tY64A7fn xXzcUUjay5jlmuIzNYXl bGxzIGFyZSByYXJlLCB0 AMkcrhO4g9qjmClrlutj qQezp6TyJfigWIvhR4Om QAGrII3nq4BvL55nePX0 mHHhXXF2bILgKO6ocEJs xTI8dQOrWILxop8jAQCc cJ2qrSYhZEIsnS2rR4At A2KfMOpsdG0unJYxcACd a1VqFCktcUurmfDmpuGm KABrkB9cfyStZZ6iEJLf clxwYXIgVGhlIGNlbGwg YdnrS0jnlWRvmLWuXILo w52iy1FsMEFbqbXkzLS7 oH4mbKU8m8oefcYmhQPn gY4wRHTyYBCnQo11PZHq iHCvef0crORrFRPadxvb YXJ9 Retained/Biomarker g2cwrSKcQMHgrLO9HYLf Testing (test code = VSIpj1oko8XmhAXmbPLd 9838) FTghdTKjmcHnuf06aIH8 hD15HJ8yRYWhLoS1ZVZi pfC8Hvi6NHZrLPJjcTAn Y725y0fxi3sapjFquOP8 LETyTKT4WGkmktMfpqT2 YWiswFLsMgE7L21xwADb IPQ8IPEjEXYyjDNtEMGv TVK0ZLNlqIBdG3aoRCAe IR2rcqkzSJvuYYgfKJBb rSI1EIYjxYUhM9CaVVLi VNjvOAUnxzo4PzZxVw2r dGVyeTcyMFxwYXJkXHBs KKvvLPSfLhZaE4afAcMl cIDxS9F3YQYePtlhUxNX QglvQjVYRUtwaH8rCB2H TCBDQjogPDUwXHBhciBN REwgUGFwOiAwIFMgXGxp bmUgTURMIERROiAwIFMg XGxpbmUgRklTSCBEUTog MCBTXHBhcn0= Informational Points r1tdgYMdWSOgeSG9ZSHq (test code = 9836) XKZtb3fsd0TwgIQpoFKw RLlbmCBdfyWiwh00iWL6 kO29UO2vLGFzBsN6UKNt afP5Zuk2JGAbVOIfkOKf W022LYCwZCWuU70bAWNF J472r4qgw0ckjmEsoTG1 iAzsYNJvlygjBnJ5CEkn TAMbrusrPNh5YFblYACq aUF3DOYjkTJnP6OeUDPs PC4iheq2ERB4QApfLXYv TgJ1CPRdoOSlGRUqnRsd ZEtrz335XTC2IjPqNDUn bfJrzJimnM8rjOilPHko igW9OVMtrEJmbZNvtSLj csQpn5Z9VRLedLAkGVYr BJwmeNM8IKRuNXSfUVFy fwJrv0BfHRXebkZuwIDc Mw9guKPmS0JtZ1qenwFr mRLgfAI7zXLaXQEmaABn bWluZWQgYnkgVVQgTUQg DC4aCDKuv23mUIB0uL6u x0h8FWSwAMIWQJRalfP6 b9G7MP2fROabqU8zFgKP cFKrTCB1KNF1plVeRWZy PU8azEDrXQIvVCXaMDAj ZmljYWxseSBjbGVhcmVk GZ7nUERltSZvkhPcDWO3 RRTuZPOEPpWiWGYtv3Xj WU5yNMQvsChbPSXroK5s q8TtVGVfc32oAEcaJRCj XPoyGSStpJlcvY6ebIU5 IGhhcyByZXZpZXdlZCB0 mDQaT8SqGQMzixMdDuej YWxpemVkIHRoZSByZXBv woJzRKImZVAyLF8fFLRg n15lM3AlcCOTd5BcuO3f DEKfNmqrERWXBOI8ULLv AEA7VNihOMybzJB6q79j DPEobRQoBRi4XHs3Asco YXJ9 Lab Interpretation (test Abnormal code = 72429-1) MD DialloBody Fluid Diff Path [id number] 15:01:04 Test Item Value Reference Range Interpretation Comments Body Fluid Rare malignant Diff Interp appearing cells (test code = identified. X IN 8754) MD Sánchez CUENCA [id number] b y: MD Sánchez VILLAR [id number] Date/Time: 02.03.2021 10:0 1 AM CDT Transcrib ed Date/Time: 02.03.2021 10:0 1 AM CDTElectronical ly Signed By: ROE CUENCA MD - [id number] on 02.03.2021 10:0 1 AM LISA (test code Left thoracentesis = LISA) MD DialloCell Count [id number] 01:20:50 Test Item Value Reference Range Interpretation Comments Type BF (test Pleural, left code = 01306-8) Appear BF (test CLEAR code = 9335-1) WBC BF (test 795 See_Comment This assay has been code = 6743-9) validated for body fluids. No refe rence ranges have bee n established. Te st results should be interpreted in context with th e patient s clinical condition. Pathologist con sult is available. [Automated mess age] The system [employer] generated this result transmit darryl reference range : /mcL. The refer ence range was not u sed to interpret th is result as normal/abnormal . RBC BF (test 1999 See_Comment This assay has been code = 6741-3) validated for body fluids. No refe rence ranges have bee n established. Te st results should be interpreted in context with th e patient s clinical condition. Pathologist con sult is available. [Automated mess age] The system [employer] generated this result transmit darryl reference range : /mcL. The refer ence range was not u sed to interpret th is result as normal/abnormal . LISA (test code Left thoracentesis = LISA) MD DialloBody Fluid [id number] 01:20:49 Test Item Value Reference Range Interpretation Comments Tot Cells BF 100 (test code = 07735-4) Neut BF (test 1 % 0-25 code = 39635-0) Lymph BF (test 66 % This assay pompa s code = 22657-8) been validat ed for body fluids. No reference range s have been established. Te st results should be interpreted in context with th e patient s clinical condition. Pathologist consult is available. Histiocyte BF 31 % This assay has (test code = [place] [address]-9) body fluids. No reference range s have been established. Te st results should be interpreted in context with th e patient s clinical condition. Pathologist consult is available. Other Cell BF 2 % This assay has (test code = been validated for 6577) body fluids. No reference range s have been established. Te st results should be interpreted in context with th e patient s clinical condition. Pathologist consult is available. LISA (test code = Left thoracentesis LISA) MD DialloIR US GUIDED [id number] 20:00:13Date of Procedure: 01/31/21 Attending Physician: William Joshi MD Second Steward: Jose Miranda Pre Procedure Diagnosis: 1. Malignant pleural effusion Post Procedure Diagnosis: Unchanged Indication: Therapeutic Title of Procedure:Percutaneous Image- Guided Thoracentesis and Post Procedure Chest Radiograph. Operative Findings: 1. Percutaneous image-guided left thoracentesis with 0.8 liters of clear serous fluid removed.2. The post procedure chest radiograph shows no pneumothorax and no residual pleural effusion. Consent: The procedure, risks, indications and alternatives were explained. All questions were answered and informed consent was obtained. I have reviewed the history and physical dictated by the mid- level practitioner / fellow. Sedation/Anesthesia: None Procedure in Detail: A time out was performed prior to the start of the procedure and the correct patient, procedure, presence ofconsent, site, and side were confirmed with all members of the team. Preliminary imaging was utilized to evaluate the presence and location of fluid and to choose the appropriate access site. The skin overlying the left posterior chest was prepped and draped in the usual sterile fashion. Lidocaine 1%was used for local anesthesia. Under ultrasound imaging- guidance a One Step sheath and needle was used to access the region of interest and the catheter was advanced over the needle into the selected region of fluid. An image was obtained and was stored in the patient's image file. Fluid was removed. The sheath was removed and hemostasis achieved. Chest Radiograph: A single view post-procedure chest radiograph was obtained. Additional Comments: None Estimated Blood Loss: Minimal Specimens Removed: Yes - Sample sent to Pathology, Microbiology and Lab Immediate Complications: None Disposition: PACU Plan: No follow-up with Interventional Radiology required. I certify my physical presence at the time of the procedure. I personally reviewed the image(s) and the KAYLENE's interpretation and agree with the written report.MD DialloIR CHEST XRAY 1 [id number] 20:00:13Date of Procedure: 01/31/21 Attending Physician: William Joshi MD Second Steward: Jose Miranda Pre Procedure Diagnosis: 1. Malignant pleural effusion Post Procedure Diagnosis: Unchanged Indication: Therapeutic Title of Procedure:Percutaneous Image-Guided Thoracentesis and Post Procedure Chest Radiograph. Operative Findings: 1. Percutaneous image-guided left thoracentesis with 0.8 liters of clear serous fluid removed.2. The post procedure chest radiograph shows no pneumothorax and no residual pleural effusion. Consent: The procedure, risks, indications and alternatives were explained. All questions were answered and informed consent was obtained. I have reviewed the history and physical dictated by the mid- level practitioner / fellow. Sedation/Anesthesia: None Procedure in Detail: A time out was performed prior to the start of the procedure and the correct patient, procedure, presence ofconsent, site, and side were confirmed with all members of the team. Preliminary imaging was utilized to evaluate the presence and location of fluid and to choose the appropriate access site. The skin overlying the left posterior chest was prepped and draped in the usual sterile fashion. Lidocaine 1%was used for local anesthesia. Under ultrasound imaging- guidance a One Step sheath and needle was used to access the region of interest and the catheter was advanced over the needle into the selected region of fluid. An image was obtained and was stored in the patient's image file. Fluid was removed. The sheath was removed and hemostasis achieved. Chest Radiograph: A single view post-procedure chest radiograph was obtained. Additional Comments: None Estimated Blood Loss: Minimal Specimens Removed: Yes - Sample sent to Pathology, Microbiology and Lab Immediate Complications: None Disposition: PACU Plan: No follow-up with Interventional Radiology required. I certify my physical presence at the time of the procedure. I personally reviewed the image(s) and the KAYLENE's interpretation and agree with the written report.MD Koch, [id number] 19:53:13 Test Item Value Reference Range Interpretation Comments LDH BF Type Pleural, left (test code = 6118) LDH BF (test 173 U/L Results greater than code = 6117) 1651 U/L may no t be reliable due to matrix effect w ith extended diluti on as it exceeds the machine operator picker s recommended l imit. Caution should be exercised when interpreting londono ch values and done in conjunction wit h clinical contex t.This body fluid test has not been cleare d or approved by FDA . Its performance has not been validated. No reference range s have been establishe d. Test results sh ould be interpreted in context of the patient's clini rosales condition and i n conjunction wit h similar assays performed on [facility]. Pathologist con sult is available. LISA (test code Left Thoracentesis = LISA) MD DialloGlucose [id number] 19:33:21 Test Item Value Reference Range Interpretation Comments Glucose BF (test 110 mg/dL This assay has been code = 5696) validated for b pavan fluids. No reference range s have been established. Te st results should be interpreted in context of the patient's clini rosales condition and i n conjunction wit h similar assays performed on [facility]. Pathologist con sult is available. Gluc BF Type Pleural, left (test code = 5693) LISA (test code = Left thoracentesis LISA) MD DialloTriglyceride [id number] 19:33:20 Test Item Value Reference Range Interpretation Comments Trig BF (test 39 mg/dL This assay has been code = 7656) validated for b pavan fluids. No refe rence ranges have bee n established. Te st results should be interpreted in context of the patient's clini rosales condition and i n conjunction wit h similar assays performed on [facility]. Pathologist con sult is available. Trig BF Type Pleural, left (test code = 7657) LISA (test code Left thoracentesis = LISA) MD DialloCholesterol [id number] 19:33:18 Test Item Value Reference Range Interpretation Comments Chol BF (test 101 mg/dL This assay has been code = 5284) validated for b pavan fluids. No refe rence ranges have bee n established. Te st results should be interpreted in context of the patient's clini rosales condition and i n conjunction wit h similar assays performed on [facility]. Pathologist con sult is available. Chol BF Type Pleural, left (test code = 5285) LISA (test code Left thoracentesis = LISA) MD DialloProtein [id number] 19:33:16 Test Item Value Reference Range Interpretation Comments Protein BF (test 4.6 gm/dL This assay has been code = 6891) validated for b pavan fluids. No reference range s have been established. Te st results should be interpreted in context of the patient's clini rosales condition and i n conjunction wit h similar assays performed on [facility]. Pathologist con sult is available. Prot BF Type Pleural, left (test code = 6890) LISA (test code = Left thoracentesis LISA) MD DialloCOVID-19 (SARS-CoV-2) PCR-Asymptomatic [id number] 06:38:02 Test Item Value Reference Range Interpretation Comments COVID19 (SARS Not Detected Not Detected This test is a CoV-2) Result qualitative (test code = reverse-transcr iptase 75441-4) polymerase natividad n reaction (RT-PC R) developed for t he [employer]avi LEXI 680 0 system and inte nded for the detecti on of SARS CoV-2 RNA in human nasophary ngeal specimens from patients who me et COVID-19 clinic al and/or epidemiological criteria. This assay has been approv ed by the FDA for use only under Emergency Use Authorization ( EUA) in laboratories that have been CLIA-certified to perform moderate-comple xity and high-comple xity tests. The performance characteristics of this assay were verified by the Microbiology Laboratory at [facility], CLIA Accreditation # : [id number] and CAP Accreditation # : [id number]. Result s must be interpreted within the context of all relevant clinic al and laboratory find ings and should not form the sole basis for a diagnosis or treatment decis ion. "Presumptive Positive" resul ts are due to partial amplification o f SARS-CoV-2 targ ets and indicates l ow amounts of viru s present in the specimen at or near the limit of detection. Regardless, individuals wit h "Presumptive Positive" resul ts should be manag ed per institutional guidelines as individuals pos itive for SARS-CoV-2 virus, including use o f appropriate inf ection control protoco ls. Internal contro ls are included to ass ess for possible amplification inhibitors. If inhibition is detected, testi ng is repeated and if inhibition is confirmed the specimen is res ulted as "Invalid". W hen an "Invalid" resul t occur, it is recommended to wait 3 days before submitting a ne w specimen for te sting if clinically indicated. COVID19 SARS [employer] Swab Source (test code = 17075) COVID19 SARS Pre-Out of OR Indication (test Procedure code = 65118) MD DialloCT Soft Tissue Neck without [id number] 23:27:081. No significant change in enlarged multinodular thyroid with mild leftward deviation of the trachea in the context of a noncontrast examination. No definite evidence is seen following gadolinium tracheoesophageal invasion..2. Interval development of moderate to large left pleural effusion.3. No cervical adenopathy.4. Mediastinal adenopathy to be correlated with the dedicated chest CT. I personally reviewed these image(s) along with the resident's/fellow's interpretations, certify that if a procedure was performed I was physically present, and agree with the final report.Interface, RadiologyResults In - 01/28/2021 6:29 PM CDT EXAM: CT NECK WITHOUT CONTRASTDATE: 01/28/2021 2:53 PMINDICATION: Trachea displacedCLINICAL HISTORY:70-year-old woman with enlarged multinodular thyroid.COMPARISON: CT neck from February 05, 2020TECHNIQUE: AxialCT images of the neck were obtained without contrast. Reformatted images in the sagittal and coronalplane were included.FINDINGS:There is no significant change in enlarged right thyroid lobe measuring4.4 x 2.5 x 5.3 cm with extension into the superior mediastinum. There are are multiple hypodense nodules with the largest measuring 1.8 cm, which is stable (series 2 image 85). Unchanged mild leftwarddeviation of the trachea, without narrowing. Overall evaluation is significantly limited by the lackof intravenous contrast. In this context, there is no worrisome cervical lymphadenopathy. There are atherosclerotic changes noted at the carotid bifurcations and carotid siphons bilaterally. There is mediastinal lymphadenopathy to be correlated with the dedicated chest CT. There is also a large left-sided pleural effusion.There is near opacification of the right maxillary sinus with air-fluid level.IMPRESSION:1. No significant change in enlarged multinodular thyroid with mild leftward deviation ofthe trachea in the context of a noncontrast examination. No definite evidence is seen following gadolinium tracheoesophageal invasion..2. Interval development of moderate to large left pleural effusion.3. No cervical adenopathy.4. Mediastinal adenopathy to be correlated with the dedicated chest CT.I personally reviewed these image(s) along with the resident's/fellow's interpretations, certify that if a procedure was performed I was physically present, and agree with the final report. [facility] [id number] 19:33:17 Test Item Value Reference Range Interpretation Comments POC Crea (test code = 2.0 mg/dL 0.6-1.3 H Medica tions, 76251-7) especially hydr oxyurea or supplements, such as ascorbate, c an interfere with test results causing a falsely and significantly h igher result than exp ected. If a problem is suspected with a patient's resul t, a sample should b e sent to the laborato ry for confirmatory te sting. Method descript ion: The i-STAT is a n analyzer used f or in vitro quantific ation of various anal ytes in whole blood. Th e device uses a s rodrigo disposable cart ridge which contains microfabricated sensors, a trinh bration solution, fluid ics system, and a w aste chamber. Each t est cartridge conta ins chemically sens itive biosensors on a silicon chip th at are configured to p erform specific tests. The microfabricated sensors measure analyte concent ration by an electroch emical assay. POC eGFR-AA (test code 28 See_Comment L Kia l eGFR >= 60 = 45159-2) mL/min/1.73 m2 The eGFR is calcula darryl using the CKD-E PI equation. The e GFR declines with a ge. eGFR <60 mL/min /1.73 m2 is considere d as "decreased" Thi s equation should only be used for pat ients 18 and older. According to th e National Kidney Foundation's dney Disease Outcome Quality Initiat tacos (KDOQI) classif ication and 2012 Kidney Disease Improvi ng Global Outcomes (KDIGO) Clinica l Practice Guidel ine, the stage of CK D should be categ orized based on estima darryl GFR. Stage Desc ription GFR mL/min/1.73 m21 Kidney damage w ith normal or high GFR >=902 Kidney da mage with mild decre ase in GFR 60-893a Mild to moderate decrea se in GFR 45-593b Moderate to sev ere decrease in GFR 30-444 Severe d ecrease in GFR 15-29 5 Kidney failure <15 (or dialysis) [Automated mess age] The system [employer] generated this result transmitted ref erence range: >=60 mL/min/1.73 m2. The reference range was not used to int erpret this result as normal/abnormal . POC eGFR-ALLEN (test 24 See_Comment L Normal eG FR >= 60 code = 25180-6) mL/min/1.73 m2 The eGFR is calcula darryl using the CKD-E PI equation. The e GFR declines with a ge. eGFR <60 mL/min /1.73 m2 is considere d as "decreased" Thi s equation should only be used for pat ients 18 and older. According to th e National Kidney [employer]'s dney Disease Outcome Quality Initiat tacos (KDOQI) classif ication and 2012 Kidney Disease Improvi ng Global Outcomes (KDIGO) Clinica l Practice Guidel ine, the stage of CK D should be categ orized based on estima darryl GFR. Stage Desc ription GFR mL/min/1.73 m21 Kidney damage w ith normal or high GFR >=902 Kidney da mage with mild decre ase in GFR 60-893a Mild to moderate decrea se in GFR 45-593b Moderate to sev ere decrease in GFR 30-444 Severe d ecrease in GFR 15-29 5 Kidney failure <15 (or dialysis) [Automated mess age] The system [employer] generated this result transmitted ref erence range: >=60 mL/min/1.73 m2. The reference range was not used to int erpret this result as normal/abnormal . POC Clean Dev (test Yes code = 6672) Performing Lab (test [facility] code = 12939) [facility] MD Diallo-Diagno stic [facility] [place], [address] [address] [facility], [place], [place] [address]; Point of Care L ab Director: Roe davila MD Lab Interpretation Abnormal (test code = 11575-4) MD Ruano Head Neck Soft [id number] 19:06:52Stable multinodular thyroid since 05/07/2020.Interface, Radiology Results In - 01/28/2021 2:09 PM CDT FULL RESULT:Examination: US HEAD NECK SOFT TISSUE on 01/28/2021 1:48 PMClinical History: Metastatic serous uterine carcinoma. Thyroid nodules.Indication: Thyroid nodules.Comparison: Neck ultrasound 05/07/2020.Technique: Real-time ultrasound examination of the neck soft tissues was performed.FINDINGS:Right Thyroid Lobe/Bed: The lobe measures 6.2 x 3.1 x 2.9 cm. A cystic nodule measures 1.4 cm, with a small septated component. A solid hypoechoic nodule measures 1.2 x 1.2 x 1.0 cm. A cystic and solid isoechoic nodule measures 1.8 x 1.8 x 0.9 cm. It is stable since 05/07/2020. A spongiform mid nodule measures 1.7 x 1.6 x 1.0 cm. It previously had an even more spongiform appearance. A cystic and solid isoechoic nodule with macrocalcification atthe inferior pole measures 2.7 x 2.2 x 2.1 cm, stable since 05/07/2020. The rim calcification within it with posterior shadowing measures 0.4 cm.Left Thyroid Lobe/Bed: The lobe measures 2.7 x 1.2 x 1.1 cm. A spongiform mid nodule measures 1.3 x 1.0 x 0.9 cm.Suprasternal and Superior Mediastinal: A solid isoechoic isthmus nodule measures 0.6 cm. Isthmus measures 0.5 cm in thickness.Right Lateral Neck: No adenopathy.Left Lateral Neck: No adenopathy.Submental to Cricoid: No adenopathy.IMPRESSION:Stable m ultinodular thyroid since 05/07/2020.MD Dumont KRAS Interpretation and Report 2021-01-03 22:19:00 Test Item Value Reference Range Interpretation Comments Archived Material Previously diagnosed (test code = 59711) tissues from [place] [address] were selected for molecular analysis. Results will be reported separately. MD Dumont PIK3CA Mutation Analysis Interpretation and [id number] 22:19:00 Test Item Value Reference Range Interpretation Comments Archived Material Previously diagnosed (test code = 30528) tissues from [place] [address] were selected for molecular analysis. Results will be reported separately. MD Dumont PTEN Mutation Interpretation and [id number] 22:19:00 Test Item Value Reference Range Interpretation Comments Archived Material Previously diagnosed (test code = 15750) tissues from [place] [address] were selected for molecular analysis. Results will be reported separately. MD Dumont TP53 Mutation Interpretation and [id number] 22:19:00 Test Item Value Reference Range Interpretation Comments Archived Material Previously diagnosed (test code = 54947) tissues from [place] [address] were selected for molecular analysis. Results will be reported separately. MD [facility] Interventional [id number] 01:48:52 Test Item Value Reference Range Interpretation Comments Final Report (test No growth code = 8488) Path Review - The results have been Anaerobe (test code reviewed and = 8478) electronically signed by Pathologist:DONTRELL HORN MD #[id number] LISA (test code = Ascites LISA) MD DialloPathology Biopsy [id number] 14:44:00 Test Item Value Reference Range Interpretation Comments Submitted Clinical History b4zorLFaMCAjrNX9NlX (test code = 26813) sIUQqx9cmm3LfaMAnvR SgAHoavLVqxoXvjf15p ZE5lL95WO1dANWaNkH6 CUGcxlI7Bjg2ROFzQES dgQXkR199g9mpo6rzhz NbiHI0NPNkPWM3UPygD SYfEPTlSix2PTO7W3ic YVOtEAKhR5YvIV1kXAW jZda3GVK2AAa2UVRkad RojUtgaR0bJuXnFDwrJ bFgT0ggYuWesSDiECdi aN2gzZCiBiQufMbqLEd nUUNnCMPhVH1pAIUgzT DkLYSqspQotl6hTBVmh XDlch2qLQAovR4wAeLn YYZiXWdste7jHRSjZDS 0nBQsdG1toko+U2hlIG FjaGlldmVkIHJlbWlzc 2lvbiBidXQgdGhlIGNh xhLbavExxTBmE94nDPA aQRVuMS7rU8BwWUywpR 7xruGmcOpngB5mUSCnP Q3cCeSCbQEwjV6wRUCl arNgkK8hKIWsRRDrJlT tm1gza1JiZZWvFxX9w6 OyEbzkVHUgh7ZjndKgS HE0fHQof5H7PXCbF9Ln fCFIOBFao31yJZogXN7 hcmNoIHJldmVhbGVkIG NuE0r2LCPyTM9gYZ2fS E00ACxhP0MckY2kYah+ YX7WlPOayemxmpDkNHT uIHJlZmVycmVkIHRvIE ludGVydmVudGlvbmFsI UNtIHkzlH4ztROzk3Wb OPGeYECuG0XsvQZrcTH oCC5xOBVvMCBuZR7wxJ 9qeNLmvK9yg7qatKEfa Q== Diagnosis (test code = 34) v4xrkLQoLZDmxBM5MmW fVCBuk4bzz8FowLThfF VjVEqgcYInycKzfg27j XY8wN77QM0hPXPeYnU6 YYAlswN3Wnx5SOBnQXP aaUAuX348c8esi8tpre UfqST3sGuyOKBqGXQaB WluXGZzMjAgQTogUGVy aXRvbmVhbCBtYXNzOlx jBURksPm6SpCjaGwbNr HbJS8MUUUPMSNMZQYkA VRFUklORSBTRVJPVVMg S5IIA6rOS33ZYQgMEMG wN63HTRNMTRjmcMYfaD == Comment (test code = 9835) a8kllYMnDOSqxVS7SxN vRPJtp6hwe6ImsTRdzC MdCLaolYMnzlMzut89w AL0zK31AJ5nHCFuWlS6 XKAfygQ7Zkn9LYMcKCR ekOTkS822q4brs7phpc WfjUI2mFgwVRWiBASrQ JqcVTObGwQkMMWkNh1l uSTaUTnadEGzf5sbd5A bR2yjzOvwWXzap4GupH 1mVXXzh5fyoLOru9WqL 3ChvLYwYCUhVETxPtE5 b5EhsERkx7PdeLe4YTG ho8XdQJEKORaaPBaXRR NxKRT1GdPlcjHqwBX0O rRbINnti7ZrAakmCTep Q1Icj9FqiQ3flIY2dOG oRQBiefRnWMddJ18pj4 lzXHBhcn0= Gross Description (test m9fjuMPuCDUzrTGHHHP code = [id number]) wMVxhbnNpXHNwbHRwZ3 PnzarxVFfxXX7yHE3sv RlwwNYpjTHnBL5HFCVt ZmYxXHBhcGVydzEyMjQ jTRFmjDTmaCI3ZSJxQM 1hcmdsMTgwMFxtYXJnc oS5DZYlaTXqH5WxLYFg NO2vzlgePML7SDnwvX7 hsbWCHuqcLy0kxRNsdL tcZjFcZmNoYXJzZXQwX VDhzUkfDGQrWAr2lL2L WcneTML8PWYXIlkpRZK iNN2Gb4aqCEVyzMLfEB M9HMpkvNTaCRLkWFWlQ Nk4XFDwFOuylIPrMC2v fJkfLtqryKvrm7BbhZL cXGlkIDUxMDAyIFxcZG NmQO3LYyBkRFBoNyI3A AcwDLi2JSi5NY9XGvFj LTOaNWm7LvLxDQEsUYe 7DQcqLG2PBXprZWAaAU omFIX8EZA5JoZsCKRoF iBcXGYgQXJpYWwgXFxm cyAxMCBcXGZiIFxcZmw xZZimA09azWshmF5pOb mfbpLoAKN8XNNfyoJAJ lxwbGFpblxlcGljTmVz dERvYzEgDQpcbHRycGF yXGxpbjBccmluMCANCl xsdHJjaFxiXGZzMjAgT 6DuBLBeQRGmttq0c60d YWwgbWFzczpcYjAgIEN tysAzo2IbGB6cPH81yY RpcGxlIHllbGxvdyBwY JzfNZEjQuNasLqjd0Yk EHZxJJarTN48blN9dOK 2NDCgT9BdV4F4UWM6ef FlEmRdfTYoTjOwS58uF EZpbHRlcmVkLCBlbnRp mcZrqSYfhWOckKR2SCV fmT3lPUVoTASipAKpnP VhwHohRxtdqCF2UPifQ nqkpX6psASQXECFOrpG JodxecJlSH3ARD9KDzF YWP36CtRfRRA7WUtYV4 PXwRR9Fko4KPc7kYhmZ ouvmgEqgEZkVkXGrF6U FKdsWtecdVR9FRcqLqa vbI2csXINOVQFQkgKOk uybcUqEY9MQI8OGN7Zm NDbRTH2pSK1ZOGXArjt rTY5vBC0gA00OAKmNXD toUJzEKxwW952QNLbAD huTTz9qwTjJDXeWuJlX AszuOnsrR8hGTAxW07u h5ERi9LrJEIsWSpwg3w uaIdnt4KybDXtZElcFQ XwrBZxHJulnF6mZrZeq 1upcHx9MXdswnM9LCVh gr3UTremcX5uNlKdh6r lwOm7KZWDUyacuzE5j5 yenZdhw0IxvEAlTY7OK n0= Disclaimer (test code = l0pkaITsECKgkKNsEaW 9844) bIBEuBBGnk9wpVVQggC FuZzEwMzNcZnRuYmpcd INaXDKaEjXig4fht090 yEYrk2yfMVShZdS2pGT iGSZqnPItA143QWEsWF glv2dfq1PyZMJzuNHbl 2V9MAMPnrefaXm6gJvb W01vi3N8XzrjX4kuLGM cXXGuH8QnZH1aFNKeLv k4EAJ6AHW8EXYbSABkX 3KmFY2uDRUzeIRnUBt4 w3xgrKtuPJWbHSP2p6r sZZscwuHhJQ7jan5cuU e5h6jiycFoKKEgHNNxz PSVAQVpX5HykDdaTt2b eVe0eWaaUlalCYL5Kbf 7XM7ndn02rol1cHbsIH XlrlpzDmM9OQzyWGJqp eihXFh9ZJpuQQLigNJ5 KXRznMLeT8PlFEEjKW8 pytp2PSF9IUuzSNOjTc T7CYLigEGnELEudEohR Llpn743EXC9AeEpZQ6f H6Nnf1S2nZ2zmKUpELJ fwSBmKbWmNZDmso2caU TrZPsfu9FgYCO0xvO1b NEcvIErXXTcPO22Dyyo b5HdZerdPXF4WMBtufO hi7Tdz4hwZyFybuOwX2 xdC1TdUXVsCETkLLSbH kKluhVmb7Jcr3NckMAw bYc1v8joMQWoJKYppYq yh9ycXGU8BVJgU9I9iK Jww8rtMElyPIMotBT9t oS2YXMgvHUlY9MbnN5g BGJzKJ6agln0u6wvRMI 0SQijPIPgUjP8ebD1PT BcaGVhZGVyeTcyMFxmb 184PQL8AmEhMARkl1Li E6UfgCpiN45azCgkJ37 yLKDzeQrmqJ3afQguiX 5cZjBcZnMyNFxxbFxwb FQadbwxCTvpymU6MKmh hdjgXZYfZJhsT2cjRxE nKTPxaJznQZuqr2NiFO UrTVPwDqydozA3FBZNq 24dDBWxz1XsBEVplX2g yPNhICglooVpaZP4AHh hdmUgYmVlbiBkZXZlbG 9qSIDwBJ0zJMVnwxVkg r6fyyFeOBKcOTPbF5Mw cmlzdGljcyBkZXRlcm1 suvSwOLT1SXOMFK6CZL YkOFYny82rXUZorLeab T8ouSHdeuPiHJOpz9Uf uX5iuUKYQDCeC2srEE5 kJPudn2YzrDYsaRVqoA C6RNRjn8WrMiBbaaOiy FJilWRgW2BufHdfA0oz HUUoZZWfreAjvDChj1B bLCPolXQ5bHWwMU9NOi KVv55fMDUwPMHAbsInK FUbaKleoDT5yhF4fJ6e LiBJZiBhcHBsaWNhYmx lFXRdh041fj1difJ4IC KfLRVnudmgf9YoHLNuE EZpiC68RJUxXRAdjc5n rewzgDEscxEfT8Fzqlp 6wU4dYVBaEVdfUQPxDW ZzMjJcbGFuZzEwMzNca GljaFxmMVxkYmNoXGYx ZQddS7nzHaJjBkEtPgr wYXJ9 [facility]-Gu[facility] [id number] 20:04:00 Test Item Value Reference Range Interpretation Comments Gross Description (test n7bekELdPWMjyZY5JlBm code = [id number]) DTJwn0onq8OkwPJrwBNj HMrfzQGfpuMnve72tJP4 oT59SA3iFRIpTvX1GQHo oeB2Ykx1JKKtMACwjFIq R314x3xft7mjapAjbMQ4 oIzmTDGtg7mdIZIrhDKe MJJ6BRvfyDOjIYFvSMRj HTr7HZJfOGcbcVBxTD6q sSrxQxnehBnyr4CzcTTo XGlkIDUxMDAyIFxcZGIg I7YFKXPiRcEkANP6NUOs DUp6VTlpZ6BLVSQhBES9 MxbmUdB3AlH4NTr2XGLQ Jf5aMqn2CmC5ThS3JCN8 Sro7WLjzrXAcUUjgJsji XFxmIEFyaWFsIFxcZnMg LXVjETyyLzUbFG7zcKxv bGFpblxiXGZzMjAgQTpc cGFyXGIwXGYwIFNwZWNp aVSekwMmak7iqZBhOWwh cGFyIDMgRGlmZiBRdWlr OyAzIFBhcCBTdGFpbiBT sTiaDESvoSShOBDlBZ2z TNYcpQ6jaP5oXDibOxv4 qLNsxK7vNrFDJJduWDCk YKSFLBofKOJqb0WxFWAm ujKDRZKgA9FdbLAiHFno U4LcZZhrVSOuvk7izQlq OiBccHJvdGVjdHtcZmll wHF4WHmrGswkiB6wjEVA TGQDBzfNPvkbxrBcOM6P VT5OPgNPDI07ZGEnTpC9 XTzXR6EKZOJGPKH3CDv0 dCP6tM25LLFtXEKkdVGt CLedJ985PQOyBjGbGoL4 AVSeEEbop9pgVSNyFXqq d2EaUTgYDMTVYD9WMF8e iCH4EOsHN7YUBMd0LQV7 MnwxfFRPREFZREFURXww pXi8AIb7kRxoFaeswyFd iTAwKpQyzQ8ahNqyzN6t FvTrLCAzYFGzp5QwQ1I6 XEDtWJszc3tdTAHfQMvx w7WlSWqARHKYPS9UCE0c xCH1MSfUE7YLX9wPlRcq wZG5Hq1JyUR5aOmukRk8 n1dqxCKxo7c1PUvvDEE9 jGSkZlI9DORQw6tjqCYd PAygQosrqCWfiqK4TQpV JWSUFZtTEuLkQF3xXRgF ArcQQhT7XEW5MotVY1a4 CTj2pCR9aL00IPBrAQKz cARtEXffK821PKXpTVbb XGZzMjAgIFxwYXJccGFy EBKzvrB8SLJnW87nuSDf RLiojRXbyXX2PFJtl2Gh q2GbDF28UHVydgDcbKRy kH4puuUaGDHuyALcnCP4 YXMgbWFkZSBccHJvdGVj jLziEvocqVQ4LBqsIbkw bE4amRWQDQXZBkaJWdqr mtJaZU0QQTRXZcBJVO67 GzD1OnM8C5puoYjeAfml hhVbnPDvOqPzcN72SIre WpdlpEN2WCdfKbfqnE9o dCBIWVBFUkxJTksgbmFt JA5ONQIWLH1KiSD5MwM4 cTI9C293FAZiHHBnoYLt CYvlO471CIBkWTojYHHe EnQtOTQ0HEMeJsPHTW8m x43jATy5DlqmOKQsZ1Nk X0FanwP7q1bycItyd7Rd sQQgNS3oaYBjQUBxG86I WgXVNSGSF45QBJCQPNQZ W5HBZ9qYOKY8KoL8vNA8 NIFOHJMFWNaBL3LyLTIT YVYACTLkCP2ZRQmRPBOM NJNXN80ULTQFXOQAQ1PC S2bPDPgVEVXEPBHEF22W PCVIGONLB6LOTFTEBYNI SElVYOVYDl0STUIXPKPT MZ6LWFjUJiMyXKo9PWBq spU9JtkuVBt4ZCd4Fvtj SwmsPG1uQBpWQ8PHT5sD TAGfBKMGOHBLWXUtWA6Z VNvSJA6VFHWlUQHWIMFC LPBaQrIOTL3wFImEAQ6O MRFnSQQUAFBNHJLeZU0K MIFEIG2DWVVNEZUJI46U EEDFXNIJF6XGU2gYEWBS IBOQAtCKXdTBAS0ONCBB ASTLBD4OBgD6 Immediate Assessment Adequate (test code = 9837) cellularity, favor malignant Major Classification MALIGNANT A (test code = 9839) Diagnosis (test code = j1jdzIDjBSTtjCO5GpAl 34) VRKsl5xhv4CoxSZkcVOz QNdutCGjyjIzpp56zYX5 qV33NO2kUWWmHnU2ZGOq euR2Zia2GJNpTSSerZVk T031u6tpa9ehhdUukLH1 fVxwYXJkXHBsYWluXGZz ZcXbAJ5mL73ymFH1mLAc aYHwFJdvHhKsVNOgj88v xaNkHBWnYHPuyL0uGF9w OAIbVYOjb9RkmwX9vU9c OlxwYXJcdGFiXHBhclxs iIolEWZYEYwKG82HSnAe C1LOPKtrNV6YRMnAYN2V SUNBTExZIENPTVBBVElC NYWeC1iZCHMGEHSDC6QD NUxWERLCYjMTDy8DLWNw K0ASODJZBZ3GPaGzESGc cn0= Comment (test code = w5slkOLzVSBiuUY3FjWu 9835) AKFtp4waa4TkcIMfxJHq CMznsXNmukWwpt53jFF1 iG70SP2mFQNlEiQ0YIOo viX3Pdn5ILVkWTTerAOe R438l8frq1qypiCkkRV5 fVxwYXJkXHBsYWluXGZz ShWbODv6gH26V4jorh49 MOVluMbkDAr4RLHkIYSo VoivQGH6lHFlcVAot3Rh B6IkqZNyPBRtPV0iwpVe r8emC1llNArhqLLkk37d YXRpYmxlIHdpdGggcGF0 wHGfpJweZOzhu3Spkyyu y2Zer8Kqg9HdITPmwmXq pl8mVY4uPTfoUWBaVWYy FKV0wAUurBC1fNEjeVfn UECisgJ6aiGvcgIcx6Mr Z5jlFMniUkgqeMI7TMPc CA2rQNV2XYQoIp6pLBU1 cnRoZXIgZXZhbHVhdGlv nl3tBTDlwbemOYXrHWYn rzYYtARaA9SzkYYuiV8g ayBwcmVwYXJhdGlvbiB3 MFChS28lyXPpGlF5m7G9 VVTus9EnPDGzRNyumepr tZxnSKAie8KuKPQtQXxz f1Nqrd4ebTZccN== Retained/Biomarker u6aeaPOnFKMryKI3QgYd Testing (test code = PBWag4zac2XctPPgyRSd 9838) LIalgESfgfRxtx40zPT1 sM56NF5rHIDvSwY8CIUs bgP1Egp5YSOvHFSjrXBj F893i7nsi3wqkwQsdGG7 SROpHMD6YZvwdsXqewH8 DGcxoDLzAeR8B81leGOk ZFxwbGFpblxmczIwXGNo E7HcDDKmYNJJZpH4RRVj VIHnR1NsrBxdFCRPBAds S8D1LWReUOlcmPBwRX6A KCOPEWF3BRTuFaLybLyh NYFSCNgiWUL1XSQiXaDm bGluZSBGSVNIIERROiAw DADabLQmYBVvE5TqIMNf XHBhcn0= Informational Points v5xqeWNsEXJbjYB5KdUv (test code = 9836) WFWyj1cdm6UqlRQxsPEw IErkcGUteuSjce36xCK7 cM80GF6kNCAiQzE7JIIn rjR5Ixy1XYZaPDKuvRJo N412POHdPRRwI96dGOAS G021a7nfk7nqrjQavZO2 fVxwYXJkXHBsYWluXGlc OtOvZwCoGNGNt19yKEAc f8KcGNInyZ1keSAuCLir inQzlSY5VKlnygDcZjPl azTrHQWucQ3yKYDyRZ9l MWHlcaQimp9vcpQxBDTh FAQdU6DbzuwljRupgdZg DOFxax1khbWwJAD3YDLP NN2NDFVdLTDtq98tYNNf nKtdjO4igWZhrcTeSOOa x1FyfJ9joJWVNFPmO5nj FL1oDPjvd9CsfPKauFVx sGE7LDXvx0UwHcRvekDk rSAsjAPiB9VjpFfzF8rw JFQwSCIbddZfvRKut7Od BPZgjEM0sREoKN0DLtCA v39lXHGfCAKPwsJbYTPq uYyaqHT5otX2xI7bHiXv nRTbRDXkWFPhETDsp1pl Y9xjzBGmVMVeubM6oBZ2 HEGqcXnyELKyu9EuWS6w OVCsskAlfPfyKCA7jNXc mxLtp1L3LVV0GO1PZREp XVKyn86gOTlhg7HaFO45 f2CvkzuaAPU2GGCwJ0A3 nOCXtbTqs7D2TUQZm6Su cS1nGUPUIFxaszN6DnS3 EO8sgNLbzS== Lab Interpretation (test Abnormal code = 65305-1) MD Dejesus [id number] 00:19:16 Test Item Value Reference Range Interpretation Comments Albumin BF (test 3.0 gm/dL This assay has been code = 4761) validated for b pavan fluids. No refe rence ranges have bee n established. Te st results should be interpreted in context of the patient' s clinical condit ion and in conjunction with similar assays performed on [facility]. Pathologist con sult is available.. Alb BF Type (test Ascites fluid code = 4758) LISA (test code = Ascites LISA) MD DialloAmylase [id number] 00:19:10 Test Item Value Reference Range Interpretation Comments Amylase BF (test 43 U/L This assay has been code = 4805) validated for b pavan fluids. No refe rence ranges have bee n established. Te st results should be interpreted in context of the patient' s clinical condit ion and in conjunction with similar assays performed on [facility]. Pathologist con sult is available. Amyl BF Type (test Ascites fluid code = 4804) LISA (test code = Ascites LISA) MD DialloIR US GUIDED BIOPSY [id number] 18:48:01Date of Procedure: 12/11/20 Attending Physician: William Joshi MD Second Steward: Josephine Dubon Pre Procedure Diagnosis: Malignant neoplasm of endometrium; Malignant ascites Post Procedure Diagnosis: Unchanged Indication: New mass / nodule for tissue diagnosis Protocol Number: N/A Title of Procedure:Percutaneous Ultrasound- Guided Biopsy Operative Findings: Percutaneous image-guided biopsy of 3cm left abdominal mass. Consent: The procedure, risks, indications and alternatives were explained. All questions were answered and informed consent was obtained. I have reviewed the history and physical dictated by the mid-level practitioner / fellow. Sedation/Anesthesia: Moderate sedation for pain control and anxiety was administered by a dedicated nurse under my supervision. There was continuo us monitoring of oxygen saturation, heart rate and intermittent monitoring of blood pressure during the procedure. Medication given was midazolam and fentanyl. I was present for the administration of the medications indicated above.Procedure Events Event Event Time Sedation Start 12/11/2020 11:03 AM Sedation End 12/11/2020 11:53 AM Procedure in Detail: A time out was performed prior to the start of the procedure and the correct patient, procedure, presence of consent, site, and side were confirmed with all members of the team. With the patient in the supine position, the skin overlying the areaof interest was prepped and draped in the usual sterile fashion. Lidocaine 1% was used for local anesthesia. Using an anterior approach under Ultrasound image-guidance, a 17 gauge needle was advanced down to the left abdominal mass. An image was obtained and placed into the medical record. Samples were obtained for evaluation. Sampling: Cytology: A 22 gauge needle was used to obtain sample(s) for cytologic assessment. Total number of samples: 3 Core Biopsy: An 18 gauge needle used to obtain samples for surgical pathology evaluation. Total number of samples: 4 Specimens Disposition: Diagnostic Biopsy: The biopsy samples were submitted to pathology. Additional Comments: None Estimated Blood Loss: Minimal Immediate Complications: None Disposition: PACU Plan: 1. No follow-up withInterventional Radiology required. I certify my physical presence at the time of the procedure. I personally reviewed the image(s) and the KAYLENE's interpretation and agree with the written report.MD DialloCT Chest Abdomen Pelvis with [id number] 18:17:211. Significant increase in peritoneal carcinomatosis and large volume ascites. 2. Re-enlargement of the suspicious juxtacardiac lymph nodes. 3. Stable complex cystic lesions in the right kidney. 4.Trace bilateral pleural effusions. Interface, Radiology Results In - 12/06/2020 1:19 PM CDT FULL RESULT:Examination: CT Chest abdomen pelvis with Contrast, 12/06/2020 11:48 AM.Clinical History: Response assessment - post-chemotherapy, induction, COVID-19 Not Suspected, Recurrent Endometrial Cancer s/p 6 cycles carbo/taxol and 3 months of surveillance-> evalaute for recurrent or metastatic disease..Indication: Restaging.Comparison: CT chest abdomen and pelvis 08/28/2020.Technique: CT of the chest abdomen pelvis with IV and oral contrast.Findings: Lungs: Stable few tiny nodules compared to 01/24/2019. Calcified granuloma in the left lower lobe. No consolidations. Pleura: New trace bilateral pleural effusions.Lymph Nodes/Mediastinum: Re-enlargement of the suspicious cardiophrenic nodes, for example measuring 0.7 x 2.1 cm (series 3 image 74), previously 0.4 x 0.6 cm on 08/28/2020. Another node (series 3 image 73) measures 0.9 x 1.3 cm, previously 0.6 x 0.6 cm on 08/28/2020. Small to moderate hiatal hernia.Lower neck: Enlarged multinodular thyroid again noted, extending inferiorly to the mediastinum on the right. Hepatobiliary:No suspicious lesions. Calcified granuloma. No intra or extrahepatic biliary ductal dilatation. Pancreas: No pancreatic ductal dilatation. Stable subcentimeter cystic focus in the head (series 3 image 180).Spleen: No splenomegaly.Adrenals: Stable right adrenal subcentimeter nodule compared to 01/24/2019 (series 3 image 168). No left adrenal nodules.Kidneys: No hydronephrosis. Stable complex cystic lesions in the right kidney measuring 1.2 cm and 1.9 cm which should be followed. A left renal 1 cm lesion (series 3 image 192) appeared hyperdense on 01/24/2019, and may represent hyperdense cyst. Additional subcentimeter too small to characterize hypodensities.GI Tract: No evidence of obstruction. Areas of bowel thickening likely relating to carcinomatosis, for example along the colon on series 3 image 195.Pelvic organs: Hysterectomy and bilateral salpingo- oophorectomy.Vessels: No aneurysmal dilation of the aorta. Lymph nodes: No enlarged retroperitoneal or pelvic lymph nodes. Peritoneum: Significantly increased ascites, currently large in volume. Increased carcinomatosis, multiple areas were significantly improved and not well seen on 08/28/2020. For example, omental caking in the left abdomen on series 3 image 206) measuring 2.3 cm in thickness, previously not measurable on 08/28/2020. Peritoneal thickening in the cul-de-sac (series 3 image 272), not measurable on 08/28/2020. Musculoskeletal: A 1.7 cm lesion in the midline upper back (series 3 image 22), likely sebaceous cyst. No aggressiveosseous lesions.IMPRESSION:1. Significant increase in peritoneal carcinomatosis and large volume ascites. 2. Re-enlargement of the suspicious juxtacardiac lymph nodes. 3. Stable complex cystic lesions in the right kidney. 4. Trace bilateral pleural effusions.MD DialloCT Soft Tissue Neck with [id number] 22:20:05Enlarged multinodular thyroid gland with mild mediastinal extension is without significant interval change. Slight displacement of the trachea to the left is stable without decreased patency.Interface,Radiology Results In 05/07/2020 5:22 PM CDT FULL RESULT:Examination: CT SOFT TISSUE NECK W CONTRAST on 05/07/2020 9:47 AMClinical History: Multinodular goiterIndication: Follow upComparison: Ultrasound dated 05/07/2020 and 11/15/2019, CT chestdated 04/03/2020.Technique: Axial postcontrast CT images of the neck were obtained from the level ofthe aortic arch to the skull base. Sagittal and coronal reconstructions were provided.Findings: The imaged intracranial compartment is unremarkable. There is complete opacification of the right maxillary sinus. The parotid glands and submandibular glands are unremarkable. The thyroid gland is diffusely enlarged, particularly the right thyroid lobe with partial extension into the superior mediastinum.Multiple heterogeneous nodules in the thyroid parenchyma are redemonstrated and appear grossly similar relative to prior CT chest. The size of the gland shows no significant interval change relative to04/03/2020 or dating back to 01/24/2019. Mild deviation of the trachea to the left is unchanged and the airway remains patent throughout. There is no worrisome cervical adenopathy.No suspicious pulmonary nodules are seen in the imaged upper lungs. The great vessels of the neck are patent. No destructive osseous lesions are seen.IMPRESSION:Enlarged multinodular thyroid gland with mild mediastinal extension is without significant interval change. Slight displacement of the trachea to the left is stable without decreased patency.MD DialloCT Abdomen with and without [id number] 13:58:23 Slight interval increase in the size of right kidney complex cystic lesions as described above. Incidental findings as above. Interface, Radiology Results In - 03/07/2020 9:00 AM CDT FULL RESULT:Examination: CT ABDOMEN W WO CONTRAST, 03/07/2020 8:23 AMClinical History: Renal mass for reassessmentIndication: renal protocol please and characterize any change in the renal cysts, particularly the two worrisome lesion in the right kidneyComparison: CT chest, abdomen and pelvis dated 10/09/2019Technique: CT of the abdomen was performed with andwithout intravenous contrast. The study is limited by motion artifacts.Findings:A 2.2 x 1.6 cm (series 7, image 89) right kidney interpolar region, anterior cortical multilocular cystic lesion with enhancing components previously measured 2.1 x 1.6 cm. A 1.3 x 0.9 cm (series 6, image 60) right kidney posterior cortical complex cyst with enhancing components previously measured 1.2 x 0.9 cm. Smaller simple renal cysts are also seen.A 9.5 mm hemorrhagic cyst (82 HU) arising from the posterior cortex of the left kidney (series 3, image 69) again seen.There is no solid renal mass, calculus or hydronephrosis. Bilateral single renal arteries seen. Bilateral renal veins and the inferior vena cava are patent. No significant retroperitoneal or mesenteric lymphadenopathy.A right hepatic calcific focus and a small [...] as described above. Incidental findings as above.MD Diallo
[2021-02-28 18:19] LABS: Protime INR 1.02
[2021-02-28 18:26] LABS: Albumin 2.2 g/dL (3.4-5.0); Bilirubin Direct 0.3 mg/dL (0-0.2); Bilirubin Total 0.6 mg/dL (0.2-1.0); Potassium 4.5 mmol/L (3.5-5.1); Protein, Total 6.6 g/dL (6.4-8.2)
[2021-02-28 18:31] LABS: Absolute Lymphocytes (CBC) 2.9 K/uL (0.7-4.9); Basophils % 0.2 % (0-1.3); Hematocrit 32.5 % (36.0-45.0); Lymphocytes % 29.4 % (15.3-44.8); RBC Red Blood Cell Count 4.27 M/uL (3.86-4.86)
[2021-02-28 18:56] LABS: Anisocytosis 2+; Blood Morphology Comment NOTED (NOT SEEN); Platelet Estimate ADEQ; Polychromasia SLIGHT
--- NOTE | 2021-02-28 19:17 | RAD REPORT ---
EXAM DESCRIPTION: CT - Abdomen Pelvis Wo Contrast - 02/28/2021 6:42 pm CLINICAL HISTORY: ABD PAIN History of malignant endometrial neoplasm COMPARISON: No comparisons TECHNIQUE: Axial [address] imaging of the abdomen and pelvis was performed without IV contrast. No IV contrast was given because of allergy, abnormal renal function, patient refusal or physician re quest. No oral contrast administered. All CT scans are performed using dose optimization technique as appropriate and may include automated exposure control or mA/KV adjustment according to patient size. FINDINGS: Moderate-size left pleural effusion is present incompletely evaluated. There is partial at electasis of the lingula left upper lobe and near complete atelectasis of the left lower lobe. Minima l right-side pleural effusion present. No mass or acute infiltrate seen in the aerated visualized hattie g edwards. No cardiomegaly. The liver, spleen and pancreas show no suspicious findings on non-contrast imaging. Gallbladder is co ntracted and does appear to contain gallstones or hyperdense sludge. No biliary tree dilatation. No hydronephrosis or suspicious renal mass. No significant adrenal finding. Isodense renal masses an d pyelonephritis cannot be excluded in the absence of IV contrast. The urinary bladder is without sig nificant finding. Uterus is absent. Ovaries are presumed absent as well and are not identified. No gastric dilatation. Chauhan of the stomach are difficult to evaluate due to limited intraluminal con tent. Duodenum is not dilated. Several small bowel loops in the mid abdomen show significant wall thi ckening. Bowel obstruction is not suspected. Air and stool are present in nondilated colon down to th e sigmoid level. The rectum is distended to 6.5 cm by stool. Smaller moderate amount of ascites present. Omental thickening is present in the left-side of the a bdomen. Peritoneal move does appear thickened at several locations. Small to moderate amount of intra peritoneal fluid is present. There are questionable areas of loculation. Right-sided percutaneous popeye in tube is in place. The pigtail is at the right pericolic gutter at the inferior margin of the liver . No free air or pneumatosis. Air is seen in the subcutaneous fat presumably from medication injection. There is fluid retention in the subcutaneous fatty tissues of the abdomen, pelvis and upper thighs. No bulky lymphadenopathy. No suspicious bony findings. IMPRESSION: Pigtail drain tube is in place in the right pericolic gutter with the pigtail near the i nferior margin of the liver. Small to moderate amount of intraperitoneal fluid is present. Areas of peritoneal thickening are pres ent and fluid collections may be loculated or partially loculated. Omental thickening is present. No bulky lymphadenopathy. Findings would support a peritoneal carcinom atosis pattern. Moderate-sized pleural effusion is present but only partially evaluated. There is complete or near co mplete left lower lobe atelectasis. No gross evidence for pleural thickening or pleural based mass in the lower chest. Full assessment is limited is the absence of IV contrast.
[2021-02-28 20:13] LABS: Urine Blood Negative (Negative); Urine Glucose Negative (Negative); Urine Protein 1+ (Negative); Urine Specific Gravity 1.025 (1.005-1.030)
--- NOTE | 2021-02-28 21:17 | ER ---
Nurse's Notes [facility] Name: Cass Vance Age: 70 yrs Sex: Female : 1950 Arrival Date: 02/28/2021 Time: 15:54 Bed 4 Private MD: Diagnosis: Abdominal Drain Site Leakage;Pleural Effusion, Left, Chronic;Impacted cerumen, left ear Presentation: 02/28 16:03 Chief complaint: Patient states: 1. 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 No fever or pain. (Had malignant neoplasm of endometrium SX). 2. Decreased hearing for 2 weeks. Coronavirus screen: Client denies travel out of the [place] in the last 14 days. At this time, the client does not indicate any symptoms associated with coronavirus-19. Ebola Screen: Patient denies travel to an Ebola-affected area in the 21 days before illness onset. Initial Sepsis Screen: Does the patient meet any 2 criteria? No. Patient's initial sepsis screen is negative. Does the patient have a suspected source of infection? No. Patient's initial sepsis screen is negative. Risk Assessment: Do you want to hurt yourself or someone else? Patient reports no desire to harm self or others. Onset of symptoms was February 28, 2021. 16:03 Method Of Arrival: Ambulatory ll1 16:03 Acuity: KEN 3 ll1 Triage Assessment: 20:15 General: Appears in no apparent distress. Behavior is calm, cooperative. Pain: Denies ak2 pain. Historical: - Allergies: 16:09 No Known Allergies; ll1 - PMHx: 16:09 High Cholesterol; Hypertension; Uterine CA; ll1 - PSHx: 16:09 Cancer surgery; ll1 - Immunization history:: Client reports having NOT received the Covid vaccine. Flu vaccine is not up to date. - Social history:: Smoking status: Patient denies any tobacco usage or history of. - Family history:: not pertinent. Screenin:49 Abuse screen: Denies threats or abuse. Denies injuries from another. Nutritional ph screening: No deficits noted. Tuberculosis screening: No symptoms or risk factors identified. Fall Risk None identified. Assessment: 17:51 Reassessment: Pt w/ poor peripheral access, charge nurse at bedside to attempt US ph guided IV. 18:17 Reassessment: Tereza (sister) [phone]. Vital Signs: 16:03 BP 100 / 75; Pulse 100; Resp 17; Temp 97.9; Weight 86.18 kg; Height 5 ft. 6 in. (167.64 ll1 cm); Pain 0/10; 20:14 BP 104 / 62; Pulse 84; Resp 20; Pulse Ox 100% on R/A; ak2 16:03 Body Mass Index 30.67 (86.18 kg, 167.64 cm) 1 ED Course: 15:54 Patient arrived in ED. ds1 16:08 Triage completed. ll1 16:08 Arm band placed on. 1 16:23 Cj Dubois MD is Attending Physician. ma2 17:52 Patient has correct armband on for positive identification. Placed in gown. Bed in low ph position. Call light in reach. Side rails up X2. warehouser on. Pulse ox on. NIBP on. Door closed. Noise minimized. Warm blanket given. 17:59 Natividad Golden, ANALI is Primary Nurse. tr6 18:08 PT-INR Sent. tr6 18:08 Ptt, Activated Sent. tr6 18:09 Inserted Inserted 20 gauge, 10 cm powerglide MIDLINE to R upper arm VIA Ultrasound. Pt ss tolerated well. Used aseptic technique. 18:41 Abdomen In Process Unspecified. EDKY 19:04 Attending Physician role handed off by Cj Dubois MD [facility] 19:04 Ebenezer Corbett MD is Attending Physician. [facility] 22:07 No provider procedures requiring assistance completed. IV discontinued. ak2 Administered Medications: 16:44 CANCELLED (other order): NS 0.9% 1000 ml IV at 1 bolus Per protocol; 1000 mL bolus ma2 19:11 Drug: NS 0.9% 1000 ml Route: IV; Rate: 125 ml/hr; Site: left antecubital; ak2 Outcome: 21:16 Discharge ordered by . 7 22:07 Discharged to home ambulatory. ak2 22:07 Condition: good 22:07 Discharge instructions given to patient, family, Prescriptions given X 2. 22:08 Patient left the ED. ak2 Signatures: [facility] Leena Schroeder 1 Carolina Joseph RN RN Lilliam Blackwood RN RN ph Sherly, MD LUKE Corona ma2 Kevin Cope, ANALI RN 1 Ebenezer Corbett MD MD 7 Natividad Golden, ANALI RN 6 German Leach [facility]
--- NOTE | 2021-02-28 21:17 | EDPHYS ---
Physician Documentation [facility] Name: Cass Vance Age: 70 yrs Sex: Female : 1950 Arrival Date: 02/28/2021 Time: 15:54 Bed 4 Private MD: MARIPOSA Physician Ebenezer Corbett HPI: 02/28 17:19 This 70 yrs old Black Female presents to ER via Ambulatory with complaints of Post ma2 Surgical Problem. 17:19 Onset: The symptoms/episode began/occurred gradually, 2 day(s) ago. Associated signs ma2 and symptoms: Pertinent positives: Pertinent negatives: blood in stools, diarrhea, dysuria. Severity of pain:. The patient has experienced a previous episode. patient is here because right lower abdominal drain is draining more that usual. patient has an abdominal drain that was placed a week ago at [facility] for endometriosis, she receive chemotherapy. last session 2 weeks ago, and has scheduled appointment in 2 days.. Historical: - Allergies: 16:09 No Known Allergies; ll1 - PMHx: 16:09 High Cholesterol; Hypertension; Uterine CA; ll1 - PSHx: 16:09 Cancer surgery; ll1 - Immunization history:: Client reports having NOT received the Covid vaccine. Flu vaccine is not up to date. - Social history:: Smoking status: Patient denies any tobacco usage or history of. - Family history:: not pertinent. ROS: 17:19 Constitutional: Negative for fever, chills, and weight loss. ma2 17:19 All other systems are negative. Exam: 17:19 Constitutional: This is a well developed, well nourished patient who is awake, alert, ma2 and in no acute distress. Head/Face: Normocephalic, atraumatic. Eyes: Pupils equal round and reactive to light, extra-ocular motions intact. Lids and lashes normal. Conjunctiva and sclera are non-icteric and not injected. Cornea within normal limits. Periorbital areas with no swelling, redness, or edema. ENT: Nares patent. No nasal discharge, no septal abnormalities noted. Tympanic membranes are normal and external auditory canals are clear. Oropharynx with no redness, swelling, or masses, exudates, or evidence of obstruction, uvula midline. Mucous membranes moist. Neck: Trachea midline, no thyromegaly or masses palpated, and no cervical lymphadenopathy. Supple, full range of motion without nuchal rigidity, or vertebral point tenderness. No Meningismus. Chest/axilla: Normal chest wall appearance and motion. Nontender with no deformity. No lesions are appreciated. Cardiovascular: Regular rate and rhythm with a normal S1 and S2. No gallops, murmurs, or rubs. Normal PMI, no JVD. No pulse deficits. Respiratory: Lungs have equal breath sounds bilaterally, clear to auscultation and percussion. No rales, rhonchi or wheezes noted. No increased work of breathing, no retractions or nasal flaring. Abdomen/GI: right abdominal drain is stitched to skin. no pain or induration, otherwise Soft, non-tender, with normal bowel sounds. No distension or tympany. No guarding or rebound. No evidence of tenderness throughout. Back: No spinal tenderness. No costovertebral tenderness. Full range of motion. Skin: Warm, dry with normal turgor. Normal color with no rashes, no lesions, and no evidence of cellulitis. MS/ Extremity: Pulses equal, no cyanosis. Neurovascular intact. Full, normal range of motion. Neuro: Awake and alert, GCS 15, oriented to person, place, time, and situation. Cranial nerves II-XII grossly intact. Motor strength 5/5 in all extremities. Sensory grossly intact. Cerebellar exam normal. Normal gait. Vital Signs: 16:03 BP 100 / 75; Pulse 100; Resp 17; Temp 97.9; Weight 86.18 kg; Height 5 ft. 6 in. (167.64 ll1 cm); Pain 0/10; 20:14 BP 104 / 62; Pulse 84; Resp 20; Pulse Ox 100% on R/A; ak2 16:03 Body Mass Index 30.67 (86.18 kg, 167.64 cm) ll1 MDM: 16:23 Patient medically screened. ma2 17:19 Differential diagnosis: gastritis, Irritable bowel syndrome, pancreatitis, will rule ma2 out intra abdominal abscess vs drain displacement. 21:11 Data reviewed: vital signs, nurses notes, old medical records, lab test result(s), CBC, mh7 electrolytes, urinalysis, radiologic studies, CT scan. Data interpreted: Pulse oximetry: on room air is 100 %. Interpretation: normal. Counseling: I had a detailed discussion with the patient and/or guardian regarding: the historical points, exam findings, and any diagnostic results supporting the discharge/admit diagnosis, lab results, radiology results, the need for outpatient follow up. Response to treatment: the patient's symptoms have markedly improved after treatment. 02/28 16:24 Order name: Basic Metabolic Panel; Complete Time: 18:38 [facility] 02/28 16:24 Order name: CBC with Diff; Complete Time: 19:07 [facility] 02/28 16:24 Order name: Hepatic Function; Complete Time: 18:38 ky2 02/28 16:24 Order name: Lipase; Complete Time: 18:38 [facility] 02/28 17:59 Order name: PT-INR; Complete Time: 18:38 tr 02/28 17:59 Order name: Ptt, Activated; Complete Time: 18:38 [facility] 02/28 16:24 Order name: IV Saline Lock [facility] 02/28 16:24 Order name: Labs collected and sent [facility] 02/28 18:38 Order name: Abdomen ; Complete Time: 19:27 EDMS 02/28 18:56 Order name: Manual Differential; Complete Time: 19:07 EDMS 02/28 20:13 Order name: Urine Dipstick-Ancillary; Complete Time: 20:59 EDMS Administered Medications: 16:44 CANCELLED (other order): NS 0.9% 1000 ml IV at 1 bolus Per protocol; 1000 mL bolus [facility] 19:11 Drug: NS 0.9% 1000 ml Route: IV; Rate: 125 ml/hr; Site: left antecubital; ak2 Disposition: 02/28/21 21:16 Discharged to Home. Impression: Abdominal Drain Site Leakage, Pleural Effusion, Left, Chronic, Impacted cerumen, left ear. - Condition is Stable. - Discharge Instructions: Earwax Buildup, Adult, Pleural Effusion, Wound Care. - Prescriptions for Cortisporin- TC 3.3-3-10-0.5 mg/mL Otic Suspension - instill 4 drop by OTIC route every 6 hours; 1 bottle. Zofran ODT 4 mg Oral tablet,disintegrating - place 1 tablet by TRANSLINGUAL route every 8 hours As needed; 10 tablet. - Medication Reconciliation Form, Thank You Letter, Antibiotic Education, Prescription Opioid Use form. - Follow up: Private Physician; When: 1 - 2 days; Reason: Worsening of condition, Recheck today's complaints, Continuance of care, Re-evaluation by your physician. - Problem is an ongoing problem. - Symptoms have improved. Signatures: Dispatcher [employer] EDMS Cj Dubois MD MD ma2 Kevin Cope RN RN ll1 Ebeenzer Corbett MD MD 7 German Leach2 Corrections: (The following items were deleted from the chart) 16:44 16:39 NS 0.9% 1000 ml IV at 1 bolus Per protocol; 1000 mL bolus ordered. gage almonte 18:38 16:24 Abdomen Pelvis W Con+CT.RAD.BRZ ordered. EDDE EDMS 21:21 21:16 02/28/2021 21:16 Discharged to Home. Impression: Abdominal Drain Site Leakage; mh7 Pleural Effusion, Left, Chronic. Condition is Stable. Prescriptions for Cortisporin-TC 3.3-3-10-0.5 mg/mL Otic Suspension - instill 4 drop by OTIC route every 6 hours; 1 bottle. and Forms are Medication Reconciliation Form, Thank You Letter, Antibiotic Education, Prescription Opioid Use. Follow up: Private Physician; When: 1 - 2 days; Reason: Worsening of condition, Recheck today's complaints, Continuance of care, Re-evaluation by your physician. Problem is an ongoing problem. Symptoms have improved. [facility] 21:22 21:21 02/28/2021 21:16 Discharged to Home. Impression: Abdominal Drain Site Leakage; mh7 Pleural Effusion, Left, Chronic. Condition is Stable. Discharge Instructions: Pleural Effusion, Wound Care. Prescriptions for Cortisporin-TC 3.3-3-10-0.5 mg/mL Otic Suspension - instill 4 drop by OTIC route every 6 hours; 1 bottle, Zofran ODT 4 mg Oral tablet,disintegrating - place 1 tablet by TRANSLINGUAL route every 8 hours As needed; 10 tablet. and Forms are Medication Reconciliation Form, Thank You Letter, Antibiotic Education, Prescription Opioid Use. Follow up: Private Physician; When: 1 - 2 days; Reason: Worsening of condition, Recheck today's complaints, Continuance of care, Re-evaluation by your physician. Problem is an ongoing problem. Symptoms have improved. 7 22:08 21:22 02/28/2021 21:16 Discharged to Home. Impression: Abdominal Drain Site Leakage; ak2 Pleural Effusion, Left, Chronic; Impacted cerumen, left ear. Condition is Stable. Discharge Instructions: Pleural Effusion, Wound Care. Prescriptions for Cortisporin-TC 3.3-3-10-0.5 mg/mL Otic Suspension - instill 4 drop by OTIC route every 6 hours; 1 bottle, Zofran ODT 4 mg Oral tablet,disintegrating - place 1 tablet by TRANSLINGUAL route every 8 hours As needed; 10 tablet. and Forms are Medication Reconciliation Form, Thank You Letter, Antibiotic Education, Prescription Opioid Use. Follow up: Private Physician; When: 1 - 2 days; Reason: Worsening of condition, Recheck today's complaints, Continuance of care, Re-evaluation by your physician. Problem is an ongoing problem. Symptoms have improved. mh7
[2021-02-28 22:35] VITALS: TEMP 97.9
[2021-02-28 22:37] VITALS: BP 104/62; O2SAT 100
== END 2021-02-28 22:08 | disposition home or self-care (01) ==
LOC: ER 15:40
DX: T81.89XA Other complications of procedures, not elsewhere classified, initial encounter (principal); J90 Pleural effusion, not elsewhere classified; H61.22 Impacted cerumen, left ear; C55 Malignant neoplasm of uterus, part unspecified; E78.00 Pure hypercholesterolemia, unspecified; I10 Essential (primary) hypertension
CPT/HCPCS: 36415; 74176; 80048; 80076; 81003; 83690; 85025; 85610; 85730

== ENCOUNTER 2021-03-05 10:09 | Inpatient (IN) | payer BC ==
--- OUTSIDE RECORDS SUMMARY | 2021-03-05 10:16 | XMS REPORT | Continuity of Care Document ---
:1950 Author Organization [facility] t Address [address] [place] [address] Dr. [address]. [address] [place] [address] Care Team Providers Name Role Phone [phone] Primary Care Physician Unavailable SYSTEM, NOT IN Attending Clinician Unavailable Jose BRIONES, Y Attending Clinician Unavailable Marlen SUERO Attending Clinician Salty BUTLER Attending Clinician Giovanni Viera MD Attending Clinician Rigo BUTLER Attending Clinician Zee BUTLER Attending Clinician Ted SUERO Attending Clinician Nani SUERO Attending Clinician Unavailable Sharlene Snow MA Attending Clinician Unavailable Jory SUERO Attending Clinician Tashi BRIONES MSN Attending Clinician Unavailable Erin Vasquez MD. Attending Clinician Romulo BUTLER Attending Clinician Alexandra BUTLER Attending Clinician Adi Tavares Attending Clinician Erin Edwards Attending Clinician Unavailable Josephine Ruelas MD Attending Clinician Taiwo Barnes MD Attending Clinician Vanessa BUTLER Attending Clinician Zeyad BUTLER Attending Clinician Adi BUTLER Attending Clinician Lanie BRIONES, A Attending Clinician Unavailable Swati Short Attending [...] Clinician Dontrell Saunders MD Attending Clinician Jaison BRIONES M Attending Clinician Unavailable MELANY Attending Clinician [...] Policy Number Effective Date Expiration Date Yury SOLOMON CROSS BLUE [id number] 2020 MD Arun [employer] [place] PPO 00:00:00 [id number] 09/2020-PresentPPO AETNA O [id number] 2006 00:00:00 Problems Condition Condition Condition Status Onset Resolution Last Treating Co mments Source Name Details Category Date Date Treatment Clinician Date Vomiting Vomiting Disease Active 02-21 Anderso 00:00: n 00 Dysphagia Dysphagia Disease Active 02-21 Anderso 00:00: n 00 Urinary Urinary Disease Active tract tract 02-20 Anderso infection infection 00:00: n 00 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 An derso ashleigh ashleigh 00:00: n malnutriti malnutriti 00 on Acute Acute Disease Active kidney kidney 6-08 Anderso injury due injury due 00:00: n to to 00 scoop filler scoop filler y failure y failure 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 00:00: n 00 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 Anderso constipati constipati 00:00: n on on 00 Ileus Ileus Disease Active MD 6- Anderso 00:00: n 00 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 00:00: n 00 Pneumonia Pneumonia Disease Active MD 5 Anderso 00:00: n 00 Malignant Malignant Disease [...] Stop Date Source Natural mother Diabetes MD Ashlee ornelas Natural mother Heart disease MD Arun rhodes Natural mother Hypertension Tr son Natural sister Ovarian cancer And checo Family member Thyroid cancer MD Arun rhodes Family member Thyroid disease And checo Social History Social Habit Start Date Stop Date Quantity Comments Source Exposure to Not sure MD Diallo SARS-CoV-2 (event) Tobacco use and 2021-03-03 2021-03-03 Never used MD Emery on exposure 00:00:00 00:00:00 Alcohol intake 2021-03-03 2021-03-03 Current drinker MD Linda snyder 00:00:00 00:00:00 [...] Date Date Medication? Clinician (SIG) Name Name neomyc/coli Yes 1[drp] Administer MD st/hydrocor 21 1 drop Rupert o t/thonzn 14:54: into ears n (NEOMYCIN-C 12 daily. OLIST-- ONZONIUM OTIC) ondansetron Yes 4mg Take 4 mg M D (ZOFRAN) 4 6-21 by mouth Tr so mg tablet 14:54: every 8 n 12 (eight) hours as needed. dexamethaso Yes Nausea and 2mg Take 2 MD ne 6-21 vomiting tablets (2 Tr so (DECADRON) 00:00: mg) by n 1 mg tablet 00 mouth twice daily. OLANZapine Yes Nausea and 2.5mg Take 1 MD (ZyPREXA) 6-14 vomiting tablet Arun rso 2.5 mg 00:00: (2.5 mg) n tablet 00 by mouth every 6 (six) hours as needed (nausea/vo miting). OLANZapine 202- No Nausea and 2.5mg Dissolve MD (ZyPREXA 6-14 06-14 vomiting half a Arun rso ZYDIS) 5 mg 00:00: 00:00 tablet n disintegrat 00 :00 (2.5 mg) ing tablet on the tongue every 6 (six) hours as needed (nausea/vo miting). polyethylen Yes Slow Purchase MD e glycol 6-12 transit over the Arun rso (MIRALAX) 00:00: constipatio counter. n 17 g packet 00 n To prevent constipati on. famotidine Yes FDC 20mg Take 1 MD (PEPCID) 20 6-12 current use tablet (20 Anderso mg tablet 00:00: of systemic mg) by n 00 steroid mouth daily. For stomach protection while taking dexamethas one (steroid). nystatin Yes Candidiasis Apply M D (MYCOSTATIN 6-11 of skin topically Anderso ) 100,000 00:00: to n units/g 00 affected powder area(s) of breast twice daily. LORazepam Yes Nausea and Take 1/2 MD (Ativan) 6-07 vomiting tab Anderso 0.5 mg 00:00: nightly as n tablet 00 needed for nausea dexamethaso 2020- No Nausea and 1mg Take 1 MD ne 02-17 06-21 vomiting tablet (1 Tr so (DECADRON) 00:00: 00:00 mg) by n 1 mg tablet 00 :00 mouth daily with breakfast. enoxaparin Yes Chronic 80mg Inject 0.8 MD [...] Yes Slow 1{tbl} Take 1 MD ate 604 transit tablet by Ashlee (SENOKOT-S) 00:00: constipatio mouth n 8.6 mg-50 00 n twice mg tablet daily. HOLD for loose stools/ravi rrhea. Available over the counter. hydroCHLORO 2020- No 1{tbl} Take 1 M D thiazide 5-27 05-27 tablet by Tr barbosa (HYDRODIURI 17:30: 00:00 mouth n L) 25 [...] needed. n tablet 00 ergocalcife Yes Deficiency [id number] Take 1 MD rol 9-01 of vitamin capsule Rupert o (DRISDOL) 00:00: D3 (50,000 n 50,000 00 Units) by units mouth capsule every 14 (fourteen) days. valsartan 2020- No 320mg Take 320 MD (DIOVAN) 8 05-27 mg by Anderso 320 mg 00:00: 00:00 mouth n tablet 00 :00 daily. ondansetron 2020- No Malignant Take 1 tab MD (Zofran) 8 04-0530 neoplasm of every 8 Anderso mg tablet 00:00: 00:00 endometrium hrs on n 00 :00 days 2, 3, 4 following chemo, then may take 1 tablet by mouth every 8 hours as needed for nausea or vomiting. prochlorper No Malignant 10mg Take 1 MD azine 04-0530 neoplasm of tablet (10 Anderso (Compazine) 00:00: 00:00 endometrium mg) by n 10 mg 00 :00 mouth tablet every 6 (six) hours as needed for nausea or vomiting. magnesium 2019- No Hypomagnese 400mg Take 1 MD oxide 04-17 07-21 bj tablet Anderso (MAOX) 400 00:00: 00:00 (400 mg) n mg tablet 00 :00 by mouth twice daily. furosemide No 1{tbl} Take 1 MD (LASIX) 20 01-03- tablet by And erso mg tablet 00:00: 00:00 mouth n 00 :00 daily. VITAMIN D2 2019- No 1{capsu Take 1 M D 50,000 unit 01-03 le} capsule by A nderso capsule 00:00: 00:00 mouth n 00 :00 every 30 (thirty) days. amLODIPine 2020- No 1{tbl} Take 1 MD (NORVASC) 01-02 tablet by Arun rso 10 mg 00:00: 00:00 mouth n tablet 00 :00 daily. carvedilol 2018- Yes 6.25mg Take 6.25 MD (COREG) 2-15 mg by Anderso 12.5 mg 00:00: mouth n tablet 00 twice daily. allopurinol 2020- No 1{tbl} Take 1 M D (ZYLOPRIM) 2-15 - tablet by And erso 300 mg 00:00: 00:00 mouth n tablet 00 :00 daily. atorvastati 2017-09- No 1{tbl} Take 1 M D n (LIPITOR) 0-27 -27 tablet by An derso 20 mg 00:00: [...] 2020-04-15 08:17:37 90.9 kg Systolic blood pressure 2021-03-03 14:53:00 90 mm[Hg] MD Diallo Diastolic blood pressure 2021-03-03 14:53:00 57 mm[Hg] MD Diallo Heart rate 2021-03-03 14:53:00 59 /min MD Tr lazo Body temperature 2021-03-03 14:53:00 36.72 Peyton MD Bipin fleming Respiratory rate 2021-03-03 14:53:00 18 /min MD Bipin fleming Oxygen saturation in 2021-02-25 12:52:05 96 /min MD Diallo Arterial blood by Pulse oximetry Body weight 2021-02-24 08:18:00 86.3 kg MD Tr lazo BMI 2021-02-24 08:18:00 35.01 kg/m2 MD Tr lazo Body height 2021-02-19 01:30:00 157 cm MD Tr lazo Procedures Procedure Date / Time Performed Performing Clinician [facility] e COMPLETE BLOOD COUNT W/ 2021-03-03 12:12:00 Santo Jean MD DIFFERENTIAL COMPREHENSIVE METABOLIC PANEL 2021-03-03 12:12:00 Santo Jean MD CANCER ANTIGEN 125 2021-03-03 12:12:00 Santo Jeaners on MAGNESIUM LEVEL 2021-03-03 12:12:00 Arianna Rodríguez MD Results CBC 2021-03-03 12:12:00 Santo Jean MD MANUAL DIFFERENTIAL 2021-03-03 12:12:00 Santo Jean MD Tr clifton GLUCOSE LEVEL 2021-03-03 12:12:00 Santo Jean MD BLOOD UREA NITROGEN 2021-03-03 12:12:00 Santo Jean MD Tr son ELECTROLYTE PANEL 2021-03-03 12:12:00 Santo Jean MDo n SERUM CREATININE 2021-03-03 12:12:00 Santo Jean MD .GLOMERULAR FILTRATION RATE 2021-03-03 12:12:00 Santo Jean MD CALCIUM LEVEL TOTAL 2021-03-03 12:12:00 [facility] 2021-03-03 12:12:00 Santo Jean MD ALKALINE PHOSPHATASE 2021-03-03 12:12:00 aSnto Jean MD ALANINE AMINOTRANSFERASE 2021-03-03 12:12:00 Santo Jean MD ASPARTATE AMINOTRANSFERASE 2021-03-03 12:12:00 Santo Jean TOTAL PROTEIN 2021-03-03 12:12:00 Santo Jean MD FRACTIONATED BILIRUBIN 2021-03-03 12:12:00 Santo Jean MD derson COMPLETE BLOOD COUNT W/ 2021-02-25 09:43:00 Cassius Clemens MD nderson DIFFERENTIAL SODIUM LEVEL 2021-02-25 09:43:00 Cassius Clemens MD CARBON DIOXIDE LEVEL 2021-02-25 09:43:00 Cassius Clemens MD rson CHLORIDE LEVEL 2021-02-25 09:43:00 Cassius Clemens MD POTASSIUM LEVEL 2021-02-25 09:43:00 Cassius Clemens MD MAGNESIUM LEVEL 2021-02-25 09:43:00 Cassius Clemens MD BLOOD UREA NITROGEN 2021-02-25 09:43:00 [facility] 2021-02-25 09:43:00 Cassius Clemens MD GLUCOSE, RANDOM 2021-02-25 09:43:00 Cassius Clemens MD Results CBC 2021-02-25 09:43:00 Humberto Sierra MD MANUAL DIFFERENTIAL 2021-02-25 09:43:00 Humberto Sierra MD Tr lazo SERUM CREATININE 2021-02-25 09:43:00 Humberto Sierra MD .GLOMERULAR FILTRATION RATE 2021-02-25 09:43:00 Humberto Sierra MD ANION GAP 2021-02-25 09:43:00 Humberto Sierra MD COMPLETE BLOOD COUNT W/ 2021-02-24 08:49:00 Cassius Clemens MD nderson DIFFERENTIAL SODIUM LEVEL 2021-02-24 08:49:00 Cassius Clemens MD CARBON DIOXIDE LEVEL 2021-02-24 08:49:00 Cassius Clemens MD rson CHLORIDE LEVEL 2021-02-24 08:49:00 Cassius Clemens MD POTASSIUM LEVEL 2021-02-24 08:49:00 Cassius Clemens MD MAGNESIUM LEVEL 2021-02-24 08:49:00 Cassius Clemens MD BLOOD UREA NITROGEN 2021-02-24 08:49:00 Cassius Clemens MD Tr clif[place] SERUM CREATININE 2021-02-24 08:49:00 Cassius Clemens MD GLUCOSE, RANDOM 2021-02-24 08:49:00 Cassius Clemens MD Results CBC 2021-02-24 08:49:00 Humberto Sierra MD MANUAL DIFFERENTIAL 2021-02-24 08:49:00 Humberto Sierrabeka lazo SERUM CREATININE 2021-02-24 08:49:00 Humberto Sierra MD .GLOMERULAR FILTRATION RATE 2021-02-24 08:49:00 Humberto Sierra MD ANION GAP 2021-02-24 08:49:00 Humberto Sierra MD XR ABDOMEN AP 2021-02-23 21:06:31 Jenn Sanchez MD SERUM CREATININE 2021-02-23 08:38:00 Humberto Sierra MD .GLOMERULAR FILTRATION RATE 2021-02-23 08:38:00 Humberto Sierra MD ANION GAP 2021-02-23 08:38:00 Humberto Sierra MD COMPLETE BLOOD COUNT W/ 2021-02-23 08:38:00 Cassius Clemens MD DIFFERENTIAL SODIUM LEVEL 2021-02-23 08:38:00 Cassius Clemens MD CARBON DIOXIDE LEVEL 2021-02-23 08:38:00 Cassius Clemens MD rson CHLORIDE LEVEL 2021-02-23 08:38:00 Cassius Clemens MD POTASSIUM LEVEL 2021-02-23 08:38:00 Cassius Clemens MD MAGNESIUM LEVEL 2021-02-23 08:38:00 Cassius Clemens MD BLOOD UREA NITROGEN 2021-02-23 08:38:00 [facility] 2021-02-23 08:38:00 Cassius Clemens MD GLUCOSE, RANDOM 2021-02-23 08:38:00 Cassius Clemens MD Results CBC 2021-02-23 08:38:00 Humberto Sierra MD MANUAL DIFFERENTIAL 2021-02-23 08:38:00 Humberto Sierra MD POC GLUCOSE SCREEN 2021-02-22 13:01:00 Cristine Koch MD on COMPLETE BLOOD COUNT W/ 2021-02-22 07:38:00 Cassius Clemens MD DIFFERENTIAL SODIUM LEVEL 2021-02-22 07:38:00 Cassius Clemens MD CARBON DIOXIDE LEVEL 2021-02-22 07:38:00 Cassius Clemens MD rson CHLORIDE LEVEL 2021-02-22 07:38:00 Casisus Clemens MD POTASSIUM LEVEL 2021-02-22 07:38:00 Cassius Clemens MD MAGNESIUM LEVEL 2021-02-22 07:38:00 Cassius Clemens MD BLOOD UREA NITROGEN 2021-02-22 07:38:00 [facility] 2021-02-22 07:38:00 Cassius Clemens MD [...] DIOXIDE LEVEL 2021-02-21 09:21:00 Cassius Clemens MD rson CHLORIDE LEVEL 2021-02-21 09:21:00 Cassius Clemens MD POTASSIUM LEVEL 2021-02-21 09:21:00 Cassius Clemens MD MAGNESIUM LEVEL 2021-02-21 09:21:00 Cassius Clemens MD BLOOD UREA NITROGEN 2021-02-21 09:21:00 Cassius Clemens MD SERUM CREATININE 2021-02-21 09:21:00 Cassius Clemens MD GLUCOSE, RANDOM 2021-02-21 09:21:00 Cassius Clemens MD PARTIAL THROMBOPLASTIN TIME 2021-02-21 09:21:00 Humberto Sierra MD Results CBC 2021-02-21 09:21:00 Humberto Sierra MD MANUAL DIFFERENTIAL 2021-02-21 09:21:00 Humberto Sierra MD son SERUM CREATININE 2021-02-21 09:21:00 Humberto Sierra MD .GLOMERULAR FILTRATION RATE 2021-02-21 09:21:00 Humberto Sierra MD ANION GAP 2021-02-21 09:21:00 Humberto Sierra MD PARTIAL THROMBOPLASTIN TIME 2021-02-21 01:24:00 Humberto Sierra MD TRANSFUSE RED BLOOD CELLS 2021-02-21 00:56:38 Simba Nails MD PARTIAL THROMBOPLASTIN TIME 2021-02-20 18:24:00 Betty Davis MD CONFIRM ABORH TYPE 2021-02-20 12:56:00 Humberto Sierra MD on TYPE AND SCREEN 2021-02-20 12:48:00 Simba [...] COUNT W/ 2021-02-20 05:27:00 Cassius Clemens MD nderson DIFFERENTIAL SODIUM LEVEL 2021-02-20 05:27:00 Cassius Clemens [...] rson COMPLETE BLOOD COUNT W/ 2021-02-19 09:32:00 Cassius Clemens MD nderson DIFFERENTIAL SODIUM LEVEL 2021-02-19 09:32:00 Cassius Clemens MD CARBON DIOXIDE LEVEL 2021-02-19 09:32:00 Cassius Clemens MD rson CHLORIDE LEVEL 2021-02-19 09:32:00 Cassius Clemens MD POTASSIUM LEVEL 2021-02-19 09:32:00 Cassius Clemens MD MAGNESIUM LEVEL 2021-02-19 09:32:00 Cassius Clemens MD BLOOD UREA NITROGEN 2021-02-19 09:32:00 Cassius Clemens MD SERUM CREATININE 2021-02-19 09:32:00 Cassius Clemens MD GLUCOSE, RANDOM 2021-02-19 09:32:00 Cassius Clemens MD PARTIAL THROMBOPLASTIN TIME 2021-02-19 09:32:00 Humberto Sierra MD Results CBC 2021-02-19 09:32:00 Humberto Sierra MD MANUAL DIFFERENTIAL 2021-02-19 09:32:00 Humberto Sierra MD [facility] SERUM CREATININE 2021-02-19 09:32:00 Humberto Sierra MD [...] URINALYSIS MICROSCOPIC 2021-02-18 21:16:00 Ashley Viera MD derson XR ABDOMEN 1 VW PORTABLE 2021-02-18 21:03:18 Kirstin Aldridge MD COMPREHENSIVE METABOLIC PANEL 2021-02-18 19:59:00 Ashley Viera MD LACTATE DEHYDROGENASE 2021-02-18 19:59:00 Ashley Viera MD And erson MAGNESIUM LEVEL 2021-02-18 19:59:00 Ashley Viera MD PHOSPHORUS LEVEL 2021-02-18 19:59:00 Ashley Viera MD GLUCOSE LEVEL 2021-02-18 19:59:00 Ashley Viera MD BLOOD UREA NITROGEN 2021-02-18 19:59:00 [facility] ELECTROL[facility] PANEL 2021-02-18 19:59:00 Ashley Viera MD [facility] SERUM CREATININE 2021-02-18 19:59:00 Ashley Viera MD .GLOMERULAR FILTRATION RATE 2021-02-18 19:59:00 Ashley Viera MD CALCIUM LEVEL TOTAL 2021-02-18 19:59:00 Ashley Viera MD [facility] ALBUMIN LEVEL 2021-02-18 19:59:00 Ashley Viera MD ALKALINE PHOSPHATASE 2021-02-18 19:59:00 Ashley Viera MD Arun rson ALANINE AMINOTRANSFERASE 2021-02-18 19:59:00 Ashley Viera MD [...] Aldridge MD TOTAL PROTEIN 2021-02-18 18:33:00 Chantell Aldridge MD FRACTIONATED BILIRUBIN 2021-02-18 18:33:00 Chantell Aldridge MD INFLUENZA A/B + COVID-19 2021-02-18 17:58:00 Kirstin Aldridge MD ASYMPTOMATIC-L CANCER ANTIGEN 125 2021-02-17 14:27:59 Santo Jean MD Rupert on COMPLETE BLOOD COUNT W/ 2021-02-17 14:27:59 Santo Jean MD DIFFERENTIAL BASIC METABOLIC PANEL, 2021-02-17 14:27:59 Santo Jean MD CALCIUM TOTAL BILIRUBIN TOTAL 2021-02-17 14:27:59 Santo Jean MD ALANINE AMINOTRANSFERASE 2021-02-17 14:27:59 Santo Jean MD ASPARTATE AMINOTRANSFERASE 2021-02-17 14:27:59 Santo Jean MAGNESIUM LEVEL 2021-02-17 14:27:59 Santo Jean MD GLUCOSE LEVEL 2021-02-17 14:27:59 Santo Jean MD BLOOD UREA NITROGEN 2021-02-17 14:27:59 Santo Jean MD Tr son ELECTROLYTE PANEL 2021-02-17 14:27:59 [facility] 2021-02-17 14:27:59 Santo Jean MD .GLOMERULAR FILTRATION RATE 2021-02-17 14:27:59 Santo Jean MD CALCIUM LEVEL TOTAL 2021-02-17 14:27:59 Santo Jean MD Tr [place] Results CBC 2021-02-17 14:27:59 Santo Jean MD MANUAL DIFFERENTIAL 2021-02-17 14:27:59 Santo Jean MD Tr cl[place] COMPLETE BLOOD COUNT W/ 2021-02-14 09:19:00 Nia Sarkar MD D SODIUM LEVEL 2021-02-14 09:19:00 Alison Sarkar MD CARBON DIOXIDE LEVEL 2021-02-14 09:19:00 Alison Sarkar MD D CHLORIDE LEVEL 2021-02-14 09:19:00 Alison Sarkar MD POTASSIUM LEVEL 2021-02-14 09:19:00 Alison Sarkar MD MAGNESIUM LEVEL 2021-02-14 09:19:00 Alison Sarkar MD BLOOD UREA NITROGEN 2021-02-14 09:19:00 Alison Sarkar MD D SERUM CREATININE 2021-02-14 09:19:00 Alison Sarkar MD GLUCOSE, RANDOM 2021-02-14 09:19:00 Alison Sarkar MD Results CBC 2021-02-14 09:19:00 Janet Sebastian MD on MANUAL DIFFERENTIAL 2021-02-14 09:19:00 Janet Sebastian MD SERUM CREATININE 2021-02-14 09:19:00 Janet Sebastian MD Tr son .GLOMERULAR FILTRATION RATE 2021-02-14 09:19:00 Katalina Sebastian MD ANION GAP 2021-02-14 09:19:00 Janet Sebastian MD on POC GLUCOSE SCREEN 2021-02-13 11:02:00 Kellee Morris MD Tr son COMPLETE BLOOD COUNT W/ 2021-02-13 07:41:00 Nia [...] CREATININE 2021-02-13 07:41:00 Janet Sebastian MD Tr son .GLOMERULAR FILTRATION RATE 2021-02-13 07:41:00 Katalina Seabstian MD ANION GAP 2021-02-13 07:41:00 Janet Sebastian MD on ANTI-XA LEVEL 2021-02-13 01:30:00 Kellee Morris MD HEMOGLOBIN 2021-02-12 12:50:00 Netta Braxton MD COMPLETE BLOOD COUNT W/ 2021-02-12 09:19:00 Nia Sarkar MD D SODIUM LEVEL 2021-02-12 09:19:00 Alison Sarkar MD CARBON DIOXIDE LEVEL 2021-02-12 09:19:00 Alison Sarkar MD D CHLORIDE LEVEL 2021-02-12 09:19:00 Alison Sarkar MD POTASSIUM LEVEL 2021-02-12 09:19:00 Alison Sarkar MD MAGNESIUM LEVEL 2021-02-12 09:19:00 Alison Sarkar MD BLOOD UREA NITROGEN 2021-02-12 09:19:00 Alison Sarkar MD SERUM CREATININE 2021-02-12 09:19:00 Alison Sarkar MD GLUCOSE, RANDOM 2021-02-12 09:19:00 Alison Sarkar MD Results CBC 2021-02-12 09:19:00 Janet Sebastian MD on MANUAL DIFFERENTIAL 2021-02-12 09:19:00 Janet Sebastian MD SERUM CREATININE 2021-02-12 09:19:00 Janet Sebastian MD [...] MD CHLORIDE LEVEL 2021-02-11 07:58:00 Alison Sarkar MDrsleo D POTASSIUM LEVEL 2021-02-11 07:58:00 Alison Sarkar MDon D MAGNESIUM LEVEL 2021-02-11 07:58:00 Alison Sarkar MD D BLOOD UREA NITROGEN 2021-02-11 07:58:00 Alison Sarkar MD SERUM CREATININE 2021-02-11 07:58:00 Alison Sarkar MD GLUCOSE, RANDOM 2021-02-11 07:58:00 Alison Sarkar MD Results CBC 2021-02-11 07:58:00 Janet Sebastian MD on MANUAL DIFFERENTIAL 2021-02-11 07:58:00 Janet Sebastian MDson SERUM CREATININE 2021-02-11 07:58:00 Janet Sebastian MD Tr son .GLOMERULAR FILTRATION RATE 2021-02-11 07:58:00 Katalina Sebastian MD ANION GAP 2021-02-11 07:58:00 Janet Sebastian MD on COMPLETE BLOOD COUNT W/ 2021-02-10 07:17:00 Nia Sarkar MD D SODIUM LEVEL 2021-02-10 07:17:00 Alison Sarkar MD CARBON DIOXIDE LEVEL 2021-02-10 07:17:00 Alison Sarkar MD CHLORIDE LEVEL 2021-02-10 07:17:00 Alison Sarkar MD POTASSIUM LEVEL 2021-02-10 07:17:00 Alison Sarkar MD MAGNESIUM LEVEL 2021-02-10 07:17:00 Alison Sarkar MD D BLOOD UREA NITROGEN 2021-02-10 07:17:00 Alison Sarkar MD SERUM CREATININE 2021-02-10 07:17:00 Alison Sarkar MD GLUCOSE, RANDOM 2021-02-10 07:17:00 Alison Sarkar MDrson D Results CBC 2021-02-10 07:17:00 Janet Sebastian MD on MANUAL DIFFERENTIAL 2021-02-10 07:17:00 Janet Sebastian MD derson SERUM CREATININE 2021-02-10 07:17:00 Janet Sebastian MD Tr son .GLOMERULAR FILTRATION RATE 2021-02-10 07:17:00 Katalina Sebastian MD ANION GAP 2021-02-10 07:17:00 Janet Sebastian MD on COMPLETE BLOOD COUNT W/ 2021-02-09 06:27:00 Nia Sarkar MD D SODIUM LEVEL 2021-02-09 06:27:00 Alison Sarkar MD CARBON DIOXIDE LEVEL 2021-02-09 06:27:00 Alison Sarkar MD CHLORIDE LEVEL 2021-02-09 06:27:00 Alison Sarkar MD D POTASSIUM LEVEL 2021-02-09 06:27:00 Alison Sarkar MD MAGNESIUM LEVEL 2021-02-09 06:27:00 Alison Sarkar MD BLOOD UREA NITROGEN 2021-02-09 06:27:00 Alison Sarkar MD D SERUM CREATININE 2021-02-09 06:27:00 Alison Sarkar MD GLUCOSE, RANDOM 2021-02-09 06:27:00 Alison Sarkar MDrson D Results CBC 2021-02-09 06:27:00 Janet Sebastian MD on MANUAL DIFFERENTIAL 2021-02-09 06:27:00 Janet Sebastian MDson SERUM CREATININE 2021-02-09 06:27:00 Janet Sebastian MD Tr son .GLOMERULAR FILTRATION RATE 2021-02-09 06:27:00 Katalina Sebastian MD ANION GAP 2021-02-09 06:27:00 Janet Sebastian MD on COMPLETE BLOOD COUNT W/ 2021-02-08 08:24:00 Nia Sarkar MD D SODIUM LEVEL 2021-02-08 08:24:00 Alison Sarkar MD CARBON DIOXIDE LEVEL 2021-02-08 08:24:00 Alison Sarkar MD CHLORIDE LEVEL 2021-02-08 08:24:00 Alison Sarkar MD POTASSIUM LEVEL 2021-02-08 08:24:00 Alison Sarkar MD MAGNESIUM LEVEL 2021-02-08 08:24:00 Alison Sarkar MDrsleo Gentile BLOOD UREA NITROGEN 2021-02-08 08:24:00 Alison Sarkar MD D SERUM CREATININE 2021-02-08 08:24:00 Alison Sarkar MD GLUCOSE, RANDOM 2021-02-08 08:24:00 Alison Sarkar MDrsleo D Results CBC 2021-02-08 08:24:00 Janet Sebastian MD on MANUAL DIFFERENTIAL 2021-02-08 08:24:00 Janet Sebastian MD SERUM CREATININE 2021-02-08 08:24:00 Janet Sebastian MD Tr son .GLOMERULAR FILTRATION RATE 2021-02-08 08:24:00 Katalina Sebastian MD ANION GAP 2021-02-08 08:24:00 Janet Sebastian MD on IR US GUIDED PARACENTESIS 2021-02-07 18:10:00 Netta Braxton MD PARTIAL THROMBOPLASTIN TIME 2021-02-07 18:02:00 Maribel Rene MD NM LUNG PERFUSION 2021-02-07 16:34:21 Netta Braxton MD PARTIAL THROMBOPLASTIN TIME 2021-02-07 13:26:00 Maribel Rene [...] MD MAGNESIUM LEVEL 2021-02-07 05:24:00 Alison Sarkar MDon Krupa BLOOD UREA NITROGEN 2021-02-07 05:24:00 Alison Sarkar MD SERUM CREATININE 2021-02-07 05:24:00 Alison Sarkar MD GLUCOSE, RANDOM 2021-02-07 05:24:00 Alison Sarkar MD Results CBC 2021-02-07 05:24:00 Janet Sebastian MD on MANUAL DIFFERENTIAL 2021-02-07 05:24:00 Janet Sebastian MDson SERUM CREATININE 2021-02-07 05:24:00 Janet Sebastian MD Tr son .GLOMERULAR FILTRATION RATE 2021-02-07 05:24:00 Katalina Sebastian MD ANION GAP 2021-02-07 05:24:00 Janet Sebastian MD on XR CHEST 1 VW POST IMPLANT 2021-02-07 04:38:00 Gio Sebastian MD US RENAL 2021-02-06 15:12:05 Alison Sarkar MDon D US LEG VENOUS DOPPLER 2021-02-06 15:11:25 Lenka Sarkar BILATERAL D URINE CULTURE 2021-02-06 13:52:00 Netta Braxton MD CREATININE URINE, RANDOM 2021-02-06 13:52:00 Netta Braxton MD SODIUM URINE 2021-02-06 13:52:00 Netta Braxton MD COMPLETE BLOOD COUNT W/ 2021-02-06 03:52:00 Arianna Rodríguez MD DIFFERENTIAL COMPREHENSIVE METABOLIC PANEL 2021-02-06 03:52:00 Arianna Rodríguez MD AMYLASE LEVEL 2021-02-06 03:52:00 WatBetty brady MD LIPASE LEVEL 2021-02-06 03:52:00 Betty Rivero MD NT PRO BNP 2021-02-06 03:52:00 Betty Rivero MD Results CBC 2021-02-06 03:52:00 Arianna Rodríguez MD MANUAL DIFFERENTIAL 2021-02-06 03:52:00 Arianna Rodríguez MD Tr son GLUCOSE LEVEL 2021-02-06 03:52:00 Arianna Rodríguez MD BLOOD UREA NITROGEN 2021-02-06 03:52:00 Arianna Rodríguez MD Tr son ELECTROLYTE PANEL 2021-02-06 03:52:00 Arianna Rodríguez MDo n SERUM CREATININE 2021-02-06 03:52:00 Arianna Rodríguez MD .GLOMERULAR FILTRATION RATE 2021-02-06 03:52:00 Arianna Rodríguez MD CALCIUM LEVEL TOTAL 2021-02-06 03:52:00 Arianna Rodríguez MD Tr son ALBUMIN LEVEL 2021-02-06 03:52:00 Arianna Rodríguez MD ALKALINE PHOSPHATASE 2021-02-06 03:52:00 Arianna Rodríguez MD rson ALANINE AMINOTRANSFERASE 2021-02-06 03:52:00 Arianna Rodríguez MD ASPARTATE AMINOTRANSFERASE 2021-02-06 03:52:00 Arianna Rodríguez TOTAL PROTEIN 2021-02-06 03:52:00 Arianna Rodríguez MD FRACTIONATED BILIRUBIN 2021-02-06 03:52:00 Arianna Rodríguez MD derson D DIMER 2021-02-06 03:51:00 Simone Vasquez MD on XR ABDOMEN AP 2021-02-06 03:40:55 Betty Rivero MD XR CHEST 1 VW 2021-02-06 03:40:31 Betty Rivero MD RESPIRATORY VIRAL PANEL + 2021-02-06 03:26:00 Simone Vasquez MD COVID-19, NASOPHARYNGEAL SWAB EKG, 12-LEAD (PORTABLE) 2021-02-06 00:00:00 Simone Vasquez IR CHEST XRAY 1 VIEW 2021-01-31 14:06:29 Jose Miranda MD rsleo IR US GUIDED THORACENTESIS 2021-01-31 14:00:00 Santo [...] COUNT BODY FLUID 2021-01-31 13:48:00 Santo Jean erson BODY FLUID DIFFERENTIALS 2021-01-31 13:48:00 Santo Jean MD BODY FLUID DIFF PATH REVIEW 2021-01-31 13:48:00 Santo Jean MD GLUCOSE BODY FLUID 2021-01-31 13:48:00 William Joshi MD on CYTOLOGY NON-LAUNDRY AGENT 2021-01-31 13:35:00 Santo Jean MD INTERPRETATION PROTHROMBIN TIME 2021-01-30 16:52:00 Jose Miranda MD COVID-19 (SARS-COV-2) 2021-01-30 14:04:00 Atul Bean MD PCR-ASYMPTOMATIC MC CT SOFT TISSUE NECK WO 2021-01-28 19:53:27 Danielle Grady MD CONTRAST POC CREATININE 2021-01-28 19:31:00 Danielle Grady MD FREE THYROXINE 2021-01-28 18:59:00 Danielle Grady MD THYROID STIMULATING HORMONE 2021-01-28 18:59:00 Danielle Grady MD VITAMIN D 25 HYDROXY LEVEL 2021-01-28 18:59:00 Danielle Grady ALBUMIN LEVEL 2021-01-28 18:59:00 Danielle Grady MD CALCIUM LEVEL TOTAL 2021-01-28 18:59:00 Danielle Grady MD US HEAD NECK SOFT TISSUE 2021-01-28 18:48:00 Danielle Grady MD CANCER ANTIGEN 125 2021-01-13 12:35:06 Santo Jeaners on COMPLETE BLOOD COUNT W/ 2021-01-13 12:35:06 Santo Jean MD nderson DIFFERENTIAL BASIC METABOLIC PANEL, 2021-01-13 12:35:06 Santo Jean MD CALCIUM TOTAL BILIRUBIN TOTAL 2021-01-13 12:35:06 Santo Jean MD ALANINE AMINOTRANSFERASE 2021-01-13 12:35:06 Santo Jean MD ASPARTATE AMINOTRANSFERASE 2021-01-13 12:35:06 Santo Jean MAGNESIUM LEVEL 2021-01-13 12:35:06 Santo Jean MD GLUCOSE LEVEL 2021-01-13 12:35:06 Santo Jean MD BLOOD UREA NITROGEN 2021-01-13 12:35:06 Santo Jean MD Tr son ELECTROLYTE PANEL 2021-01-13 12:35:06 [facility]ATININE 2021-01-13 12:35:06 Santo Jean MD .GLOMERULAR FILTRATION RATE 2021-01-13 12:35:06 Santo Jean MD CALCIUM LEVEL TOTAL 2021-01-13 12:35:06 Santo Jean MD Tr son Results CBC 2021-01-13 12:35:06 Santo Jean MD MANUAL DIFFERENTIAL 2021-01-13 12:35:06 Santo Jean MD IR US GUIDED PARACENTESIS 2021-01-03 15:08:00 Santo Jean MD PROTHROMBIN TIME 2021-01-03 12:48:00 Josephine Dubon MD on NGS BLOOD CONTROL 2020-12-16 15:27:00 Santo Jean MD rsleo REARDON MD KRAS MUTATION MATERIAL 2020-12-16 14:50:45 Santo Jean MD REQUEST AP [id number] MUTATION MATERIAL 2020-12-16 14:50:45 Santo Jean MD REQUEST ALEXYS BUTLER PTEN MUTATION MATERIAL 2020-12-16 14:50:45 Santo Jean MD REQUEST AP [id number] MATERIAL REQUEST 2020-12-16 14:50:45 Santo Jean [...] LEVEL TOTAL 2020-12-16 13:12:00 Santo Jean MD HP SOLID TUMOR GENOMIC 2020-12-11 22:33:00 Santo Jean MD ASSAY DNA 2018 INTPRETATION AND REPORT CYTOLOGY NON-LAUNDRY AGENT 2020-12-11 17:02:00 Santo Jean MD INTERPRETATION IR [...] erson BODY FLUID DIFFERENTIALS 2020-12-11 16:18:00 Santo Jean MD BODY FLUID DIFF PATH REVIEW 2020-12-11 16:18:00 Santo Jean MD GLUCOSE BODY FLUID 2020-12-11 16:18:00 William Joshi MD on CYTOLOGY IMAGE-GUIDED FNA 2020-12-11 16:07:00 Santo Jean MD INTERPRETATION PATHOLOGY BIOPSY 2020-12-11 16:06:00 Santo Jean MD INTERPRETATION COMPLETE BLOOD COUNT W/ 2020-12-11 14:00:00 Josephine Dubon MD DIFFERENTIAL PROTHROMBIN TIME 2020-12-11 14:00:00 Josephine Dubon MD on Results CBC 2020-12-11 14:00:00 Josephine Dubonerso n MANUAL DIFFERENTIAL 2020-12-11 14:00:00 Josephine Dubon [...] on CANCER ANTIGEN 125 2020-07-29 14:14:00 Arianna Rodríguez MD on COMPLETE BLOOD COUNT 2020-07-29 14:14:00 Arianna Rodríguez MD DIFFERENTIAL BASIC METABOLIC PANEL, 2020-07-29 14:14:00 Arianna Rodríguez MD derson CALCIUM TOTAL BILIRUBIN TOTAL 2020-07-29 14:14:00 Arianna Rodríguez MD ALANINE AMINOTRANSFERASE 2020-07-29 14:14:00 Arianna Rodríguez MD ASPARTATE AMINOTRANSFERASE 2020-07-29 14:14:00 Arianna Rodríguez MAGNESIUM LEVEL 2020-07-29 14:14:00 Arianna Rodríguez MD Results CBC 2020-07-29 14:14:00 Arianna Rodríguez MD MANUAL DIFFERENTIAL 2020-07-29 14:14:00 Arianna Rodríguez MD Tr son GLUCOSE LEVEL 2020-07-29 14:14:00 Arianna Rodríguez MD ELECTROLYTE PANEL 2020-07-29 14:14:00 Arianna Rodríguez MD SERUM CREATININE 2020-07-29 14:14:00 Arianna Rodríguez MD .GLOMERULAR FILTRATION RATE 2020-07-29 14:14:00 Arianna Rodríguez MD CALCIUM LEVEL TOTAL 2020-07-29 14:14:00 Arianna Rodríguez MD Tr son BLOOD UREA NITROGEN 2020-07-29 14:14:00 Arianna Rodríguez MD Tr son CANCER ANTIGEN 125 2020-07-08 12:29:00 Arianna Rodríguez MD on COMPLETE BLOOD COUNT 2020-07-08 12:29:00 Arianna Rodríguez MD DIFFERENTIAL BASIC METABOLIC PANEL, 2020-07-08 12:29:00 Arianna Rodríguez MD CALCIUM TOTAL BILIRUBIN TOTAL 2020-07-08 12:29:00 Arianna Rodríguez MD ALANINE AMINOTRANSFERASE 2020-07-08 12:29:00 Arianna Rodríguez MD ASPARTATE AMINOTRANSFERASE 2020-07-08 12:29:00 Arianna Rodríguez MAGNESIUM LEVEL 2020-07-08 12:29:00 Arianna Rodríguez MD ZINVITAE 2020-07-08 12:29:00 Ritika Del Valle MD Results CBC 2020-07-08 12:29:00 Arianna Rodríguez MD MANUAL DIFFERENTIAL 2020-07-08 12:29:00 Arianna Rodríguez MD Tr son GLUCOSE LEVEL 2020-07-08 12:29:00 Arianna Rodríguez MD ELECTROLYTE PANEL 2020-07-08 12:29:00 Arianna Rodríguez MD Andbebetoo n SERUM CREATININE 2020-07-08 12:29:00 Arianna Rodríguez MD .GLOMERULAR FILTRATION RATE 2020-07-08 12:29:00 Arianna Rodríguez MD CALCIUM LEVEL TOTAL 2020-07-08 12:29:00 Arianna Rodríguez MD Tr son BLOOD UREA NITROGEN 2020-07-08 12:29:00 Arianna Rodríguez MD Tr son CANCER ANTIGEN 125 2020-06-17 12:24:00 Arianna Rodríguez MD Rupert on COMPLETE BLOOD COUNT W/ 2020-06-17 12:24:00 Arianna Rodríguez MD DIFFERENTIAL BASIC METABOLIC PANEL, 2020-06-17 12:24:00 Arianna Rodríguez MD CALCIUM TOTAL BILIRUBIN TOTAL 2020-06-17 12:24:00 Arianna Rodríguez MD ALANINE AMINOTRANSFERASE 2020-06-17 12:24:00 Arianna Rodríguez MD ASPARTATE AMINOTRANSFERASE 2020-06-17 12:24:00 Arianna Rodríguez MAGNESIUM LEVEL 2020-06-17 12:24:00 Arianna Rodríguez MD Results CBC 2020-06-17 12:24:00 Arianna Rodríguez MD MANUAL DIFFERENTIAL 2020-06-17 12:24:00 Arianna Rodríguez MD Tr son GLUCOSE LEVEL 2020-06-17 12:24:00 Arianna Rodríguez MD BLOOD UREA NITROGEN 2020-06-17 12:24:00 Arianna Rodríguez MD Tr lazo ELECTROLYTE PANEL 2020-06-17 12:24:00 Arianna Rodrígeuz MD SERUM CREATININE 2020-06-17 12:24:00 Arianna Rodríguez MD .GLOMERULAR FILTRATION RATE 2020-06-17 12:24:00 Arianna Rodríguez MD CALCIUM LEVEL TOTAL 2020-06-17 12:24:00 Arianna Rodríguez MD Tr [place] CANCER ANTIGEN 125 2020-05-27 13:09:47 Arianna Rodríguez MD Rupert on COMPLETE BLOOD COUNT W/ 2020-05-27 13:09:47 Arianna Rodríguez MD nderson DIFFERENTIAL BASIC METABOLIC PANEL, 2020-05-27 13:09:47 Arianna Rodríguez MD derson CALCIUM TOTAL BILIRUBIN TOTAL 2020-05-27 13:09:47 Arianna Rodríguez MD ALANINE AMINOTRANSFERASE 2020-05-27 13:09:47 Arianna Rodríguez MD ASPARTATE AMINOTRANSFERASE 2020-05-27 13:09:47 Arianna Rodríguez MAGNESIUM LEVEL 2020-05-27 13:09:47 Arianna Rodríguez MD Results CBC 2020-05-27 13:09:47 Arianna Rodríguez MD MANUAL DIFFERENTIAL 2020-05-27 13:09:47 Arianna Rodríguez MD Tr [facility] GLUCOSE LEVEL 2020-05-27 13:09:47 Arianna Rodríguez MD BLOOD UREA NITROGEN 2020-05-27 13:09:47 Arianna Rodríguez MD Tr lazo ELECTROLYTE PANEL 2020-05-27 13:09:47 Arianna Rodríguez MD n SERUM CREATININE 2020-05-27 13:09:47 Arianna Rodríguez MD .GLOMERULAR FILTRATION RATE 2020-05-27 13:09:47 Arianna Rodríguez MD CALCIUM LEVEL TOTAL 2020-05-27 13:09:47 Arianna Rodríguez MD Tr lazo US HEAD NECK SOFT TISSUE 2020-05-07 15:57:00 [...] BASIC METABOLIC PANEL, 2020-05-06 13:56:00 Santo Jean MD CALCIUM TOTAL BILIRUBIN TOTAL 2020-05-06 13:56:00 Santo Jean MD ALANINE AMINOTRANSFERASE 2020-05-06 13:56:00 Santo Jean MD ASPARTATE AMINOTRANSFERASE 2020-05-06 13:56:00 Santo Jean MAGNESIUM LEVEL 2020-05-06 13:56:00 Santo Jean MD SERUM CREATININE 2020-05-06 13:56:00 Danielle Grady MD .GLOMERULAR FILTRATION RATE 2020-05-06 13:56:00 Danielle Grady MD GLUCOSE LEVEL 2020-05-06 13:56:00 Santo Jean MD ELECTROLYTE PANEL 2020-05-06 13:56:00 Santo Jean MD Andbebetoo n Results CBC 2020-05-06 13:56:00 Santo Jean MD MANUAL DIFFERENTIAL 2020-05-06 13:56:00 Santo Jean MD Tr [place] CANCER ANTIGEN 125 2020-04-15 12:24:54 Santo Jean MD on COMPLETE BLOOD COUNT W/ 2020-04-15 12:24:54 Santo Jean MD DIFFERENTIAL BASIC METABOLIC PANEL, 2020-04-15 12:24:54 Santo Jean MDson CALCIUM TOTAL BILIRUBIN TOTAL 2020-04-15 12:24:54 Santo Jean MD ALANINE AMINOTRANSFERASE 2020-04-15 12:24:54 Santo Jean MD ASPARTATE AMINOTRANSFERASE 2020-04-15 12:24:54 Santo Jean MAGNESIUM LEVEL 2020-04-15 12:24:54 Santo Jean MD Results CBC 2020-04-15 12:24:54 Santo Jean MD MANUAL DIFFERENTIAL 2020-04-15 12:24:54 Santo Jean MD Tr lazo GLUCOSE LEVEL 2020-04-15 12:24:54 Santo Jean MD BLOOD UREA NITROGEN 2020-04-15 12:24:54 Santo Jean MD Tr lazo ELECTROLYTE PANEL 2020-04-15 12:24:54 Santo Jean MDo ceci SERUM CREATININE 2020-04-15 12:24:54 Santo Jean MD .GLOMERULAR FILTRATION RATE 2020-04-15 12:24:54 Santo Jean MD CALCIUM LEVEL TOTAL 2020-04-15 12:24:[address] CHEST ABDOMEN PELVIS W 2020-04-03 22:00:00 Santo Jean MD CONTRAST POC CREATININE 2020-04-03 21:03:00 Santo Jean MD CANCER ANTIGEN 125 2020-04-01 17:31:07 S[address] Jean MD on CT ABDOMEN W WO CONTRAST 2020-03-07 13:23:00 Tiara Truong MD POC CREATININE 2020-03-07 12:48:00 Santo Jean MD CANCER ANTIGEN 125 2020-03-07 12:27:00 Santo Jean MD on Plan of Care Planned Activity Planned Date Details Comments Source Medication 2021-03-06 00:00:00 custom prescription Fior Diallo infusion (HOME USE) [code = custom prescription infusion (HOME USE)] Encounters Start End Encounter Admission Attending Care Care Encounter Source Date/Time Date/Time Type Type Clinicians Facility Department ID 2020-06-20 Outpatient MARY ANN MIN MDA [id number] 09:23:44 DA ornelas 2020-12-16 2020-12-16 Outpatient BECKY JEAN MDA MDA [id number] 11:16:07 18:15:18 SANTO ornelas 2020-12-16 2020-12-16 Outpatient BECKY JEAN MDA MDA [id number] 10:05:37 10:30:48 SANTO ornelas 2020-12-16 2020-12-16 Outpatient BECKY POND MDA MDA [id number] 09:14:05 10:00:04 BENEDICTO ornelas 2020-12-16 2020-12-16 Outpatient BECKY JEAN, MDA MDA [id number] MD 07:33:49 07:56:30 SANOT ornelas 2020-12-11 2020-12-11 Outpatient BECKY JEAN, MDA MDA [id number] MD 09:17:46 23:59:00 SANTO ornelas 2020-12-11 2020-12-11 Outpatient EL MELANY, MDA MDA [id number] MD 08:32:41 09:01:42 JOSEPHINE ornelas 2020-12-10 2020-12-10 Outpatient EL SALTY, MDA MDA [id number] MD 12:05:39 23:59:00 BENEDICTO ornelas 2020-12-06 2020-12-06 Outpatient BECKY JEAN, MDA MDA [id number] MD 08:45:50 08:45:50 SANTO ornelas 2020-12-06 2020-12-06 Outpatient BECKY JEAN, MDA MDA [id number] MD 08:45:32 08:45:32 SANTO ornelas 2020-10-07 2020-10-07 Outpatient EL SABINA, MDA MDA [id number] MD 09:13:12 11:24:13 CARLOS A ornelas 2020-10-01 2020-10-01 Outpatient EL SABNIA, MDA MDA [id number] MD 00:00:00 00:00:00 CARLOS A ornelas 2020-10-01 2020-10-01 Outpatient BECKY TRUONG, MDA MDA [id number] MD 00:00:00 00:00:00 TIARA ornelas 2020-09-02 2020-09-02 Outpatient BECKY POND, MDA MDA [id number] MD 12:59:06 12:59:06 BENEDICTO ornelas 2020-08-28 2020-08-28 Outpatient BECKY JEAN, MDA MDA [id number] MD 07:37:14 07:37:14 SANTO ornelas 2020-08-28 2020-08-28 Outpatient EL SALTY, MDA MDA [id number] MD 07:36:56 07:36:56 BENEDICTO ornelas 2020-07-29 2020-07-29 Outpatient EL LISANDROKE, ARIANNA MDA MDA [id number] MD 09:33:34 17:12:41 Rupert ornelas 2020-07-29 2020-07-29 Outpatient BECKY POND MDA MDA [id number] 08:45:46 08:45:46 BENEDICTO ornelas 2020-07-29 2020-07-29 Outpatient ARIANNA CONNELL MDA MDA [id number] 07:41:51 08:14:49 Rupert ornelas 2020-07-08 2020-07-08 Outpatient ARIANNA CONNELL MDA MDA [id number] 08:44:28 14:55:32 Rupert ornelas 2020-07-08 2020-07-08 Outpatient BECKY POND MDA MDA [id number] 08:04:24 08:04:24 BENEDICTO ornelas 2020-07-08 2020-07-08 Outpatient ARIANNA CONNELL MDA MDA [id number] 07:14:30 07:29:59 Rupert ornelas 2020-07-01 2020-07-01 Outpatient BECKY POND, MDA MDA [id number] 00:00:00 00:00:00 BENEDICTO ornelas 2020-07-01 2020-07-01 Outpatient BECKY JEAN, MDA MDA [id number] 00:00:00 00:00:00 SANTO ornelas 2020-07-01 2020-07-01 Outpatient BECKY JEAN, MDA MDA [id number] 00:00:00 00:00:00 SANTO ornelas 2020-06-21 2020-06-21 Outpatient ARIANNA CONNELL MDA MDA [id number] 08:06:14 08:06:14 Rupert ornelas 2020-06-17 2020-06-17 Outpatient ARIANNA CONNELL MDA MDA [id number] 08:46:36 15:29:12 Rupert ornelas 2020-06-17 2020-06-17 Outpatient BECKY POND MDA MDA [id number] 07:34:35 07:34:35 BENEDICTO ornelas 2020-06-17 2020-06-17 Outpatient ARIANNA CONNELL MDA MDA [id number] 07:24:32 07:31:45 Rupert ornelas 2020-05-27 2020-05-27 Outpatient ARIANNA CONNELL MDA MDA [id number] 09:08:41 09:08:41 Rupert ornelas 2020-05-27 2020-05-27 Outpatient BECKY POND, MDA MDA [id number] 08:11:22 08:11:22 BENEDICTO ornelas 2020-05-27 2020-05-27 Outpatient ARIANNA CONNELL MDA MDA [id number] 08:00:27 08:09:32 Rupert ornelas 2020-05-14 2020-05-14 Outpatient BECKY CORONEL, MDA MDA [id number] 10:28:59 10:28:59 EDELMIRA ornelas 2020-05-07 2020-05-07 Outpatient YSABEL, MDA MDA [id number] MD 09:36:53 09:36:53 DANIELLE ornelas 2020-05-07 2020-05-07 Outpatient YSABEL, MDA MDA [id number] 09:04:23 09:04:23 DANIELLE ornelas 2020-05-06 2020-05-06 Outpatient TED, MDA MDA [id number] MD 10:30:36 17:34:00 SANTO ornelas 2020-05-06 2020-05-06 Outpatient SALTY, MDA MDA [id number] MD 08:57:29 10:28:14 BENEDICTO ornelas 2020-05-06 2020-05-06 Outpatient TED, MDA MDA [id number] MD 08:43:39 08:50:07 SANTO ornelas 2020-04-15 2020-04-15 Outpatient SALTY, MDA MDA [id number] MD 07:29:57 09:42:59 BENEDICTO ornelas 2020-04-15 2020-04-15 Outpatient TED, MDA MDA [id number] MD 09:09:36 09:09:36 SANTO ornelas 2020-04-15 2020-04-15 Outpatient TED, MDA MDA [id number] 07:08:02 07:24:34 SANTO ornelas 2020-04-03 2020-04-03 Outpatient TED, MDA MDA [id number] MD 14:57:19 14:57:19 SANTO ornelas 2020-04-01 2020-04-01 Outpatient SALTY, MDA MDA [id number] MD 12:34:11 12:34:11 BENEDICTO ornelas 2020-04-01 2020-04-01 Outpatient BECKY JEAN, MDA MDA [id number] 12:12:01 12:17:35 SANTO ornelas 2020-03-07 2020-03-07 Outpatient BECKY BLUNT, MDA MDA [id number] 14:24:44 15:30:10 CARLOS A ornelas 2020-03-07 2020-03-07 Outpatient BECKY EJAN MDA MDA [id number] 07:09:15 07:09:15 SANTO ornelas 2020-03-07 2020-03-07 Outpatient BECKY TRUONG, MDA MDA [id number] 07:08:43 07:08:43 TIARA ornelas Results Test [...] interpret this result as normal/abnormal . MD DialloChloride [id number] 10:24:49 Test Item Value Reference Range Interpretation Comments Chloride (test code = 107 See_Comment [Auto mated message] The 5279) system which ge nerated this result tra nsmitted reference range : 98 - 107 mEq/L. The refe rence range was not u sed to interpret this result as normal/abnormal . MD DialloPotassium [id number] 10:24:47 Test Item Value Reference Range Interpretation Comments Potassium Lvl (test 4.6 See_Comment [Automa darryl message] The code = 6854) system which ge nerated this result tra nsmitted reference range : 3.5 - 5.1 mEq/L. The reference range was not u sed to interpret this result as normal/abnormal . MD DialloSodium [id number] 10:24:45 Test Item Value Reference Range Interpretation Comments Sodium Lvl (test code 136 See_Comment [Auto mated message] The = 7355) system which ge nerated this result tra nsmitted reference range : 136 - 145 mEq/L. The refe rence range was not used to interpret this result as normal/abnormal . MD DialloGlucose, [id number] 10:24:43 Test Item Value Reference Range Interpretation Comments Glucose Random (test 91 mg/dL 70-199 Effecti ve 04/08/16, the code = 9360) glucose referen ce intervals have been updated based o n [place] [employer] [place] delines (Standards of [...] increased risk for diabetes MD DialloCarbon Dioxide [id number] 10:24:42 Test Item Value Reference Range Interpretation Comments CO2 (test code = 5227) 19 See_Comment L [Aut omated message] The system Promodity generated this result transmitted ref erence range: 22 - 29 mEq/L. The reference r saida was not used to interpret this result as normal/abnor mal. Lab Interpretation (test Abnormal code = 41304-5) MD DialloX-ray Abdomen [id number] 22:40:57Persistent formed stool in the rectum, unchanged [...] to 02/18/2021. Recommend clinical correlation for impaction.[facility] Glucose [id number] 13:13:30 Test Item Value Reference Range Interpretation Comments POC Glucose (test 79 mg/dL 70-99 Capillary blood code = 93548-1) samples, e.g . obtained by fingerstick, may [...] Capillary (test code = 9554) Performing Lab [facility] (test code = of Roberto BUTLER And checo [address]) Clinical Lab, [address] [place] [address], [place], [place] [address]; Hoop Cutter: Sabina Albert MD MD LiscoPartial Thromboplastin [id number] 10:04:06 Test Item Value Reference Range Interpretation Comments PTT (test code = 6773) 73.8 See_Comment H [Aut omated message] The sy stem which generated this result transmitted reference range : 24.7 - 36.8 second(s). The reference range was not used to interpret this result as normal/abnormal . LISA (test code = LISA) RN will draw Lab Interpretation Abnormal (test code = 57955-0) [facility] Interpretation Antibody Screen [id number] 03:19:56 Test Item Value Reference Range Interpretation Comments TMP Auto Neg At the present ABSC Interp time, patient (test code = plasma shows no ____KASIA ALLEN MD 7535) evidence of RBC - 05523Dkdov darryl by: alloantibodies. KASIA RODRIGUEZ MD - 95219Dscnaglw D ate/Time: 02.20.2021 22:1 9 PM CDT Transcribed Da te/Time: 02.20.2021 22:1 9 PM CDTElectronical ly Signed By: KASIA GRIFFIN MD - 70960 on 22:19 PM MD DialloTMReggie Interpretation [id number] 03:19:55 Test Item Value Reference Range Interpretation Comments TMP XM Interp RBC units (test code = crossmatched for 7566) transfusion appear RAMÍREZ lombardi. MD ALEJANDRO - 12358Otjgrwuu b y: MD Sánchez LEACH 43104Jrqveznr Date/Time: 02.11 22:19 PM CDT Transcribed Morteza e/Time: 02.20.2021 22:1 9 PM CDTElectronical ly Signed By: ROSE ALLEN MD - 1 2005 on 02.20.2021 22:1 9 PM MD DialloPreangel RBC:G10, 1 [id number] 21:40:57 Test Item Value Reference Range Interpretation Comments PRBC Product Ready 1 Red Blood Cells (test code = Available - 39883-5) Order Form 03 when ready for product issue. Unit Number (test [id number] code = 7002) Product Code (test [id number] code = 7003) Unit Expiration [id number] (test code = 699777) Unit Blood Type 6200 (test code = 7004) Product Code Text RBCIRLR CPD AS1 (test code = 500mL ) Crossmatch [id number] Expiration Date (test code = ) Unit Irradiated IRRADIATED (test code = 673627) Dispense Status ISSUED (test code = 7001) Unit Blood Type A Positive (test code = 7005) Product Metal Mixer .BPAM ____ Location (test ___ code = 099388) ___ ____ MD AndersonRBC Product Ready for Pick [id number] 20:54:42 Test Item Value Reference Range Interpretation Comments PRBC Product Ready B2 Blood Bank Product is 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 MD DialloAntibody [id number] 20:21:41 Test Item Value Reference Range Interpretation Comments ABSC. (test code = 890-4) Negative ABSC MD DialloQrkqsgwnNCJZp8588-65-82 20:20:35 Test Item Value Reference Range Interpretation Comments ABORh. (test code = 882-1) A POS MD DialloClot Expiration [id number] 20:05:05 Test Item Value Reference Range Interpretation Comments T & S Expiration (test code = 02/23/2021 5318) MD DialloConfirm [id number] 17:04:25 Test Item Value Reference Range Interpretation Comments ABORh Confirm. (test code = 882-1) A POS MD DialloIR [place] PORT [id number] 17:34:45Date of Procedure: 02/19/21 Attending Physician: KIMBER MONTALVO MD Mortgage Funder: None Pre-procedure Diagnosis: Endometrial cancer Post-procedure Diagnosis: [...] Procedure: 02/19/21 Attending Physician: KIMBER MONTALVO MD Mortgage Funder: None Pre Procedure Diagnosis: Endometrial cancer Post [...] was scaled up to accept a 10 Prydeinig peritoneal catheter. The catheter was capped. The catheter was secured to the skin. Additional Comments: None Estimated Blood Loss: Minimal Specimens Disposition: Fluid evacuation was performed for palliative intent and no samples were submitted for analysis. Immediate Complications: None Disposition: PACU Plan: Referring Service Management: Drainage to be managed by requesting/referring service.MD DialloCreatinjean [id number] 06:37:17 Test Item Value Reference Range Interpretation Comments U Creatinine (test 212.1 mg/dL 29.0-226.0 The refer ence range code = 7725) listed is for f irst morning urine collection. MD DialloSodium Level, [id number] 06:37:16 Test Item Value Reference Range Interpretation Comments U Sodium (test code = <20 mEq/L Normal range not available 9572) for collections less than 24 hours in [facility] [place]. MD DialloUrinalysis with [id number] 22:23:17 Test Item Value Reference Interpretation Comments Range UA WBC (test code = 2 See_Comment [Automa darryl 0716) message] The system which generated this result transmitted reference range : 0 - 2 /HPF. The reference range was not used to interpret this result as normal/abnormal . UA RBC (test code = NOT SEEN See_Comment [Automa darryl 7891) message] The system which generated this result [...] implementation of new instrumentation in the [facility] [place], allowing greater sensitivity of measurement. Urinalysis results reported by the [facility] using existing instrumentation, as well as Urinalysis testing performed manually or by backup methodology at the [facility] will remain relatively unchanged. New reporting parameters and units will now be reported for all campuses. Lab Interpretation Abnormal (test code = 07123-5) MD DialloUrinalysis w/Microscopic if [id number] 21:51:48 Test Item Value Reference Range Interpretation [...] NEG Lab Interpretation (test code = Abnormal 24625-5) MD DialloX-ray Abdomen 1 View [id number] 21:16:181. Left pleural effusion and ascites.2. Nonobstructed [...] effusion and ascites.2. Nonobstructed bowel gas pattern.MD DialloPhosphorus Level 2021-02-18 21:10:03 Test Item Value Reference Range Interpretation Comments Phosphorus (test code = 6817) 3.3 mg/dL 2.5-4.5 MD [id number] 21:10:01 Test Item Value Reference Range Interpretation Comments LDH (test code = 6111) 283 U/L 135-214 H Resul ts greater than 1651 U/L may no t be reliable due to matrix effect w ith extended diluti on as it exceeds the special investigation unit investigator s recommended l imit. Caution should be exercised when interpreting londono ch values and done in conjunction wit h clinical contex t. Lab Interpretation (test Abnormal code = 18256-3) MD DialloInfluenza A/B + COVID-19 Asymptomatic- [id number] 19:25:32 Test Item Value Reference Range Interpretation Comments COVID19 Not Detected Not Detected (SARS-CoV-2) (test code = 17308-4) Influenza A (test Not Detected Not Detected code = 62486-7) Influenza B (test Not Detected Not Detected code = 51893-0) COVID19 SARS Inpatient Indication (test Admission code = 27393) Inf AB+Cov19 See Note The lexi SARS- CoV-2 Comment (test & Influenza A/ B code = 21622) nucleic acid t est for use on the jono s Cindy System is a mul tiplex real-time RT-PC R assay intended for the [...] sheet for patie nts provided by the special investigation unit investigator ([employer]) can be rev iewed at: https://www.[employer] .gov/m edia/556138/rhys nloadA fact sheet for Health Care providers is provided by the special investigation unit investigator ([employer]) and can be reviewed at: https://www.fda .gov/m edia/868443/rhys nload Influenza A and Influenza B neg [...] This assay has been authorized by t [facility] for use only un darshan Emergency Use Authorization ( EUA) in laboratories that have been CLIA-certified to perform moderate-comple xity and high-comple xity tests. The Microbiology Laboratory at [facility], CLIA Accreditation #[id number] and CAP Accreditation #[id number], verif ied the performance characteristics of this assay. Int ernal controls are us ed to monitor all sta ges of the test proces s. MD DialloSuvmtyoyEclckt1850-91-74 19:05:40 Test Item Value Reference Range Interpretation Comments Lipase Lvl (test code = 6165) 21 U/L 13-60 MD DialloRofeqecwPzeimkq6960-97-75 19:05:39 Test Item Value Reference Range Interpretation Comments Amylase Lvl (test code = 4806) 50 U/L 28-100 MD DialloAnti-Xa Ukzhe1498-91-27 02:46:06 Test Item Value Reference Range Interpretation [...] enoxaparin Lab Interpretation Abnormal (test code = 35360-8) MD DialloWdkbzntvEwzxstcsmf6676-00-99 13:01:35 Test Item Value Reference Range Interpretation Comments Hgb (test code = 5898) 8.1 See_Comment L [Aut omated message] The system [employer] generated this result transmitted ref erence range: 12.0 - 1 6.0 gm/dL. The refe rence range was not u sed to interpret this result as normal/abnor mal. Lab Interpretation (test Abnormal code = 77488-9) MD DialloCT Chest Abdomen Pelvis without Oemcfnis4588-06-23 22:15:031. Significant decreased in peritoneal carcinomatosis conspicuity [...] No evidence of hydronephrosis.MD DialloIR US GUIDED [id number] 19:34:39Date of Procedure: 02/11/21 Primary Proceduralist: PIO Galvan Mortgage Funder: None Pre Procedure Diagnosis: Malignant ascites [789.51.icd-9-cm] [...] with Interventional Radiology required.MD DialloProthrombin Time with [id number] 15:43:24 Test Item Value Reference Range Interpretation Comments PT (test code = 6746) 14.2 See_Comment H [Auto mated message] The system Promodity generated this result transmitted ref erence range: 11.5 - 1 3.9 second(s). The reference range was not used to int erpret this result as normal/abnormal . INR (test code = 5973) 1.18 0.90-1.10 H Lab Interpretation (test Abnormal code = 11710-4) MD DialloInterventional Radiology Culture w/Gram Eggrd7479-85-41 01:05:42 Test Item Value Reference Range Interpretation Comments Final Report (test No growth code = 8488) Path Review (test The results have been code = 8492) reviewed and electronically signed by Pathologist:DONTRELL HORN MD #[id number] Gram Stain Report Moderate WBC's seenNo (test code = organisms seen. 34896-7) MD DialloXR Chest 1 View Post Usoejyr3244-43-06 20:35:16 1. Right-sided central line with tip [...] resent, and agree with the final report.MD DialloHI Lung Tdxzrqjmr6163-36-67 19:14:391. Low probability for pulmonary embolism.2. Interval development of a large left and small right pleural effusions with associated compressive atelectasis, which could explain patient's dyspnea. I personally reviewed these image(s) along with the resident's/fellow's interpretations, certify that ifa procedure was performed I was physically present, and agree with the final report.Interface, Radiology Results In 02/07/2021 2:16 PM CDT FULL RESULT:Examination: Lung [...] final report.MD DialloTip Verification Central Vascular Access Xyhnqh1618-03-83 07:51:42Sohail Rahman RN 02/07/2021 2:53 [facility] Vascular Access Device Tip Verification Performedby: Sohail Rahman, RNAuthorized by: Netta Braxton APN CVAD PropertiesDate device placed: 02/06/2021 Placed by: Sohail Rahman RNDevice placement location: UTMBCatheter Type: PICC Catheter lumen: Double lumenVein location: BrachialLaterality: Right Tip Verification PropertiesDiagnostic image available: Chest xrayWritten diagnostic report available: Yes Tip location per report: Superior vena cava Tip in good position and cleared for infusionMD YoelAFTarun Culture IR w/Tcq7087-00-36 01:53:52 Test Item Value Reference Range Interpretation Comments Final Report (test No acid fast bacteria code = 8488) isolated at 8 weeks. Path Review - AFB Partial antibiotic (test code = 8477) treatment can render AFB culture negative. AFB culture has sensitivity of 90%.The results have been reviewed and electronically signed by Pathologist:DONTRELL HORN MD #[id number] Acid Fast Stain No Acid Fast Bacilli seen Truant (test code = in direct smear 90801-6) LISA (test code = Ascites LISA) MD Ruano Oxfju6099-34-82 15:31:07 1. Echogenic kidneys consistent with medical renal disease. 2. No hydronephrosis. 3. Large volume of ascites. 4. Left pleural effusion. Interface, Radiology Results In 02/06/2021 10:33 AM CDT FULL RESULT:Examination: US RENAL, 02/06/2021 10:12 AMClinical History: Ehzvu-ht-jgvmxqo renal upylngmHuotc-cc-ieqcicd renal failureNausea and vomit ingSevere dehydrationDyspneaEdemaMalignant neoplasm [...] Left pleural effusion.MD Ruano Leg Venous Doppler Rvnxordlu5782-43-38 15:25:00 1. Bilateral deep vein thrombosis, more extensive on the right than on the left. 2. Mr. Atul Black was advised on these findings on February 06, 2021 1024 hours. Interface, Radiology Results In 02/06/2021 10:27 AM CDT FULL RESULT:Examination: US LEG VENOUS DOPPLER BILATERAL, 02/06/2021 10:11 AMClinical History: Tayyp-ol-hfbiqse renal xqwaopbNmmux-xi-aaskiyj renal failureNausea and vomitingSevere dehydrationDyspneaEdemaMalignant neoplasm of [...] 2021 1024 hours.MD DialloX- ray Chest 1 Ehlx5315-21-88 12:00:10Patchy opacities in the left retrocardiac region/left lung base may represent pneumonia. I personally reviewed these image(s) along with the resident's/fellow's interpretations, certify that if a procedure was performed I was physically present, and agree with the final report.Interface, Radiology Results In - 02/06/2021 7:02 AM CDT FULL RESULT:Examination: XR [...] report.MD DialloRespiratory Viral Panel + COVID-19, Nasopharyngeal Hzfk6537-83-33 06:14:17 Test Item Value Reference Range Interpretation [...] (test Not Detected Not Detected code = 95577-2) Human Metapneumovirus (test Not Detected Not Detected code = 6401) Human Rhinovirus/Enterovirus Not Detected Not Detected (test code = 7212) Influenza A (test code = 5618) Not Detected Not Detected Influenza A H1 (test code = Not Detected Not Detected 5619) Influenza A H1 2008 (test code Not Detected Not Detected = 5620) Influenza A H3 (test code = Not Detected Not Detected 5621) Influenza B (test code = 5622) Not Detected Not Detected Parainfluenza 1 (test code = Not Detected Not Detected 6779) Parainfluenza 2 (test code = Not Detected Not Detected 6780) Parainfluenza 3 (test code = Not Detected Not Detected 6781) Parainfluenza 4 (test code = Not Detected Not Detected 6782) Respiratory Syncytial Virus Not Detected Not Detected (test code = 7157) Bordetella Parapertussis (test Not Detected Not Detected code = 79018) Bordetella pertussis (test Not Detected Not Detected code = 4854) Chlamydiophila pneumoniae Not Detected Not Detected (test code = 5139) Mycoplasma pneumoniae (test Not Detected Not Detected code = 6203) MD Sheffield Xjrhf2059-53-14 05:00:32 Test Item Value Reference Range Interpretation [...] . Lab Interpretation Abnormal (test code = 97420-4) MD DialloNT-Pro BNP (In-House)2021-02-06 04:41:23 Test Item Value Reference Range Interpretation Comments NT ProBNP (test code = 1583 pg/mL See_Comment H [Aut omated message] 4469) The system Promodity generated this result transmit darryl reference range : <=125. The refe rence range was not u sed to interpret th is result as normal/abnormal . Lab Interpretation Abnormal (test code = 69280-7) MD DialloCytology Non-Inshore Undersea Warfare Officer Clyhbudunmkwds6200-54-42 21:06:31 Test Item Value Reference Range Interpretation Comments Gross Description (test d7zvaHDxPSBdhHYTZJQd code = 6487741516) V0alrdWuGOFgyOZwK0Bh nhqqMDxcKM6dGL2teTyp dZOkrZSfTU0IHAGjPbCy XHBhcGVydzEyMjQwXHBh gHNfwVQ1WCIyCC6cgysl RRjlWFpaHCRbzbY5KHAi bTAdW9NrOCXuCP2wygxz KYG7XFcuiN4eyuBPAevd Nq3rdSKqkMeqGfUdNiTp YXJzZXQwXGZuaWwgQXJp MRh5kL7SFyfdHND1LOEW VqdtSHOhBC8Ny4phEYTj jAMlIVE1UAkqyFVsIAFf FSQpKHt8GRTcAOjxhDQi YT3axImoUnhqdOlin4Vw dCBcXGlkIDUxMDAyIFxc EHJsQX4ERyWoXFHzJAj9 LsZbGJm8OTn5IO0GZaEv TSHsBXsdJYZ1NpUrLZl5 CNufFJ2MXTxuXUQ4MIum SeX5WMJ7ObSsLIJbVxTk XGYgQXJpYWwgXFxmcyAx MCBcXGZiIFxcZmwgXFxu F47daEanfB4fZgzjtxHd EOG5IHMrzaXSQqdqbDDl blxlcGljTmVzdERvYzEg DQpcbHRycGFyXGxpbjBc cmluMCANClxsdHJjaFxm czIwIDEgRGlmZiBRdWlr OyAzIFBhcCBTdGFpbiBT qMvpAXRueJOtSU9MWaKa AY8fQaTUZDxta5pbWxz7 aFVwzALoPC0TTPOgt1Tt O2S1EGEqSUenn6toZZFa ZTlfk7AgXErSUUUSDW6I QO6adAX6TEnYYGPQS3oV eXM1NaOsfPS1PY94TGBa ZKBqzBSrFNmmB640C7Dx R3wpOG6pS78wJ5GlrSQl qWRtWUW9HFL3xL2mUP04 uvoutQlpaHqoyzY9MLJa htqyuMS8JWFkRCguw0ma KWZbTUgqb0AfIVuGOIVN IO0YKO9nkOF7PDmXJYRP UPigVUA7PTqbjFS1l5jh tQSff8o8JRweZKH3vVyq bGFpblxsdHJjaFxmczIw XHBhciANClxwYXIgDQox LBTauQpjLvjkI6smlDOo SM5DROI2FK7HkJ5iMCKt YJRxAGPfskALq6DdZZrt lebvPYHym1FeR2S4BUOb WAktp7fnCXPiLLapt8Lm YZtTYFSBVD1DXF3miAE4 XFwDC8BLS9oEtNMhYZke rGK4HX6XZCfXCHKUsID2 oRkemUm1p6traUMeh9p7 LGkpRNK5eGE9AkZuAuTw f0jgcZDbYBdjJvdlxXCv vaZ9UCcNOHJUNPwIPuXm EM6aUCaEUgzQMtJ2TKGl ShA7TisOJ6RAZEEHZKV5 CIv9cEJ4fO55RGSqEUBi zALxVWndA594SIFmEKda XRo7slCmKQEjHcWoFNjb fl07YPP0j7fyoIOwBBex WxqbtXAzorQ7NAqQHXRX SBeHFnCxZA2iLXnCAjrM IJqIQyo6UcgvfD9MT6ne hWc4CFd9ePsfEdppujOf qICbVbWOyF0dTVgqJANF WAlySizhmRH6PZxhStjt pK5xhQLCDMJITkeGJptc pfBjDX5ZWH6NLH4AiWya pYO8Ak8NiAH3gAktzTy4 p6tihNByd1w3JFuuXFE3 fVxwbGFpblxsdHJjaFxm jjQhQRWzguDOJee4VWMA TIUCUMjKLK2ZBPPCSUVU KE8OFMwMMcEoRIE8IBvg LUVoL33IKvPGGZVDD22Y SITHPNIBK1THAKSQRIzP M9HKTI3ETIVZCYGAJW4J JXlEFeSZKOfHT7UGVS9T YHVRPSOWDV1NEnKcKZwK L1PKW7fNYINsHYCMDJUS ITSoSvTFAN1hTVy3L03v B5YvdQDrtAqydoU1QHVh vxqepJU6EaK4TaX8KeDJ kJBhoH7maePtu66iHA81 xvC7EOLdStgaY2c7l1We yoClbEI5P0R4aC2tSNFx I0bnhDY8FOI9ICl7KOVL NTMYDW4LCJABU09KPOKR BCIQJ0FIYIQLAyJJGMUQ Y53ZYNKDLIOVU2IVM2iT TWTHYoHHTNONZ16QUVHO PREUU8OUDNUJPZZONwMC PwPMPQ4HMLHSMEDZJB6F QWzCWvPaJYQRO4JWVlNU E0aiAGCGLQTUHIXxUJ3B MIftcRjtyT3oIABzB88j z1ZJd5DhFKZnRBtgy4jh zMjau5GsfRLaXZauZCPc rHYiGKoslK1sExQve4te fZj3FEugcvA7TJWyyc3D GyrskI3tKyOzu1hemXd5 DTJTGeygmrI7t4sjeXed n2PujLGaBJ3BJz5= Major Classification MALIGNANT A (test code = 9839) Diagnosis (test code = q4yhgORkYWRpeHT9HJXj 34) FYXih8rmq1OtoEWbkZHo IWbssZAvaqUxgf65qHU2 aU04FC4gOWTgXdZ8WKWx xuC6Cdo0FJDdRZBrtITf B091x6bbr3ixhnLxcXM8 OXKtNOVyC1UyGF0hRQAq kXXcV23fvJGjPAY5AVIc HEUcmQKuFVEyNJG1MWAd bPMqA5ocYZHeOR7buqvp ZXrfDBkxJMHrrFV8IZFb lSYzC8EjNWWsDHpjKHQz nri5QiByMq4gvRHygSpb MFxwYXJkXHBsYWluXGZz SiLiR4ZrMHViDULiUTOd LCybVqg2hOQxSFmqFqRr WMUvw9DnU0YftLOkzWW7 QVOcygp0SJKfnYBhGYpu NzIwIFJBUkUgSElHSExZ ANPNSPMYC8XKRZHNAEcM MFGMA32GOPSGTrzMYMnX VEggTUVUQVNUQVRJQyBB RMRJM3UTEhOKBn9SAYWf S1DMOVEKCM6MNaYzBTGp cn0= Comment (test code = h0sqvRZnXINzlIQ5RBOl 9835) KPKig7gta0AqbRRpnAKr FRuphJFjdfMmoc20tNH7 aQ00VZ6zWPObVeQ6ZORj mvR3Eoe4WPWrFQXjgJUy H177i6wtk0eqbiXcdOY5 dHivLFVvskeoEjL4BPls QYIoaknnPFx8FFpuNNYf sBY2MSWwsKVqD4JsCACt VF9rlau2PFJ4MOghMBIl LgD0MSXnuDInQBIneCpd DRqum945IPN2HwEoPWSg ypGecCyypU7kTdZtMJKZ yHKza0VnxxSap1lipzJz RNSkNKDzNNG0YKRmXATn pYeipItgOWY4mTflIDqi S7QyhPRaj0z4yDOasWud eNOtQ6LyeJBhlNFiSSYc JJZ9iBNwMTYemoWljQWl eecsfYSuaAycOY20AL39 J0tak9lqVzRDqI30li3y pNBrnfDesNMpJv1cmRRn TV9nKBBbiJtzEdzkE3wz p8DhsGzoyvJex9jshiS0 qY2mIRTpNHDvc22tnIZn KLdmsrRuzwMixE7ynMAo dpHeCf9mLXCYJCerAS6l RY3ENgDoAlENFJMlaZlt bmFsbHksIGNhbHJldGlu gU0im9afd4Tdr4KydhXq t40kyLSmvGWjGuUjgACn ndxvIi6zSSn9bN01B3ab pPwtSKemk5zsztEkWGEi bGxzIGFyZSByYXJlLCB0 JSfusxK4j3qovErajrdl fGgwx7XxQcaxJCliX9Nl ZVFbNC2rp2YhF60ipUY1 gOOlXZD8tEXiAT1lxSIk dEK2zQKsCVGgwo4gKZRh kD9hmMZzFGJcmM4wX5Xl F4JaWAunoU9ciEOazBTz o0FiMWwtcVqhfqVioaVc FMAjcL5shqAaZD7yBHIl clxwYXIgVGhlIGNlbGwg XlgsM5feiEOvcEFgDJWh l39nh1UfHHXgvxTbrZR5 lN1ciGQ9b4qwnjZylGBm xM1vAGObAFCqEx54NCIe cGKkru2yaHOsIATtidhi YXJ9 Retained/Biomarker a6ztqOQnZEBzmTB2SXJa Testing (test code = DKVnm3cyp3FkiXLqiWSr 9838) RCtnpNDqrgMrpj98iOQ0 tN20IN7oBEUjApD1WLSb voX3Lfn3ENRoVXDxoVTq Y172l9sye9ukgnIlrBW6 KEOwKWG0LLubzsIyckG6 UXcciZCxYeU6N72kpBWs WJZ8IUYnPWTutKTfVDNd JKW7NENnnUZxA9oaNOFa BF5tyquxWIaoURahWJXd rEO4UUThaXCqZ4RkRBGk UVrsUQYmvuk3VyCzSv8i dGVyeTcyMFxwYXJkXHBs QLwsYBTwOeJtF4fgIoRy lMVqQ4Y4YTQeEdsvNgIR DjaaJcMHCKedsQ6iHC8S TCBDQjogPDUwXHBhciBN REwgUGFwOiAwIFMgXGxp bmUgTURMIERROiAwIFMg XGxpbmUgRklTSCBEUTog MCBTXHBhcn0= Informational Points d8ojgYAmJSBviEO1ZEZr (test code = 9836) ESOxe7eqs3UhzZWrbXPv PJaghIBwwnNtcl47cWK9 aG00UU9wUYCaQoJ4YSFx qeZ8Vci6LLUfAGBcaNRa K325UMYkPRIkI02cTZNN V597y1gvu0ibsaOvmEH9 nJwnMZSjuxguByK2QLqj XUMkfpxyOWr4XYjpFROo wER1WYKcgRWzV2StSSZy YZ5rotk9AGL9CCmgVUHm OsW9PQOedWEkPIRaaGsc XFbam775BBS6DeMpJXXg xfQibCstkT6fnTudDOcd pbC4RWOarJRyoVDutTVf chRhm6L9EUUutMLbUDQr UQsliGR0LCYrPDNtECCc obTka0IxXFBkbwKlqTWr Hq2qbZNtN2AbD5jcqvOg bJAydZN4lHXeFCIogGYa bWluZWQgYnkgVVQgTUQg YK9oSYVcx68oEXQ6qE8p o1l9PCKhQKMJXKOfcfW7 p1I1BH1wOStjeD9dTdSD pYLeXOV6PGQ3swRuEKRt AK4wuPCdXHTiLSUeSRYa ZmljYWxseSBjbGVhcmVk VU2tJEIsjXGswcGxXXI1 TGIePSURJcZzVYHdz0Hs DQ3xPDLasHlgNHBrsG0p c2UkBJXdw71jTOggUTOm SBkmWXTydQrhwP8dbHQ0 IGhhcyByZXZpZXdlZCB0 wQCjN6KnLIVdgkIxJklp YWxpemVkIHRoZSByZXBv gbNtMYTeEMGrYX1rALEk z68sY8CqiCEId6YzqV0a PRFePkzhFQCJLPF2OQVd KXE9UAleIDtlxIY4h03r REVygEItZOf3VVf5Gwpb YXJ9 Lab Interpretation (test Abnormal code = 56782-0) MD DialloBody Fluid Diff Path Epvouk0838-28-11 15:01:04 Test Item Value Reference Range Interpretation Comments Body Fluid Rare malignant Diff Interp appearing cells (test code = identified. X IN 8754) MD JOELLEN - 42355Xoincwbi b y: ROE CUENCA MD - 01949Tpaesjsv Date/Time: 02.03.2021 10:0 1 AM CDT Transcrib ed Date/Time: 02.03.2021 10:0 1 AM CDTElectronical ly Signed By: MD Sánchez VILLAR [id number] on 02.03.2021 10:0 1 AM LISA (test code Left thoracentesis = LISA) MD DialloCell Count [id number] 01:20:50 Test Item Value Reference Range Interpretation Comments Type BF (test Pleural, left code = 77433-7) Appear BF (test CLEAR code = 9335-1) WBC BF (test 795 See_Comment This assay has been code = 6743-9) validated for body fluids. No refe rence ranges have bee n established. Te st results should be interpreted in context with th e patient s clinical condition. Pathologist con sult is available. [Automated mess age] The system Promodity generated this result transmit darryl reference range [...] is available. [Automated mess age] The system Promodity generated this result transmit darryl reference range : /mcL. The refer ence range was not u sed to interpret th is result as normal/abnormal . LISA (test code Left thoracentesis = LISA) MD DialloBody Fluid Lfvaoduofzhp3232-12-80 01:20:49 Test Item Value Reference Range Interpretation Comments Tot Cells BF 100 (test code = 00288-9) Neut BF (test 1 % 0-25 code = 91285-8) Lymph BF (test 66 % This assay pompa s code = 43284-6) been validat ed for body fluids. No reference range s have been established. Te st results should be interpreted in context with th e patient s clinical condition. Pathologist consult is available. Histiocyte BF 31 % This assay has (test code = [place] [address]-3) body fluids. No reference range s have [...] (test code = Left thoracentesis LISA) MD Steiner US GUIDED OREYIJAYAAZFE3457-08-87 20:00:13Date of Procedure: 01/31/21 Attending Physician: William Joshi MD Mortgage Funder: Jose Miranda Pre Procedure Diagnosis: 1. Malignant [...] interpretation and agree with the written report.MD Steiner CHEST XRAY 1 [id number] 20:00:13Date of Procedure: 01/31/21 Attending Physician: William Joshi MD Mortgage Funder: Jose Miranda Pre Procedure Diagnosis: 1. Malignant [...] and agree with the written report.MD Koch, [id number] 19:53:13 Test Item Value Reference Range Interpretation Comments LDH BF Type Pleural, left (test code = 6118) LDH BF (test 173 U/L Results greater than code = 6117) 1651 U/L may no t be reliable due to matrix effect w ith extended diluti on as it exceeds the special investigation unit investigator s recommended l imit. Caution should be [...] conjunction wit h similar assays performed on [facility]. Pathologist con sult is available. LISA (test code Left Thoracentesis = LISA) MD DialloGlucose [id number] 19:33:21 Test Item Value Reference Range Interpretation Comments Glucose BF (test 110 mg/dL This assay has been code = 5696) validated for b pavan fluids. No reference range s have been established. Te st results should be interpreted in context of the patient's clini rosales condition and i n conjunction wit h similar assays performed on [facility]. Pathologist con sult is available. Gluc BF Type Pleural, left (test code = 5693) LISA (test code = Left thoracentesis LISA) MD DialloTriglyceride [id number] 19:33:20 Test Item Value Reference Range Interpretation Comments Trig BF (test 39 mg/dL This assay has been code = 7656) validated for b pavan fluids. No refe rence ranges have bee n established. Te st results should be interpreted in context of the patient's clini rosales condition and i n conjunction wit h similar assays performed on [facility]. Pathologist con sult is available. Trig BF Type Pleural, left (test code = 7657) LISA (test code Left thoracentesis = LISA) MD DialloCholesterol [id number] 19:33:18 Test Item Value Reference Range Interpretation Comments Chol BF (test 101 mg/dL This assay has been code = 5284) validated for b pavan fluids. No refe rence ranges have bee n established. Te st results should be interpreted in context of the patient's clini rosales condition and i n conjunction wit h similar assays performed on [facility]. Pathologist con sult is available. Chol BF Type Pleural, left (test code = 5285) LISA (test code Left thoracentesis = LISA) MD DialloProtein [id number] 19:33:16 Test Item Value Reference Range Interpretation Comments Protein BF (test 4.6 gm/dL This assay has been code = 6891) validated for b pavan fluids. No reference range s have been established. Te st results should be interpreted in context of the patient's clini rosales condition and i n conjunction wit h similar assays performed on [facility]. Pathologist claudia hameed is available. Prot BF Type Pleural, left (test code = 6890) LISA (test code = Left thoracentesis LISA) MD DialloCOVID-19 (SARS-CoV-2) PCR-Asymptomatic [id number] 06:38:02 Test Item Value Reference Range Interpretation Comments COVID19 (SARS Not Detected Not Detected This test is a CoV-2) Result qualitative (test code = reverse-transcr iptase 88824-4) polymerase natividad n reaction (RT-PC R) developed [...] were verified by the Microbiology Laboratory at [facility], CLIA Accreditation # : [id number] and CAP Accreditation # : [id number]. Result s must be interpreted within the [...] te sting if clinically indicated. COVID19 SARS DIAGNOSTIC MEDICAL SONOGRAPHER Swab Source (test code = 37399) COVID19 SARS Pre-Out of OR Indication (test Procedure code = 50871) MD DialloCT Soft Tissue Neck without Psxrxpvh2609-88-98 23:27:081. No significant change in enlarged multinodular [...] present, and agree with the final report.[facility] [id number] 19:33:17 Test Item Value Reference Range Interpretation Comments POC Crea (test code = 2.0 mg/dL 0.6-1.3 H Medica tions, 43973-9) especially hydr oxyurea or supplements, such as [...] of various anal ytes in whole blood. e device uses a s rodrigo disposable cart ridge which contains microfabricated sensors, a trnih bration solution, fluid ics system, and a w aste chamber. Each t est cartridge conta ins chemically sens itive biosensors on a silicon chip at are configured to p erform specific tests. The microfabricated sensors measure analyte concent ration by an electroch emical assay. POC eGFR-AA (test code 28 See_Comment L Kia l eGFR >= 60 = 09361-3) mL/min/1.73 m2 The eGFR is calcula darryl using the CKD-E PI equation. The e GFR declines with a ge. eGFR <60 mL/min /1.73 m2 is considere d as "decreased" Thi s equation should only be used for pat ients 18 and older. According to [employer]'s Ki dney Disease Outcome [...] (or dialysis) [Automated mess age] The system whic h generated this result transmitted ref erence range: >=60 mL/min/1.73 m2. The reference range was not used to int erpret this result as normal/abnormal . POC eGFR-ALLEN (test 24 See_Comment L Normal eG FR >= 60 code = 36493-4) mL/min/1.73 m2 The eGFR is calcula darryl using the CKD-E PI equation. The e GFR declines with a ge. eGFR <60 mL/min /1.73 m2 is considere d as "decreased" Thi s equation should only be used for pat ients 18 and older. According to [employer]'s Ki dney Disease Outcome [...] (or dialysis) [Automated mess age] The system Promodity generated this result transmitted ref erence range: >=60 mL/min/1.73 m2. The reference range was not used to int erpret this result as normal/abnormal . POC Clean Dev (test Yes code = 6672) Performing Lab (test [facility] code = 65018) [facility] MD Diallo-Diagno stic Imaging-[facility], [address] [place], [place] [address]; Point of Care L ab Director: Roe davila MD Lab Interpretation Abnormal (test code = 38793-0) MD DialloUS Head Neck Soft [id number] 19:06:52Stable multinodular thyroid since 05/07/2020.Interface, Radiology Results [...] No adenopathy.IMPRESSION:Stable m ultinodular thyroid since 05/07/2020.MD DialloMA KRAS Interpretation and Report 2021-01-03 22:19:00 Test Item Value Reference Range Interpretation Comments Archived Material Previously diagnosed (test code = 32712) tissues from [id number] were selected for molecular analysis. Results will be reported separately. MD DialloMA PIK3CA Mutation Analysis Interpretation and [id number] 22:19:00 Test Item Value Reference Range Interpretation Comments Archived Material Previously diagnosed (test code = 14034) tissues from [id number] were selected for molecular analysis. Results will be reported separately. MD DialloMA PTEN Mutation Interpretation and [id number] 22:19:00 Test Item Value Reference Range Interpretation Comments Archived Material Previously diagnosed (test code = 97858) tissues from [id number] were selected for molecular analysis. Results will be reported separately. MD DialloMA TP53 Mutation Interpretation and [id number] 22:19:00 Test Item Value Reference Range Interpretation Comments Archived Material Previously diagnosed (test code = 13216) tissues from [id number] were selected for molecular analysis. Results will be reported separately. MD [facility]Bannererospotsylvania [facility] Culture Interventional Zsuglsvyz6752-91-90 01:48:52 Test Item Value Reference Range Interpretation Comments Final Report (test No growth code = 8488) Path Review - The results have been Anaerobe (test code reviewed and = 8478) electronically signed by Pathologist:DONTRELL HORN MD #[id number] LISA (test code = Ascites LISA) MD DialloPathology Biopsy [id number] 14:44:00 Test Item Value Reference Range Interpretation Comments Submitted Clinical History t8fkvMFmEGVlpZD7IuE (test code = 07310) aKKBoj8gmu6LsqTKidT KcFWchwIJdybRubp23j OW3cW90RT5cRLRcVuN1 GBMbuxA2Uhb0OTVpBTY waIHyH004s0zto6tjks OkeZT1DRYzLBU0KTlcD TKeHBFkOhp8TYR8I3qn FRBhEXEzU1BnDR8eJBV lPgf4KMN5XYe1TUZuyr JdvSdjlO7wCyCrFEwyS mIiG5vdFmQuuWYwTBnh rQ3uyCPwLeDdvIgfOCj vGXSeIWYqEE4rMOKlaS TdVDDngkBwuo4eEBDmy ELxon6lUIFwhZ5wEuWn VKSrGVfywc5tFWHgHJM 0xRXfwT3qrih+U2hlIG FjaGlldmVkIHJlbWlzc 2lvbiBidXQgdGhlIGNh fjBxbmAiuAUkJ09pRPV iNYNvFX8lH2XlRHaslX 9spcOboQrdkE6wNJAcQ Y2aKoUDqKLwwR4yMFCp goHnbL1uRMNqEKWxOyJ vo5cwg9IaUPYlLkA7f5 MbXhqfMWFxh2JfeoRdL KC6nGMbx1J9MGGgJ8Uc zHHRBMZzr77qFHscHX3 hcmNoIHJldmVhbGVkIG KwT1m9XGHyFU4aPJ3qK Y52KVjnL6ZwaF8aXlu+ IP2DuUExqxnsrzYuPQK uIHJlZmVycmVkIHRvIE ludGVydmVudGlvbmFsI KAxDBralI8enYTop4Ri PXWmXGVrU4EvxXLmuPR aBB2sUHGuUPMwJH1dsM 8ujRWemW3cy0yyrDBek Q== Diagnosis (test code = 34) p5mmhAWnEGBxcDW7KbY tEANjo9rxr0VttLFxdE IlCJvwtSWlwwUpzl50c ST7rU48SE6hOUZkBwV6 LXHscmF5Oli2ABExRPI toXOyR751c2vcu5umpg JejSA4xEdcUOOvLUKlI WluXGZzMjAgQTogUGVy aXRvbmVhbCBtYXNzOlx kUUWybPi3OdDccZwlXe XiAH6SRGUZQCVLMWTeB VRFUklORSBTRVJPVVMg I7QZA4iLG31CZJaSJFA tV03TCUKNUYaaaMBldB == Comment (test code = 9835) i5mraCMfTQFfqBS0JpT sPLLtc3ctb8BtkOAuhB KxBUsgxVWvreXgyo50h EX3aA42UA4zTKNsBzI1 HHSdnwF1Ijk6BPVdCNY aeKIoM504n7kvu7nvgj CbeRY0uOtjRMNcOIOeT RjjYVDaRaCaMRFuRl7r kNBqZXlqhDVla5upg0G nN9eyzTuiTXxsv0MqwA 6wYKAtl7smbHVpy7YtE 9JcrVUeCNQdUGYqZpP6 l9YxlFJfg8IisYn4IDN uf0VzOTQVDZgtEJmLDX AvGCN0HwApxcNsfVT5R kXcINuco6GsJrqiHJhj K5Vux2FjhY3hkPO1vHD jBZHpzqRfPYrbU50ht2 lzXHBhcn0= Gross Description (test f6rflAOfAUIxkRXUAGG code = [id number]) wMVxhbnNpXHNwbHRwZ3 BvbdvgXDovXJ3zBG5rm YhhhUAtySGzPJ1BYNLw ZmYxXHBhcGVydzEyMjQ mRCOriCGvdTX6IAFrNK 1hcmdsMTgwMFxtYXJnc sX6DOVjpEKbB9HhEKBg RV2novaxHQX7YLutmM3 gecHFGzeaSl5sxQSliS tcZjFcZmNoYXJzZXQwX ONxeYaiYHHnATa1lY1O AectBMQ8YIUYIndoIII yKD3Fj4emLRCsuDQnGG E4HQlcuNFgHGJxXMDbP Yk1UUZzSBypbMKgMP1v uDwkOigbaSods3YtiJR cXGlkIDUxMDAyIFxcZG KqMF7OAbMiZLUjExJ3I FlrUMu7FRw3FQ3WPjXp MWPyEZv8CrBwRALcTTj 6IQbyXC4AUAygKRRrIS ehCOR1JOZ1PxGpSIOrV iBcXGYgQXJpYWwgXFxm cyAxMCBcXGZiIFxcZmw vCJmvH75emZyodJ2lPu bxbfNtNMA6XDBrniAZN lxwbGFpblxlcGljTmVz dERvYzEgDQpcbHRycGF yXGxpbjBccmluMCANCl xsdHJjaFxiXGZzMjAgT 1WcRYGfHOMdbzw9b01q YWwgbWFzczpcYjAgIEN oqsGrn3YyCW6rLR37jV RpcGxlIHllbGxvdyBwY PjvWZDfHdYaaTola2Do XXJfJVqpPW44opD7zNE 3LIUeY0QnU9L5MKM2ly PgQvPvuUKqSdBwZ90nB EZpbHRlcmVkLCBlbnRp iqJyrTBcsZJjhSO8CBC rnC3qYOIuXBYccPQwtC VxaTuzVjcwwYL6MPlzR npkdJ6gpTOTCXXBRplH MjvzgvOcDJ6JBD9QQpX ZCF61MdKzJSY4WLbSK8 QZjDW0Wsy4KYx5vVqeR hxvkwXrqJVlUpRYiZ8M QKxvYbastWW4ZNtfIbs agI9flOSRJNLYOxtNCj yikpXzKW7BRC2BON2Zs RUcKZR8eUH1ZPTKEmeb rBP6yPJ3yX13ORQhLOZ seWSbBOfxI819FGAuPP olTRj3drDjEMCmRxLhM BqvnCoklN0dSVWjN01g b7WXo4IzSIGoAKldi2t osUbxu5NxeFJxPHubAX BjyTRpSJptdF2wBvBse 7nznKc2JIfbjqH4OAFe kn2BHlfqzQ0nXkZbz3u ztIp0DXUFPmyoupP7i9 bbnQglq0LvwPGnZK6YA n0= Disclaimer (test code = k1myfVNjLPGlcLYgIfP 9844) pOZWhETZxw7maYAIbyC FuZzEwMzNcZnRuYmpcd ZFzHCGiWvBvs9qhd720 fNRxy5zjIUMvFqX4lAP tLLOomFKzH265XBDjZW ssx9ehq1WvPENjzVKmc 8P5WVZWwbswyUn9yVys Z72ap8W5BulaL0jgORA kXCVzV4ZcXB4xAXXyFm i7ETL2OAS7NJLgQXPvL 4QeJZ7sEFLcnDTnJHt8 b5rrdLekDKMyBVV7z8r xNKahvsLzEF7leu3etG q3c6tmqrEeRWLgDGJsh ZGACUStI1FnfYxcMm1v sKs9cKflRasaSWT0Ekp 7GR0kak04dfp6pUadHP FhmrbnNoL2QLjxSENxm sxmMDh5UMueICSybNA5 SNAbyFUqY3GqPWPxCL7 oztr6WGQ4KXmjTXFdTk D3WLKieUMpYPPkxVjfV Pewi810JIJ6EuBcGE3o B4Vjr5B6zG5ilTCoHKN sxHIsVeXzUOEalf2zzO UbXBynk0AdEQL5cgL1y QBekRBdRLKcCX80Ygex f7JcWbkrTPH9HJCzpbJ ju5Ruf3gxQvVusvQfN1 fhG7NsLAExIYCrOZAtM ePuxxGla6Tyr6RcoGOn bAs7v8rbZEQwTNNlkQj tq6vyLAA5UAXlN0V6nY Fhb2uhCLyiOSHnoFT3a vC9JMRbzEQoE1RwdA8m NLYoGT1camk3q2xsXCG 4YOmgYALwDwU2yjA4RJ BcaGVhZGVyeTcyMFxmb 210LZH2KhMiQVNio8Vi J6VjmKbpM37qxMasH67 iEWBrmCxzoA1rlAsqgX 5cZjBcZnMyNFxxbFxwb YTnkykoMTjekcF7GYse lcdwPPSyVRaoC5eaZcJ aLGQraYxvHKiwq9VpUF QrMZOlJrquoqG3KMTOt 49fWIMfn9MyNQBpeJ1j qOWeJTgynoIogQN3WKg hdmUgYmVlbiBkZXZlbG 2zPNRwMZ2fMRUzptXqi b0dunGyZIEbQVIyG1Vu cmlzdGljcyBkZXRlcm1 uxhGgZHR7RWGWBN0IRK AoMGHsf00vZFFmzLzkv F5vzNYdinFnRXJmo6St jG7ouOOPOTWqJ8mqUB3 iJVptt0ZrbRWjlFSiyQ D0RLTpl8EfJtRaxuTjc MAuyKHgY8RmiDotI5nf WJYoKZUkgsZfbAPdc7E mBVAdgFN3wTVbSV7WQm LVl95tDMJfUBGUtgUyB FThgBwxvSO5blY1hV2a LiBJZiBhcHBsaWNhYmx vCNEaj668ui6mzhA8DU TjUEKeejizz7NaVCNfZ HCuxS95XPFlHQJyxz9p fcubvEQdtiQvL1Skyqs 0bL1iNXRiEDatOBEeQH ZzMjJcbGFuZzEwMzNca GljaFxmMVxkYmNoXGYx RMavO3nfXtBbQzTiCoc wYXJ9 [employer] Image-Guided FNA [id number] 20:04:00 Test Item Value Reference Range Interpretation Comments Gross Description (test h9pvqXYmGWWnnIO9CgWs code = [id number]) QTLlx6hpu4BurFElzWDw PWvnfYKidvFgvf99lVR1 dA82HX5kJFGzFhZ3JQWe vtM4Oqw7SGKeQIWveMFf C289k3ndn6suavOvbDP9 cVngGWOel5olXHJgeJZk JTH0JYsnpUHmNBNlRGEp XDz9PLKsQHmhfTPdVN3g bPwsUnqabNsrm3XynGEf XGlkIDUxMDAyIFxcZGIg X9EOIDAfAdYwXEG5JMEw EWy9EWbqF4NPRCTfDPS1 ZabaItF5JeI7KHd4KKXP Fu5vCdi5NhR2IrA9BFU2 Xjq7RLbqeBCiHNmuZohg XFxmIEFyaWFsIFxcZnMg CPYhRDvyVjAiKR6yhQpl bGFpblxiXGZzMjAgQTpc cGFyXGIwXGYwIFNwZWNp dCHhmqFlsu3hfRXnTDnk cGFyIDMgRGlmZiBRdWlr OyAzIFBhcCBTdGFpbiBT nXgjQGEohOWvXSJwCC5h AVXtmF3bbB8dHInaCov9 vBMzuY5gLkOWGPkxJXIv XFPIVMxeNAOhe9ObMIVc ptGJZBJtT3HztRIzPEhr Z3WkCRhqQOUhzk6krYdt OiBccHJvdGVjdHtcZmll cRZ0UFzzVsbifI2ffRGC XDTMGyeRRnpickZtDA5V BN9SShEIFL05UNLeTqA4 MSyMZ7DZMJNYRZU8PKz6 wVD0qK99WZSnESKufEGe SYbmG170HPMnOlWlLnG9 JAEkIJqfg8gxYUOnIGyz j1EzGJiHBIIHPC9WZL5j sHK4BXqYQ2CFILd6HGO0 MnwxfFRPREFZREFURXww rCw7YTi5wHziNdzjppFg rMQrLsYzxQ5btBivuA1y QcNjMJNzUHHxz7JmG4X3 UUGrDZbxf4avSTWiSLhq n4ZlTHlDFUFFRN8CSQ3x vTB4BKcCM8ECN2lSsWxg oCY3En1UnVG5aVsoaCu3 n8dqfMWfa6t4CNkwQIT7 xEAqCfM2YGHQo7awyVEh TEjlRdgpnHBsphU3WUmS SHRROVsYSgVaNI9rBEyD SqjTMjK8NKP2AryZU0f7 DUh0wTA7uS33QTGsEGFp vSQjZTznJ195PLYxVTzr XGZzMjAgIFxwYXJccGFy FSWcgtJ8GTHtO33wvDXd NJrzbYFvlDS5VBAnq1Ya n5SpLT31MJKkhbSkfNYq jW5kufLnSFQteYHoyMV8 YXMgbWFkZSBccHJvdGVj rLrxPefvxQC4ALlfBvpu jA5pwTZTYEBVPsgPYckk ltJxRT7IECVYWfIATO71 SmA7UjS7C6eyyXqhIicf aoCkwWTlBmBttB62ZTrt HdmktQQ8IWdvJkvknT9u dCBIWVBFUkxJTksgbmFt AC5UFVBHIB6LhKL9UaE9 kEK3L403UWYvTTYeyQPb QSdnU742KWOaJQsjDZHh ZpOlRCH3OPUzJbQGNY7p f02fTXd1WwnlDNGmA9Fi K2UwovD3f3tfhZlwt5Vw gAIyTU0anFYlPHPpH30M OlXRLQPSZ16SCXURFHNR M3IXG2tZWLW6JjS0rJI0 BLBAFTWITGvGN7WmFOVE ZYIZEKEfVE6JIFoUSQGH PATDC62WAUSUYPNZI2YV J9xMPPxXBQODRJUCD39K FGTYXTKUK3WRGIYLYEPV BHmBDHCSKt3UJNYMNPBG RR6NJAcSRjXzIOh6VVNo xrP1XeojPJj4EYm2Ewbo TurwSF3iHWuAX7SXB9sH OOGjRMLSILPIFPGiMC0G ZOsUVK5REPTuBQDFGZKJ AYUxTrBAIB3wQKkYJA6I KOYwFGINATEXXHAiUY8G TGNGPI3PHKIRRQLEA57R WPYGPFKUL6QQG0fMDMZD HOBOTsYHQlACND8DVJBQ FBMBGK9AJmB5 Immediate Assessment Adequate (test code = 9837) cellularity, favor malignant Major Classification MALIGNANT A (test code = 9839) Diagnosis (test code = b5nmyAKfGOOwsHG5CbUh 34) XTVkf3dqf8EfsVYleSFc AVwgvAJhwjDxny50hCM9 fX76WG4iAHAzJlW8HKPi ahT3Xzf4LWDoBIYplFJp W222p8flv8nhfmTkoBW5 fVxwYXJkXHBsYWluXGZz WnZoMA9eT23orSK4sYDx jWOjJMdeOyYzOQKwx40q iyGrJXNnXGFzfG9aXU9s CYLgIMHxy0HaarD8jJ0q OlxwYXJcdGFiXHBhclxs jAnlLZWIXMrPL73YDmWk T2UTKNjuQN9KYHvCWD9J SUNBTExZIENPTVBBVElC SELzY7xRFDLLTGWFP4MW JGoIPVRQCyERLb5HSMRe E9HWOZLADN6ZGjVtRSUb cn0= Comment (test code = i2gxmKEyYIBkeTD2CiOx 9835) UNZtb1chs8KdnQSovPTv RIowrZKqrxBmds30sKB8 kI79EQ2kAZIkMxI1GGMd srZ1Tdc0FDFoQWLmqFGb K468x3aor4jgkqGzhCF8 fVxwYXJkXHBsYWluXGZz GiAiCQu4bY71F0axeo92 DDOgyZdlNIg0KSQlFTQm XnhsMWQ2xORjfLUjk6Ux F7DfjXOdEFEmZG9xjtLl i5rwO3bcIAdmaQZlc13f YXRpYmxlIHdpdGggcGF0 bWNaeBnkPRoyv1Vhenkm g9Ngk9Bow8WpQUXesxCh lv1yQT6cWOgfQULvWTGs SZS5lZWvpRE6cAJhoBqy HUQxvlG2gaLpjnJrs9Ez H4nhUHlhEpvnkAB5QQQp RB8oSBZ2VCKlWj0qSXP8 cnRoZXIgZXZhbHVhdGlv hp8tHYUggejiHYEoTQRw feUTcUOkA2WveMMhkL1v ayBwcmVwYXJhdGlvbiB3 GHEsZ19vzSVdLkY6l5O4 EZOww3HzJDZlJBpjrcjg jFvhUSTrv0TfSDZsOFki q6Ywav1faCXagE== Retained/[employer]arker b1ljpDJsQBVnzEG5MtKr Testing (test code = GQQyh6exc8LjvAKjwGPn 9896) IKimiQTwffVwty13sIV7 pW47CO5aSFEaBsI0SJAe jvN2Gul2ICYmYZVkuXHn W652j0pvm3tvkiPbrPP0 LKGrSKV3VCuncjIichX3 DRyccUWoDuC4L85ejTVa ZFxwbGFpblxmczIwXGNo H8QeSVRtMQRFKuK8VRCv LWDfT8RjxUktSWFGIAuu C3W9DJFeDZfzpZHzZG2M BUPOHWQ7GRDtTwQuvJvs FTBLNEbfWMR9FOKlOgFp bGluZSBGSVNIIERROiAw LFRqbMBfZUAmP8HiRLXm XHBhcn0= Informational Points n3ilvZMbMPYoeZV3YcKw (test code = 9836) YVBpp4bhx1AqgMTysIIf XCutdVOvivDtur00hRK1 hJ25XV0fUETtMfK7KNWx bvB8Ssc2JRGwXHNrtKPf Q136YQMyGFOwQ44hOWUM U002d4dln1zhjdRqmRG5 fVxwYXJkXHBsYWluXGlc VyFyZrTfBROEz79yKVGz u5LyQMMbdO9zkQZlCYdc jyUetFA8NTrvvyHqVjTf cwSbGHStvY2sMOMaCJ1w QNVkjyByay0ipdYrNQMg FLClA3MbolznnWthboFk HQTwti2sryAhBWM6XZYA GZ5ODCPmHQBvk88oPOXi xYssqT3qcGYbitEhKEVe m2BfqQ6ejKJYVVLjE5ro ZY6zYNbup0DupDGcaVMp wLD8JJPko1IhFyDeoqQf lRGlbYWwW3FprGujL6qe QHVnXJLldcUpyPToq2Pa EAKybKU0nXJfVJ9TOsHM t17mRJMbRURUbfTvKXQn jWqunGH4soX3pK2kAiQi oOWtECPiXHVyPGEgs2yq G5bjjLAxPKSxmzD2zWP1 CRMvoSypDVYka0JiTA4x DKHuroUppAbcASJ5sOCc qiPti4B2NPZ6KZ5HUBVu VOCdz44wTHxnd1AhOA19 t7GjciyoVAH9WYRzL9J3 aXVUviVzj3D0ARLCv4Ea sG5wJMURJKvqoxS7SlU0 RZ1pjTRjnT== Lab Interpretation (test Abnormal code = 20003-0) MD DialloAlbumin [id number] 00:19:16 Test Item Value Reference Range Interpretation Comments Albumin BF (test 3.0 gm/dL This assay has been code = 4761) validated for b pavan fluids. No refe rence ranges have bee n established. Te st results should be interpreted in context of the patient' s clinical condit ion and in conjunction with similar assays performed on [facility]. Pathologist claudia hameed is available.. Alb BF Type (test Ascites fluid code = 4758) LISA (test code = Ascites LISA) MD DialloAmylase [id number] 00:19:10 Test Item Value Reference Range Interpretation Comments Amylase BF (test 43 U/L This assay has been code = 4805) validated for b pavan fluids. No refe rence ranges have bee n established. Te st results should be interpreted in context of the patient' s clinical condit ion and in conjunction with similar assays performed on [facility]. Pathologist claudia hameed is available. Amyl BF Type (test Ascites fluid code = 4804) LISA (test code = Ascites LISA) MD Steiner US GUIDED BIOPSY [id number] 18:48:01Date of Procedure: 12/11/20 Attending Physician: William Joshi MD Mortgage Funder: Josephine Dubon Pre Procedure Diagnosis: Malignant neoplasm [...] written report.MD DialloCT Chest Abdomen Pelvis with [id number] 18:17:211. Significant increase in peritoneal carcinomatosis and [...] pleural effusions.MD DialloCT Soft Tissue Neck with [id number] 22:20:05Enlarged multinodular thyroid gland with mild mediastinal extension is without significant interval change. Slight displacement of the trachea to the left is stable without decreased patency.Interface,Radiology Results In - 05/07/2020 5:22 PM CDT FULL RESULT:Examination: CT [...] decreased patency.MD DialloCT Abdomen with and without [id number] 13:58:23 Slight interval increase in the size [...]
--- NOTE | 2021-03-05 11:08 | RAD REPORT ---
EXAM DESCRIPTION: RAD - Chest Single View - 03/05/2021 10:59 am CLINICAL HISTORY: DYSPNEA Chest pain. COMPARISON: Chest Single View dated 06/08/2020; Abdomen Pelvis Wo Contrast dated 02/28/2021 FINDINGS: Portable technique limits examination quality. A small left pleural effusion is noted. The right lung is grossly clear. The heart is normal in size. Right port catheter its tip in the SVC. IMPRESSION: Small left pleural effusion.
[2021-03-05 12:06] LABS: Hematocrit 30.7 % (36.0-45.0); RBC Red Blood Cell Count 4.04 M/uL (3.86-4.86)
[2021-03-05 12:19] LABS: Albumin 2.2 g/dL (3.4-5.0); Bilirubin Direct 0.3 mg/dL (0-0.2); Bilirubin Total 0.7 mg/dL (0.2-1.0); Potassium 4.7 mmol/L (3.5-5.1); Protein, Total 6.3 g/dL (6.4-8.2)
[2021-03-05 13:00] LABS: Anisocytosis 1+; Blood Morphology Comment NOTED (NOT SEEN); Hypochromasia 1+; Platelet Estimate ADEQ
--- NOTE | 2021-03-05 13:40 | RAD REPORT ---
EXAM DESCRIPTION: CT - Abdomen Pelvis Wo Contrast - 03/05/2021 1:23 pm CLINICAL HISTORY: Abdominal pain /vomiting COMPARISON: February 28, 2021 TECHNIQUE: Computed axial tomography of the abdomen and pelvis was obtained. IV and oral contrast we re not requested. All CT scans are performed using dose optimization technique as appropriate and may include automated exposure control or mA/KV adjustment according to patient size. FINDINGS: The evaluation of solid organs, vessels and bowel is limited secondary to the lack of con trast administration. Small to moderate left pleural effusion. Mild left lower lobe atelectasis The liver, spleen, pancreas, adrenals and kidneys appear grossly normal. A catheter has its tip within the right lower quadrant. The amount of ascites has increased and is moderate. Mild omental thickening. Diffuse edema within the subcutaneous tissues. Air bubbles within the bladder. No evidence of diverticulitis. Hysterectomy. IMPRESSION: Small to moderate left pleural effusion Moderate ascites with mild omental thickening may indicate carcinomatosis. Air bubbles within the bladder presumably secondary to prior instrumentation. Infection can also resu lt in this appearance
[2021-03-05] MEDS ORDERED: NOREPINEPHRINE 4mg/D5W 250mL 4 MG/250 ML BAG IV ONE (13:54)
--- NOTE | 2021-03-05 14:28 | EDPHYS ---
Physician Documentation [facility] Name: Cass Vance Age: 70 yrs Sex: Female : 1950 Arrival Date: 03/05/2021 Time: 10:13 Bed 17 Private MD: ED Physician Dhiraj Figueroa HPI: 03/05 11:35 This 70 yrs old Black Female presents to ER via Wheelchair with complaints of Vomiting. rn 11:35 The patient presents to the emergency department with nausea, vomiting. Onset: The rn symptoms/episode began/occurred at an unknown time. Possible causes: unknown. The symptoms are aggravated by nothing. The symptoms are alleviated by nothing. Severity of symptoms: At their worst the symptoms were moderate in the emergency department the symptoms are unchanged. The patient has experienced similar episodes in the past. The patient has been recently seen by a physician:. daughter and patient reports nausea/vomiting, dehydration and generalized weakness. No fever. Has not been able to get chemo since January. Noted low blood pressure since last week, seen here, sent home after IV hydration. No blood in emesis. Also reports mild SOB. . Historical: - Allergies: 12:01 No Known Allergies; ph - PMHx: 12:01 High Cholesterol; Hypertension; Uterine CA; ph - PSHx: 12:01 Cancer surgery; ph - Immunization history:: Client reports having NOT received the Covid vaccine. - Family history:: not pertinent. - Social history:: Smoking status: Patient denies any tobacco usage or history of. - Hospitalizations: : No recent hospitalization is reported. ROS: 11:35 Constitutional: Negative for fever, chills Eyes: Negative for injury, pain, redness, rn and discharge, Neck: Negative for injury, pain, and swelling, Cardiovascular: Negative for chest pain, palpitations Respiratory: Negative for cough, wheezing, and pleuritic chest pain, Abdomen/GI: Negative for diarrhea, and constipation, Back: Negative for injury and pain, : Negative for injury, bleeding, discharge, and swelling, MS/Extremity: Negative for injury and deformity, Skin: Negative for injury, rash, and discoloration, Neuro: Negative for headache, numbness, tingling, and seizure. Exam: 11:35 Constitutional: This is a well developed, well nourished patient who is awake, alert rn Head/Face: Normocephalic, atraumatic. Eyes: Periorbital areas with no swelling, redness, or edema. ENT: dry MM Cardiovascular: Tachycardic, regular Respiratory: No increased work of breathing, no retractions or nasal flaring. Abdomen/GI: soft, no focal tenderness, + right sided catheter in place, slight drainage serous fluid from stoma. Skin: Warm, dry MS/ Extremity: Pulses equal, no cyanosis. Neurovascular intact. Full, normal range of motion. Equal circumference. 3+ pitting edema bilateral lower ext. Neuro: Awake and alert, GCS 15, motor strength 4/5 all 4 ext. Vital Signs: 10:16 BP 86 / 72; Pulse 112; Resp 17; Temp 97.9(TE); Pulse Ox 99% on R/A; Weight 86.18 kg; tw2 12:09 BP 101 / 73; Pulse 96; Resp 18; Pulse Ox 99% on R/A; ph 13:05 BP 93 / 73; Pulse 85; Resp 18; Pulse Ox 98% on R/A; ph 14:00 BP 102 / 73; Pulse 85; Resp 16; Pulse Ox 96% on R/A; ph 15:00 BP 100 / 76; Pulse 85; Resp 18; Pulse Ox 98% on R/A; ph 16:00 BP 103 / 78; Pulse 83; Resp 18; Pulse Ox 97% on R/A; ph 17:00 BP 107 / 74; Pulse 87; Resp 20; Pulse Ox 97% on R/A; ph 18:13 BP 99 / 77; Pulse 89; Resp 18; Pulse Ox 98% on R/A; ph 20:00 BP 104 / 73; Pulse 89; Resp 20; Pulse Ox 97% ; ak2 MDM: 10:30 Patient medically screened. rn 14:26 Differential diagnosis: viral gastroenteritis, gastroenteritis, gastritis, esophagitis, rn UTI, dehydration. Data reviewed: vital signs, nurses notes, lab test result(s), radiologic studies, CT scan, and as a result, I will admit patient. Counseling: I had a detailed discussion with the patient and/or guardian regarding: the historical points, exam findings, and any diagnostic results supporting the discharge/admit diagnosis, lab results, radiology results, the need for further work-up and treatment in the hospital. Response to treatment: the patient's symptoms have mildly improved after treatment, and as a result, I will admit patient. Admission orders: after a detailed discussion of the patient's condition and case, the admit orders are written by me. ED course: Pt with dehydration, possible UTI, signs of gastritis/esophagitis, will admit for further care, fluids to Dr. Smith. Family wants to stay here for admission, does not want transfer, and has not had chemo in > 1 month.. 17:43 ED course: Nursing still unable to obtain urine. Are attempting to cath.. rn 03/05 10:38 Order name: Basic Metabolic Panel rn 03/05 10:38 Order name: CBC with Diff rn 03/05 10:38 Order name: Hepatic Function rn 03/05 10:38 Order name: Lipase rn 03/05 10:38 Order name: Blood Culture Adult (2) rn 03/05 10:38 Order name: Procalcitonin rn 03/05 10:38 Order name: Lactate rn 03/05 12:11 Order name: CBC with Automated Diff; Complete Time: 13:03 EDNV 03/05 12:12 Order name: Lactate; Complete Time: 12:13 EDNV 03/05 12:19 Order name: Basic Metabolic Panel; Complete Time: 12:47 EDNV 03/05 12:19 Order name: Liver (Hepatic) Function; Complete Time: 12:47 EDNV 03/05 12:19 Order name: Lipase; Complete Time: 12:47 EDNV 03/05 12:38 Order name: Procalcitonin; Complete Time: 12:47 EDNV 03/05 13:00 Order name: Manual Differential; Complete Time: 13:03 [facility] 03/05 10:38 Order name: XRAY Chest (1 view) rn 03/05 11:09 Order name: RAD; Complete Time: 11:58 EDNV 03/05 13:04 Order name: CT Abd/Pelvis - Without Contrast rn 03/05 13:40 Order name: CT; Complete Time: 13:56 EDNV 03/05 13:56 Order name: Urine Culture rn 03/05 13:56 Order name: Urine Microscopic Only rn 03/05 16:02 Order name: COVID-19 : Document "Date of Symptom Onset" if Symptomatic. 03/05 18:33 Order name: Urine Dipstick-Ancillary [facility] 03/05 18:47 Order name: CORONAVIRUS EDNV 03/05 19:46 Order name: SARS-COV-2 RT PCR [facility] 03/05 10:38 Order name: IV Saline Lock; Complete Time: 12:00 rn 03/05 10:38 Order name: Labs collected and sent; Complete Time: 12:00 rn 03/05 13:56 Order name: Urine Dipstick-Ancillary (obtain specimen); Complete Time: 16:15 rn Administered Medications: 11:59 Drug: NS 0.9% 1000 ml Route: IV; Rate: 1000 ml; Site: Port-a-cath; ph 13:30 Follow up: Response: No adverse reaction; IV Status: Completed infusion; IV Intake: ph 1000ml 11:59 Drug: Zofran (Ondansetron) 4 mg Route: IVP; Site: Port-a-cath; ph 19:12 Follow up: Response: No adverse reaction; Nausea is decreased ph 18:42 Drug: Zofran (Ondansetron) 4 mg Route: IVP; Site: Port-a-cath; ph 19:13 Follow up: Response: No adverse reaction; Nausea is decreased ph 18:45 Drug: Rocephin (cefTRIAXone) 1 grams Route: IV; Rate: calculated rate; Site: ph Port-a-cath; 19:13 Follow up: Response: No adverse reaction; IV Status: Completed infusion ph 19:12 Not Given (Other Intervention Used): GI Cocktail without - (Maalox Suspension ph 30 ml, Lidocaine Liquid 2 % 15 ml) PO once 19:22 Drug: ProTONIX (pantoprazole) 40 mg Route: IVP; Site: Port-a-cath; ak2 Disposition: 03/05/21 14:28 Hospitalization ordered by Angel Smith for Inpatient Admission. Preliminary diagnosis are Hypotension, unspecified, Dehydration, Urinary tract infection, site not specified. - Bed requested for Telemetry/MedSurg (Inpatient). - Status is Inpatient Admission. ak2 - Condition is Stable. - Problem is new. - Symptoms have improved. Signatures: Dispatcher [employer] [facility] Dhiraj Figueroa MD MD rn Lasagna, Tonya RN RN tl1 Lilliam Blackwood RN RN German Leach ak2 Corrections: (The following items were deleted from the chart) 20:26 14:28 Hospitalization Ordered by Angel Smith DO for Inpatient Admission. Preliminary tl1 diagnosis is Hypotension, unspecified; Dehydration; Urinary tract infection, site not specified. Bed requested for Telemetry/MedSurg (Inpatient). Status is Inpatient Admission. Condition is Stable. Problem is new. Symptoms have improved. rn 21:15 20:26 03/05/2021 14:28 Hospitalization Ordered by Angel Smith DO for Inpatient ak2 Admission. Preliminary diagnosis is Hypotension, unspecified; Dehydration; Urinary tract infection, site not specified. Bed requested for Telemetry/MedSurg (Inpatient). Status is Inpatient Admission. Condition is Stable. Problem is new. Symptoms have improved. tl1
--- NOTE | 2021-03-05 14:28 | ER ---
Nurse's Notes [facility] Name: Cass Vance Age: 70 yrs Sex: Female : 1950 Arrival Date: 03/05/2021 Time: 10:13 Bed 17 Private MD: Diagnosis: Hypotension, unspecified;Dehydration;Urinary tract infection, site not specified Presentation: 03/05 10:16 Chief complaint: sister reports she is dehydrated and has been throwing up, this tw2 morning she feels short of breath and was trying to catch her breath. the drainage is coming out of the drainage tube. we feel like the fluid is going up her legs and her but now. she was supposed to have another treatment last week but they thought she was too weak so maybe her last treatment was maybe january or end of december. Coronavirus screen: At this time, the client does not indicate any symptoms associated with coronavirus-19. Ebola Screen: Patient denies travel to an Ebola-affected area in the 21 days before illness onset. Initial Sepsis Screen: Does the patient meet any 2 criteria? HR > 90 bpm. No. Patient's initial sepsis screen is negative. Does the patient have a suspected source of infection? No. Patient's initial sepsis screen is negative. Risk Assessment: Do you want to hurt yourself or someone else? Patient reports no desire to harm self or others. Onset of symptoms was March 05, 2021. 10:16 Method Of Arrival: Wheelchair tw2 10:16 Acuity: KEN 2 tw2 Historical: - Allergies: 12:01 No Known Allergies; ph - PMHx: 12:01 High Cholesterol; Hypertension; Uterine CA; ph - PSHx: 12:01 Cancer surgery; ph - Immunization history:: Client reports having NOT received the Covid vaccine. - Family history:: not pertinent. - Social history:: Smoking status: Patient denies any tobacco usage or history of. - Hospitalizations: : No recent hospitalization is reported. Screenin:00 Abuse screen: Denies threats or abuse. Denies injuries from another. Nutritional ph screening: No deficits noted. Tuberculosis screening: No symptoms or risk factors identified. Fall Risk No fall in past 12 months (0 pts). No secondary diagnosis (0 pts). IV access (20 points). Ambulatory Aid- Crutches/Cane/Walker (15 pts). Gait- Weak (10 pts.). Mental Status- Oriented to own ability (0 pts). Total Schulz Fall Scale indicates High Risk Score (45 or more points). Fall prevention measures have been instituted. Side Rails Up X 2 Placed Close to Nursing Station Frequent Obs/Assessments Occuring As available patient and family educated on Fall Prevention Program and Strategies. Assessment: 10:30 General: Appears in no apparent distress. comfortable, Behavior is calm, cooperative, ph appropriate for age, Denies fever. Pain: Denies pain. Neuro: Level of Consciousness is awake, alert, obeys commands, Oriented to person, place, time, situation, Reports dizziness, weakness. Cardiovascular: Reports fatigue, lightheadedness, vomiting, Denies chest pain, Capillary refill < 3 seconds in bilateral fingers Patient's skin is warm and dry. Edema is 3+ to left upper thigh, left lower thigh, left knee, left midcalf, left ankle, left foot, right upper thigh, right lower thigh, right knee, right midcalf, right ankle and right foot pitting to left upper thigh, left lower thigh, right upper thigh and right lower thigh Rhythm is sinus tachycardia. Respiratory: Airway is patent Respiratory effort is even, unlabored. GI: Abdomen is round non-distended, drain to R lower abdomen, site healthy in appearance, serous drainage noted Reports nausea, vomiting, Patient currently denies diarrhea. : No signs and/or symptoms were reported regarding the genitourinary system. Derm: Skin is intact, Skin is pink, warm \T\ dry. Musculoskeletal: Circulation, motion, and sensation intact. Range of motion: intact in all extremities. 11:30 Reassessment: Patient appears in no apparent distress at this time. Patient and/or ph family updated on plan of care and expected duration. Pain level reassessed. Patient is alert, oriented x 3, equal unlabored respirations, skin warm/dry/pink. 12:30 Reassessment: Patient appears in no apparent distress at this time. Patient and/or ph family updated on plan of care and expected duration. Pain level reassessed. Patient is alert, oriented x 3, equal unlabored respirations, skin warm/dry/pink. 13:05 Reassessment: Patient appears in no apparent distress at this time. Patient and/or ph family updated on plan of care and expected duration. Pain level reassessed. Patient is alert, oriented x 3, equal unlabored respirations, skin warm/dry/pink. 14:30 Reassessment: Patient appears in no apparent distress at this time. Patient and/or ph family updated on plan of care and expected duration. Pain level reassessed. Patient is alert, oriented x 3, equal unlabored respirations, skin warm/dry/pink. 16:00 Reassessment: Patient appears in no apparent distress at this time. Patient and/or ph family updated on plan of care and expected duration. Pain level reassessed. Patient is alert, oriented x 3, equal unlabored respirations, skin warm/dry/pink. 17:39 Reassessment: Patient appears in no apparent distress at this time. Patient and/or ph family updated on plan of care and expected duration. Pain level reassessed. Patient is alert, oriented x 3, equal unlabored respirations, skin warm/dry/pink. Multiple attempts to insert Dao catheter, unable to locate urethra, Lidia RN at bedside to attempt to place Dao and was also unable to locate urethra, pt reports discomfort to knees during procedure, ERP notified. 21:04 General: report called to rn. ak2 Vital Signs: 10:16 BP 86 / 72; Pulse 112; Resp 17; Temp 97.9(TE); Pulse Ox 99% on R/A; Weight 86.18 kg; tw2 12:09 BP 101 / 73; Pulse 96; Resp 18; Pulse Ox 99% on R/A; ph 13:05 BP 93 / 73; Pulse 85; Resp 18; Pulse Ox 98% on R/A; ph 14:00 BP 102 / 73; Pulse 85; Resp 16; Pulse Ox 96% on R/A; ph 15:00 BP 100 / 76; Pulse 85; Resp 18; Pulse Ox 98% on R/A; ph 16:00 BP 103 / 78; Pulse 83; Resp 18; Pulse Ox 97% on R/A; ph 17:00 BP 107 / 74; Pulse 87; Resp 20; Pulse Ox 97% on R/A; ph 18:13 BP 99 / 77; Pulse 89; Resp 18; Pulse Ox 98% on R/A; ph 20:00 BP 104 / 73; Pulse 89; Resp 20; Pulse Ox 97% ; ak2 ED Course: 10:13 Patient arrived in ED. mr 10:20 Triage completed. tw2 10:29 Lilliam Blackwood, ANALI is Primary Nurse. ph 10:30 Dhiraj Figueroa MD is Attending Physician. rn 11:45 Accessed Port-a-Cath. using accessed w/ # 20 Dela Cruz needle, Good blood return. ph 11:59 Arm band placed on Patient placed in an exam room, on a stretcher, on monitor and storage bin tender, ph on pulse oximetry. 12:01 Patient has correct armband on for positive identification. Placed in gown. Bed in low ph position. Call light in reach. Side rails up X2. child monitor on. Pulse ox on. NIBP on. Door closed. Noise minimized. Warm blanket given. Pillow given. 14:27 Angel Greenwood DO is Hospitalizing Provider. rn 19:18 No provider procedures requiring assistance completed. Patient admitted, IV remains in ph place. Administered Medications: 11:59 Drug: NS 0.9% 1000 ml Route: IV; Rate: 1000 ml; Site: Port-a-cath; ph 13:30 Follow up: Response: No adverse reaction; IV Status: Completed infusion; IV Intake: ph 1000ml 11:59 Drug: Zofran (Ondansetron) 4 mg Route: IVP; Site: Port-a-cath; ph 19:12 Follow up: Response: No adverse reaction; Nausea is decreased ph 18:42 Drug: Zofran (Ondansetron) 4 mg Route: IVP; Site: Port-a-cath; ph 19:13 Follow up: Response: No adverse reaction; Nausea is decreased ph 18:45 Drug: Rocephin (cefTRIAXone) 1 grams Route: IV; Rate: calculated rate; Site: ph Port-a-cath; 19:13 Follow up: Response: No adverse reaction; IV Status: Completed infusion ph 19:12 Not Given (Other Intervention Used): GI Cocktail without - (Maalox Suspension ph 30 ml, Lidocaine Liquid 2 % 15 ml) PO once 19:22 Drug: ProTONIX (pantoprazole) 40 mg Route: IVP; Site: Port-a-cath; ak2 Intake: 13:30 IV: 1000ml; Total: 1000ml. ph Outcome: 14:28 Decision to Hospitalize by Provider. rn 21:14 Admitted to [facility] ak2 21:14 Condition: good 21:15 Patient left the ED. ak2 Signatures: Ameena Diaz Roman, MD MD rn Hall, Patricia, RN RN Clayton, ANALI Momin RN 2 German Leach2
--- NOTE | 2021-03-05 15:14 | P.HP ---
Certification for Inpatient Patient admitted to: Inpatient With expected LOS: >2 Midnights Patient will require the following post-hospital care: Home Health Services Practitioner: I am a practitioner with admitting privileges, knowledge of patient current condition, hospital course, and medical plan of care. Services: Services provided to patient in accordance with Admission requirements found in Title 42 Section 412.3 of the Code of Federal Regulations Patient History Date of Service: 03/05/21 Primary Care Provider: Dr. Garcia Reason for admission: Nausea, vomiting History of Present Illness: 70-year-old female with history of chronic renal disease, chronic lymphedema, hypertension, uterine cancer with carcinomatosis and chronic pleural effusion. Patient presented to the emergency room with increasing nausea and vomiting. Patient has been dehydrated. Patient has had poor oral intake. Patient rece ntly evaluated this past week an for similar issues. She was sent home. Since that time she has had poor oral intake. Increased nausea vomiting noted. She denies any fever, chills, no sick contacts noted. She denies any diarrhea. Some urinary discomfort noted. Some shortness of breath also reported. She denies any chest pain. She came to the ER for further evaluation. In the ER patient appeared slightly dehydrated. Initial blood pressure was low with mild tachycardia. Patient was given fluid bolus with improvement. Vital signs now stable. White count 9.4, hemoglobin 10. Platelet count 303. Pro calcitonin 0.25. Lactic acid normal at 1.2. X-ray shows small chronic left pleural effusion. Sodium 136, potassium 4.7. Being of 30, creatinine 2.79 with a GFR of 20. Glucose 96. Urinalysis pending. Patient admitted for further evaluation and treatment. When I saw the patient ER, patient appeared stable. Vital signs stable and improved. Patient appears stable. Sister bedside. Patient reports her last chemotherapy was likely in January. Patient with history of DVT on Lovenox shots at home. Allergies No Known Allergies Allergy (Verified 01/03/19 17:08) Home medications list reviewed: Yes Home Medications: Atorvastatin Calcium [Lipitor] 20 mg PO BEDTIME 01/03/19 Valsartan 80 mg PO DAILY 01/03/19 allopurinoL [Zyloprim] 300 mg PO DAILY 01/03/19 carvediloL [Coreg] 6.25 mg PO DAILY 01/03/19 - Past Medical/Surgical History Diabetic: No -: Chronic renal disease -: Uterine cancer with carcinomatosis -: History of DVT on Lovenox injections -: Hypertension -: Chronic lymphedema -: Hysterectomy -: Port-A-Cath placement Psychosocial/ Personal History: Patient is single. She has no children. She lives with her sisters - Family History Family History: Reviewed- Non-Contributory - Social History Smoking Status: Never smoker Alcohol use: No CD- Drugs: No Caffeine use: No Place of Residence: Home Review of Systems General: Weakness, Malaise, As per HPI Eyes: Unremarkable ENT: Unremarkable Respiratory: Unremarkable Cardiovascular: Unremarkable Gastrointestinal: Nausea, Vomiting, As per HPI Genitourinary: Dysuria, As per HPI Integumentary: Unremarkable Neurological: As per HPI Lymphatics: Unremarkable Physical Examination - Physical Exam General: Alert, In no apparent distress, Oriented x3, Cooperative HEENT: Atraumatic, Normocephalic, Other (Dry mucous membranes) Neck: Supple Respiratory: Clear to auscultation bilaterally, Normal air movement Cardiovascular: Normal pulses, Regular rate/rhythm Gastrointestinal: Normal bowel sounds, Soft and benign, Non-distended, No masses, No rebound, No guarding Musculoskeletal: Other (1 to 2+ pitting edema to the lower extremities bilateral) Integumentary: Other (1 to 2+ pitting edema to the lower extremities bilateral) Neurological: Normal speech, Normal strength at 5/5 x4 extr, Normal tone, Normal affect - Studies Laboratory Data (last 24 hrs) 03/05/21 11:45: WBC 9.40, Hgb 10.1 L, Hct 30.7 L, Plt Count 323 03/05/21 11:45: Sodium 136, Potassium 4.7, BUN 38 H, Creatinine 2.79 H, Glucose 96, Total Bilirubin 0.7, AST 37, ALT 26, Alkaline Phosphatase 80, Lipase 109 Assessment and Plan - Plan Impression: Nausea, vomiting with urinary complaints secondary to UTI with sepsis without evidence of severe sepsis or septic shock History of uterine cancer with carcinomatosis with prior chemotherapy Acute on chronic renal failure stage 4 History of hypertension History of DVT on Lovenox injections Chronic left-sided pleural effusion Chronic lymphedema Anemia of chronic disease Plan: Nausea, vomiting with urinary complaints secondary to UTI with sepsis without evidence of severe sepsis or septic shock: Patient will be admitted for further evaluation and treatment. No severe sepsis or septic shock noted at this time. Patient responding well to IV fluid bolus and IV fluids. Lactic acid within normal range. Pro calcitonin slightly elevated. Blood, urine cultures to be obtained. Will start Rocephin IV. Continue IV fluid maintenance. Continue DVT prophylaxis-Lovenox. Will need to obtain and verify home medication. Patient with history of hypertension. Will need make sure patient blood pressure medications will be on hold. Continue to monitor closely. Recheck chest x-ray tomorrow. Provide incentive spirometer. Maintain oxygen above 93%. Physical therapy to evaluate tomorrow. Will consult Nephrology to further evaluate her acute on chronic renal failure. Last chemotherapy was in [place]. Anticipate improvement over the next 72 hr. History of uterine cancer with carcinomatosis with prior chemotherapy: Has chemotherapy was in January. Patient sees Oncology in [place]. Acute on chronic renal failure stage 4: Nephrology consulted. Fluid bolus given with improvement in blood pressure. Lactic acid acid normal. Continue IV fluid maintenance. Will monitor closely. Will also give 1 dose of albumin. History of hypertension: Patient with history of hypertension. Will need to hold her medications at this time. History of DVT on Lovenox injections: Patient taking Lovenox injections for her DVT. Will need to continue with injections. Chronic left-sided pleural effusion: Patient with chronic left-sided pleural effusion. Patient on room-air. Will monitor this closely. Recheck chest x-ray tomorrow. Chronic lymphedema: Patient with chronic lymphedema. Will monitor closely. Anemia of chronic disease: Will monitor hemoglobin. Maintain hemoglobin above 7.0. Will obtain iron and B12 studies. Will provide thiamine and folic acid. DVT prophylaxis: Lovenox Code status: Full code Advance care planning-30 min: Patient wishes to go back home at discharge. Patient currently uses home health will need a continue with home health at discharge. Discharge Plan: Home Plan to discharge in: Greater than 2 days - Advance Directives Does patient have a Living Will: No Does patient have a Durable POA for Healthcare: No - Code Status/Comfort Care Code Status Assessed: Yes (Patient is full code) Time Spent Managing Pts Care (In Minutes): 55
[2021-03-05 18:33] LABS: Urine Blood 1+ (Negative); Urine Glucose Negative (Negative); Urine Protein 1+ (Negative); Urine Specific Gravity >=1.030 (1.005-1.030); Urine pH 5.5 (5.0-7.0)
[2021-03-05] MEDS ORDERED: ONDANSETRON 4 MG/2 ML VIAL ONE (18:55)
[2021-03-05] MEDS ORDERED: PANTOPRAZOLE 40 MG INJ ONE (19:13)
[2021-03-05] MEDS ORDERED: CEFTRIAXONE/SWI 1gm 1 GM/10 ML SYR ONE (19:13)
[2021-03-05] MEDS ORDERED: CEFTRIAXONE 1 GM/NS 50 ML 1 GM/50 ML BAG IV SCH (21:08)
[2021-03-05] MEDS ORDERED: ONDANSETRON 4 MG/2 ML VIAL IV PRN (21:08)
[2021-03-05] MEDS ORDERED: ACETAMINOPHEN 500 MG TAB PO PRN (21:08)
[2021-03-05] MEDS ORDERED: FAMOTIDINE 20 MG TAB PO ONE (22:00)
[2021-03-05] MEDS: CEFTRIAXONE/SWI 1gm 1 GM/10 ML SYR IV SCH (22:00)
[2021-03-05] MEDS: NA CHLORIDE 0.9% 1,000 ML IV SCH (22:20)
[2021-03-05 22:23] LABS: Ferritin 921.7 ng/mL (8-388)
[2021-03-05] MEDS: LACTOBACILLUS/ACIDOPHILUS TAB PO SCH (22:45)
[2021-03-06] MEDS ORDERED: NA CHLORIDE 0.9% 500 ML IV PRN ×4 (00:49→03:15)
[2021-03-06] MEDS: ONDANSETRON 4 MG/2 ML VIAL IV PRN ×3 (01:34→20:20)
[2021-03-06] MEDS ORDERED: PROMETHAZINE INJ 25 MG/ML AMP IV ONE (03:13)
[2021-03-06] MEDS: PROMETHAZINE INJ 25 MG/ML AMP IV PRN ×2 (04:45→21:57)
[2021-03-06] MEDS ORDERED: PROMETHAZINE INJ 25 MG/ML AMP ONE (05:01)
[2021-03-06 05:38] LABS: Absolute Lymphocytes (CBC) 1.4 K/uL (0.7-4.9); Basophils % 0.6 % (0-1.3); Hematocrit 34.5 % (36.0-45.0); Lymphocytes % 14.6 % (15.3-44.8); MPV 7.2 fL (7.6-11.3); RBC Red Blood Cell Count 4.47 M/uL (3.86-4.86)
[2021-03-06 05:59] LABS: Magnesium 1.7 mg/dL (1.8-2.4); Potassium 4.3 mmol/L (3.5-5.1); Thyroid Stimulating Hormone 3.29 uIU/mL (0.360-3.740)
--- NOTE | 2021-03-06 06:04 | P.PN ---
Subjective Date of Service: 03/06/21 Primary Care Provider: Dr. Garcia Chief Complaint: Nausea, vomiting Subjective: Other (Patient received her bolus of fluid in the ER and on the floor. BP remains low. Patient transferred to the ICU for closer monitoring.) Physical Examination - Vital Signs Temperature: 97.6 F Blood Pressure: 88/54 Pulse: 104 Respirations: 19 Pulse Ox (%): 94 - Studies Laboratory Data (last 24 hrs) 03/05/21 11:45: WBC 9.40, Hgb 10.1 L, Hct 30.7 L, Plt Count 323 03/05/21 11:45: Sodium 136, Potassium 4.7, BUN 38 H, Creatinine 2.79 H, Glucose 96, Total Bilirubin 0.7, AST 37, ALT 26, Alkaline Phosphatase 80, Lipase 109 Assessment & Plan Discharge Plan: Home Plan to discharge in: Greater than 2 days Physician Review Additional Text: Physical Exam: General: Patient alert, cooperative. HEENT: Atraumatic, Normocephalic, Other (Dry mucous membranes) Neck: Supple Respiratory: Clear to auscultation bilaterally, Normal air movement. Patient with Port-A-Cath in place to the right side. Cardiovascular: Normal pulses, Regular rate/rhythm Gastrointestinal: Normal bowel sounds, Soft and benign, Non-distended, No masses, No rebound, No guarding. Abdominal catheter noted. Musculoskeletal: Other (1 to 2+ pitting edema to the lower extremities bilateral) Integumentary: Other (1 to 2+ pitting edema to the lower extremities bilateral) Neurological: Normal speech, Normal strength at 5/5 x4 extr, Normal tone, Normal affect Impression: Nausea, vomiting with urinary complaints secondary to UTI vs Bacteremia vs other etiology with septic shock History of uterine cancer with carcinomatosis with prior chemotherapy Acute on chronic renal failure stage 4 History of hypertension History of DVT on Lovenox injections Chronic left-sided pleural effusion Chronic lymphedema Anemia of chronic disease Ascites with chronic abdominal catheter Plan: Nausea, vomiting with urinary complaints secondary to UTI vs bacteremia vs other etiology with septic shock: Patient now in ICU. Fluid bolus given last night. Will continue with aggressive IV fluids. Will give another L bolus now. Will also provide albumin. Will start Levophed to maintain map of 65. Will also give stress dose of hydrocortisone. Patient with Port-A-Cath. Will need to ob tain fluid from her abdominal catheter for analysis. Blood in urine cultures obtained. Patient on DVT prophylaxis. Case discussed with nephrology. Await recommendation. Surgery consulted for central line placement. Will consult pulmonology for critical care management. Case discussed in detail with pulmonology. Will continue to monitor closely. Advanced directives readdressed with patient. Patient desires to be full code. Condition critical. Patient and family understand current condition. History of uterine cancer with carcinomatosis with prior chemotherapy with Port- A-Cath and abdominal catheter: Has chemotherapy was in January. Patient sees Oncology in [place]. Patient with Port-A-Cath. Obtain fluid for analysis from abdomen. Acute on chronic renal failure stage 4: Continue as above. Await further recommendations from nephrology. History of hypertension: Patient with history of hypertension. Continue to hold blood pressure medication. Family reports she has not been taking medication for a while. History of DVT on Lovenox injections: Patient taking Lovenox injections for her DVT. Will need to continue with injections. Chronic left-sided pleural effusion: Patient with chronic left-sided pleural effusion. Patient on room-air. Will monitor this closely. Recheck chest x-ray . Chronic lymphedema: Patient with chronic lymphedema. Will monitor closely. Anemia of chronic disease: Will monitor hemoglobin. Maintain hemoglobin above 7.0. Will switch medication to IV. Ascites: Will obtain fluid from her abdominal catheter. Once her BP is better, then will need to remove some fluid. Fluid is taken out daily as per patient and sister. DVT prophylaxis: Lovenox Code status: Full code Advance care planning-30 min: Patient is full code. Time Spent Managing Pts Care (In Minutes): 60
[2021-03-06] MEDS ORDERED: VANCOMYCIN 1.5 GM in NA CHLORIDE 0.9% 500 ML IVPB SCH (06:29)
[2021-03-06] MEDS ORDERED: SODIUM CHLORIDE 0.9% 10ML INJ IV PRN (06:30)
[2021-03-06] MEDS ORDERED: NOREPINEPHRINE 4mg/D5W 250mL 4 MG/250 ML BAG IV ONE (06:33)
[2021-03-06] MEDS ORDERED: NA CHLORIDE 0.9% 500 ML IV ONE (06:37)
[2021-03-06] MEDS ORDERED: NA CHLORIDE 0.9% 1,000 ML ONE ×2 (06:40→07:59)
[2021-03-06] MEDS ORDERED: ALBUMIN HUM 5% 500 ML IV SCH (07:00)
[2021-03-06] MEDS: PANTOPRAZOLE 40 MG INJ IVP SCH ×2 (07:39→20:16)
[2021-03-06] MEDS: NA CHLORIDE 0.9% 1,000 ML IV SCH (07:39)
[2021-03-06] MEDS: CEFTRIAXONE/SWI 1gm 1 GM/10 ML SYR IV SCH (07:39)
[2021-03-06] MEDS: THIAMINE 200 MG/2 ML INJ IVP SCH (07:40)
[2021-03-06] MEDS ORDERED: THIAMINE 200 MG/2 ML INJ ONE (07:58)
[2021-03-06] MEDS ORDERED: ONDANSETRON 4 MG/2 ML VIAL ONE ×2 (07:58→20:29)
[2021-03-06] MEDS ORDERED: PANTOPRAZOLE 40 MG INJ ONE ×2 (07:59→20:30)
[2021-03-06] MEDS ORDERED: CEFTRIAXONE/SWI 1gm 1 GM/10 ML SYR ONE (07:59)
[2021-03-06 08:05] LABS: Anisocytosis 2+; Blood Morphology Comment NOTED (NOT SEEN); Platelet Estimate ADEQ
[2021-03-06] MEDS: NOREPINEPHRINE 4 MG in D5W 250 ML IV PRN ×3 (08:15→20:21)
[2021-03-06] MEDS ORDERED: HYDROCORTISONE SUC 100 MG INJ IV ONE (08:31)
[2021-03-06] MEDS ORDERED: FOLIC ACID 1 MG TABLET PO SCH (09:00)
[2021-03-06] MEDS: ENOXAPARIN 80 MG/0.8 ML SQ SCH (09:00)
[2021-03-06] MEDS ORDERED: THIAMINE HCL 100 MG TABLET PO SCH (09:00)
[2021-03-06] MEDS: LACTOBACILLUS/ACIDOPHILUS TAB PO SCH ×3 (09:00→20:16)
[2021-03-06] MEDS ORDERED: CEFEPIME 1 GM/VIAL IV SCH (09:00)
[2021-03-06] MEDS ORDERED: ENOXAPARIN 30 MG/0.3 ML SQ SCH (09:00)
--- NOTE | 2021-03-06 09:11 | RAD REPORT ---
EXAM DESCRIPTION: RAD - Chest Single View - 03/06/2021 6:55 am CLINICAL HISTORY: follow up left chronic pleural effusion Chest pain. COMPARISON: Chest Single View dated 03/05/2021; Chest Single View dated 06/08/2020 FINDINGS: Portable technique limits examination quality. Small left pleural effusion is present, unchanged. The lungs are otherwise grossly clear. The heart i s normal in size. Right-sided port catheter its tip in the SVC.
[2021-03-06] MEDS: WATER FOR INJ,STERILE 10 ML IV SCH (09:15)
[2021-03-06] MEDS: CEFEPIME/SWI 1gm 10 ML IV SCH (09:16)
[2021-03-06 09:24] LABS: Urine Bacteria >50 /HPF (<20)
--- NOTE | 2021-03-06 09:24 | P.CNS ---
Date of Consult: 03/06/21 Reason for Consult: PAUL/ CKD Requesting Physician: Angel Greenwood Primary Care Provider: Dr. Garcia Chief Complaint: Nausea, vomiting History of Present Illness: 70 yo BF CKD, Uterine cancer presents to the ER with several days of severe, progressive nausea and vomiting in the setting of carcinomatosis. She reports malaise, fatigue, weakness and dyspnea. 70-year-old female with history of chronic renal disease, chronic lymphedema, hypertension, uterine cancer with carcinomatosis and chronic pleural effusion. Patient presented to the emergency room with increasing nausea and vomiting. P atient has been dehydrated. Patient has had poor oral intake. Patient recently evaluated this past week an for similar issues. She was sent home. Since that time she has had poor oral intake. Increased nausea vomiting noted. She denies any fever, chills, no sick contacts noted. She denies any diarrhea. Some urinary discomfort noted. Some shortness of breath also reported. She denies any chest pain. She came to the ER for further evaluation. 11:35 This 70 yrs old Black Female presents to ER via Wheelchair with complaints of Vomiting. rn 11:35 The patient presents to the emergency department with nausea, vomiting. Onset: The rn symptoms/episode began/occurred at an unknown time. Possible causes: unknown. The symptoms are aggravated by nothing. The symptoms are alleviated by nothing. Severity of symptoms: At their worst the symptoms were moderate in the emergency department the symptoms are unchanged. The patient has experienced similar episodes in the past. The patient has been recently seen by a physician:. daughter and patient reports nausea/vomiting, dehydration and generalized weakness. No fever. Has not been able to get chemo since January. Noted low blood pressure since last week, seen here, sent home after IV hydration. No blood in emesis. Also reports mild SOB. Allergies No Known Allergies Allergy (Verified 01/03/19 17:08) Home medications list reviewed: Yes Home Medications: carvediloL [Coreg] 6.25 mg PO BID 01/03/19 Enoxaparin Sodium [Lovenox 80 MG INJ] 80 mg SQ DAILY 03/06/21 Ergocalciferol (Vitamin D2) [Vitamin D2] 50,000 units PO SEECOM 03/06/21 Famotidine [Pepcid] 20 mg PO DAILY 03/06/21 Hydralazine [Apresoline] 10 mg PO DAILYPRN PRN 03/06/21 Metoclopramide [Reglan] 5 mg PO QID 03/06/21 OLANZapine [Olanzapine] 2.5 mg PO Q6HP PRN 03/06/21 Sennosides/Docusate Sodium [Senexon-S 50-8.6 mg Tablet] 1 tab PO BID 03/06/21 dexAMETHasone [Dexamethasone] 1 mg PO DAILY 03/06/21 ondansetron HCL [Ondansetron HCl] 8 mg PO Q8HP PRN 03/06/21 - Past Medical/Surgical History Diabetic: No -: Chronic renal disease -: Uterine cancer with carcinomatosis -: History of DVT on Lovenox injections -: Hypertension -: Chronic lymphedema -: Hysterectomy -: Port-A-Cath placement Psychosocial/ Personal History: Patient is single. She has no children. She lives with her sisters - Family History Father Medical History: Lung disease, Cancer Mother Medical History: Hypertension, Diabetes - Social History Alcohol use: No CD- Drugs: No Caffeine use: Yes Place of Residence: Home Review of Systems 10-point ROS is otherwise unremarkable General: Weakness, Malaise Respiratory: Shortness of Breath Cardiovascular: Edema Gastrointestinal: Nausea Neurological: Weakness Physical Examination Temp Pulse Resp BP Pulse Ox 97.6 F 104 H 19 88/54 L 94 03/06/21 08:40 03/06/21 08:40 03/06/21 08:40 03/06/21 08:40 03/06/21 08:40 General: Oriented x3, Cooperative HEENT: Atraumatic Neck: Supple Respiratory: Diminished Cardiovascular: Regular rate/rhythm, Edema Gastrointestinal: Non-distended, No guarding Musculoskeletal: No clubbing, No contractures Integumentary: No rashes, No cyanosis Neurological: Normal speech Laboratory Data (last 24 hrs) 03/05/21 11:45: WBC 9.40, Hgb 10.1 L, Hct 30.7 L, Plt Count 323 03/05/21 11:45: Sodium 136, Potassium 4.7, BUN 38 H, Creatinine 2.79 H, Glucose 96, Total Bilirubin 0.7, AST 37, ALT 26, Alkaline Phosphatase 80, Lipase 109 Imagings Data: EXAM DESCRIPTION: RAD - Chest Single View - 03/06/2021 6:55 am CLINICAL HISTORY: follow up left chronic pleural effusion Chest pain. COMPARISON: Chest Single View dated 03/05/2021; Chest Single View dated 06/08/2020 FINDINGS: Portable technique limits examination quality. Small left pleural effusion is present, unchanged. The lungs are otherwise grossly clear. The heart is normal in size. Right-sided port catheter its tip in the SVC. EXAM DESCRIPTION: CT - Abdomen Pelvis Wo Contrast - 03/05/2021 1:23 pm CLINICAL HISTORY: Abdominal pain /vomiting COMPARISON: February 28, 2021 TECHNIQUE: Computed axial tomography of the abdomen and pelvis was obtained. IV and oral contrast were not requested. All CT scans are performed using dose optimization technique as appropriate and may include automated exposure control or mA/KV adjustment according to patient size. FINDINGS: The evaluation of solid organs, vessels and bowel is limited secondary to the lack of contrast administration. Small to moderate left pleural effusion. Mild left lower lobe atelectasis The liver, spleen, pancreas, adrenals and kidneys appear grossly normal. A catheter has its tip within the right lower quadrant. The amount of ascites has increased and is moderate. Mild omental thickening. Diffuse edema within the subcutaneous tissues. Air bubbles within the bladder. No evidence of diverticulitis. Hysterectomy. IMPRESSION: Small to moderate left pleural effusion Moderate ascites with mild omental thickening may indicate carcinomatosis. Air bubbles within the bladder presumably secondary to prior instrumentation. Infection can also result in this appearance Conclusions/Impression: PAUL in the setting of hypotension CKD with proteinuria and hematuria -No NSAIDs. -Maintain stanton at this time. AG Acidosis likely PAUL Hypomagnesemia -Monitor level Hypotension with possible septic shock -Recommend pressor therapy with norepi -Change IVF to LR -IVF bolus as needed -Albumin IV as needed for hypotension -Continue Cefepime and Vancomycin. Monitor Vancomycin level. -Follow up cultures Chronic Lymphedema Moderate malnutrition -Encourage nutrition as tolerated. Anemia in chronic illness Iron deficiency -Monitor H&H Malignancy of the endometrium Uterine cancer with carcinomatosis Malignant ascites Case reviewed with Dr. Greenwood. Greater than 30min patient care. Critical Care: Yes
[2021-03-06 09:25] LABS: Urine Amorphous Sediment 2+ /HPF (NONE SEEN); Urine Mucus LIGHT /HPF (NONE SEEN)
[2021-03-06] MEDS ORDERED: HYDROCORTISONE SUC 100 MG INJ ONE (09:32)
[2021-03-06] MEDS ORDERED: ENOXAPARIN 80 MG/0.8 ML SQ ONE (09:32)
[2021-03-06] MEDS ORDERED: WATER FOR INJ,STERILE 10 ML ONE (09:33)
[2021-03-06] MEDS ORDERED: Ringers Lactate 1,000 ML IV SCH (10:00)
[2021-03-06 10:34] LABS: Arterial Blood Carboxyhemoglob 0.7 % (0-1.5); Blood Gas Oxyhemoglobin 96.6 % (94-97); Blood O2 Saturation 98.5 % (92-98.5)
--- NOTE | 2021-03-06 12:14 | P.OP ---
Preoperative diagnosis: Need for Central Venous Access Postoperative diagnosis: Need for Central Venous Access Primary procedure: Placement of LEFT femoral Vein triple lumen central venous catheter Anesthesia: 1% lidocaine used Estimated blood loss: <5cc Specimen: none Findings: dark non-pulsatile blood returned Complications: None Transferred to: ICU Condition: Critical
[2021-03-06] MEDS: VANCOMYCIN 1.5 GM in NA CHLORIDE 0.9% 500 ML IVPB SCH (12:31)
[2021-03-06] MEDS: FOLIC ACID 1 MG in NA CHLORIDE 0.9% 50 ML IV SCH (12:40)
[2021-03-06] MEDS ORDERED: Ringers Lactate 1,000 ML IV ONE (13:00)
--- NOTE | 2021-03-06 14:42 | P.INFCA ---
Sepsis Focused Assessment - Focused Assessment Complete? Sepsis Focused Assessment Completed?: Yes - Sepsis Screen Result Severe Sepsis: Positive Septic Shock: Positive - Evaluation Current stage of sepsis: Septic shock Reason for ruling out sepsis: on Levophed. On IV Fluids, Got Albumin, Hydrocortisone, Antibiotics. - Vital Signs Reviewed: Yes Heart rate: 109 Blood Pressure: 114/83 Respiratory Rate: 19 - Examination Date exam was performed: 03/06/21 Time exam was performed: 10:00 Heart: Tachycardia Lungs: Clear bilaterally Peripheral pulses: 2+ Slightly diminished Peripheral pulse location: Radial Capillary refill: <2 Seconds Skin examination: Other (edema to the lower ext.)
--- NOTE | 2021-03-06 17:46 | P.CNS ---
Date of Consult: 03/06/21 Reason for Consult: Shock Primary Care Provider: Dr. Garcia Chief Complaint: Nausea, vomiting History of Present Illness: Age 70 CRF,Uterine cancer wit carcinomatosis aw nausea and vomiting, Poor oral intake. No fever or chills No diarhea, some SOB Pt is alert and responsive on levophed, Shock presumed septic Allergies No Known Allergies Allergy (Verified 01/03/19 17:08) Home Medications: carvediloL [Coreg] 6.25 mg PO BID 01/03/19 Enoxaparin Sodium [Lovenox 80 MG INJ] 80 mg SQ DAILY 03/06/21 Ergocalciferol (Vitamin D2) [Vitamin D2] 50,000 units PO SEECOM 03/06/21 Famotidine [Pepcid] 20 mg PO DAILY 03/06/21 Hydralazine [Apresoline] 10 mg PO DAILYPRN PRN 03/06/21 Metoclopramide [Reglan] 5 mg PO QID 03/06/21 OLANZapine [Olanzapine] 2.5 mg PO Q6HP PRN 03/06/21 Sennosides/Docusate Sodium [Senexon-S 50-8.6 mg Tablet] 1 tab PO BID 03/06/21 dexAMETHasone [Dexamethasone] 1 mg PO DAILY 03/06/21 ondansetron HCL [Ondansetron HCl] 8 mg PO Q8HP PRN 03/06/21 - Past Medical/Surgical History Diabetic: No -: Chronic renal disease -: Uterine cancer with carcinomatosis -: History of DVT on Lovenox injections -: Hypertension -: Chronic lymphedema -: Hysterectomy -: Port-A-Cath placement Psychosocial/ Personal History: Patient is single. She has no children. She lives with her sisters - Family History Father Medical History: Lung disease, Cancer Mother Medical History: Hypertension, Diabetes - Social History Alcohol use: No CD- Drugs: No Caffeine use: Yes Place of Residence: Home Review of Systems General: Weakness Respiratory: Shortness of Breath Gastrointestinal: Nausea, Vomiting Physical Examination Temp Pulse Resp BP Pulse Ox 98.2 F 115 H 21 H 91/76 98 03/06/21 16:00 03/06/21 17:00 03/06/21 17:00 03/06/21 17:00 03/06/21 16:00 General: Alert, In no apparent distress, Oriented x3 Respiratory: Clear to auscultation bilaterally Cardiovascular: Edema (3 plus edema of LE) Gastrointestinal: Normal bowel sounds, Soft and benign - Problems (1) Shock Current Visit: Yes Status: Acute Plan: Pt is 70 yrs of age with disseminated uterine cancer Aw Shock, Metabolic acidosis, microctic anemia A/C RF Doubt UTI small left sided effusionBlodd cultures so far neg CT abdomen ascites Cw fluid steroids and levophed
[2021-03-06] MEDS: HYDROCORTISONE SUC 100 MG INJ IV SCH (20:20)
[2021-03-06] MEDS ORDERED: METHYLPREDNISOLONE 40 MG INJ ONE (20:30)
[2021-03-06] MEDS ORDERED: FAMOTIDINE 20 MG TAB PO SCH (21:00)
[2021-03-06] MEDS: ENSURE HIGH PROTEIN 237 ML CAN PO SCH (21:00)
[2021-03-06] MEDS ORDERED: SODIUM BICARB 325 MG TAB PO ONE ×2 (21:35→23:58)
[2021-03-07 02:03] LABS: Urine Protein/Creatinine Ratio 2.35 ratio (<0.15)
[2021-03-07 03:35] LABS: Urine Appearance TURBID (Clear); Urine Blood 3+ (Negative); Urine Color ORANGE (Yellow); Urine Glucose NEGATIVE (Negative); Urine Protein 2+ (Negative); Urine pH 5.5 (5.0-7.0)
[2021-03-07 04:32] LABS: Urine Amorphous Sediment 1+ /HPF (NONE SEEN); Urine Bacteria >50 /HPF (<20); Urine Mucus 2+ /HPF (NONE SEEN); Urine RBC >50 /HPF (NONE SEEN)
[2021-03-07 06:26] LABS: Urine Bilirubin NEGATIVE (Negative)
--- NOTE | 2021-03-07 06:28 | P.PN ---
Subjective Date of Service: 03/07/21 Primary Care Provider: Dr. Garcia Chief Complaint: Nausea, vomiting Subjective: Other (Still on Levophed at 8 mcg/min. Vitals improved. Less nausea this am.) Physical Examination - Vital Signs Temperature: 96.9 F Blood Pressure: 81/69 Pulse: 111 Respirations: 17 Pulse Ox (%): 99 Assessment & Plan Discharge Plan: Home Plan to discharge in: Greater than 2 days Physician Review Additional Text: Physical Exam: General: Patient alert, cooperative. HEENT: Atraumatic, Normocephalic, Other (Dry mucous membranes) Neck: Supple Respiratory: Clear to auscultation bilaterally, Normal air movement. Patient with Port-A-Cath in place to the right side. Cardiovascular: Normal pulses, Regular rate/rhythm Gastrointestinal: Normal bowel sounds, Soft and benign, Non-distended, No masses, No rebound, No guarding. Abdominal catheter noted. Musculoskeletal: Other (1 to 2+ pitting edema to the lower extremities bilateral) Integumentary: Other (1 to 2+ pitting edema to the lower extremities bilateral) Neurological: Normal speech, Normal strength at 5/5 x4 extr, Normal tone, Normal affect Impression: Nausea, vomiting with urinary complaints secondary to UTI vs Bacteremia vs other etiology with septic shock History of uterine cancer with carcinomatosis with prior chemotherapy Acute on chronic renal failure stage 4 History of hypertension History of DVT on Lovenox injections Chronic left-sided pleural effusion Chronic lymphedema Anemia of chronic disease Ascites with chronic abdominal catheter Plan: Nausea, vomiting with urinary complaints secondary to UTI vs bacteremia vs other etiology with septic shock: Continue IV Levophed. Renal function worsened. Patient will likely require dialysis. Continue monitor closely. Await recommendations from nephrology and pulmonology. Will consult infectious disease for further recommendation. Spoke with pulmonology. Pulmonology recommends putting in doff off for feeding. Advanced directives readdressed with patient. Patient desires to be full code. Condition critical. Patient and family understand current condition. History of uterine cancer with carcinomatosis with prior chemotherapy with Port-A-Cath and abdominal catheter: Has chemotherapy was in January. Patient sees Oncology in [place]. Patient with Port-A-Cath. Obtain fluid for analysis from abdomen. Acute on chronic renal failure stage 4: Renal function worsening. If this persists patient will require dialysis. History of hypertension: Patient with history of hypertension. Continue to hold blood pressure medication. Family reports she has not been taking medication for a while. History of DVT on Lovenox injections: Patient taking Lovenox injections for her DVT. Will need to continue with injections. Chronic left-sided pleural effusion: Patient with chronic left-sided pleural effusion. Patient on room-air. Will monitor this closely. Recheck chest x-ray . Chronic lymphedema: Patient with chronic lymphedema. Will monitor closely. Anemia of chronic disease: Will monitor hemoglobin. Maintain hemoglobin above 7.0. Will switch medication to IV. Ascites: Will obtain fluid from her abdominal catheter. Once her BP is better, then will need to remove some fluid. Fluid is taken out daily as per patient and sister. DVT prophylaxis: Lovenox Code status: Full code Advance care planning-30 min: Patient is full code. Time Spent Managing Pts Care (In Minutes): 55
[2021-03-07 06:29] LABS: Absolute Lymphocytes (CBC) 0.3 K/uL (0.7-4.9); Basophils % 0.4 % (0-1.3); Hematocrit 29.6 % (36.0-45.0); Lymphocytes % 2.8 % (15.3-44.8); MPV 7.2 fL (7.6-11.3); RBC Red Blood Cell Count 3.88 M/uL (3.86-4.86)
[2021-03-07 06:57] LABS: Magnesium 1.6 mg/dL (1.8-2.4); Phosphorus 4.6 mg/dL (2.5-4.9); Potassium 4.8 mmol/L (3.5-5.1); Uric Acid 10.1 mg/dL (2.6-6.0)
--- NOTE | 2021-03-07 08:23 | RAD REPORT ---
EXAM DESCRIPTION: Marya Single View03/07/2021 6:48 am CLINICAL HISTORY: Shortness of breath COMPARISON: March 06 FINDINGS: No significant change in the small to moderate left pleural effusion with left basilar at electasis. Lungs appear clear of acute infiltrate. The heart is normal size. Central venous catheter remains in place
[2021-03-07] MEDS: NOREPINEPHRINE 4 MG in D5W 250 ML IV PRN ×2 (08:28→21:13)
[2021-03-07] MEDS: LACTOBACILLUS/ACIDOPHILUS TAB PO SCH ×4 (09:00→21:00)
[2021-03-07] MEDS: ENOXAPARIN 80 MG/0.8 ML SQ SCH (09:00)
[2021-03-07] MEDS: ENSURE HIGH PROTEIN 237 ML CAN PO SCH ×3 (09:00→21:00)
[2021-03-07] MEDS: THIAMINE 200 MG/2 ML INJ IVP SCH (09:00)
[2021-03-07] MEDS: SODIUM BICARB 325 MG TAB PO SCH ×2 (09:00→09:59)
[2021-03-07] MEDS: HYDROCORTISONE SUC 100 MG INJ IV SCH ×2 (09:57→21:08)
[2021-03-07] MEDS: CEFEPIME/SWI 1gm 10 ML IV SCH (09:58)
[2021-03-07] MEDS: FOLIC ACID 1 MG in NA CHLORIDE 0.9% 50 ML IV SCH (09:58)
[2021-03-07] MEDS: PANTOPRAZOLE 40 MG INJ IVP SCH ×2 (09:58→21:08)
[2021-03-07] MEDS: ONDANSETRON 4 MG/2 ML VIAL IV PRN ×2 (11:07→16:42)
--- NOTE | 2021-03-07 11:26 | P.PN ---
Date of Service: 03/07/21 Vital Signs Temp Pulse Resp BP Pulse Ox 97.6 F 111 H 18 92/60 97 03/07/21 08:00 03/07/21 08:45 03/07/21 08:45 03/07/21 08:45 03/07/21 08:45 Medications Acetaminophen (Acetaminophen 500 Mg Tab) 500 mg PO Q4HP PRN PRN Reason: TEMP > 101' F Enoxaparin Sodium (Enoxaparin 80 Mg/0.8 Ml) 80 mg SQ DAILY [facility] Last Admin: 03/07/21 09:00 Dose: 80 mg Documented by: Hydrocortisone Sodium Succinate (Hydrocortisone Suc 100 Mg Inj) 50 mg IV Q12HR [facility] Last Admin: 03/07/21 09:57 Dose: 50 mg Documented by: Folic Acid 1 mg/ Sodium (Chloride) 50.2 mls @ 200 mls/hr IV DAILY [facility] Last Admin: 03/07/21 09:58 Dose: 50.2 mls Documented by: Vancomycin HCl 1.5 gm/ Sodium (Chloride) 500 mls @ 250 mls/hr IVPB Q36H [facility]; Protocol Last Admin: 03/06/21 12:31 Dose: 500 mls Documented by: Norepinephrine Bitartrate 4 mg (/ Dextrose) 254 mls @ 0 mls/hr IV PRN PRN; Prot ocol PRN Reason: Hemodynamic Parameters Last Admin: 03/07/21 08:28 Dose: 254 mls Documented by: Cefepime HCl (Maxipime 1 Gm/10 Ml Ivp) 10 mls @ 200 mls/hr IV DAILY [facility] Last Admin: 03/07/21 09:58 Dose: 10 mls Documented by: Lactobacillus Acidoph/Bulgaricus (Lactobacillus/Acidophilus Tab) 1 tab PO TID [facility] Last Admin: 03/07/21 09:00 Dose: Not Given Documented by: Metoclopramide HCl (Metoclopramide 10 Mg/2ml Inj) 10 mg IV 1X [facility] Stop: 03/07/21 12:01 Last Admin: 03/07/21 11:10 Dose: 10 mg Documented by: Nutritional Formula (Ensure High Protein 237 Ml Can) 237 ml PO BID [facility] Last Admin: 03/07/21 09:00 Dose: 237 ml Documented by: Ondansetron HCl (Ondansetron 4 Mg/2 Ml Vial) 4 mg IV Q4H PRN PRN Reason: NAUSEA / VOMITING Last Admin: 03/07/21 11:07 Dose: 4 mg Documented by: Pantoprazole Sodium (Pantoprazole 40 Mg Inj) 40 mg IVP Q12HR [facility]; Protocol Last Admin: 03/07/21 09:58 Dose: 40 mg Documented by: Promethazine HCl (Promethazine Inj 25 Mg/Ml Amp) 12.5 mg IV Q4H PRN PRN Reason: NAUSEA / VOMITING Last Admin: 03/06/21 21:57 Dose: 12.5 mg Documented by: Sodium Bicarbonate (Sodium Bicarb 8.4% 50 Meq/50 Ml Syr) 50 ml IVP Q6H [facility] Sodium Chloride (Flush Normal Saline 10 Ml) 10 ml IV BID [facility] Last Admin: 03/07/21 10:00 Dose: 10 ml Documented by: Sodium Chloride (Sodium Chloride 0.9% 10ml Inj) 10 ml IV UD PRN PRN Reason: Diluant Last Admin: 03/07/21 09:58 Dose: 10 ml Documented by: Sterile Water (Water For Inj,Sterile 10 Ml) 2 ml IV UD [facility] Last Admin: 03/06/21 09:15 Dose: 2 ml Documented by: Thiamine HCl (Thiamine 200 Mg/2 Ml Inj) 100 mg IVP DAILY [facility] Last Admin: 03/07/21 09:00 Dose: 100 mg Documented by: Microbiology Results 03/05/21 12:10 Blood - Blood Aerobic Blood Culture - Preliminary No growth in 24 hours. 03/05/21 12:10 Blood - Blood Anaerobic Blood Culture - Preliminary No growth in 24 hours. 03/05/21 11:45 Blood - Blood Aerobic Blood Culture - Preliminary No growth in 24 hours. 03/05/21 11:45 Blood - Blood Anaerobic Blood Culture - Preliminary No growth in 24 hours. Assessment/ Plan: Nephrology No acute events overnight. N/V with oral intake. Still on pressor therapy. Vitals, medications, blood work and imaging reviewed in the chart. General: Oriented x3, Cooperative HEENT: Atraumatic Neck: Supple Respiratory: Diminished Cardiovascular: Regular rate/rhythm, Edema Gastrointestinal: Non-distended, No guarding Musculoskeletal: No clubbing, No contractures Integumentary: No rashes, No cyanosis Neurological: Normal speech Greater than 30min patient care. Laboratory Data (last 24 hrs) 03/05/21 11:45: WBC 9.40, Hgb 10.1 L, Hct 30.7 L, Plt Count 323 03/05/21 11:45: Sodium 136, Potassium 4.7, BUN 38 H, Creatinine 2.79 H, Glucose 96, Total Bilirubin 0.7, AST 37, ALT 26, Alkaline Phosphatase 80, Lipase 109 Imagings Data: EXAM DESCRIPTION: RAD - Chest Single View - 03/06/2021 6:55 am CLINICAL HISTORY: follow up left chronic pleural effusion Chest pain. COMPARISON: Chest Single View dated 03/05/2021; Chest Single View dated 06/08/2020 FINDINGS: Portable technique limits examination quality. Small left pleural effusion is present, unchanged. The lungs are otherwise grossly clear. The heart is normal in size. Right-sided port catheter its tip in the SVC. EXAM DESCRIPTION: CT - Abdomen Pelvis Wo Contrast - 03/05/2021 1:23 pm CLINICAL HISTORY: Abdominal pain /vomiting COMPARISON: February 28, 2021 TECHNIQUE: Computed axial tomography of the abdomen and pelvis was obtained. IV and oral contrast were not requested. All CT scans are performed using dose optimization technique as appropriate and may include automated exposure control or mA/KV adjustment according to patient size. FINDINGS: The evaluation of solid organs, vessels and bowel is limited secondary to the lack of contrast administration. Small to moderate left pleural effusion. Mild left lower lobe atelectasis The liver, spleen, pancreas, adrenals and kidneys appear grossly normal. A catheter has its tip within the right lower quadrant. The amount of ascites has increased and is moderate. Mild omental thickening. Diffuse edema within the subcutaneous tissues. Air bubbles within the bladder. No evidence of diverticulitis. Hysterectomy. IMPRESSION: Small to moderate left pleural effusion Moderate ascites with mild omental thickening may indicate carcinomatosis. Air bubbles within the bladder presumably secondary to prior instrumentation. Infection can also result in this appearance Conclusions/Impression: PAUL in the setting of hypotension likely ATN CKD with proteinuria and hematuria -No NSAIDs. -Maintain stanton at this time. AG Acidosis likely PAUL -Did not tolerate oral bicarb. Give IV bicarb X2. Hypomagnesemia -Monitor level Hypotension with possible septic shock -Continue pressor therapy with norepi; wean as tolerated -IVF bolus as needed -Albumin IV as needed for hypotension -Continue Cefepime and Vancomycin. Monitor Vancomycin level. -Follow up cultures Chronic Lymphedema Moderate malnutrition -Encourage nutrition as tolerated. Anemia in chronic illness Iron deficiency -Monitor H&H Malignancy of the endometrium Uterine cancer with carcinomatosis Malignant ascites
[2021-03-07] MEDS ORDERED: METOCLOPRAMIDE 10 MG/2mL INJ IV SCH (12:00)
[2021-03-07] MEDS: SODIUM BICARB 50 MEQ/50ML VIAL IV SCH ×2 (12:16→18:17)
[2021-03-07] MEDS: PROMETHAZINE INJ 25 MG/ML AMP IV PRN ×2 (12:35→18:01)
[2021-03-07] MEDS ORDERED: SODIUM BICARB 50 MEQ/50ML VIAL ONE ×2 (12:36→18:37)
[2021-03-07] MEDS ORDERED: PROMETHAZINE INJ 25 MG/ML AMP ONE (12:55)
--- NOTE | 2021-03-07 13:31 | CON ---
Date of Consultation: 03/07/2021 Brief History Of Present Illness: The patient is a 70-year-old female with a history of erp engineer juan renal disease, chronic lymphedema, hypertension, uterine cancer with peritoneal carcinomatosis, a nd chronic pleural effusions. She has been receiving intraperitoneal hyperthermic chemotherapy at [facility] and has presented here with significant dehydration and poor oral intake. She was evaluate d for similar symptoms before in the past and is now presented for the above stated complaints. Conc cici for sepsis as the patient is on pressor support, currently accessing her Port-A-Cath and has requ ested that I place a temporary triple-lumen catheter so that we do not need to access her port as suc h I am seeing the patient for the above stated issue. Past Medical History: As above. Includes chronic renal disease, uterine cancer with carcinomatosis, history of DVT, hypertension, chronic lymphedema. Past Surgical History: Includes hysterectomy, Port-A-Cath, abdominal catheter placed for intraperito shel[place] hyperthermic chemotherapy. Social History: She denies smoking, alcohol, recreational drug use. Review of Systems: Ten-point review of systems other than HPI, denies. Physical Examination: General: At the time of my examination, she is awake, but lethargic. She responds to questions appr opriately. Answers questions appropriately. She is oriented to person, place, time, and event. HEENT: She is otherwise normocephalic. Sclerae icteric. Mucous membranes are moist. Oropharynx is clear. Neck: Supple without JVD. Chest: Normal expansion and excursion. Cardiovascular: Tachycardic. She is currently on pressor support. Abdomen: Soft with a port coming out the right side consistent with intraperitoneal hyperthermic fabiano motherapy port. Her abdomen has mild global tenderness to palpation. No focal peritonitis, however. Extremities: She has significant edema in bilateral all 4 extremities, lower extremities greater aba n upper extremities, 2+ pitting edema. Laboratory Data: She had a laboratory exam, which revealed a white blood cell count of 9.4, hemoglob in is 11.1, hematocrit 34.5, platelet count was 351. She had 9 bands. Her sodium 140, potassium 4.3 , chloride 112, carbon dioxide 14, BUN 38, creatinine 2.5, glucose was 76. Her magnesium was 1.7. P rocalcitonin was 2.1. Assessment And Plan: This is a 70-year-old female, who comes in with septic shock of uncertain etiol ogy. I have explained the risks, benefits, and alternatives of placement of a triple-lumen hemodialy sis catheter including, but not limited to bleeding, infection, damage to surrounding tissues, need f or further operation and procedure. The patient agrees to proceed as indicated. SHERWIN/ABIEL Voice ID: [id number] Report ID: [id number]
[2021-03-07 13:38] LABS: White Blood Cell Scan OK (OK)
[2021-03-07 13:39] LABS: Anisocytosis 2+; Blood Morphology Comment NOTED (NOT SEEN); Platelet Estimate ADEQ
--- NOTE | 2021-03-07 14:05 | P.CNS ---
Date of Consult: 03/07/21 Primary Care Provider: Dr. Garcia Chief Complaint: Nausea, vomiting History of Present Illness: Patient is a 70-year-old female with a past medical history of chronic renal disease, chronic bilateral lower extremity lymphedema, hypertension, history ofuterine cancer, and chronic pleural effusion who presented to the emergency department due to nausea and vomiting. Per family patient has had increased in nausea and vomiting with decreased p.o. intake for about the past month. Per her sister patient has not been able to keep any food down. Patient had a barium swallow study performed [facility] which was negative for any acute abnormalities. No other further workup was completed. Blood cultures taken on 03/05 showed no growth, UA showed 5-10 WBC sees in urine as well as some bacteria, urine culture taken on 03/05 grew mixed tyra. Patient also has ascites and a fluid culture was obtained, is pending. Patient currently taking vancomycin and cefepime, patient also taking probiotic. Allergies No Known Allergies Allergy (Verified 01/03/19 17:08) Home Medications: carvediloL [Coreg] 6.25 mg PO BID 01/03/19 Enoxaparin Sodium [Lovenox 80 MG INJ] 80 mg SQ DAILY 03/06/21 Ergocalciferol (Vitamin D2) [Vitamin D2] 50,000 units PO SEECOM 03/06/21 Famotidine [Pepcid] 20 mg PO DAILY 03/06/21 Hydralazine [Apresoline] 10 mg PO DAILYPRN PRN 03/06/21 Metoclopramide [Reglan] 5 mg PO QID 03/06/21 OLANZapine [Olanzapine] 2.5 mg PO Q6HP PRN 03/06/21 Sennosides/Docusate Sodium [Senexon-S 50-8.6 mg Tablet] 1 tab PO BID 03/06/21 dexAMETHasone [Dexamethasone] 1 mg PO DAILY 03/06/21 ondansetron HCL [Ondansetron HCl] 8 mg PO Q8HP PRN 03/06/21 - Past Medical/Surgical History Diabetic: No -: Chronic renal disease -: Uterine cancer with carcinomatosis -: History of DVT on Lovenox injections -: Hypertension -: Chronic lymphedema -: Hysterectomy -: Port-A-Cath placement Psychosocial/ Personal History: Patient is single. She has no children. She lives with her sisters - Family History Father Medical History: Lung disease, Cancer Mother Medical History: Hypertension, Diabetes - Social History Alcohol use: No CD- Drugs: No Caffeine use: Yes Place of Residence: Home Review of Systems 10-point ROS is otherwise unremarkable Physical Examination Temp Pulse Resp BP Pulse Ox 98.6 F 137 H 15 90/73 98 03/07/21 12:00 03/07/21 12:45 03/07/21 12:45 03/07/21 12:45 03/07/21 12:45 General: Alert, Cachectic HEENT: Atraumatic, Normocephalic Neck: Supple, 2+ carotid pulse no bruit Respiratory: Clear to auscultation bilaterally, Normal air movement Cardiovascular: No edema, Normal pulses Capillary refill: <2 Seconds Gastrointestinal: Soft and benign Musculoskeletal: No clubbing, No swelling, No contractures Laboratory Last Values WBC 9.40 K/uL (4.3-10.9) 03/05/21 11:45 RBC 4.04 M/uL (3.86-4.86) 03/05/21 11:45 Hgb 10.1 g/dL (12.0-15.0) L 03/05/21 11:45 Hct 30.7 % (36.0-45.0) L 03/05/21 11:45 MCV 75.8 fL (80-100) L 03/05/21 11:45 MCH 25.1 pg (27.0-35.0) L 03/05/21 11:45 MCHC 33.1 g/dL (32.0-36.0) 03/05/21 11:45 RDW 22.7 % (12.1-15.2) H 03/05/21 11:45 Plt Count 323 K/uL (152-406) 03/05/21 11:45 MPV 7.0 fL (7.6-11.3) L 03/05/21 11:45 Neutrophils % TACKER OFF 03/05/21 11:45 Lymphocytes % TACKER OFF 03/05/21 11:45 Absolute Neutrophils TACKER OFF 03/05/21 11:45 Segmented Neutrophils 87 % (40-80) H 03/05/21 11:45 Absolute Lymphocytes TACKER OFF 03/05/21 11:45 Lymphocytes 8 % (15-42) L 03/05/21 11:45 Monocytes 5 % (0-10) 03/05/21 11:45 Absolute Monocytes TACKER OFF 03/05/21 11:45 Absolute Eosinophils TACKER OFF 03/05/21 11:45 Absolute Basophils TACKER OFF 03/05/21 11:45 Platelet Estimate Adeq 03/05/21 11:45 Hypochromasia 1+ 03/05/21 11:45 Anisocytosis 1+ 03/05/21 11:45 Microcytosis Slight 03/05/21 11:45 Morphology Comment Noted (NOT SEEN) 03/05/21 11:45 Sodium 136 mmol/L (136-145) 03/05/21 11:45 Potassium 4.7 mmol/L (3.5-5.1) 03/05/21 11:45 Chloride 108 mmol/L (98-107) H 03/05/21 11:45 Carbon Dioxide 17 mmol/L (21-32) L 03/05/21 11:45 BUN 38 mg/dL (7-18) H 03/05/21 11:45 Creatinine 2.79 mg/dL (0.55-1.3) H 03/05/21 11:45 Estimated GFR 20 mL/min (=/>90) L 03/05/21 11:45 Glucose 96 mg/dL (74-106) 03/05/21 11:45 Lactic Acid 1.2 mmol/L (0.4-2.0) 03/05/21 11:45 Calcium 9.2 mg/dL (8.5-10.1) 03/05/21 11:45 Total Bilirubin 0.7 mg/dL (0.2-1.0) 03/05/21 11:45 Direct Bilirubin 0.3 mg/dL (0-0.2) H 03/05/21 11:45 AST 37 U/L (15-37) 03/05/21 11:45 ALT 26 U/L (12-78) 03/05/21 11:45 Alkaline Phosphatase 80 U/L (45-117) 03/05/21 11:45 Serum Total Protein 6.3 g/dL (6.4-8.2) L 03/05/21 11:45 Albumin 2.2 g/dL (3.4-5.0) L 03/05/21 11:45 Globulin 4.1 g/dL (2.3-3.5) H 03/05/21 11:45 Albumin/Globulin Ratio 0.5 (1.1-1.8) L 03/05/21 11:45 Lipase 109 U/L (73-393) 03/05/21 11:45 Procalcitonin 0.25 ng/mL (<0.050) H 03/05/21 11:45 Urine RBC Cancelled 03/05/21 13:56 Urine WBC Cancelled 03/05/21 13:56 Ur Squamous Epith Cells Cancelled 03/05/21 13:56 Ur Urothelial Cells Cancelled 03/05/21 13:56 Calcium Oxalate Crystal Cancelled 03/05/21 13:56 Uric Acid Crystals Cancelled 03/05/21 13:56 Triple Phos Crystals Cancelled 03/05/21 13:56 Other Crystals Cancelled 03/05/21 13:56 Amorphous Sediment Cancelled 03/05/21 13:56 Glitter Cells Cancelled 03/05/21 13:56 Urine Bacteria Cancelled 03/05/21 13:56 Hyaline Casts Cancelled 03/05/21 13:56 Fine Granular Casts Cancelled 03/05/21 13:56 Coarse Granular Casts Cancelled 03/05/21 13:56 Waxy Casts Cancelled 03/05/21 13:56 RBC Casts Cancelled 03/05/21 13:56 WBC Casts Cancelled 03/05/21 13:56 Urine Mucus Cancelled 03/05/21 13:56 Urine Other Cancelled 03/05/21 13:56 Urine Trichomonas Cancelled 03/05/21 13:56 Urine Yeast Cancelled 03/05/21 13:56 Ur Yeast w Hyphae Cancelled 03/05/21 13:56 Urine Yeast (Budding) Cancelled 03/05/21 13:56 Urine Sperm Cancelled 03/05/21 13:56 Urine Culture Reflexed Cancelled 03/05/21 13:56 Urine Total Volume Cancelled 03/05/21 13:56 Conclusions/Impression: Antibiotics Vancomycin Start: 03/06 stop: -- Cefepime Start: 03/06 stop:-- Assessment: -UTI -nausea vomiting unable to tolerate p.o. intake -anemia -protein caloric malnutrition -CKD -history of uterine cancer Plan: -urinary analysis positive for bacteria WBCs, urine culture grew mixed tyra. Recommend the escalating from vancomycin cefepime to monotherapy with Rocephin. Continue IV antibiotics for duration of hospital stay. Continue antibiotics for 7 day course. Patient is on probiotic however unable to take renown due to inability to tolerate p.o intake. -per sister patient had a barium swallow performed at previous facility that was negative for any acute abnormalities. Patient still on able to tolerate p.o. intake and has severe nausea vomiting. Patient has well be a min and is dehydrated. Recommend GI consult with further upper GI workup. -medical management per primary team -continue monitor BMP and CMP -continue monitor for signs of infection Plan of care discussed with Dr. Roberts Thank you for consultation.
--- NOTE | 2021-03-07 16:16 | RAD REPORT ---
EXAM DESCRIPTION: US - Renal Ultrasound-Complete - 03/07/2021 3:45 pm CLINICAL HISTORY: acute on chronic renal failure Flank pain COMPARISON: No comparisons FINDINGS: Examination was very limited due to patient immobility. The right kidney measures 8.2 x 3.9 x 3.5 cm.. No hydronephrosis is seen. The kidney is mildly echoge juan. The left kidney could not be adequately seen. The urinary bladder is incompletely distended without gross abnormality seen. Mild ascites noted. IMPRESSION: Significantly limited study. The left kidney could not be visualized. Echogenic right kidney noted without hydronephrosis. This likely indicates underlying medical renal d isease.
[2021-03-07] MEDS ORDERED: NA CHLORIDE 0.9% 500 ML IV ONE (18:52)
--- NOTE | 2021-03-07 18:55 | OP ---
Date of Procedure: 03/06/2021 Surgeon: Rehan Jarrett MD, Preoperative Diagnosis: Need for central venous access. Postoperative Diagnosis: Need for central venous access. Procedure Performed: Placement of left femoral triple-lumen central venous catheter. Anesthesia: 1% lidocaine used. Estimated Blood Loss: Less 5 cc. Specimen: None. Findings: Dark nonpulsatile blood return. Complications: None. Disposition: The patient remained in ICU in critical condition throughout the procedure. Procedure In Detail: After informed was obtained, the patient was prepped and draped in the usual st erile fashion. After adequate anesthesia was achieved, an area of the left inguinal area was anesthe tized with 1% lidocaine and the cannulation needle was used to cannulate the left femoral vein. Wire was advanced at this point. The needle was removed using Seldinger technique. I then made a small sukhwinder incision overlying the insertion site and sequentially dilated up the tract using Seldinger tech nique and inserted the catheter at this point. Wire was removed. At this point, wire out was called . All 3 ports were then withdrew with dark red nonpulsatile blood return and were flushed with salin e at this point and the catheter was secured to the skin with the included nylon suture and a sterile dressing placed over top with a Biopatch. The patient tolerated the procedure well without evidence of complication and remained in the ICU in serious/critical condition. All counts were correct at the end of the case. TK/MODL Voice ID: [id number] Report ID: [id number]
[2021-03-07] MEDS ORDERED: ALBUMIN HUMAN 25% 100 ML IV ONE ×2 (20:00→21:16)
[2021-03-07] MEDS: VANCOMYCIN 1.5 GM in NA CHLORIDE 0.9% 500 ML IVPB SCH (21:10)
[2021-03-07] MEDS ORDERED: NA CHLORIDE 0.9% 500 ML ONE (21:15)
[2021-03-07] MEDS ORDERED: PANTOPRAZOLE 40 MG INJ ONE (21:16)
[2021-03-07] MEDS ORDERED: WATER FOR INJ,STERILE 10 ML ONE (21:17)
[2021-03-07] MEDS ORDERED: HYDROCORTISONE SUC 100 MG INJ ONE (21:17)
[2021-03-08] MEDS ORDERED: ONDANSETRON 4 MG/2 ML VIAL ONE ×2 (01:41→11:51)
[2021-03-08] MEDS: ONDANSETRON 4 MG/2 ML VIAL IV PRN ×2 (01:44→11:30)
[2021-03-08 06:17] LABS: Hematocrit 25.9 % (36.0-45.0); MPV 7.4 fL (7.6-11.3); RBC Red Blood Cell Count 3.43 M/uL (3.86-4.86)
[2021-03-08 06:18] LABS: Magnesium 1.7 mg/dL (1.8-2.4); Potassium 4.7 mmol/L (3.5-5.1)
--- NOTE | 2021-03-08 06:22 | P.PN ---
Subjective Date of Service: 03/08/21 Primary Care Provider: Dr. Garcia Chief Complaint: Nausea, vomiting Subjective: Other (Patient still with some nausea. Pulse was elevated. Patient found to have new onset atrial fibrillation. Overall improved. Patient on 1 ale of Levophed. Patient was given a bolus of fluid last night.) Physical Examination - Vital Signs Temperature: 98.7 F Blood Pressure: 101/64 Pulse: 113 Respirations: 18 Pulse Ox (%): 100 Assessment & Plan Discharge Plan: Home Plan to discharge in: Greater than 2 days Physician Review Additional Text: Physical Exam: General: Patient alert, cooperative. HEENT: Atraumatic, Normocephalic, Other (Dry mucous membranes) Neck: Supple Respiratory: Clear to auscultation bilaterally, Normal air movement. Patient with Port-A-Cath in place to the right side. Cardiovascular: A. fib rate around 110-1 20 Gastrointestinal: Normal bowel sounds, Soft and benign, Non-distended, No masses, No rebound, No guarding. Abdominal catheter noted. Musculoskeletal: Other (1 to 2+ pitting edema to the lower extremities bilateral) Integumentary: Other (1 to 2+ pitting edema to the lower extremities bilateral) Neurological: Normal speech, Normal strength at 5/5 x4 extr, Normal tone, Normal affect Impression: Nausea, vomiting with urinary complaints secondary to UTI vs Bacteremia vs other etiology with septic shock History of uterine cancer with carcinomatosis with prior chemotherapy Acute on chronic renal failure stage 4 New onset atrial fibrillation History of hypertension History of DVT on Lovenox injections Chronic left-sided pleural effusion Chronic lymphedema Anemia of chronic disease Ascites with chronic abdominal catheter Nausea vomiting suspect underlying GERD Moderate protein malnutrition with hypoalbuminemia Plan: Nausea, vomiting with urinary complaints secondary to UTI vs bacteremia vs other etiology with septic shock: Continue IV Levophed. We will try to wean off. Continue with cefepime and vancomycin. Continue with hydrocortisone. Renal function still compromised. Urine output poor. So far cultures negative, this includes abdominal fluid/urine/blood. Now with new onset atrial fibrillation. Spoke with cardiology. Cardiology to start IV amiodarone. Spoke with pulmonology yesterday. Will check CT scan of the abdomen to evaluate her nausea and vomiting. If unremarkable will start Dobbhoff and initiate oral feeds. Spoke with nephrology yesterday. Continue to try to wean off Levophed. If renal function continues to decline patient will require dialysis. Will discuss case with infectious disease on further recommendations. Spoke with patient and family at length yesterday. Prognosis is poor. Continue current measures. Patient and family still want everything done at this time. Patient remains full code. They understand her stage IV uterine cancer. If CT scan shows significant ascites will need to remove fluid from abdominal catheter. Continue to monitor closely. Continue to trend lab. History of uterine cancer with carcinomatosis with prior chemotherapy with Port-A-Cath and abdominal catheter: Patient last had chemotherapy in January. Carcinomatosis. Prognosis is poor. This was discussed in detail with family. Continue with above plan of care. Acute on chronic renal failure stage 4: Urinary output poor. Renal function continues to decline. If this continues patient will require dialysis. New onset atrial fibrillation: Spoke with cardiology. Cardiology recommends starting IV amiodarone since the patient is on Levophed. Patient already on Lovenox. History of hypertension: Patient with history of hypertension. Blood pressure medications currently on hold as the patient remains on Levophed. Family reports she has not been taking medication for a while. History of DVT on Lovenox injections: Patient taking Lovenox injections for her treatment of chronic DVT. Will need to continue with injections. Chronic left-sided pleural effusion: Maintain oxygen saturations. Recheck chest x-ray shows stability. Overall stable. Chronic lymphedema: Patient with chronic lymphedema. Will monitor closely. Continue with above plan of care. Anemia of chronic disease: Continue to monitor hemoglobin. Maintain hemoglobin above 7.5 Ascites: We will obtain CT scan. If still with the second of ascites will remove at least 1 L of fluid with albumin to be given. Nausea and vomiting suspect underlying GERD: We will recheck CT scan. Continue Protonix. Moderate protein malnutrition with hypoalbuminemia: Consider Dobbhoff with feeding DVT prophylaxis: Lovenox Code status: Full code Advance care planning-30 min: Patient is full code. Time Spent Managing Pts Care (In Minutes): 55
[2021-03-08] MEDS ORDERED: MAGNESIUM SULFATE 1 gm IVPB 1 GM/100 ML BAG IV ONE (06:41)
[2021-03-08] MEDS: SODIUM BICARB 50 MEQ/50ML VIAL IV SCH ×4 (07:08→17:15)
[2021-03-08] MEDS ORDERED: SODIUM BICARB 50 MEQ/50ML VIAL ONE ×3 (07:29→17:27)
[2021-03-08] MEDS: CEFEPIME/SWI 1gm 10 ML IV SCH (08:09)
[2021-03-08] MEDS: PANTOPRAZOLE 40 MG INJ IVP SCH ×2 (08:10→20:18)
[2021-03-08] MEDS: HYDROCORTISONE SUC 100 MG INJ IV SCH ×2 (08:10→20:18)
[2021-03-08] MEDS: LACTOBACILLUS/ACIDOPHILUS TAB PO SCH ×3 (08:11→20:19)
[2021-03-08] MEDS: ENSURE HIGH PROTEIN 237 ML CAN PO SCH ×2 (08:11→20:20)
[2021-03-08] MEDS: ENOXAPARIN 80 MG/0.8 ML SQ SCH (08:13)
[2021-03-08] MEDS: THIAMINE 200 MG/2 ML INJ IVP SCH (08:17)
[2021-03-08] MEDS ORDERED: ENOXAPARIN 80 MG/0.8 ML SQ ONE (08:25)
[2021-03-08] MEDS ORDERED: HYDROCORTISONE SUC 100 MG INJ ONE ×2 (08:25→20:23)
[2021-03-08] MEDS ORDERED: PANTOPRAZOLE 40 MG INJ ONE ×2 (08:25→20:22)
[2021-03-08] MEDS ORDERED: CEFEPIME/SWI 1gm 10 ML ONE (08:26)
[2021-03-08] MEDS ORDERED: THIAMINE 200 MG/2 ML INJ ONE (08:36)
[2021-03-08] MEDS: FOLIC ACID 1 MG in NA CHLORIDE 0.9% 50 ML IV SCH (08:42)
[2021-03-08] MEDS ORDERED: AMIODARONE HCL 150 MG in D5W 100 ML IV STA (08:43)
[2021-03-08] MEDS ORDERED: AMIODARONE HCL 900 MG in D5W 482 ML IV SCH (09:00)
[2021-03-08 10:52] LABS: Anisocytosis SLIGHT; Blood Morphology Comment NOTED (NOT SEEN); Hypochromasia 1+; Platelet Estimate ADEQ
--- NOTE | 2021-03-08 15:44 | PN ---
Subjective: The patient is seen at [facility] in emergency room hold. The patient is melisa rt, able to answer some questions. She does have oxygen in place. She does seem to be slightly shor t of breath when she speaks. Denies any pain currently. She is able to answer some questions if we get close to her and talk to her. I did tell her about her lab work, did discuss with her about her kidneys. She is agreeable to dialysis to remove toxins and then see if we can pull some fluid off an d correct her acid. I have also asked her if she wants me to call her sister. She stated she wanted me to call her sister. I have reached out to her sister, who also agrees to allowing us to dialyze the patient. I have also talked to Dr. Angel Greenwood to give him an update. The patient is currentl y looking very frail, in somewhat concerning condition. Her blood pressures are running in the 90 ra nge to 100 range. She has been in atrial fibrillation. She is getting amiodarone and her heart rate has been about 100-120. She is in atrial fibrillation. She is on some oxygen. Her leg swelling se ems to have gotten worse. She has significant positive 3 to 4+ pitting edema in the lower extremitie s. Her urine output is significantly dropped. She continues to have metabolic acidosis despite gett ing 2 boluses of bicarb. Her urine output yesterday was about 300 cc while she got about 1200 cc of input and she was positive 900 cc. This morning she has had urine output only about 90 cc over the l ast 12 hours as per the nurse. The patient is able to talk to me and answer some questions, but unab le to talk comfortably in a long conversation because she gets short of breath. Laboratory Data: Her hemoglobin is 8.8, hematocrit 25.9, WBC count 9.1, platelet count of 228. Chem istry shows sodium 140, potassium 4.7, chloride 111, bicarb is 17. Bicarb yesterday was 15, before t hat was 14. Her creatinine has been going up, 2 days ago was 2.58, yesterday was 3.06, today is 3.37 . Her magnesium level is about 1.7. Her proBNP is . Her prolactin is at 2.12. Her TSH is 3.2 , and free T4 is 1.3. Her urine is turbid, does show some RBCs, some WBCs. Her microbiology for the urine only showed mixed tyra and no particular organism. Her condition overall seems guarded with the patient requiring pressor support right now to stabilize her blood pressure with urine output dropping to almost anuric with only 90 cc over the last 12 hour s and her developing some shortness of breath and having more swelling with blood pressure still stay ing on the lower side with metabolic acidosis. At this point, the patient's breathing is relatively comfortable. She is on minimal oxygen and able to sit in the mid-to-high 90s. Assessment/plan: Acute kidney injury, chronic kidney disease, question hypotension, question etiolog y. The patient is currently with slight volume overload, but making minimal urine. The patient is o n bicarb boluses, but unable to correct her bicarb appropriately. She has had a history of chronic k idney disease, but the creatinine is worsening now. Her urine output is dropping. I think the patie nt is worsening with declining renal function. Discussed dialysis option with the patient and her si ster, also discussed this with Dr. Angel Greenwood. 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 However, at this point, the patient's condition is such that she is very frail. She is on pressor support. She is getting b icarb boluses despite that her metabolic acidosis is not correcting. She is also not making much uri ne and in fact she is anuric. We will attempt to put in a dialysis catheter tomorrow morning over and then plan to dialyze her following that for 2 hours, we may require albumin and/or estrella itol support. We will also try to judiciously remove fluid, perhaps only 500 cc on the first treatme nt. If the patient tolerates dialysis well, may treat her with a couple of more treatments and then assess for plan ongoing. The patient's condition is very frail and dialysis is in itself holds risk and she may not tolerate this or may not be able to be dialyzed because of low blood pressures. She may also have a difficult situation getting the catheter in, may have bleeding and other risks. I pompa ve explained this to the sister, but I think that trying dialysis at this point is beneficial and not doing anything while her condition declines would mean that the patient may not be able to last too long given her condition declining with renal failure, fluid overload, and becoming anuric in the setting of metabolic acidosis. /ABIEL Voice ID: [id number] Report ID: [id number]
[2021-03-08] MEDS ORDERED: D5W 1,000 ML with NA BICARB 8.4% 150 MEQ IV SCH ×2 (17:00)
[2021-03-08] MEDS ORDERED: SOD BICARB 8.4% PEDI 10 mEq/10 mL SYR IVP ONE (17:27)
[2021-03-08] MEDS ORDERED: D5W 1,000 ML IV ONE (17:28)
[2021-03-09] MEDS: SODIUM BICARB 50 MEQ/50ML VIAL IV SCH
[2021-03-09] MEDS: PROMETHAZINE INJ 25 MG/ML AMP IV PRN (04:07)
[2021-03-09] MEDS ORDERED: PROMETHAZINE INJ 25 MG/ML AMP ONE (04:24)
[2021-03-09 05:15] LABS: Hematocrit 25.3 % (36.0-45.0); RBC Red Blood Cell Count 3.35 M/uL (3.86-4.86)
[2021-03-09 05:20] LABS: Protime INR 1.11
[2021-03-09 05:55] LABS: Magnesium 1.8 mg/dL (1.8-2.4); Potassium 4.4 mmol/L (3.5-5.1)
--- NOTE | 2021-03-09 06:20 | P.PN ---
Subjective Date of Service: 03/09/21 Primary Care Provider: Dr. Garcia Chief Complaint: Nausea, vomiting Subjective: Other (Still on Levophed 2 mcg/min with BP stable. Still in A fib but rate better controlled On Amiodarone IV. Will get hemodialysis catheter placed today. Still with nausea likely from uremia.) Physical Examination - Vital Signs Temperature: 97 F Blood Pressure: 107/86 Pulse: 90 Respirations: 20 Pulse Ox (%): 95 Assessment & Plan Discharge Plan: Other (Skilled facility) Plan to discharge in: Greater than 2 days Physician Review Additional Text: Physical Exam: General: Patient alert, cooperative. HEENT: Atraumatic, Normocephalic, Other (Dry mucous membranes) Neck: Supple Respiratory: Clear to auscultation bilaterally, Normal air movement. Patient with Port-A-Cath in place to the right side. Cardiovascular: A. fib rate around 110-1 20 Gastrointestinal: Normal bowel sounds, Soft and benign, Non-distended, No masses, No rebound, No guarding. Abdominal catheter noted. Musculoskeletal: Other (1 to 2+ pitting edema to the lower extremities bilateral) Integumentary: Other (1 to 2+ pitting edema to the lower extremities bilateral) Neurological: Normal speech, Normal strength at 5/5 x4 extr, Normal tone, Normal affect Impression: Nausea, vomiting with urinary complaints secondary to UTI vs Bacteremia vs other etiology with septic shock History of uterine cancer with carcinomatosis with prior chemotherapy Acute on chronic renal failure stage 4 New onset atrial fibrillation History of hypertension History of DVT on Lovenox injections Chronic left-sided pleural effusion Chronic lymphedema Anemia of chronic disease Ascites with chronic abdominal catheter Nausea vomiting suspect underlying GERD Moderate protein malnutrition with hypoalbuminemia Plan: Nausea, vomiting with urinary complaints secondary to UTI vs bacteremia vs other etiology with septic shock: Continue IV Levophed. Will try to wean off. Continue with cefepime and vancomycin. Continue with hydrocortisone. Renal function still compromised. Urine output poor. Case discussed at length with nephrology yesterday. Nephrology recommends initiation of hemodialysis. Hemodialysis catheter to be placed today. Anticipate improvement with dialysis. Patient remains in A. fib. Continue IV amiodarone. Spoke with nephrology about long-term placement. Nephrology hopes that the patient will improve with dialysis and can be transitioned to a skilled placement. Patient may require long-term dialysis. Continue to monitor closely. Hopefully nausea will also improve. If not patient will need Dobbhoff with nutrition. Care discussed with family. They agree with plan of care. I will turn the service over to the ospitalist team tomorrow. I will go plan of care with him. History of uterine cancer with carcinomatosis with prior chemotherapy with Port-A-Cath and abdominal catheter: Patient last had chemotherapy in January. Carcinomatosis. Prognosis is poor. This was discussed in detail with family. Continue with above plan of care. Acute on chronic renal failure stage 4: Urinary output poor. Renal function continues to decline. Patient to have dialysis catheter placed and start dialysis. Patient will likely require chronic dialysis. New onset atrial fibrillation: Spoke with cardiology. Continue with IV amiodarone. This will be transitioned to oral medication once stable. Continue Lovenox. History of hypertension: Patient with history of hypertension. Blood pressure medications currently on hold as the patient remains on Levophed. Family reports she has not been taking medication for a while. History of DVT on Lovenox injections: Patient taking Lovenox injections for her treatment of chronic DVT. Will need to continue with injections. Chronic left-sided pleural effusion: Maintain oxygen saturations. Recheck chest x-ray shows stability. Overall stable. Chronic lymphedema: Patient with chronic lymphedema. Will monitor closely. Continue with above plan of care. Anemia of chronic disease: Continue to monitor hemoglobin. Maintain hemoglobin above 7.5 Ascites: Overall stable. Will monitor closely. Nausea and vomiting suspect underlying GERD: Will recheck CT scan if this persists. Suspect nausea vomiting related to uremia. Hopefully this will improve with dialysis. Will need to consider Dobbhoff. Continue Protonix. Moderate protein malnutrition with hypoalbuminemia: Consider Dobbhoff with fee mikey DVT prophylaxis: Lovenox Code status: Full code Advance care planning-30 min: Patient is full code. Time Spent Managing Pts Care (In Minutes): 55
[2021-03-09] MEDS ORDERED: HEPARIN 5000 UNIT/ML 1 ML VIAL ONE (06:33)
[2021-03-09] MEDS ORDERED: NS 0.9% VIAL 30 ML ONE (06:34)
[2021-03-09] MEDS: VANCOMYCIN 1.5 GM in NA CHLORIDE 0.9% 500 ML IVPB SCH ×2 (08:00→08:17)
[2021-03-09] MEDS: HYDROCORTISONE SUC 100 MG INJ IV SCH ×2 (08:16→20:24)
[2021-03-09] MEDS: THIAMINE 200 MG/2 ML INJ IVP SCH (08:16)
[2021-03-09] MEDS: ENOXAPARIN 80 MG/0.8 ML SQ SCH (08:16)
[2021-03-09] MEDS: LACTOBACILLUS/ACIDOPHILUS TAB PO SCH ×3 (08:17→19:40)
[2021-03-09] MEDS: FOLIC ACID 1 MG in NA CHLORIDE 0.9% 50 ML IV SCH (08:17)
[2021-03-09] MEDS: CEFEPIME/SWI 1gm 10 ML IV SCH (08:17)
[2021-03-09] MEDS: ENSURE HIGH PROTEIN 237 ML CAN PO SCH ×2 (08:18→19:40)
[2021-03-09] MEDS: PANTOPRAZOLE 40 MG INJ IVP SCH ×2 (08:22→20:23)
[2021-03-09] MEDS ORDERED: VANCOMYCIN/NS 1 gm 1 GM/250 ML BAG IVPB SCH (08:30)
[2021-03-09] MEDS ORDERED: ENOXAPARIN 80 MG/0.8 ML SQ ONE (08:31)
[2021-03-09] MEDS ORDERED: THIAMINE 200 MG/2 ML INJ ONE (08:31)
[2021-03-09] MEDS ORDERED: HYDROCORTISONE SUC 100 MG INJ ONE ×2 (08:31→20:40)
[2021-03-09] MEDS ORDERED: CEFEPIME/SWI 1gm 10 ML ONE (08:32)
[2021-03-09] MEDS ORDERED: WATER FOR INJ,STERILE 10 ML ONE (08:32)
[2021-03-09] MEDS ORDERED: PANTOPRAZOLE 40 MG INJ ONE ×2 (08:42→20:40)
[2021-03-09 12:42] LABS: Platelet Estimate ADEQ
[2021-03-09 12:43] LABS: Anisocytosis 1+; Blood Morphology Comment NOTED (NOT SEEN); Hypochromasia 2+; Target Cells 1+
[2021-03-09] MEDS: ONDANSETRON 4 MG/2 ML VIAL IV PRN ×2 (13:16→18:03)
[2021-03-09] MEDS ORDERED: ONDANSETRON 4 MG/2 ML VIAL ONE ×2 (13:21→18:24)
--- NOTE | 2021-03-09 16:12 | RAD REPORT ---
EXAM DESCRIPTION: USExtrem Venous W Compress Bil03/09/2021 3:05 pm CLINICAL HISTORY: Leg swelling COMPARISON: none FINDINGS: Echogenic material consistent with acute thrombus is present within the right common femor al, right greater saphenous and right popliteal veins. Evaluation portions of the right superficial femoral vein limited secondary to overlying tape. The left common femoral, superficial femoral, and left popliteal veins bilaterally are compressible a nd demonstrate augmentation. Doppler demonstrates good flow. IMPRESSION: Acute thrombus within the right common femoral, right greater saphenous and right poplit eal veins
--- NOTE | 2021-03-09 16:14 | RAD REPORT ---
EXAM DESCRIPTION: US - UPPER EXTREMITY VENOUS UNILATE - 03/09/2021 3:05 pm CLINICAL HISTORY: Left arm pain COMPARISON: None. FINDINGS: Left internal jugular vein, left subclavian vein,, left brachial vein, left ulnar and left radial veins demonstrate phasic signal. The veins are compressible. Doppler demonstrates good flow. Suboptimal evaluation of left axillary, left basilic and left cephalic veins. No gross thrombus visua lized IMPRESSION: No sonographic evidence of thrombus involving the left upper extremity veins.
--- NOTE | 2021-03-09 19:42 | PN ---
Date of Progress Note: 03/09/2021 Patient seen in emergency room hold 9 at [facility]. Subjective: The patient is alert, able to answer some questions. She is on minimal oxygen about 2 L . She is breathing comfortably. Her O2 sats are in mid 90s currently. She is denying any discomfor t, but she is having some mild nausea now. She has had about less than 50 cc of urine overnight. Roland moncada is getting currently antibiotics with Maxipime. She is also getting amiodarone. She has also been given some albumin earlier, but not since yesterday. She has been on Levophed drip. She is getting pressors currently also and blood pressure has been stable, but in frail condition at about high 90s . She does have significant swelling in the lower extremities. According to the family, does have h istory of clots in the lower extremities. She has some worsening of her creatinine from 3.37 yesterd ay to 3.58. This is expected given the fact the patient is hardly making any urine at this point. H er hemoglobin is 8.6, hematocrit is 25.3. She does not seem to be having any active bleeding. Her b icarb has improved significantly to 23 from 17 yesterday. The bicarb drip, which was very gentle at about 50 cc an hour has been stopped now. She has had about a liter with 3 amps of bicarb. Her vanc omycin trough came back at about 25.4, so she has adequately covered there. The patient does not com plain of any pain, but she is having some ongoing nausea. I discussed with Dr. Rosen the surgeon earlier. They were planning her catheter placement given her frail condition pressor use. There may be a need for taking her to the OR. They also need to evaluate with ultrasounds her neck area on th e left side. She has a port on the right side that she has had for giving her chemotherapy for uteri ne cancer in the past. She has that port still in place, so the only location that the surgeon wants to would be considering for neck catheter placement will be the right IJ or the right subclavian. T he groin areas would be not preferable given high risk of infection, but if we do not have another ch oice it would be important to know those options, however, given her clots in the lower extremities t here could be a bad outcome if a clot is pushed forward while the catheter is being placed. Surgeon is aware of all this and due to those reasons he is wanting to check an ultrasound of these areas to better decide how and when to place the catheter. Given the fact that we are doing these evaluations the catheter will likely not get placed until tomorrow assuming there is a site the surgeon is able to find to do the catheter. If the surgeon is unable to find the site and the catheter cannot be vero rod then we would have to have discussions with the family for next steps. The patient is in frail c ondition and quite ill. She is developing some nausea, which could be related to her renal function worsening. She is volume overloaded, but stable at this point. She has low blood pressures with pre ssors. We have discussed the plan with the patient, who is able to understand and give some answers and she is agreeable to dialysis. I have talked to also the sisters and they are agreeable, but at t his point we are trying to see if we can get the catheter placed safely so dialysis can then be pursu ed. Objective: Vital Signs: Blood pressure around 90 systolic. The patient is afebrile. Pulse is arou nd 80-90 now and improved compared to yesterday. Lungs: Clear anteriorly. She has decreased breath sounds at the bases. Abdomen: Soft. Extremities: Reveal positive 3 edema bilaterally. Neurologic: The patient has significant weakness and inability to move much without assistance. Laboratory Data: Reviewed. Hemoglobin 8.6, hematocrit 25.3, WBC 8.9, platelet count of 191. Chemis tries show sodium 141, potassium 4.4, chloride 108, bicarb is 23, BUN 51, creatinine 3.58. Estimated GFR based on this lab work is 15, but this is incorrect as this is an unstable unsteady creatinine s ituation where the creatinine is going up and her GFR is likely close to 0, as she is not making any urine. Her creatinine was 3.06 on , on it was 3.37, on today it is 3.58, magnesium bre sonable at 1.8. Her proBNP on the was 19,967. Pro-calcitonin was 2.12. Assessment And Plan: The patient with very frail condition, question sepsis, question hypotension re lated to worsening renal function and metabolic acidosis. The patient is somewhat stable in the sett ing of paroxysmal atrial fibrillation, has been started on amiodarone. Currently, she is also on ant icoagulation, has been getting Lovenox, has a history of uterine cancer. She has volume overload now . She is almost anuric and is awaiting evaluation assessment for catheter placement if dialysis cath eter can be placed. We will pursue dialysis after that carefully and judiciously. Family is aware t hat even if all these maneuvers are successfully done, the patient's condition is quite critical. I have advised them also to contact other family members and let them know if they want to come and charity t the family and then patient to spend time with her. We will try to get catheter placed if this is possible depending on ultrasound results. If catheter is placed, we will attempt to dialyze her and see if she is able to tolerate dialysis. Given her low blood pressure and pressor support, this woul d in general be challenging and then patient and the family does understand. /ABIEL Voice ID: [id number] Report ID: [id number]
[2021-03-10] MEDS ORDERED: NOREPINEPHRINE 4mg/D5W 250mL 0 MG/0 ML BAG IV ONE ×2 (00:05→22:04)
[2021-03-10 05:25] LABS: Magnesium 1.9 mg/dL (1.8-2.4); Potassium 4.4 mmol/L (3.5-5.1)
[2021-03-10 05:33] LABS: Absolute Lymphocytes (CBC) 0.3 K/uL (0.7-4.9); Basophils % 0.5 % (0-1.3); Lymphocytes % 3.7 % (15.3-44.8); MPV 7.2 fL (7.6-11.3); RBC Red Blood Cell Count 3.33 M/uL (3.86-4.86)
[2021-03-10] MEDS ORDERED: PROMETHAZINE INJ 25 MG/ML AMP ONE ×2 (05:47→20:35)
[2021-03-10] MEDS: PANTOPRAZOLE 40 MG INJ IVP SCH ×2 (08:44→20:23)
[2021-03-10] MEDS: THIAMINE 200 MG/2 ML INJ IVP SCH (08:44)
[2021-03-10] MEDS: HYDROCORTISONE SUC 100 MG INJ IV SCH ×2 (08:44→20:24)
[2021-03-10] MEDS: WATER FOR INJ,STERILE 10 ML IV SCH (08:44)
[2021-03-10] MEDS: CEFEPIME/SWI 1gm 10 ML IV SCH (08:45)
[2021-03-10] MEDS: LACTOBACILLUS/ACIDOPHILUS TAB PO SCH ×3 (08:45→20:24)
[2021-03-10] MEDS: ENSURE HIGH PROTEIN 237 ML CAN PO SCH ×2 (08:46→19:36)
[2021-03-10] MEDS ORDERED: HYDROCORTISONE SUC 100 MG INJ ONE ×2 (09:03→20:35)
[2021-03-10] MEDS ORDERED: WATER FOR INJ,STERILE 10 ML ONE ×2 (09:04→20:36)
[2021-03-10] MEDS ORDERED: THIAMINE 200 MG/2 ML INJ ONE (09:04)
[2021-03-10] MEDS ORDERED: PANTOPRAZOLE 40 MG INJ ONE ×2 (09:04→20:35)
[2021-03-10] MEDS ORDERED: HEPARIN 5000 UNIT/ML 1 ML VIAL ONE (09:36)
[2021-03-10] MEDS ORDERED: NS 0.9% VIAL 10 ML ONE (09:36)
[2021-03-10] MEDS ORDERED: NA CHLORIDE 0.9% 100 ML IV ONE (09:37)
[2021-03-10] MEDS ORDERED: NA CHLORIDE 0.9% 500 ML ONE (09:40)
[2021-03-10] MEDS ORDERED: FENTANYL CITR 100 MCG/2 ML ONE (09:56)
[2021-03-10] MEDS ORDERED: propofoL 200 MG/20 ML VIAL IV ONE (09:56)
[2021-03-10] MEDS ORDERED: LIDOCAINE 1% MPF 5 ML VIAL ONE (09:56)
[2021-03-10] MEDS ORDERED: ONDANSETRON 4 MG/2 ML VIAL ONE ×3 (10:08→23:53)
[2021-03-10] MEDS ORDERED: MANNITOL 25% 12.5 GM/50 ML VIAL IV PRN (10:55)
[2021-03-10] MEDS ORDERED: ALBUMIN HUMAN 25% 50 ML IV SCH (11:00)
[2021-03-10] MEDS ORDERED: ROCURONIUM 50 MG/5 ML VIAL IV ONE (11:04)
[2021-03-10] MEDS ORDERED: SUCCINYLCHOLINE 20 MG/ML (10 ML) IV ONE (11:11)
[2021-03-10] MEDS ORDERED: ETOMIDATE 20 MG/10 ML VIAL IV ONE (11:35)
[2021-03-10] MEDS ORDERED: SUGAMMADEX SODIUM 200 MG/2 ML VIAL IV ONE (11:36)
--- NOTE | 2021-03-10 11:36 | P.BOP ---
Preoperative diagnosis: ESRD, uterine cancer, carcinomatosis on chemotx, DVT of anticoagulation Postoperative diagnosis: same Primary procedure: 1. Placement of LEFT jugular Vein hemodialysis tunneled catheter Secondary procedure: 2. Interpretation of fluoroscopy Other procedure(s): 3. Left jugular vein ultrasound Estimated blood loss: <10cc Specimen: none Findings: as above Anesthesia: General Complications: None Implants: Hemosplit Transferred to: ICU Condition: Critical
[2021-03-10] MEDS ORDERED: NS 0.9% VIAL 20 ML ONE (11:37)
--- NOTE | 2021-03-10 11:51 | RAD REPORT ---
EXAM DESCRIPTION: RAD - Fluoroscopy <1 Hour - 03/10/2021 11:40 am CLINICAL HISTORY: Venous catheter insertion. HD CATH PLACEMENT COMPARISON: No comparisons FINDINGS: Fluoroscopic imaging is submitted from placement of a venous catheter. Details of the pro cedure not available. Fluoroscopy time: 0.6 minutes.
--- NOTE | 2021-03-10 12:07 | PN ---
Date of Progress Note: 03/09/2021 Subjective: Ms. Vance is 70, was admitted with sepsis and UTI. I was consulted because of atrial fibrillation. We started IV amiodarone yesterday at 400 b.i.d. Her rate now is 80. She remains in atrial fibrillation. I would switch her to 400 mg p.o. b.i.d. amiodarone for 7 days and then 200 mg daily. Echocardiogram is pending for Wednesday. Her other issues including hypertension, DVT, lymphede ma, gastroesophageal reflux disease, and uterine cancer stage IV are stable. I will continue to foll ow. EBER/ABIEL Voice ID: [id number] Report ID: [id number]
--- NOTE | 2021-03-10 12:19 | RAD REPORT ---
EXAM DESCRIPTION: RAD - Chest Single View - 03/10/2021 12:13 pm CLINICAL HISTORY: S/P HD CATH PLACEMENT Chest pain. COMPARISON: Chest Single View dated 03/07/2021; Chest Single View dated 03/06/2021; Chest Single View dated 03/05/2021; Chest Single View dated 06/08/2020 FINDINGS: Portable technique limits examination quality. Right port catheter and left-sided dialysis catheter are in place. Tip of both catheters appear in th e SVC near the right atrial junction region. No pneumothorax seen. IMPRESSION: No postprocedure pneumothorax.
[2021-03-10] MEDS: FOLIC ACID 1 MG in NA CHLORIDE 0.9% 50 ML IV SCH (12:48)
--- NOTE | 2021-03-10 13:07 | CON ---
Date of Consultation: 03/08/2021 Reason For Consultation: Atrial fibrillation. History Of Present Illness: Ms. Vance is a 70-year-old woman, who has a history of terminal ileum cancer stage IV, hypertension, history of DVT, lymphedema, gastroesophageal reflux disease, who was a dmitted on 03/05/2021 with sepsis and UTI that went into atrial fibrillation. I was consulted. Her atrial fibrillation rate is fast, but she has no cardiac symptoms. Denied PND, orthopnea, pedal federica a, palpitations, or syncope. Past Medical History: As stated above. Allergies: NONE. Review of Systems: Negative. Social History: Negative. Family History: Negative. Medications: At home include Lovenox, Pepcid, hydralazine, Reglan, Coreg and steroids. Physical Examination: Vital Signs: Stable except for atrial fibrillation, rate of 110 HEENT: Negative. Neck: Supple, no bruit. Chest: Clear. Cardiac: Revealed atrial fibrillation. No murmurs, gallops, or rubs. Abdomen: Benign. Extremities: Revealed no clubbing, cyanosis, or edema. Diagnostic Data: Include a creatinine of 3.58, hemoglobin 8.6. Her BNP is 19,162. She has UTI. Impression And Plan: 1.Atrial fibrillation, new onset. We will start IV amiodarone. Her blood pressure will not tolerat e beta blockers. Get an echocardiogram on Wednesday. We can switch her to p.o. amiodarone, once her ra te is controlled. 2.Terminal ileum and uterine cancer. 3.Hypertension. 4.Lymphedema. 5.History of deep venous thrombosis, on Lovenox. 6.Gastroesophageal reflux disease. I agree with her present regimen otherwise. EBER/ABIEL Voice ID: [id number] Report ID: [id number]
[2021-03-10] MEDS ORDERED: ALTEPLASE 2 MG/VIAL IV PRN (13:52)
--- NOTE | 2021-03-10 13:52 | CON ---
Date of Consultation: 03/09/2021 Reason For Service: Hemodialysis access. History Of Present Illness: This is a case of a 70-year-old patient, female with history of renal in sufficiency, lymphedema, hypertension, cardiac disease with uterine cancer and peritoneal carcinomato sis, on chemotherapy at [facility]. The patient has been in the hospital with concern of sepsis. S he has extensive workup done including a Port-A-Cath on the right subclavian jugular region. She als o has a central line on the left femoral region since they couldn't access the Port-A-Cath and at the same time, she has a recent bilateral lower extremity clots. Dr. Garcia discussed the case with the gely aponte and they still want to do everything to be done even when they were explained to them the risks of this procedure including infection, bleeding, damage to adjacent structures, hemothorax, pneumoth orax, pericardiac tamponade, PE, DVTs, MS and even . They also understands the risk of pneumoth orax hemothorax. Yesterday, the family was deciding. We will obtain the venous ultrasound to see wh ich access do we have available at this time. I talked to the family. They are very sure that about a month ago, she developed bilateral lower extremity, so we are going to trying to stay away from [facility] area. Past Medical History: As above. Surgical History: Hysterectomy, Port-A-Cath in the right upper chest, abdominal catheter placed for intraperitoneal chemotherapy. Social History: She does not smoke. She does not drink alcohol. Family History: Noncontributory at this time. Review of Systems: As per H and P. Most of them obtained from the patient's family. Physical Examination: General: The patient is awake, alert. HEENT: Pupils anicteric. Chest: Bilateral breath sounds. Port-A-Cath on the right side. Abdomen: Soft and depressible. Nontender. Extremities: Central line on the left side. Port-A-Cath on the right subclavian jugular region. Laboratory Data: Blood work shows a WBC count of 8.9, hemoglobin of 8.6 with INR of 1.1, potassium i s 4.4, creatinine is 3.58. Assessment: A 70-year-old patient with multiple medical problems; carcinomatosis; uterine cancer, on chemotherapy. Right, now she is even on vasopressors. Still family wants to continue with treatmen t. We explained to them once again the benefits, alternatives, and risks of hemodialysis catheter pl acement which include, but not limited to infection, bleeding, damage to adjacent structures, anesthe golden complication, hemothorax, pneumothorax, DVTs, PEs, endocarditis, MS, and even . The right u pper side has been in use. Bilateral lower extremities we might have clots. So, that left us only f or the left upper side. These catheters have a little more anatomy issues to go with, so we are peter g to trying to see if the Doppler is negative, may have to get that access. I discussed the case wit h Dr. Garcia, Dr. Greenwood and they still want to continue with the surgery. HM/MODL Voice ID: [id number] Report ID: [id number]
--- NOTE | 2021-03-10 15:33 | PN ---
The patient in room ER hold 9. Subjective: The patient is a slightly improved compared to yesterday on her blood pressure. She is off the pressors now. Continues to be in atrial fibrillation, but heart rate is improved overall and in 80 to 100 range. She has been on amiodarone. She has had minimal urine output overnight, less t garcia 50 cc or so. She is slightly positive again. Overnight, she has had some emesis. She has had s ome nausea overnight as well. Her O2 sats have been reasonable with 2 L nasal cannula. She is satti ng at about 98% to 100%. Labs Reviewed: Her labs show WBC count of 8, hemoglobin 8.6, hematocrit 25.0, platelet count 169. C hemistries do show sodium to be at 139, potassium 4.4, chloride 106, bicarb is 22, BUN is 55, creatin ine has gone up slightly more along with the BUN to 3.84. Her BUN, creatinine yesterday were 51 and 3.58; before that 48, 3.37; before that 42 and 3.06. Her glucose is running in about 80 to 100 range . Last glucose was 99. Magnesium is stable at 1.9. Calcium is stable at about 8.9. The patient co ntinues to be on broad antibiotics. She has been getting vancomycin, cefepime. At this point, repea t blood cultures ordered by ID which are pending. She has had enterococcus on the growth of the woun d from the abdomen. She has been discontinued off norepinephrine and still her blood pressures are r easonable at about low 100 range to high 90s. Assessment And Plan: The patient still in critical condition. She is awaiting to get her dialysis c atheter placed. She has just left for the OR. Dr. Rosen is attempting a catheter which I assume is the neck, left side. The patient's ultrasound of the neck shows that those vessels are open. She also has the right femoral site open, however, it would be preferable to put the catheter in the [facility]. We have discussed this already with Dr. Rosen. Once catheter is placed, the patient has dialys is orders. I have discussed the case with dialysis nurses in detail this morning and the plan is to dialyze her for a short treatment 2 hours with 200 blood flows, use mannitol and albumin with treatme nt. I have also discussed the case with Infectious Disease. The patient is on cefepime currently. Her blood cultures are pending. If they come back negative, she may be discontinued off cefepime wit h the use of vancomycin post dialysis going forward. Vancomycin level at the last check yesterday wa s reasonable at about 25 and no further need of vancomycin was at that time. Once the patient is ravi lyzed, may need to dose her again with a perhaps smaller dose and then going forward, 1 g of vancomyc in per dialysis session. Obviously, we will defer to Infectious Disease for antibiotic adjustment. I have also discussed the case with Dr. Jeffers in the hospitalist rounding today. We have also had mul tiple discussions with the family including discussions yesterday with both sisters who were explaine d to them the frail condition of the patient and there was an understanding that even with attempted dialysis and catheter placement, the patient is in critical condition and hopefully she will tolerate dialysis well. We will attempt judicious dialysis post catheter placement. Will likely need dialys is on a daily basis to stabilize. Once stabilized, we will plan for chronic treatments if and as ind icated. /RADHAL Voice ID: [id number] Report ID: [id number]
--- NOTE | 2021-03-10 15:48 | EKG ---
Test Date: 2021-03-10 Test Time: 00:11:06 Quality Assurance Monitor Body: SARAH MEASUREMENT RESULTS: Intervals: Rate: 90 WA: 142 QRSD: 68 QT: 380 QTc: 464 Stanton: P: 23 WA: 142 QRS: 57 T: 91 INTERPRETIVE STATEMENTS: Normal sinus rhythm Possible Left atrial enlargement Borderline ECG Compared to ECG 06/08/2020 20:56:01 Left ventricular hypertrophy no longer present Electronically Signed On 03-10-21 15:46:59 CDT by Jelani Ge
[2021-03-10] MEDS: ONDANSETRON 4 MG/2 ML VIAL IV PRN ×2 (17:47→23:32)
[2021-03-10] MEDS: PROMETHAZINE INJ 25 MG/ML AMP IV PRN (20:24)
--- NOTE | 2021-03-10 21:49 | OP ---
Date of Procedure: 03/10/2021 Surgeon: Noah Rosen MD Preoperative Diagnoses: End-stage renal disease, uterine cancer, carcinomatosis, and chemotherapy at [facility] Deep vein thrombosis bilateral lower extremities. Postoperative Diagnoses: End-stage renal disease, uterine cancer, carcinomatosis, and chemotherapy a t [facility] Deep vein thrombosis bilateral lower extremities. Procedures: 1.Placement of a left internal jugular vein hemodialysis tunneled catheter. 2.Interpretation of fluoroscopy. 3.Left jugular vein ultrasound. Estimated Blood Loss: Less than 10 cc. Specimen: None. Finding: As above. Anesthesia: General plus local. Implant: HemoSplit tunneled catheter. Indications: This is a case of a 70-year-old patient with multiple medical problems in the ICU in cr itical condition, but also needs dialysis. The case was discussed with the family doctor that Dr. Iqbal, Dr. Greenwood. The family wants everything to be done, so they asked me to put a hemodialysis suraj ter. We have limited access. The right side has been used by the Port-A-Cath. In left femoral richard on, there is a clot. In left femoral area, there is a central line so gave us access. The only acce ss that we have is left subclavian and jugular area. So, we did an ultrasound in that region to make sure there was no clots in that region. The benefits, alternatives, and risks of placement of a hem odialysis catheter were discussed with the patient and the family, which include, but not limited to infection, bleeding, damage to adjacent structures, anesthesia complication, pneumothorax, hemothorax , cardiac tamponade, DVT, PE, HI, even . She also understands this may not relieve her symptoms . She might need more than one surgical intervention. She understood and signed a consent. Procedure In Detail: The patient was brought to the operating room, placed in supine position. Anes thesia was done without complication. Left neck and chest were prepped and draped in a usual sterile fashion. The patient was placed in Trendelenburg position. A time-out was called. A left jugular ultrasound was done to make sure there is patency of that blood vessel and there is no clot in that r egion. It looks patent, incompressible. At that moment, I proceeded under direct visualization to p lace a left 18-gauge needle in the left internal jugular vein at the first attempt. Guidewire was pa ssed through superior vena cava using fluoroscopy. Needle was removed. We made a small incision in the left upper chest, tunneled the catheter from left upper chest into the neck incision. I placed m ultiple dilators through the guidewire under direct visualization under fluoroscopy until we have the introducer sheath. Guidewire was removed. Catheter was placed. Then introducer sheath was peeled off. Excellent backflow and inflow. The line was heparinized solution, secured in place with 3-0 nylon and 3-0 chromic. The patient tolerated the procedure well. The patient was sent to [facility] in critical condition. She will be going to the ICU next. We understand that the patient pompa ve to be anticoagulation that also represent an issue for us since catheter on the vein, b ut I am going to let the primary doctor try to see the risks and benefits of each option. BRII/ABIEL Voice ID: [id number] Report ID: [id number]
[2021-03-10] MEDS ORDERED: METOCLOPRAMIDE 10 MG/2mL INJ IV SCH (22:00)
[2021-03-10] MEDS ORDERED: METOCLOPRAMIDE 10 MG/2mL INJ ONE (22:03)
[2021-03-11] MEDS: ONDANSETRON 4 MG/2 ML VIAL IV PRN ×2 (04:45→11:15)
[2021-03-11] MEDS ORDERED: ONDANSETRON 4 MG/2 ML VIAL ONE ×3 (05:05→13:50)
--- NOTE | 2021-03-11 05:09 | P.PN ---
Subjective Date of Service: 03/10/21 Patient is fairly stable. Hemodialysis was attempted but unsuccessful because the catheter clotted. Otherwise, patient's prognosis is poor. Patient with long-term prognosis is poor. Review of Systems 10-point ROS is otherwise unremarkable Physical Examination - Vital Signs Temperature: 96.9 F Blood Pressure: 101/75 Pulse: 96 Respirations: 27 Pulse Ox (%): 99 - Physical Exam General: Alert, In no apparent distress, Oriented x3 Respiratory: Diminished, Crackles/rales Cardiovascular: Regular rate/rhythm, Normal S1 S2, Systolic murmur Gastrointestinal: Normal bowel sounds, Soft and benign, Non-distended, No tenderness Musculoskeletal: No clubbing, No tenderness, Swelling (Bilateral lower extremity edema) Integumentary: Other (Bruising diffusely) Neurological: Sensation intact, Cranial nerves 3-12 intact - Studies Microbiology Data (last 24 hrs): 03/05/21 12:10 Blood - Blood Aerobic Blood Culture - Final No growth in 5 days. 03/05/21 12:10 Blood - Blood Anaerobic Blood Culture - Final No growth in 5 days. 03/05/21 11:45 Blood - Blood Aerobic Blood Culture - Final No growth in 5 days. 03/05/21 11:45 Blood - Blood Anaerobic Blood Culture - Final No growth in 5 days. Medications List Reviewed: Yes Assessment & Plan - Problems (Diagnosis) (1) Uterine malignant neoplasm Current Visit: Yes Status: Acute (2) Septic shock Current Visit: Yes Status: Acute (3) Gram-neg septicemia Current Visit: Yes Status: Acute (4) PAUL (acute kidney injury) Current Visit: Yes Status: Acute (5) Atrial fibrillation Current Visit: Yes Status: Acute (6) DVT (deep venous thrombosis) Current Visit: Yes Status: Acute (7) Lymphedema Current Visit: Yes Status: Acute (8) Severe protein-calorie malnutrition Current Visit: Yes Status: Acute - Plan Plan: 1. Continue with IV fluids antibiotics 2. Hemodialysis per Nephrology 3. Hemodialysis access catheter needs to be replaced for general surgery 4. Patient with malignant uterine cancer with peritoneal carcinomatosis. Prognosis is very poor. Family wants everything done at this time. Will have not long conversation with them 5. Rate control with amiodarone and monitor LFTs 6. Anti coagulation; short-acting for now until we get dialysis catheter replaced 7. Increase protein intake 8. GI and DVT prophylaxis Discharge Plan: Retirement Plan to discharge in: Greater than 2 days - Advance Directives Does patient have a Living Will: No Does patient have a Durable POA for Healthcare: No - Code Status/Comfort Care Code Status Assessed: Yes Code Status: Full Code Critical Care: Yes Time Spent Managing PTS Care (In Minutes): 50
[2021-03-11 05:35] VITALS: BMI 35.4
[2021-03-11 05:44] LABS: Basophils % 0.4 % (0-1.3); Hematocrit 23.4 % (36.0-45.0); Lymphocytes % 12.5 % (15.3-44.8); MPV 7.4 fL (7.6-11.3); RBC Red Blood Cell Count 3.07 M/uL (3.86-4.86)
[2021-03-11 05:57] LABS: Magnesium 1.9 mg/dL (1.8-2.4); Potassium 5.1 mmol/L (3.5-5.1)
[2021-03-11] MEDS: PANTOPRAZOLE 40 MG INJ IVP SCH (08:21)
[2021-03-11] MEDS: THIAMINE 200 MG/2 ML INJ IVP SCH (08:21)
[2021-03-11] MEDS: FOLIC ACID 1 MG in NA CHLORIDE 0.9% 50 ML IV SCH (08:21)
[2021-03-11] MEDS: CEFEPIME/SWI 1gm 10 ML IV SCH (08:22)
[2021-03-11] MEDS: LACTOBACILLUS/ACIDOPHILUS TAB PO SCH ×2 (08:22→14:00)
[2021-03-11] MEDS: WATER FOR INJ,STERILE 10 ML IV SCH (08:22)
[2021-03-11] MEDS: HYDROCORTISONE SUC 100 MG INJ IV SCH (08:23)
[2021-03-11] MEDS: ENSURE HIGH PROTEIN 237 ML CAN PO SCH (08:23)
--- NOTE | 2021-03-11 10:58 | P.PN ---
Subjective Date of Service: 03/11/21 Primary Care Provider: Dr. Garcia Chief Complaint: Nausea, vomiting Patient seen examined at bedside, clinical condition continues to deteriorate. Unable to establish dialysis catheter. Review of Systems 10-point ROS is otherwise unremarkable Physical Examination - Vital Signs Temperature: 98.2 F Blood Pressure: 99/59 Pulse: 97 Respirations: 22 Pulse Ox (%): 98 - Studies Laboratory Last Values WBC 9.40 K/uL (4.3-10.9) 03/05/21 11:45 RBC 4.04 M/uL (3.86-4.86) 03/05/21 11:45 Hgb 10.1 g/dL (12.0-15.0) L 03/05/21 11:45 Hct 30.7 % (36.0-45.0) L 03/05/21 11:45 MCV 75.8 fL (80-100) L 03/05/21 11:45 MCH 25.1 pg (27.0-35.0) L 03/05/21 11:45 MCHC 33.1 g/dL (32.0-36.0) 03/05/21 11:45 RDW 22.7 % (12.1-15.2) H 03/05/21 11:45 Plt Count 323 K/uL (152-406) 03/05/21 11:45 MPV 7.0 fL (7.6-11.3) L 03/05/21 11:45 Neutrophils % CT SCAN TECHNICIAN 03/05/21 11:45 Lymphocytes % CT SCAN TECHNICIAN 03/05/21 11:[address] SCAN TECHNICIAN 03/05/21 11:45 Segmented Neutrophils 87 % (40-80) H 03/05/21 11:[address] SCAN TECHNICIAN 03/05/21 11:45 Lymphocytes 8 % (15-42) L 03/05/21 11:45 Monocytes 5 % (0-10) 03/05/21 11:[address] SCAN TECHNICIAN 03/05/21 11:[address] SCAN TECHNICIAN 03/05/21 11:[address] SCAN TECHNICIAN 03/05/21 11:45 Platelet Estimate Adeq 03/05/21 11:45 Hypochromasia 1+ 03/05/21 11:45 Anisocytosis 1+ 03/05/21 11:45 Microcytosis Slight 03/05/21 11:45 Morphology Comment Noted (NOT SEEN) 03/05/21 11:45 Sodium 136 mmol/L (136-145) 03/05/21 11:45 Potassium 4.7 mmol/L (3.5-5.1) 03/05/21 11:45 Chloride 108 mmol/L (98-107) H 03/05/21 11:45 Carbon Dioxide 17 mmol/L (21-32) L 03/05/21 11:45 BUN 38 mg/dL (7-18) H 03/05/21 11:45 Creatinine 2.79 mg/dL (0.55-1.3) H 03/05/21 11:45 Estimated GFR 20 mL/min (=/>90) L 03/05/21 11:45 Glucose 96 mg/dL (74-106) 03/05/21 11:45 Lactic Acid 1.2 mmol/L (0.4-2.0) 03/05/21 11:45 Calcium 9.2 mg/dL (8.5-10.1) 03/05/21 11:45 Total Bilirubin 0.7 mg/dL (0.2-1.0) 03/05/21 11:45 Direct Bilirubin 0.3 mg/dL (0-0.2) H 03/05/21 11:45 AST 37 U/L (15-37) 03/05/21 11:45 ALT 26 U/L (12-78) 03/05/21 11:45 Alkaline Phosphatase 80 U/L (45-117) 03/05/21 11:45 Serum Total Protein 6.3 g/dL (6.4-8.2) L 03/05/21 11:45 Albumin 2.2 g/dL (3.4-5.0) L 03/05/21 11:45 Globulin 4.1 g/dL (2.3-3.5) H 03/05/21 11:45 Albumin/Globulin Ratio 0.5 (1.1-1.8) L 03/05/21 11:45 Lipase 109 U/L (73-393) 03/05/21 11:45 Procalcitonin 0.25 ng/mL (<0.050) H 03/05/21 11:45 Urine RBC Cancelled 03/05/21 13:56 Urine WBC Cancelled 03/05/21 13:56 Ur Squamous Epith Cells Cancelled 03/05/21 13:56 Ur Urothelial Cells Cancelled 03/05/21 13:56 Calcium Oxalate Crystal Cancelled 03/05/21 13:56 Uric Acid Crystals Cancelled 03/05/21 13:56 Triple Phos Crystals Cancelled 03/05/21 13:56 Other Crystals Cancelled 03/05/21 13:56 Amorphous Sediment Cancelled 03/05/21 13:56 Glitter Cells Cancelled 03/05/21 13:56 Urine Bacteria Cancelled 03/05/21 13:56 Hyaline Casts Cancelled 03/05/21 13:56 Fine Granular Casts Cancelled 03/05/21 13:56 Coarse Granular Casts Cancelled 03/05/21 13:56 Waxy Casts Cancelled 03/05/21 13:56 RBC Casts Cancelled 03/05/21 13:56 WBC Casts Cancelled 03/05/21 13:56 Urine Mucus Cancelled 03/05/21 13:56 Urine Other Cancelled 03/05/21 13:56 Urine Trichomonas Cancelled 03/05/21 13:56 Urine Yeast Cancelled 03/05/21 13:56 Ur Yeast w Hyphae Cancelled 03/05/21 13:56 Urine Yeast (Budding) Cancelled 03/05/21 13:56 Urine Sperm Cancelled 03/05/21 13:56 Urine Culture Reflexed Cancelled 03/05/21 13:56 Urine Total Volume Cancelled 03/05/21 13:56 Microbiology Data (last 24 hrs): 03/05/21 12:10 Blood - Blood Aerobic Blood Culture - Final No growth in 5 days. 03/05/21 12:10 Blood - Blood Anaerobic Blood Culture - Final No growth in 5 days. 03/05/21 11:45 Blood - Blood Aerobic Blood Culture - Final No growth in 5 days. 03/05/21 11:45 Blood - Blood Anaerobic Blood Culture - Final No growth in 5 days. Medications List Reviewed: Yes Assessment And Plan - Plan Physical Exam: General: Alert, Cachectic HEENT: Atraumatic, Normocephalic Neck: Supple, 2+ carotid pulse no bruit Respiratory: Clear to auscultation bilaterally, Normal air movement Cardiovascular: No edema, Normal pulses Capillary refill: <2 Seconds Gastrointestinal: Soft and benign Musculoskeletal: No clubbing, No swelling, No contractures Conclusions/Impression: Antibiotics Vancomycin Start: 03/06 stop: -- Cefepime Start: 03/06 stop:-- Assessment: -UTI -nausea vomiting unable to tolerate p.o. intake -anemia -protein caloric malnutrition -CKD -history of uterine cancer Plan: -urinary analysis positive for bacteria WBCs, urine culture grew mixed tyra. Ascites fluid collected alkaline 03/06 grew Enterococcus. Repeat blood cultures pending. Patient has multiple condition continues to to tear E. renal function deteriorated, nephrology is working to establish a dialysis catheter however due to patient's cancer and hypercoagulability state they are unable to place a line. Plan was to discontinue cefepime and continue vancomycin with dialysis on dialysis days. Continue cefepime at this time as vancomycin is being withheld as patient has not yet received dialysis. -per sister patient had a barium swallow performed at previous facility that was negative for any acute abnormalities. Patient still on able to tolerate p.o. intake and has severe nausea vomiting. Patient has well be a min and is dehydrated. Recommend GI consult with further upper GI workup. -medical management per primary team -continue monitor BMP and CMP -continue monitor for signs of infection Plan of care discussed with Dr. Roberts Thank you for consultation.
--- NOTE | 2021-03-11 11:44 | PN ---
Date of Progress Note: 03/11/2021 Subjective: The patient is less alert currently, seen in the intensive care unit hold in the emergen cy room, room #9. The patient is a little bit more lethargic now. She is having some more belching. She has some vomitus on the towel in front of her and then she has been having some nausea. She pompa s not been able to keep anything or keep much down. She has some oxygen going. O2 sats are okay at about 98%. She has been in atrial fibrillation, but her heart rate is reasonably controlled with hea rt rate in the 90 range. Her blood pressure has been slightly on the lower side since overnight. It had been about 110, 111 and 108 systolic yesterday, but this morning running in the high 90 range. She is alert enough to answer some questions, but she is trying to speak, but is much more weaker to be able to give a proper answer. She is still on Maxipime. She has gotten some vancomycin. Her las t level was 25. She had a central line placed on the left side which was pushing in, but did not dra hand. We could not dialyze her yesterday. The dialysis was attempted for about less than 30 minutes an d the line completely clotted off. We tried tPA with no avail. We contacted Dr. Rosen to see if the line could be replaced or adjusted. He has been planning to do that. He has also looked at the ultrasound which allows availability of groin catheter placement as well. He may be intending to do that as the neck catheter may be needed for perhaps using for other IVs. The patient is stable from her hemoglobin point of view. She does not seem to have any active bleeding. She does have some ent erococcus growing from her abdominal wound. Has been on antibiotics with vancomycin and cefepime. I discussed with ID as well. They are going to be checking blood cultures and if blood cultures are n egative, may just stop the cefepime and continue using the vancomycin which would cover the enterococ cus. Her creatinine has been steadily going up. Creatinine this morning is 4.27, was 3.84 yesterday , which was also elevated from the day before. Her hemoglobin is reasonably stable, but has dropped slightly from yesterday from 8.6 to 7.9. The patient did have a central line placed yesterday as wel l. Her platelet counts are 131. Her WBC count is normal range of 7.8. The patient is seen and exam ined. Objective: Vital signs: Stable with blood pressure in the 90 range. She is not on any pressors cur rently. She is on amiodarone and her pulse is in the 90 range and irregularly irregular. She has be en in AFib. O2 sats are 98%. She is getting 2 L nasal cannula. Lungs: Clear anteriorly but does have some crackles at the bases. Abdomen: Soft with anasarca. LOWER EXTREMITIES: Swelling, worse compared to yesterday, positive 3 to 4 bilaterally. Laboratory Data: Reviewed. Labs show WBC count 7.8, hemoglobin 7.9, hematocrit 23.4, platelet count of 131. Chemistry shows sodium 138, potassium 5.1, chloride 106, bicarb 19, BUN 61, creatinine 4.27 , glucose 107, prolactin level 9.1. Medications: Medications in the chart reviewed. The patient is currently on amiodarone. She is on cefepime. She has gotten vancomycin. She is getting Solu-Cortef 50 mg IV. She has been on norepi, but currently off the pressors. She has gotten thiamine. She has had vancomycin. Assessment And Plan: Critically ill patient with hardly any urine output, worsening creatinine, wors ening shortness of breath, worsening nausea, uremic. At this point would benefit from dialysis. We have discussed this with the family. Her critical condition has been communicated with the family. Dr. Rosen has attempted to place a catheter yesterday. Catheter was successfully placed, however, is not functional. This could be because the catheter is pressing against or is being affected by t he port that is on the right side. We may have to move the port or take it out in the future if a fu nctional catheter in the neck is needed and required. I have discussed this with Dr. Rosen. Also , I have discussed this with the patient's sister. The patient at this point is getting more letharg ic and sleepy and unable to give proper answers and her condition is somewhat critical. Discussed th is with Dr. Rosen. He will be attempting to put a femoral catheter. The neck catheter perhaps co uld be used for other IVs like if she needed a pressor or if amiodarone needed to be continued. Evans tayla, the groin catheter then can be used for dialysis. If we can successfully dialyze her for few ti mes, her condition may stabilize at least from that point of view and then other issues like infectio n and possibility of sepsis, low blood pressures can be dealt better in the setting of atrial fibrill ation. The patient also has antibiotics going. I have discussed it with ID. Cefepime may get disco ntinued if the patient has negative blood cultures for the enterococcus. The vancomycin should be londono fficient coverage and can be dosed up post dialysis assuming the patient is tolerating dialysis well. I have explained to the family that the patient's condition is critical. Once we are able to succe ssfully dialyze her, that would still not be a panacea to her other issues including the infection, p ossibility of sepsis, low blood pressures, atrial fibrillation, weak heart, uterine cancer with metas tasis. They understand that and are hoping that if the patient can tolerate dialysis, she can have s ome more time to sort of spend with them. On the other hand, if condition worsens or if we are unabl e to dialyze her successfully due to inability to get a catheter that is functional due to her hyperc oagulable state and thrombosis, we may have to consider other options including hospice. /ABIEL Voice ID: [id number] Report ID: [id number]
[2021-03-11 11:51] VITALS: O2SAT 100
--- NOTE | 2021-03-11 11:56 | PN ---
Addendum: The patient is seen again. Dr. Rosen is in the room also, attempting to do a left groi n femoral dialysis catheter, but the line is just not going through. He showed me the line. It seem s all clotted up. There are blood clots coming out of that area as well even though the area was obed wn as clear on ultrasound. The patient seems to have a significant hypercoagulable state given her m etastasis and uterine cancer that seems to be getting worse. Given her condition frail, currently wi th uremic symptoms, unable to take any p.o. intake. She is also getting very somnolent. Her blood p ressures are low. She seems to have infection, multiorgan failure. I discussed this with the patien t's sister in some detail. The patient had told me when she was alert to let the patient's sister ma ke decisions for her and to talk to the patient's sister if I needed to have any new questions on vero n of care. The patient's sister explained to her that I would recommend hospice at this point. I do not see where else we can attempt a dialysis line and even if there was a location, I do not see ravi lysis will be the panacea over here given her overall conditions and multiple other organ involvement and her current decline which is so rapid. The patient's sister is in agreement. At this point, th ey are agreeing to hospice. I have discussed with Dr. Rosen and also mentioned to Dr. Jeffers who is the hospitalist to consult hospice and to keep the patient comfortable at this last juncture of her of her life. Also, we will allow the nurses to put an NG tube in to help the patient for comfort as the patient is having significant nausea, belching, and looks like she is going to aspirate and she i s so uncomfortable right now with the belching. So, in summary, the patient's sister is in agreement with hospice. Discussed with Dr. Jeffers. We will plan on hospice consult. We will plan on keeping t he patient comfortable. Discontinue all medications that are not needed for comfort. Monitor the pa tient's pain, breathing and nausea. Medications to assist with these. NG tube to assist with nausea. /ABIEL Voice ID: [id number] Report ID: [id number]
[2021-03-11] MEDS ORDERED: LORazepam 2 MG/ML VIAL IV PRN (12:17)
[2021-03-11] MEDS ORDERED: FENTANYL CITR 100 MCG/2 ML IV PRN (12:17)
[2021-03-11] MEDS ORDERED: FENTANYL CITR 100 MCG/2 ML ONE (12:43)
--- NOTE | 2021-03-11 13:02 | ECHO ---
HEIGHT: 5 ft 6 in WEIGHT: 219 lb 8 oz DATE OF STUDY: 03/11/[address]: Angel Greenwood DO 2-DIMENSIONAL: YES M.MODE: YES DOPPLER: YES COLOR FLOW: YES TDS: NO PORTABLE: NO DEFINITY: NO BUBBLE STUDY: NO DIAGNOSIS: SEPTIC SHOCK CARDIAC HISTORY: CATHERIZATION: NO SURGERY: NO PROSTHETIC VALVE: NO PACEMAKER: NO MEASUREMENTS (cm) DIASTOLIC (NORMALS) SYSTOLIC (NORMALS) IVSd 0.8 (0.6-1.2) LA Diam (1.9-4.0) LVEF 55% LVIDd 2.4 (3.5-5.7) LVIDs 1.7 (2.0-3.5) %FS 27% LVPWd 0.9 (0.6-1.2) Ao Diam 2.4 (2.0-3.7) 2 DIMENSIONAL ASSESSMENT: RIGHT ATRIUM: NORMAL LEFT ATRIUM: NORMAL RIGHT VENTRICLE: NORMAL LEFT VENTRICLE: NORMAL TRICUSPID VALVE: NORMAL MITRAL VALVE: MITRAL ANNULAR CALCIFICATION PULMONIC VALVE: NORMAL AORTIC VALVE: NORMAL PERICARDIAL EFFUSION: NONE AORTIC ROOT: NORMAL LEFT VENTRICULAR WALL MOTION: NORMAL DOPPLER/COLOR FLOW: NORMAL COMMENTS: NORMAL LEFT VENTRICULAR SIZE AND FUNCTION. NO WALL MOTION ABNORMALITY. NO EFFUSION. MITRAL ANNULAR CALCIFICATION. TECHNOLOGIST: Les CUI
[2021-03-11] MEDS: PROMETHAZINE INJ 25 MG/ML AMP IV PRN (13:34)
[2021-03-11] MEDS ORDERED: PROMETHAZINE INJ 25 MG/ML AMP ONE (13:55)
[2021-03-12 04:50] LABS: HBsAG Nonreactive (Nonreactive)
[2021-03-17 03:13] VITALS: BP 101/75; TEMP 96.9
--- NOTE | 2021-03-17 03:16 | P.DS ---
Discharge Date: 03/11/21 Primary Care Provider: Dr. Garcia Disposition: HOSPICE-MEDICAL FACILITY Discharge Condition: FAIR Reason for Admission: Nausea, vomiting - Problems (1) Uterine malignant neoplasm Status: Acute (2) Septic shock Status: Acute (3) Gram-neg septicemia Status: Acute (4) PAUL (acute kidney injury) Status: Acute (5) Atrial fibrillation Status: Acute (6) DVT (deep venous thrombosis) Status: Acute (7) Lymphedema Status: Acute (8) Severe protein-calorie malnutrition Status: Acute Brief History of Present Illness: Patient is a 70-year-old female with history of chronic renal disease, chronic lymphedema, hypertension, uterine cancer with carcinomatosis and chronic pleural effusion. Patient presented to the emergency room with increasing nausea and vomiting. Patient has been dehydrated. Patient has had poor oral intake. Patient recently evaluated this past week an for similar issues. She was sent home. Since that time she has had poor oral intake. Increased nausea vomiting noted. She denies any fever, chills, no sick contacts noted. She denies any diarrhea. Some urinary discomfort noted. Some shortness of breath also reported. She denies any chest pain. She came to the ER for further evaluation. In the ER patient appeared slightly dehydrated. Initial blood pressure was low with mild tachycardia. Patient was given fluid bolus with improvement. Vital signs now stable. White count 9.4, hemoglobin 10. Platelet count 303. Pro calcitonin 0.25. Lactic acid normal at 1.2. X-ray shows small chronic left pleural effusion. Sodium 136, potassium 4.7. Being of 30, creatinine 2.79 with a GFR of 20. Glucose 96. Urinalysis pending. Patient admitted for further evaluation and treatment. When I saw the patient ER, patient appeared stable. Vital signs stable and improved. Patient appears stable. Sister bedside. Patient reports her last chemotherapy was likely in January. Patient with history of DVT on Lovenox shots at home. Hospital Course: Patient is clinically not doing well. Unable to dialyze because of multiple clots diffusely. Dialysis access catheter has been clotted as well. Tried angiocath but did not have any success. Since were not able to dialyze family has decided to make patient comfortable. Spoke to patient's oncology doctor at [facility]'s and he concurred with our decision. He feels patient's urine cancer is fairly advanced and with her current clinical status her prognosis is poor. He had talked to them regarding hospice in the past. The patient will go to inpatient hospice at this time. Vital Signs/Physical Exam: Temp Pulse Resp BP Pulse Ox 96.9 F 96 H 27 H 101/75 99 03/17/21 03:13 03/17/21 03:13 03/17/21 03:13 03/17/21 03:13 03/17/21 03:13 General: Confused Respiratory: Diminished, Crackles/rales, Expiratory wheezes Laboratory Data at Discharge: WBC 7.80 K/uL (4.3-10.9) 03/11/21 05:18 Hgb 7.9 g/dL (12.0-15.0) L 03/11/21 05:18 Hct 23.4 % (36.0-45.0) L 03/11/21 05:18 Plt Count 131 K/uL (152-406) L D 03/11/21 05:18 PT 12.8 SECONDS (9.5-12.5) H 03/09/21 05:00 INR 1.11 03/09/21 05:00 Sodium 138 mmol/L (136-145) 03/11/21 05:18 Potassium 5.1 mmol/L (3.5-5.1) 03/11/21 05:18 BUN 61 mg/dL (7-18) H 03/11/21 05:18 Creatinine 4.27 mg/dL (0.55-1.3) H 03/11/21 05:18 Glucose 107 mg/dL (74-106) H 03/11/21 05:18 Uric Acid 10.1 mg/dL (2.6-6.0) H 03/07/21 05:41 Phosphorus 4.6 mg/dL (2.5-4.9) 03/07/21 05:41 Magnesium 1.9 mg/dL (1.8-2.4) 03/11/21 05:18 Total Bilirubin 0.7 mg/dL (0.2-1.0) 03/05/21 11:45 AST 37 U/L (15-37) 03/05/21 11:45 ALT 26 U/L (12-78) 03/05/21 11:45 Alkaline Phosphatase 80 U/L (45-117) 03/05/21 11:45 Lipase 109 U/L (73-393) 03/05/21 11:45 Home Medications: carvediloL [Coreg] 6.25 mg PO BID 01/03/19 Enoxaparin Sodium [Lovenox 80 MG INJ] 80 mg SQ DAILY 03/06/21 Ergocalciferol (Vitamin D2) [Vitamin D2] 50,000 units PO SEECOM 03/06/21 Famotidine [Pepcid] 20 mg PO DAILY 03/06/21 Hydralazine [Apresoline] 10 mg PO DAILYPRN PRN 03/06/21 Metoclopramide [Reglan] 5 mg PO QID 03/06/21 OLANZapine [Olanzapine] 2.5 mg PO Q6HP PRN 03/06/21 Sennosides/Docusate Sodium [Senexon-S 50-8.6 mg Tablet] 1 tab PO BID 03/06/21 dexAMETHasone [Dexamethasone] 1 mg PO DAILY 03/06/21 ondansetron HCL [Ondansetron HCl] 8 mg PO Q8HP PRN 03/06/21 Physician Discharge Instructions: Proceed to inpatient hospice Diet: Renal Activity: Fall precautions Followup: Teresita Garcia MD [Primary Care Provider] - Time spent managing pt's care (in minutes): 35
== END 2021-03-11 18:00 | disposition hospice, inpatient (51) | DRG 871 ==
LOC: ER 10:09 → ERHOLD 15:00 → 2ND 20:50 → ERHOLD 03-06 04:16
PROVIDERS: ADMIT Family Medicine; ATTEND Family Medicine
PROC: 06HN33Z Insertion of Infusion Device into Left Femoral Vein, Percutaneous Approach (ICD-10-PCS; principal; 2021-03-06)
PROC: 05HN33Z Insertion of Infusion Device into Left Internal Jugular Vein, Percutaneous Approach (ICD-10-PCS; 2021-03-10)
PROC: 5A1D70Z Performance of Urinary Filtration, Intermittent, Less than 6 Hours Per Day (ICD-10-PCS; 2021-03-10)
DX: A41.50 Gram-negative sepsis, unspecified (principal); R65.21 Severe sepsis with septic shock; N39.0 Urinary tract infection, site not specified; N17.9 Acute kidney failure, unspecified; R18.8 Other ascites; E44.0 Moderate protein-calorie malnutrition; J90 Pleural effusion, not elsewhere classified; E87.2 Acidosis; C78.6 Secondary malignant neoplasm of retroperitoneum and peritoneum; R64 Cachexia; C55 Malignant neoplasm of uterus, part unspecified; I48.91 Unspecified atrial fibrillation; D63.8 Anemia in other chronic diseases classified elsewhere; K21.9 Gastro-esophageal reflux disease without esophagitis; Z68.35 Body mass index [BMI] 35.0-35.9, adult; E88.09 Other disorders of plasma-protein metabolism, not elsewhere classified; I89.0 Lymphedema, not elsewhere classified; E83.42 Hypomagnesemia; I95.9 Hypotension, unspecified; D50.9 Iron deficiency anemia, unspecified; E86.0 Dehydration; Z86.718 Personal history of other venous thrombosis and embolism; Z79.01 Long term (current) use of anticoagulants; Z20.822 Contact with and (suspected) exposure to COVID-19
CPT/HCPCS: 36415; 71045; 74176; 76000; 76770; 80048; 80076; 80202; 81001; 81003; 81015; 82435; 82550; 82570; 82607; 82728; 82805; 83540; 83605; 83690; 83735; 83880; 84100; 84132; 84145; 84156; 84300; 84439; 84443; 84466; 84550; 85025; 85610; 86317; 86705; 87040; 87070; 87077; 87086; 87088; 87186; 87205; 87340; 90935; 93005; 93306; 93970; 93971; 94010; 96361; 96365; 96375; 99285; C1752; C9113; J0282; J0330; J0692; J0696; J1644; J1720; J2150; J2405; J2550; J2704; J2765; J2920; J2997; J3010; J3370; J3411; J3475; J7030; J7040; J7060; J7120; P9045; P9047; U0003